=== PATIENT | female | born 1975 | race Caucasian/White ===

== ENCOUNTER 2016-08-04 11:58 | Emergency (ER) | payer OTHER ==
[2016-08-04 12:40] LABS: Hematocrit 41 % (35-47); Hemoglobin 13.8 g/dl (12.0-16.0); Mean Corpuscular HGB Conc 34 g/dl (31-36); Mean Corpuscular Hemoglobin 29 pg (27-31); Mean Corpuscular Volume 85 fL (80-97); Mean Platelet Volume 10 um3 (7.4-10.4); Red Blood Count 4.86 10^6/ul (4.0-5.4); Red Cell Distribution Width 14 % (10.5-15); White Blood Count 8.3 10^3/ul (3.5-10.8)
[2016-08-04 13:03] LABS: ALT 15 U/L (7-52); AST 16 U/L (13-39); Albumin 3.6 g/dL (3.2-5.2); Alkaline Phosphatase 89 U/L (34-104); Anion Gap 5 mmol/L (2-11); BUN/Creatinine Ratio 15.6 (8-20); Blood Urea Nitrogen 14 mg/dL (6-24); CO2 Carbon Dioxide 24 mmol/L (22-32); Chloride 108 mmol/L (101-111); EGFR African American 89.6 (>60); EGFR Non-African American 69.7 (>60); Globulin 2.6 g/dL (2-4); Glucose 110 mg/dL (70-100); Potassium 3.8 mmol/L (3.5-5.0); Sodium 137 mmol/L (133-145); Total Protein 6.2 g/dL (6.4-8.9)
[2016-08-04 13:23] LABS: Acetaminophen < 15 mcg/mL; Alcohol < 10 mg/dL (<10); Salicylate < 2.50 mg/dL (<30)
[2016-08-04] MEDS ORDERED: LORazepam TAB(*) 1 MG ONE (16:16)
[2016-08-04] MEDS ORDERED: QUEtiapine TAB* 25 MG PO SCH (23:00)
[2016-08-05 03:15] VITALS: BP 115/65
--- NOTE | 2016-08-07 09:39 | ED ---
Anay Mesa Matthew, scribed for Terry Galeana MD on 08/04/16 at 1247 . Altered Mental Status - HPI Summary HPI Summary: A 40 y/o female presents to the ED with an altered mental status. The patient states that she is suicidal and wants to "punch" things around her. The mental health unit called police, because they felt the patient was suicidal. She states that she does not have any weapons. She denies homicidal ideation. The patient has had some mild nausea for the past two days. She denies chest pain, vomiting, SOB and weakness. At the [facility], the patient was given an extra 0.5mg of Klonopin for a total of 1mg. - History Of Current Complaint Stated Complaint: 945 Time Seen by Provider: 08/04/16 12:24 Hx Obtained From: Patient Hx Last Menstrual Period: 12/18/13 Onset/Duration: Still Present Timing: Constant Severity Initially: Moderate Severity Currently: Moderate Character: Lethargy Aggravating Factor(s): Nothing Alleviating Factor(s): Nothing Associated Signs And Symptoms: Positive: Nausea - mild for the past two days Has Suicidal: Thoughts - Allergies/Home Medications Allergies/Adverse Reactions: Allergies Allergy/AdvReac Type Severity Reaction Status Date / Time Levofloxacin [From Levaquin] Allergy Intermediate Rash Verified 07/10/16 17:07 Methylphenidate Allergy Intermediate See Comment Verified 07/10/16 17:07 [From Ritalin] Prednisone Allergy Intermediate Anxiety Verified 07/10/16 17:07 PMH/Surg Hx/FS Hx/Imm Hx Endocrine/Hematology History: Denies: Hx Anticoagulant Therapy, Hx Blood Disorders, Hx Blood Transfusions, Hx Bone Marrow Disease, Hx Diabetes, Hx Systemic Lupus Erythematosus, Hx Sickle Cell Disease, Hx Thyroid Disease, Hx Anemia, Hx Unexplained Bleeding, Other Endocrine/Hematological Disorders Cardiovascular History: Reports: Hx Hypercholesterolemia Denies: Hx Hypertension Respiratory History: Reports: Hx Asthma Denies: Hx Chronic Bronchitis, Hx Chronic Obstructive Pulmonary Disease (COPD ), Hx Cystic Fibrosis, Hx Lung Cancer, Hx Pleural Effusion, Hx Pneumonia, Hx Pulmonary Edema, Hx Pulmonary Embolism, Hx Seasonal Allergies, Hx Sleep Apnea, Other Respiratory Problems/Disorders GI History: Reports: Hx Gastroesophageal Reflux Disease, Hx Irritable Bowel Denies: Hx Cirrhosis, Hx Crohn's Disease, Hx Diverticulosis, Hx Gall Bladder Disease, Hx Gastrointestinal Bleed, Hx Hiatal Hernia, Hx Jaundice, Hx Obstructive Bowel, Hx Ileostomy, Hx Pyloric Stenosis, Hx Ulcer, Other GI Disorders Musculoskeletal History: Denies: Hx Arthritis, Hx Back Problems, Hx Bursitis, Hx Congenital Bone Abnormalities, Hx Fibromyalgia, Hx Gout, Hx Orthopedic Injury, Hx Osteoporosis, Hx Scoliosis, Hx Tendonitis, Other Musculoskeletal History Sensory History: Reports: Hx Contacts or Glasses Denies: Hx Cataracts, Hx Eye Injury, Hx Eye Prosthesis, Hx Glaucoma, Hx Legally Blind, Hx Macular Degeneration, Hx Vision Problem, Hx Deafness, Hx Hearing Aid, Hx Hearing Problem, Other Sensory Impairments Opthamlomology History: Reports: Hx Contacts or Glasses Denies: Hx Cataracts, Hx Eye Injury, Hx Eye Prosthesis, Hx Glaucoma, Hx Legally Blind, Hx Macular Degeneration, Hx Vision Problem, Other Sensory Impairments Neurological History: Reports: Hx Migraine, Hx Seizures - Pseudoseizures (per pt ), Other Neuro Impairments/Disorders - seizures versus psychogenic events Denies: Hx Dementia, Hx Developmental Delay, Hx Headaches, Hx Nerve Disease, Hx Spinal Cord Injury, Hx Transient Ischemic Attacks (TIA) Psychiatric History: Reports: Hx Anxiety, Hx Depression, Hx Post Traumatic Stress Disorder, Hx Inpatient Treatment, Hx Community Mental Health Tx, Hx Bipolar Disorder, Hx Suicide Attempt Denies: Hx Attention Deficit Hyperactivity Disorder, Hx Eating Disorder, Hx Panic Disorder, Hx Schizophrenia, Hx of Violent Episodes Against Others, Hx Substance Abuse, Other Psychiatric Issues/Disorders - Immunization History Date of Tetanus Vaccine: UNKNOWN Date of Influenza Vaccine: 2012 Infectious Disease History: No Infectious Disease History: Denies: Hx Clostridium Difficile, Hx Hepatitis, Hx Human Immunodeficiency Virus (HIV), Hx of Known/Suspected MRSA, Hx Shingles, Hx Tuberculosis, Traveled Outside the [place] in Last 30 Days - Family History Known Family History: Positive: Seizure Disorder - Social History Alcohol Use: Occasionally Hx Substance Use: No Substance Use Type: Reports: None Hx Tobacco Use: Yes Smoking Status (MU): Heavy Every Day Tobacco Smoker Type: Cigarettes Amount Used/How Often: 1/2 PPD Length of Time of Smoking/Using Tobacco: 23 Have You Smoked in the Last Year: Yes Review of Systems Constitutional: Negative Positive: Photophobia ENT: Negative Cardiovascular: Negative Negative: Chest Pain Respiratory: Negative Negative: Shortness Of Breath Positive: Nausea. Negative: Vomiting Genitourinary: Negative Musculoskeletal: Negative Skin: Negative Neurological: Negative Negative: Weakness Psychological: Normal All Other Systems Reviewed And Are Negative: Yes Physical Exam - Summary Physical Exam Summary: GENERAL: Awake, alert, oriented, no acute distress HEENT: Head is normocephalic, atraumatic, anicteric sclera, clear conjunctiva, mucous membranes moist, no erythema, no discharge, no lesions, neck is supple, trachea is midline, no JVD CARDIAC: Regular rate and rhythm, S1, S2, no rub, no murmur, no gallop, 2+ radial and pedal pulses bilaterally RESPIRATORY: Clear to auscultation bilaterally with no rales, rhonchi, or wheezes, non-tender ABDOMEN: Bowel sounds positive, no bruit, soft, non-tender, no CVA tenderness EXTREMITIES: No edema, warm, dry, moving all extremities in a grossly normal manner NEUROLOGICAL: Mood is appropriate, moving all extremities in a grossly normal manner psychology: Drossy consistent with extra Klonopin dose Triage Information Reviewed: Yes Vital Signs On Initial Exam: Initial Vitals Temp Pulse Resp BP Pulse Ox 98.9 F 75 14 90/58 92 08/04/16 12:15 08/04/16 12:15 08/04/16 12:15 08/04/16 12:15 08/04/16 12:15 Vital Signs Reviewed: Yes Diagnostics - Vital Signs Vital Signs Temp Pulse Resp BP Pulse Ox 08/04/16 12:15 98.9 F 75 14 90/58 92 - Laboratory Lab Results: Lab Results 08/04/16 08/04/16 Range/Units 12:25 12:25 WBC 8.3 (3.5-10.8) 10^3/ul RBC 4.86 (4.0-5.4) 10^6/ul Hgb 13.8 (12.0-16.0) g/dl Hct 41 (35-47) % MCV 85 (80-97) fL MCH 29 (27-31) pg MCHC 34 (31-36) g/dl RDW 14 (10.5-15) % Plt Count 130 L (150-450) 10^3/ul MPV 10 (7.4-10.4) um3 Neut % (Auto) 68.7 (38-83) % Lymph % (Auto) 21.7 L (25-47) % [place] % (Auto) 6.8 (1-9) % Eos % (Auto) 2.1 (0-6) % Baso % (Auto) 0.7 (0-2) % Absolute Neuts (auto) 5.7 (1.5-7.7) 10^3/ul Absolute Lymphs (auto) 1.8 (1.0-4.8) 10^3/ul Absolute Monos (auto) 0.6 (0-0.8) 10^3/ul Absolute Eos (auto) 0.2 (0-0.6) 10^3/ul Absolute Basos (auto) 0.1 (0-0.2) 10^3/ul Absolute Nucleated RBC 0.01 10^3/ul Nucleated RBC % 0.1 Sodium 137 (133-145) mmol/L Potassium 3.8 (3.5-5.0) mmol/L Chloride 108 (101-111) mmol/L Carbon Dioxide 24 (22-32) mmol/L Anion Gap 5 (2-11) mmol/L BUN 14 (6-24) mg/dL Creatinine 0.90 (0.51-0.95) mg/dL Est GFR ( Amer) 89.6 (>60) Est GFR (Non-Af Amer) 69.7 (>60) BUN/Creatinine Ratio 15.6 (8-20) Glucose 110 H (70-100) mg/dL Calcium 9.0 (8.6-10.3) mg/dL Total Bilirubin 0.30 (0.2-1.0) mg/dL AST 16 (13-39) U/L ALT 15 (7-52) U/L Alkaline Phosphatase 89 (34-104) U/L Total Protein 6.2 L (6.4-8.9) g/dL Albumin 3.6 (3.2-5.2) g/dL Globulin 2.6 (2-4) g/dL Albumin/Globulin Ratio 1.4 (1-3) TSH 0.80 (0.34-5.60) mcIU/mL Beta HCG, Quant < 0.60 mIU/mL Salicylates < 2.50 (<30) mg/dL Acetaminophen < 15 mcg/mL Serum Alcohol < 10 (<10) mg/dL Result Diagrams: 08/04/16 12:25 08/04/16 12:25 Lab Statement: Any lab studies that have been ordered have been reviewed, and results considered in the medical decision making process. Altered Mental Statu Course/Dx - Course Assessment/Plan: The patient is cleared for [facility]HE. - Diagnoses Discharge Diagnoses: mood do nos Discharge - Discharge Plan Condition: Stable Disposition: TRANS HIGHER LVL OF CARE FAC Referrals: Camilo Osman MD [Primary Care Provider] - The documentation as recorded by the Anay baugh Matthew accurately reflects the service I personally performed and the decisions made by Kevrin anaya Steven, MD.
== END 2016-08-05 03:00 | disposition short-term general hospital (02) ==
LOC: ED 11:58
DX: F39 Unspecified mood [affective] disorder (principal); E78.00 Pure hypercholesterolemia, unspecified; J45.909 Unspecified asthma, uncomplicated; K21.9 Gastro-esophageal reflux disease without esophagitis; F17.210 Nicotine dependence, cigarettes, uncomplicated
CPT/HCPCS: 36415; 80053; 80320; 80329; 84443; 84702; 85025; 93005; 99285; A9270-GY; G0480

== ENCOUNTER 2016-09-20 11:38 | Emergency (ER) | payer OTHER ==
[2016-09-20 13:47] LABS: Hematocrit 44 % (35-47); Hemoglobin 14.9 g/dl (12.0-16.0); Mean Corpuscular HGB Conc 34 g/dl (31-36); Mean Corpuscular Hemoglobin 29 pg (27-31); Mean Corpuscular Volume 85 fL (80-97); Mean Platelet Volume 10 um3 (7.4-10.4); Red Blood Count 5.18 10^6/ul (4.0-5.4); Red Cell Distribution Width 14 % (10.5-15); White Blood Count 6.2 10^3/ul (3.5-10.8)
[2016-09-20 14:04] LABS: ALT 9 U/L (7-52); AST 14 U/L (13-39); Alkaline Phosphatase 93 U/L (34-104); Anion Gap 6 mmol/L (2-11); Blood Urea Nitrogen 15 mg/dL (6-24); CO2 Carbon Dioxide 25 mmol/L (22-32); Calcium 9.5 mg/dL (8.6-10.3); Chloride 105 mmol/L (101-111); EGFR African American 84.8 (>60); Globulin 2.9 g/dL (2-4); Glucose 106 mg/dL (70-100); Magnesium 2.1 mg/dL (1.9-2.7); Potassium 4.1 mmol/L (3.5-5.0); Sodium 136 mmol/L (133-145); Total Protein 6.9 g/dL (6.4-8.9)
[2016-09-20 14:15] LABS: Alcohol < 10 mg/dL (<10)
[2016-09-20 15:16] VITALS: BP 95/58
--- NOTE | 2016-10-01 17:41 | ED ---
Anay Mesa Matthew, scribed for Supa Fermin MD on 09/20/16 at 1316 . Neurological HPI - HPI Summary HPI Summary: A 41 y/o female presents to the ED multiple seizures while at the dentist's office at 11:00 today. The patient has intermittent seizures and states that they are triggered by her stress and PTSD. The patient's last seizure was about a month ago. Associated symptoms currently include fatigue. She denies incontinence. The patient did not get a full night rest last night. The patient was ill a few weeks ago. She smokes, but does not use alcohol. - History of Current Complaint Chief Complaint: EDSeizure Stated Complaint: SEIZURE Time Seen by Provider: 09/20/16 12:06 Hx Obtained From: Patient Hx Last Menstrual Period: 12/18/13 Onset/Duration: Sudden Onset, Started hours ago, Resolved Current Severity: None Seizure Severity: Moderate Associated Signs and Symptoms: Positive: Seizure. Negative: Incontinent Bladder /Bowel - Additional Pertinent History Primary Care Physician: [id number] - Allergy/Home Medications Allergies/Adverse Reactions: Allergies Allergy/AdvReac Type Severity Reaction Status Date / Time Levofloxacin [From Levaquin] Allergy Intermediate Rash Verified 07/10/16 17:07 Methylphenidate Allergy Intermediate See Comment Verified 07/10/16 17:07 [From Ritalin] Prednisone Allergy Intermediate Anxiety Verified 07/10/16 17:07 PMH/Surg Hx/FS Hx/Imm Hx Endocrine/Hematology History: Denies: Hx Anticoagulant Therapy, Hx Blood Disorders, Hx Blood Transfusions, Hx Bone Marrow Disease, Hx Diabetes, Hx Systemic Lupus Erythematosus, Hx Sickle Cell Disease, Hx Thyroid Disease, Hx Anemia, Hx Unexplained Bleeding, Other Endocrine/Hematological Disorders Cardiovascular History: Reports: Hx Hypercholesterolemia Denies: Hx Hypertension Respiratory History: Reports: Hx Asthma Denies: Hx Chronic Bronchitis, Hx Chronic Obstructive Pulmonary Disease (COPD ), Hx Cystic Fibrosis, Hx Lung Cancer, Hx Pleural Effusion, Hx Pneumonia, Hx Pulmonary Edema, Hx Pulmonary Embolism, Hx Seasonal Allergies, Hx Sleep Apnea, Other Respiratory Problems/Disorders GI History: Reports: Hx Gastroesophageal Reflux Disease, Hx Irritable Bowel Denies: Hx Cirrhosis, Hx Crohn's Disease, Hx Diverticulosis, Hx Gall Bladder Disease, Hx Gastrointestinal Bleed, Hx Hiatal Hernia, Hx Jaundice, Hx Obstructive Bowel, Hx Ileostomy, Hx Pyloric Stenosis, Hx Ulcer, Other GI Disorders Musculoskeletal History: Denies: Hx Arthritis, Hx Back Problems, Hx Bursitis, Hx Congenital Bone Abnormalities, Hx Fibromyalgia, Hx Gout, Hx Orthopedic Injury, Hx Osteoporosis, Hx Scoliosis, Hx Tendonitis, Other Musculoskeletal History Sensory History: Reports: Hx Contacts or Glasses Denies: Hx Cataracts, Hx Eye Injury, Hx Eye Prosthesis, Hx Glaucoma, Hx Legally Blind, Hx Macular Degeneration, Hx Vision Problem, Hx Deafness, Hx Hearing Aid, Hx Hearing Problem, Other Sensory Impairments Opthamlomology History: Reports: Hx Contacts or Glasses Denies: Hx Cataracts, Hx Eye Injury, Hx Eye Prosthesis, Hx Glaucoma, Hx Legally Blind, Hx Macular Degeneration, Hx Vision Problem, Other Sensory Impairments Neurological History: Reports: Hx Migraine, Hx Seizures - Pseudoseizures (per pt ), Other Neuro Impairments/Disorders - seizures versus psychogenic events Denies: Hx Dementia, Hx Developmental Delay, Hx Headaches, Hx Nerve Disease, Hx Spinal Cord Injury, Hx Transient Ischemic Attacks (TIA) Psychiatric History: Reports: Hx Anxiety, Hx Depression, Hx Post Traumatic Stress Disorder, Hx Inpatient Treatment, Hx Community Mental Health Tx, Hx Bipolar Disorder, Hx Suicide Attempt Denies: Hx Attention Deficit Hyperactivity Disorder, Hx Eating Disorder, Hx Panic Disorder, Hx Schizophrenia, Hx of Violent Episodes Against Others, Hx Substance Abuse, Other Psychiatric Issues/Disorders - Immunization History Date of Tetanus Vaccine: UNKNOWN Date of Influenza Vaccine: 2012 Infectious Disease History: No Infectious Disease History: Denies: Hx Clostridium Difficile, Hx Hepatitis, Hx Human Immunodeficiency Virus (HIV), Hx of Known/Suspected MRSA, Hx Shingles, Hx Tuberculosis, Traveled Outside the [place] in Last 30 Days - Family History Known Family History: Positive: Unknown, Seizure Disorder - Social History Alcohol Use: Occasionally Hx Substance Use: No Substance Use Type: Reports: None Hx Tobacco Use: Yes Smoking Status (MU): Heavy Every Day Tobacco Smoker Type: Cigarettes Amount Used/How Often: 1/2 PPD Length of Time of Smoking/Using Tobacco: 23 Have You Smoked in the Last Year: Yes Review of Systems Positive: Fatigue. Negative: Fever, Chills Eyes: Negative Negative: Erythema ENT: Negative Negative: Sore Throat Cardiovascular: Negative Negative: Chest Pain Respiratory: Negative Negative: Shortness Of Breath Gastrointestinal: Negative Negative: Abdominal Pain, Vomiting, Nausea Genitourinary: Negative Negative: dysuria, hematuria, incontinence Musculoskeletal: Negative Positive: Myalgia. Negative: Edema Skin: Negative Negative: Rash Neurological: Other - seizure Psychological: Normal All Other Systems Reviewed And Are Negative: Yes Physical Exam Triage Information Reviewed: Yes Vital Signs On Initial Exam: Initial Vitals Temp Pulse Resp BP Pulse Ox 98.2 F 75 14 101/64 91 09/20/16 11:40 09/20/16 11:40 09/20/16 11:40 09/20/16 11:40 09/20/16 11:40 Vital Signs Reviewed: Yes Appearance: Positive: Well-Appearing, No Pain Distress, Well-Nourished Skin: Positive: Warm, Dry Head/Face: Positive: Other - Normocephalic; Atraumatic Eyes: Positive: Conjunctiva Clear ENT: Positive: Normal ENT inspection Dental: Positive: Other - top teeth are missing Neck: Positive: Supple, Nontender, No Lymphadenopathy, Other: - Full ROM Respiratory/Lung Sounds: Positive: Breath Sounds Present, Wheezes - Expiratory wheezing. Negative: Rales, Rhonchi, Stridor, Tracheal Deviation Cardiovascular: Positive: RRR, Other - Heart sounds normal; Intact distal pulses ; The pedal pulses are 2+ and symmetric. Radial pulses are 2+ and symmetric. Negative: Murmur Abdomen Description: Positive: Nontender, Soft, Other: - No Rebound. Negative: Distended, Guarding Bowel Sounds: Positive: Present Musculoskeletal: Negative: Edema Left, Edema Right Neurological: Positive: Alert, Oriented to Person Place, Time Psychiatric: Positive: Affect/Mood Appropriate - Mode Coma Scale Coma Scale Total: 15 Diagnostics - Vital Signs Vital Signs Temp Pulse Resp BP Pulse Ox 09/20/16 11:40 98.2 F 75 14 101/64 91 - Laboratory Lab Results: Lab Results 09/20/16 09/20/16 09/20/16 Range/Units 13:35 13:35 13:35 WBC 6.2 (3.5-10.8) 10^3/ul RBC 5.18 (4.0-5.4) 10^6/ul Hgb 14.9 (12.0-16.0) g/dl Hct 44 (35-47) % MCV 85 (80-97) fL MCH 29 (27-31) pg MCHC 34 (31-36) g/dl RDW 14 (10.5-15) % Plt Count 162 (150-450) 10^3/ul MPV 10 (7.4-10.4) um3 Neut % (Auto) 60.7 (38-83) % Lymph % (Auto) 29.9 (25-47) % [place] % (Auto) 6.4 (1-9) % Eos % (Auto) 2.0 (0-6) % Baso % (Auto) 1.0 (0-2) % Absolute Neuts (auto) 3.8 (1.5-7.7) 10^3/ul Absolute Lymphs (auto) 1.9 (1.0-4.8) 10^3/ul Absolute Monos (auto) 0.4 (0-0.8) 10^3/ul Absolute Eos (auto) 0.1 (0-0.6) 10^3/ul Absolute Basos (auto) 0.1 (0-0.2) 10^3/ul Absolute Nucleated RBC 0 10^3/ul Nucleated RBC % 0.1 INR (Anticoag Therapy) 0.92 (0.89-1.11) Sodium 136 (133-145) mmol/L Potassium 4.1 (3.5-5.0) mmol/L Chloride 105 (101-111) mmol/L Carbon Dioxide 25 (22-32) mmol/L Anion Gap 6 (2-11) mmol/L BUN 15 (6-24) mg/dL Creatinine 0.94 (0.51-0.95) mg/dL Est GFR ( Amer) 84.8 (>60) Est GFR (Non-Af Amer) 66.0 (>60) BUN/Creatinine Ratio 16.0 (8-20) Glucose 106 H (70-100) mg/dL Lactic Acid (0.5-2.0) mmol/L Calcium 9.5 (8.6-10.3) mg/dL Magnesium 2.1 (1.9-2.7) mg/dL Total Bilirubin 0.30 (0.2-1.0) mg/dL AST 14 (13-39) U/L ALT 9 (7-52) U/L Alkaline Phosphatase 93 (34-104) U/L Total Protein 6.9 (6.4-8.9) g/dL Albumin 4.0 (3.2-5.2) g/dL Globulin 2.9 (2-4) g/dL Albumin/Globulin Ratio 1.4 (1-3) Serum Alcohol < 10 (<10) mg/dL 09/20/16 Range/Units 13:35 WBC (3.5-10.8) 10^3/ul RBC (4.0-5.4) 10^6/ul Hgb (12.0-16.0) g/dl Hct (35-47) % MCV (80-97) fL MCH (27-31) pg MCHC (31-36) g/dl RDW (10.5-15) % Plt Count (150-450) 10^3/ul MPV (7.4-10.4) um3 Neut % (Auto) (38-83) % Lymph % (Auto) (25-47) % [place] % (Auto) (1-9) % Eos % (Auto) (0-6) % Baso % (Auto) (0-2) % Absolute Neuts (auto) (1.5-7.7) 10^3/ul Absolute Lymphs (auto) (1.0-4.8) 10^3/ul Absolute Monos (auto) (0-0.8) 10^3/ul Absolute Eos (auto) (0-0.6) 10^3/ul Absolute Basos (auto) (0-0.2) 10^3/ul Absolute Nucleated RBC 10^3/ul Nucleated RBC % INR (Anticoag Therapy) (0.89-1.11) Sodium (133-145) mmol/L Potassium (3.5-5.0) mmol/L Chloride (101-111) mmol/L Carbon Dioxide (22-32) mmol/L Anion Gap (2-11) mmol/L BUN (6-24) mg/dL Creatinine (0.51-0.95) mg/dL Est GFR ( Amer) (>60) Est GFR (Non-Af Amer) (>60) BUN/Creatinine Ratio (8-20) Glucose (70-100) mg/dL Lactic Acid 0.5 (0.5-2.0) mmol/L Calcium (8.6-10.3) mg/dL Magnesium (1.9-2.7) mg/dL Total Bilirubin (0.2-1.0) mg/dL AST (13-39) U/L ALT (7-52) U/L Alkaline Phosphatase (34-104) U/L Total Protein (6.4-8.9) g/dL Albumin (3.2-5.2) g/dL Globulin (2-4) g/dL Albumin/Globulin Ratio (1-3) Serum Alcohol (<10) mg/dL Result Diagrams: 09/20/16 13:35 09/20/16 13:35 Lab Statement: Any lab studies that have been ordered have been reviewed, and results considered in the medical decision making process. - EKG 12:35 Cardiac Rate: NL - 65 bpm EKG Interpretation: Sinus arrhythmia; No STEMI Course/Dx - Course Assessment/Plan: A 41 y/o female presents to the ED multiple seizures while at the dentist's office at 11:00 today. The patient has intermittent seizures and states that they are triggered by her stress and PTSD. Labs were reviewed. EKG shows sinus arrhythmia at 65 bpm. The patient will discharged home and follow- up with her PCP in two days. - Diagnoses Provider Diagnoses: PANIC ATTACK Discharge - Discharge Plan Condition: Stable Disposition: HOME Patient Education Materials: Panic Attack (ED) Referrals: Camilo Osman MD [Primary Care Provider] - 2 Days Additional Instructions: Please follow-up with your primary care physician in two days. The documentation as recorded by the Anay baugh Matthew accurately reflects the service I personally performed and the decisions made by , Supa Fermin MD.
== END 2016-09-20 15:16 | disposition home or self-care (01) ==
LOC: ED 11:38
DX: F41.0 Panic disorder [episodic paroxysmal anxiety] (principal); M79.1 Myalgia; R53.83 Other fatigue; R56.9 Unspecified convulsions; F17.210 Nicotine dependence, cigarettes, uncomplicated
CPT/HCPCS: 36415; 80053; 80320; 83605; 83735; 85025; 85610; 93005; 99282; G0480

== ENCOUNTER 2016-11-18 14:27 | Inpatient (IN) | payer OTHER ==
[2016-11-18 15:59] LABS: Hematocrit 43 % (35-47); Hemoglobin 14.4 g/dl (12.0-16.0); Mean Corpuscular HGB Conc 33 g/dl (31-36); Mean Corpuscular Hemoglobin 29 pg (27-31); Mean Corpuscular Volume 86 fL (80-97); Mean Platelet Volume 11 um3 (7.4-10.4); Red Blood Count 5.05 10^6/ul (4.0-5.4); Red Cell Distribution Width 15 % (10.5-15); White Blood Count 8.7 10^3/ul (3.5-10.8)
[2016-11-18 16:09] LABS: ALT 8 U/L (7-52); AST 12 U/L (13-39); Alkaline Phosphatase 101 U/L (34-104); Anion Gap 5 mmol/L (2-11); BUN/Creatinine Ratio 9.9 (8-20); Blood Urea Nitrogen 10 mg/dL (6-24); CO2 Carbon Dioxide 26 mmol/L (22-32); Calcium 9.3 mg/dL (8.6-10.3); Chloride 106 mmol/L (101-111); EGFR African American 78.1 (>60); EGFR Non-African American 60.7 (>60); Globulin 2.8 g/dL (2-4); Glucose 98 mg/dL (70-100); Sodium 137 mmol/L (133-145); Total Protein 6.8 g/dL (6.4-8.9)
[2016-11-18 16:10] LABS: Acetaminophen < 15 mcg/mL; Alcohol < 10 mg/dL (<10); Salicylate < 2.50 mg/dL (<30)
[2016-11-18 16:16] LABS: Urine Bacteria Absent (Absent); Urine Bilirubin Negative (Negative); Urine Glucose Negative (Negative); Urine Nitrite Negative (Negative)
[2016-11-18 16:19] LABS: TSH (Thyroid Stimulating Horm) 0.66 mcIU/mL (0.34-5.60)
[2016-11-18 16:25] LABS: Benzodiazepine Urine Screen None Detected (None Detect)
[2016-11-18] MEDS ORDERED: Nicotine Inhaler* 10 MG AMP INH PRN (19:27)
[2016-11-18] MEDS: Prazosin CAP* 1 MG PO SCH (21:17)
[2016-11-18] MEDS: buPROPion TAB* 75 MG PO SCH (21:17)
[2016-11-18] MEDS: traZODone TAB* 100 MG PO SCH (21:18)
[2016-11-18] MEDS: REXULTI 3 MG PO SCH (21:18)
[2016-11-18] MEDS: Mometasone/Formoter 200/5 MDI INH SCH (21:20)
--- NOTE | 2016-11-18 22:12 | ED ---
Yuan Mesa Aidan, scribed for Sandoval Rinaldi MD on 11/18/16 at 1659 . Psychiatric Complaint - HPI Summary HPI Summary: 41 y/o female presents to the ED via recommendation from her therapist because she claimed that she felt more unsafe than usual. Though she has had prior suicide attempts and claims that she wants to harm herself, she said she has no intention of committing suicide. - History Of Current Complaint Chief Complaint: EDMentalHealth Time Seen by Provider: 11/18/16 14:43 Hx Obtained From: Patient Hx Last Menstrual Period: 12/18/13 ?: No Onset/Duration: Sudden Onset, Lasting Hours, Still Present Timing: Intermittent Episode Lasting - Pt has episodes of suicidal thoughts but states she has no intention of taking her life Severity Initially: Moderate Severity Currently: Moderate Character: Depressed Aggravating Factor(s): Other - unknown Alleviating Factor(s): Other - unknown Associated Signs And Symptoms: Positive: Negative Related History: Positive For: Prior Psychiatric Issues - previous suicide attempt Has Suicidal: Reports: Thoughts, Has Prior Attempt(s). Denies: With A Plan, Demonstrates Gesture Has Homicidal: Denies: Thoughts, With A Plan, Demonstrates Gesture, Has Prior Attempt(s) - Risk Factor(s) Completed Suicide Risk Factors: White [place], Unemployed, Past Suicide Attempt - Allergies/Home Medications Allergies/Adverse Reactions: Allergies Allergy/AdvReac Type Severity Reaction Status Date / Time Levofloxacin [From Levaquin] Allergy Intermediate Rash Verified 11/18/16 19:07 Methylphenidate Allergy Intermediate See Comment Verified 11/18/16 19:07 [From Ritalin] Prednisone Allergy Intermediate Anxiety Verified 11/18/16 19:07 PMH/Surg Hx/FS Hx/Imm Hx Endocrine/Hematology History: Denies: Hx Anticoagulant Therapy, Hx Blood Disorders, Hx Blood Transfusions, Hx Bone Marrow Disease, Hx Diabetes, Hx Systemic Lupus Erythematosus, Hx Sickle Cell Disease, Hx Thyroid Disease, Hx Anemia, Hx Unexplained Bleeding, Other Endocrine/Hematological Disorders Cardiovascular History: Reports: Hx Hypercholesterolemia Denies: Hx Hypertension Respiratory History: Reports: Hx Asthma Denies: Hx Chronic Bronchitis, Hx Chronic Obstructive Pulmonary Disease (COPD ), Hx Cystic Fibrosis, Hx Lung Cancer, Hx Pleural Effusion, Hx Pneumonia, Hx Pulmonary Edema, Hx Pulmonary Embolism, Hx Seasonal Allergies, Hx Sleep Apnea, Other Respiratory Problems/Disorders GI History: Reports: Hx Gastroesophageal Reflux Disease, Hx Irritable Bowel Denies: Hx Cirrhosis, Hx Crohn's Disease, Hx Diverticulosis, Hx Gall Bladder Disease, Hx Gastrointestinal Bleed, Hx Hiatal Hernia, Hx Jaundice, Hx Obstructive Bowel, Hx Ileostomy, Hx Pyloric Stenosis, Hx Ulcer, Other GI Disorders Musculoskeletal History: Denies: Hx Arthritis, Hx Back Problems, Hx Bursitis, Hx Congenital Bone Abnormalities, Hx Fibromyalgia, Hx Gout, Hx Orthopedic Injury, Hx Osteoporosis, Hx Scoliosis, Hx Tendonitis, Other Musculoskeletal History Sensory History: Reports: Hx Contacts or Glasses Denies: Hx Cataracts, Hx Eye Injury, Hx Eye Prosthesis, Hx Glaucoma, Hx Legally Blind, Hx Macular Degeneration, Hx Vision Problem, Hx Deafness, Hx Hearing Aid, Hx Hearing Problem, Other Sensory Impairments Opthamlomology History: Reports: Hx Contacts or Glasses Denies: Hx Cataracts, Hx Eye Injury, Hx Eye Prosthesis, Hx Glaucoma, Hx Legally Blind, Hx Macular Degeneration, Hx Vision Problem, Other Sensory Impairments Neurological History: Reports: Hx Migraine, Hx Seizures - Pseudoseizures (per pt ), Other Neuro Impairments/Disorders - seizures versus psychogenic events Denies: Hx Dementia, Hx Developmental Delay, Hx Headaches, Hx Nerve Disease, Hx Spinal Cord Injury, Hx Transient Ischemic Attacks (TIA) Psychiatric History: Reports: Hx Anxiety, Hx Depression, Hx Post Traumatic Stress Disorder, Hx Inpatient Treatment, Hx Community Mental Health Tx, Hx Bipolar Disorder, Hx Suicide Attempt Denies: Hx Attention Deficit Hyperactivity Disorder, Hx Eating Disorder, Hx Panic Disorder, Hx Schizophrenia, Hx of Violent Episodes Against Others, Hx Substance Abuse, Other Psychiatric Issues/Disorders - Immunization History Date of Tetanus Vaccine: UNKNOWN Date of Influenza Vaccine: 2012 Infectious Disease History: No Infectious Disease History: Denies: Hx Clostridium Difficile, Hx Hepatitis, Hx Human Immunodeficiency Virus (HIV), Hx of Known/Suspected MRSA, Hx Shingles, Hx Tuberculosis, Traveled Outside the [place] in Last 30 Days - Family History Known Family History: Positive: Seizure Disorder - Social History Occupation: Unemployed Lives: With Family Alcohol Use: Occasionally Hx Substance Use: No Substance Use Type: Reports: None Hx Tobacco Use: Yes Smoking Status (MU): Heavy Every Day Tobacco Smoker Type: Cigarettes Amount Used/How Often: 1/2 PPD Length of Time of Smoking/Using Tobacco: 23 Have You Smoked in the Last Year: Yes Review of Systems Constitutional: Negative Eyes: Negative ENT: Negative Cardiovascular: Negative Respiratory: Negative Gastrointestinal: Negative Genitourinary: Negative Musculoskeletal: Negative Skin: Negative Neurological: Negative Psychological: Other - Pt states that she feels unsafe and has suicidal thoughts , despite having no plan/intention of harming herself Positive: Depressed All Other Systems Reviewed And Are Negative: Yes Physical Exam Triage Information Reviewed: Yes Vital Signs On Initial Exam: Initial Vitals Temp Pulse Resp BP Pulse Ox 98.4 F 88 20 118/62 911 11/18/16 14:58 11/18/16 14:58 11/18/16 14:58 11/18/16 14:58 11/18/16 14:58 Vital Signs Reviewed: Yes Appearance: Positive: Well-Appearing, No Pain Distress Skin: Positive: Warm, Skin Color Reflects Adequate Perfusion, Dry Head/Face: Positive: Normal Head/Face Inspection Eyes: Positive: Normal ENT: Positive: Normal ENT inspection Neck: Positive: Supple, Nontender Respiratory/Lung Sounds: Positive: Clear to Auscultation, Breath Sounds Present Cardiovascular: Positive: RRR Abdomen Description: Positive: Nontender, Soft Bowel Sounds: Positive: Present Musculoskeletal: Positive: Normal Neurological: Positive: Normal Psychiatric: Positive: Depressed - [place] Coma Scale Coma Scale Total: 15 Diagnostics - Vital Signs Vital Signs Temp Pulse Resp BP Pulse Ox 11/18/16 15:10 98.9 F 114 20 114/70 91 11/18/16 14:58 98.4 F 88 20 118/62 911 - Laboratory Lab Results: Lab Results 11/18/16 11/18/16 11/18/16 Range/Units 14:25 14:25 14:45 WBC 8.7 (3.5-10.8) 10^3/ul RBC 5.05 (4.0-5.4) 10^6/ul Hgb 14.4 (12.0-16.0) g/dl Hct 43 (35-47) % MCV 86 (80-97) fL MCH 29 (27-31) pg MCHC 33 (31-36) g/dl RDW 15 (10.5-15) % Plt Count 149 L (150-450) 10^3/ul MPV 11 H (7.4-10.4) um3 Neut % (Auto) 69.2 (38-83) % Lymph % (Auto) 22.5 L (25-47) % [place] % (Auto) 6.1 (1-9) % Eos % (Auto) 1.4 (0-6) % Baso % (Auto) 0.8 (0-2) % Absolute Neuts (auto) 6.0 (1.5-7.7) 10^3/ul Absolute Lymphs (auto) 1.9 (1.0-4.8) 10^3/ul Absolute Monos (auto) 0.5 (0-0.8) 10^3/ul Absolute Eos (auto) 0.1 (0-0.6) 10^3/ul Absolute Basos (auto) 0.1 (0-0.2) 10^3/ul Absolute Nucleated RBC 0.01 10^3/ul Nucleated RBC % 0.1 Sodium 137 (133-145) mmol/L Potassium 4.0 (3.5-5.0) mmol/L Chloride 106 (101-111) mmol/L Carbon Dioxide 26 (22-32) mmol/L Anion Gap 5 (2-11) mmol/L BUN 10 (6-24) mg/dL Creatinine 1.01 H (0.51-0.95) mg/dL Est GFR ( Amer) 78.1 (>60) Est GFR (Non-Af Amer) 60.7 (>60) BUN/Creatinine Ratio 9.9 (8-20) Glucose 98 (70-100) mg/dL Calcium 9.3 (8.6-10.3) mg/dL Total Bilirubin 0.30 (0.2-1.0) mg/dL AST 12 L (13-39) U/L ALT 8 (7-52) U/L Alkaline Phosphatase 101 (34-104) U/L Total Protein 6.8 (6.4-8.9) g/dL Albumin 4.0 (3.2-5.2) g/dL Globulin 2.8 (2-4) g/dL Albumin/Globulin Ratio 1.4 (1-3) TSH 0.66 (0.34-5.60) mcIU/mL Beta HCG, Quant < 0.60 mIU/mL Urine Color Yellow Urine Appearance Cloudy Urine pH 5.0 (5-9) Ur Specific [place] 1.014 (1.010-1.030) Urine Protein Negative (Negative) Urine Ketones Negative (Negative) Urine Blood 2+ H (Negative) Urine Nitrate Negative (Negative) Urine Bilirubin Negative (Negative) Urine Urobilinogen Negative (Negative) Ur Leukocyte Esterase 3+ H (Negative) Urine WBC (Auto) 2+(11-20/hpf) H (Absent) Urine RBC (Auto) 1+(3-5/hpf) H (Absent) Ur Squamous Epith Cells Present H (Absent) Urine Bacteria Absent (Absent) Urine Glucose Negative (Negative) Salicylates < 2.50 (<30) mg/dL Urine Opiates Screen (None Detect) Acetaminophen < 15 mcg/mL Ur Barbiturates Screen (None Detect) Ur Phencyclidine Scrn (None Detect) Ur Amphetamines Screen (None Detect) U Benzodiazepines Scrn (None Detect) Urine Cocaine Screen (None Detect) U Cannabinoids Screen (None Detect) Serum Alcohol < 10 (<10) mg/dL 11/18/16 Range/Units 14:45 WBC (3.5-10.8) 10^3/ul RBC (4.0-5.4) 10^6/ul Hgb (12.0-16.0) g/dl Hct (35-47) % MCV (80-97) fL MCH (27-31) pg MCHC (31-36) g/dl RDW (10.5-15) % Plt Count (150-450) 10^3/ul MPV (7.4-10.4) um3 Neut % (Auto) (38-83) % Lymph % (Auto) (25-47) % [place] % (Auto) (1-9) % Eos % (Auto) (0-6) % Baso % (Auto) (0-2) % Absolute Neuts (auto) (1.5-7.7) 10^3/ul Absolute Lymphs (auto) (1.0-4.8) 10^3/ul Absolute Monos (auto) (0-0.8) 10^3/ul Absolute Eos (auto) (0-0.6) 10^3/ul Absolute Basos (auto) (0-0.2) 10^3/ul Absolute Nucleated RBC 10^3/ul Nucleated RBC % Sodium (133-145) mmol/L Potassium (3.5-5.0) mmol/L Chloride (101-111) mmol/L Carbon Dioxide (22-32) mmol/L Anion Gap (2-11) mmol/L BUN (6-24) mg/dL Creatinine (0.51-0.95) mg/dL Est GFR ( Amer) (>60) Est GFR (Non-Af Amer) (>60) BUN/Creatinine Ratio (8-20) Glucose (70-100) mg/dL Calcium (8.6-10.3) mg/dL Total Bilirubin (0.2-1.0) mg/dL AST (13-39) U/L ALT (7-52) U/L Alkaline Phosphatase (34-104) U/L Total Protein (6.4-8.9) g/dL Albumin (3.2-5.2) g/dL Globulin (2-4) g/dL Albumin/Globulin Ratio (1-3) TSH (0.34-5.60) mcIU/mL Beta HCG, Quant mIU/mL Urine Color Urine Appearance Urine pH (5-9) Ur Specific [place] (1.010-1.030) Urine Protein (Negative) Urine Ketones (Negative) Urine Blood (Negative) Urine Nitrate (Negative) Urine Bilirubin (Negative) Urine Urobilinogen (Negative) Ur Leukocyte Esterase (Negative) Urine WBC (Auto) (Absent) Urine RBC (Auto) (Absent) Ur Squamous Epith Cells (Absent) Urine Bacteria (Absent) Urine Glucose (Negative) Salicylates (<30) mg/dL Urine Opiates Screen None detected (None Detect) Acetaminophen mcg/mL Ur Barbiturates Screen None detected (None Detect) Ur Phencyclidine Scrn None detected (None Detect) Ur Amphetamines Screen None detected (None Detect) U Benzodiazepines Scrn None detected (None Detect) Urine Cocaine Screen None detected (None Detect) U Cannabinoids Screen None detected (None Detect) Serum Alcohol (<10) mg/dL Result Diagrams: 11/18/16 14:25 11/18/16 14:25 Lab Statement: Any lab studies that have been ordered have been reviewed, and results considered in the medical decision making process. Course/Dx - Course Course Of Treatment: 41 y/o female presents via recommendation by her therapist for suicidal thoughts. She has previously attempted suicide and currently claims that, though she does not plan on taking her life, she feels unsafe. - Differential Dx/Clinical Impression Provider Diagnosis: Depression Discharge - Discharge Plan Condition: Stable Disposition: ADMITTED TO [facility] documentation as recorded by the Yuan baugh Aidan accurately reflects the service I personally performed and the decisions made by me, Sandoval Rinaldi MD.
[2016-11-19] MEDS: Albuterol HFA INHALER* 8 gm MDI INH PRN (08:01)
[2016-11-19] MEDS: Mometasone/Formoter 200/5 MDI INH SCH ×2 (09:28→21:11)
[2016-11-19] MEDS: Omeprazole CAP* 20 MG PO SCH (09:28)
[2016-11-19] MEDS: clonazePAM TAB(*) 0.5 MG PO PRN ×2 (09:32→19:53)
[2016-11-19] MEDS: Acetaminophen TAB* 325 MG PO PRN (15:01)
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
[2016-11-19] MEDS: buPROPion TAB* 75 MG PO SCH (20:53)
[2016-11-19] MEDS: traZODone TAB* 100 MG PO SCH (20:54)
[2016-11-19] MEDS: Prazosin CAP* 1 MG PO SCH (21:09)
[2016-11-19] MEDS: REXULTI 3 MG PO SCH (21:12)
[2016-11-20] MEDS: Omeprazole CAP* 20 MG PO SCH (08:57)
[2016-11-20] MEDS: Mometasone/Formoter 200/5 MDI INH SCH ×2 (09:47→20:53)
[2016-11-20] MEDS: Albuterol HFA INHALER* 8 gm MDI INH PRN ×2 (09:48→19:19)
[2016-11-20] MEDS: clonazePAM TAB(*) 0.5 MG PO PRN (18:14)
[2016-11-20] MEDS: Acetaminophen TAB* 325 MG PO PRN (20:49)
[2016-11-20] MEDS: Prazosin CAP* 1 MG PO SCH (20:49)
[2016-11-20] MEDS: buPROPion TAB* 75 MG PO SCH (20:49)
[2016-11-20] MEDS: traZODone TAB* 100 MG PO SCH (20:50)
[2016-11-20] MEDS: REXULTI 3 MG PO SCH (20:53)
[2016-11-21] MEDS: Omeprazole CAP* 20 MG PO SCH (07:05)
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
[2016-11-21] MEDS: Acetaminophen TAB* 325 MG PO PRN (09:18)
[2016-11-21] MEDS: Mometasone/Formoter 200/5 MDI INH SCH ×2 (09:18→22:40)
[2016-11-21 11:14] VITALS: BP 108/63
--- NOTE | 2016-11-21 11:39 | PN ---
[facility]: Group Therapy Note - Service Type Service Type: 80171 Group Psychotherapy - Cognitive Behavioral Group Therapy ( CBT):Patient was attentive and participatory in CBT programming this morning, and remained in good behavioral control. Patient expressed positive insights regarding relevant treatment interventions and goals.
[2016-11-21] MEDS: clonazePAM TAB(*) 0.5 MG PO PRN ×2 (13:21→22:26)
[2016-11-21] MEDS: Albuterol HFA INHALER* 8 gm MDI INH PRN (18:39)
[2016-11-21] MEDS: buPROPion TAB* 75 MG PO SCH (22:25)
[2016-11-21] MEDS: Prazosin CAP* 1 MG PO SCH (22:25)
[2016-11-21] MEDS: traZODone TAB* 100 MG PO SCH (22:25)
[2016-11-22] MEDS: REXULTI 3 MG PO SCH (02:44)
[2016-11-22] MEDS: Omeprazole CAP* 20 MG PO SCH (06:59)
[2016-11-22] MEDS: Mometasone/Formoter 200/5 MDI INH SCH ×2 (09:49→21:45)
--- NOTE | 2016-11-22 11:22 | PN ---
MHU: Group Therapy Note - Service Type Service Type: 01096 Group Psychotherapy - Cognitive Behavioral Group Therapy ( CBT):Patient was attentive and participatory in CBT programming this morning, and remained in good behavioral control. Patient expressed positive insights regarding relevant treatment interventions and goals.
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
[2016-11-22] MEDS: clonazePAM TAB(*) 0.5 MG PO PRN (15:37)
[2016-11-22] MEDS ORDERED: BREXPIPRAZOLE 3 MG PO SCH (21:00)
[2016-11-22] MEDS: buPROPion TAB* 75 MG PO SCH (21:44)
[2016-11-22] MEDS: traZODone TAB* 100 MG PO SCH (21:44)
[2016-11-22] MEDS: Prazosin CAP* 1 MG PO SCH (21:44)
[2016-11-23] MEDS: Omeprazole CAP* 20 MG PO SCH (07:42)
[2016-11-23 08:52] LABS: HDL Cholesterol 31.1 mg/dL
[2016-11-23] MEDS: Mometasone/Formoter 200/5 MDI INH SCH (09:03)
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
--- NOTE | 2016-11-23 11:40 | PN ---
MHU: Group Therapy Note - Service Type Service Type: [id number] Group Psychotherapy - Cognitive Behavioral Group Therapy ( CBT):Patient was attentive and participatory in CBT programming this morning, and remained in good behavioral control. Patient expressed positive insights regarding relevant treatment interventions and goals.
== END 2016-11-23 11:30 | disposition home or self-care (01) | DRG 756 ==
LOC: ED 14:27 → BSU 20:33
PROVIDERS: ADMIT Psychiatry & Neurology Psychiatry; ATTEND Psychiatry & Neurology Psychiatry
DX: R45.851 Suicidal ideations (principal); F70 Mild intellectual disabilities; E78.5 Hyperlipidemia, unspecified; F41.8 Other specified anxiety disorders; F43.10 Post-traumatic stress disorder, unspecified; F31.9 Bipolar disorder, unspecified; J45.909 Unspecified asthma, uncomplicated; E66.9 Obesity, unspecified; K58.9 Irritable bowel syndrome, unspecified; F17.210 Nicotine dependence, cigarettes, uncomplicated; Z62.810 Personal history of physical and sexual abuse in childhood; Z68.37 Body mass index [BMI] 37.0-37.9, adult; Z81.8 Family history of other mental and behavioral disorders; Z79.899 Other long term (current) drug therapy; Z81.1 Family history of alcohol abuse and dependence
CPT/HCPCS: 36415; 80053; 80061; 80307; 80320; 80329; 81003; 81015; 84443; 84702; 85025; 87086; 90853; 99222; 99231; 99232; 99238; 99283; A9270-GY; G0480

== ENCOUNTER 2016-12-16 18:14 | Emergency (ER) | payer OTHER ==
[2016-12-16 19:38] LABS: Hematocrit 44 % (35-47); Hemoglobin 14.6 g/dl (12.0-16.0); Mean Corpuscular HGB Conc 34 g/dl (31-36); Mean Corpuscular Hemoglobin 28 pg (27-31); Mean Corpuscular Volume 84 fL (80-97); Mean Platelet Volume 9 um3 (7.4-10.4); Red Blood Count 5.19 10^6/ul (4.0-5.4); Red Cell Distribution Width 14 % (10.5-15); White Blood Count 8.2 10^3/ul (3.5-10.8)
[2016-12-16 19:43] LABS: Urine Bacteria Absent (Absent); Urine Bilirubin Negative (Negative); Urine Glucose Negative (Negative); Urine Nitrite Negative (Negative)
--- NOTE | 2016-12-16 19:50 | RAD ---
INDICATION: Altered mental status COMPARISON: None. TECHNIQUE: Contiguous axial sections of the brain were obtained from the skull base to the vertex without contrast. FINDINGS: The ventricles, cisterns and sulci are within normal limits. The molina-white matter differentiation is adequately maintained and there is no sulcal effacement. No significant focal abnormality or mass effect is present. There is no evidence for intracranial hemorrhage. No significant focal osseous abnormality is present. The visualized portion of the paranasal sinuses and mastoid air cells appear clear. IMPRESSION: Normal CT of the brain.
[2016-12-16 19:54] LABS: ALT 20 U/L (7-52); AST 20 U/L (13-39); Albumin 4.5 g/dL (3.2-5.2); Alkaline Phosphatase 133 U/L (34-104); Anion Gap 6 mmol/L (2-11); BUN/Creatinine Ratio 9.9 (8-20); Blood Urea Nitrogen 10 mg/dL (6-24); CO2 Carbon Dioxide 29 mmol/L (22-32); Calcium 9.9 mg/dL (8.6-10.3); Chloride 101 mmol/L (101-111); EGFR African American 78.1 (>60); EGFR Non-African American 60.7 (>60); Globulin 3.1 g/dL (2-4); Glucose 91 mg/dL (70-100); Magnesium 1.9 mg/dL (1.9-2.7); Potassium 3.8 mmol/L (3.5-5.0); Sodium 136 mmol/L (133-145); Total Protein 7.6 g/dL (6.4-8.9)
[2016-12-16 20:27] LABS: Alcohol < 10 mg/dL (<10)
[2016-12-16] MEDS ORDERED: Sulfamethox/Trimethoprim DS 800/160* TAB PO ONE (20:52)
--- NOTE | 2016-12-16 21:19 | ED ---
Consuelo Mesa SooYoung, scribed for Trev Salinas MD on 12/16/16 at 1923 . Neurological HPI - HPI Summary HPI Summary: A 41 y/o F arrived by car with presents to ED with c/o confusion onset this afternoon. According to , pt contacted him at 1330 and was saying "this is not my home" and didn't know she had kids. When arrived home, pt did not know who he was, or who the President was. Pt is on multiple anti-sz medications. states she's never had this level of confusion before. According to , pt had UTI last week. PMHx: psychogenic sz. - History of Current Complaint Chief Complaint: EDNeurologicalDeficit Stated Complaint: CONFUSION Hx Obtained From: Patient, Family/Hand [employer] - Hx Last Menstrual Period: 12/18/13 Onset/Duration: Started hours ago, Still Present Timing: Constant Onset Severity: Moderate Current Severity: Moderate Number of Seizures: 1 - lasting 20 secs, per nurse's note Pain Intensity: 8 Pain Scale Used: 0-10 Numeric Character: Confusion Associated Signs and Symptoms: Positive: Memory Loss, Confusion, AMS - Additional Pertinent History Primary Care Physician: [id number] - Allergy/Home Medications Allergies/Adverse Reactions: Allergies Allergy/AdvReac Type Severity Reaction Status Date / Time Levofloxacin [From Levaquin] Allergy Intermediate Rash Verified 11/18/16 19:07 Methylphenidate Allergy Intermediate See Comment Verified 11/18/16 19:07 [From Ritalin] Prednisone Allergy Intermediate Anxiety Verified 11/18/16 19:07 PMH/Surg Hx/FS Hx/Imm Hx Previously Healthy: No Endocrine/Hematology History: Denies: Hx Anticoagulant Therapy, Hx Blood Disorders, Hx Blood Transfusions, Hx Bone Marrow Disease, Hx Diabetes, Hx Systemic Lupus Erythematosus, Hx Sickle Cell Disease, Hx Thyroid Disease, Hx Anemia, Hx Unexplained Bleeding, Other Endocrine/Hematological Disorders Cardiovascular History: Reports: Hx Hypercholesterolemia Denies: Hx Hypertension Respiratory History: Reports: Hx Asthma Denies: Hx Chronic Bronchitis, Hx Chronic Obstructive Pulmonary Disease (COPD ), Hx Cystic Fibrosis, Hx Lung Cancer, Hx Pleural Effusion, Hx Pneumonia, Hx Pulmonary Edema, Hx Pulmonary Embolism, Hx Seasonal Allergies, Hx Sleep Apnea, Other Respiratory Problems/Disorders GI History: Reports: Hx Gastroesophageal Reflux Disease, Hx Irritable Bowel Denies: Hx Cirrhosis, Hx Crohn's Disease, Hx Diverticulosis, Hx Gall Bladder Disease, Hx Gastrointestinal Bleed, Hx Hiatal Hernia, Hx Jaundice, Hx Obstructive Bowel, Hx Ileostomy, Hx Pyloric Stenosis, Hx Ulcer, Other GI Disorders Musculoskeletal History: Denies: Hx Arthritis, Hx Back Problems, Hx Bursitis, Hx Congenital Bone Abnormalities, Hx Fibromyalgia, Hx Gout, Hx Orthopedic Injury, Hx Osteoporosis, Hx Scoliosis, Hx Tendonitis, Other Musculoskeletal History Sensory History: Denies: Hx Cataracts, Hx Contacts or Glasses, Hx Eye Injury, Hx Eye Prosthesis, Hx Glaucoma, Hx Legally Blind, Hx Macular Degeneration, Hx Vision Problem, Hx Deafness, Hx Hearing Aid, Hx Hearing Problem, Other Sensory Impairments Opthamlomology History: Denies: Hx Cataracts, Hx Contacts or Glasses, Hx Eye Injury, Hx Eye Prosthesis, Hx Glaucoma, Hx Legally Blind, Hx Macular Degeneration, Hx Vision Problem, Other Sensory Impairments Neurological History: Reports: Hx Migraine, Hx Seizures - Pseudoseizures (per pt ), Other Neuro Impairments/Disorders - seizures versus psychogenic events Denies: Hx Dementia, Hx Developmental Delay, Hx Headaches, Hx Nerve Disease, Hx Spinal Cord Injury, Hx Transient Ischemic Attacks (TIA) Psychiatric History: Reports: Hx Anxiety, Hx Depression, Hx Post Traumatic Stress Disorder, Hx Inpatient Treatment, Hx Community Mental Health Tx, Hx Bipolar Disorder, Hx Suicide Attempt Denies: Hx Attention Deficit Hyperactivity Disorder, Hx Eating Disorder, Hx Panic Disorder, Hx Schizophrenia, Hx of Violent Episodes Against Others, Hx Substance Abuse, Other Psychiatric Issues/Disorders - Immunization History Date of Tetanus Vaccine: UNKNOWN Date of Influenza Vaccine: 2012 Infectious Disease History: No Infectious Disease History: Denies: Hx Clostridium Difficile, Hx Hepatitis, Hx Human Immunodeficiency Virus (HIV), Hx of Known/Suspected MRSA, Hx Shingles, Hx Tuberculosis, Traveled Outside the [place] in Last 30 Days - Family History Known Family History: Positive: Unknown, Seizure Disorder - Social History Occupation: Unemployed Lives: With Family Alcohol Use: Rare Hx Substance Use: No Substance Use Type: Reports: None Hx Tobacco Use: Yes Smoking Status (MU): Heavy Every Day Tobacco Smoker Type: Cigarettes Amount Used/How Often: 1/2 PPD Length of Time of Smoking/Using Tobacco: 23 Have You Smoked in the Last Year: Yes Review of Systems Negative: Fever Neurological: Other - pos: confusion All Other Systems Reviewed And Are Negative: Yes Physical Exam Triage Information Reviewed: Yes Vital Signs On Initial Exam: Initial Vitals Temp Pulse Resp BP Pulse Ox 97.2 F 89 20 138/73 97 12/16/16 18:20 12/16/16 18:20 12/16/16 18:20 12/16/16 18:20 12/16/16 18:20 Vital Signs Reviewed: Yes Appearance: Positive: Well-Appearing, No Pain Distress - slow to answer questions Skin: Positive: Warm Head/Face: Positive: Normal Head/Face Inspection Eyes: Positive: EOMI, ISABEL ENT: Positive: Hearing grossly normal Neck: Positive: Supple, Nontender Respiratory/Lung Sounds: Positive: Breath Sounds Present Cardiovascular: Positive: RRR Abdomen Description: Positive: Nontender, Soft Musculoskeletal: Positive: Strength/ROM Intact Neurological: Positive: Alert, Oriented to Person Place, Time, Normal Gait Psychiatric: Positive: Anxious - Harvard Coma Scale Coma Scale Total: 15 Diagnostics - Vital Signs Vital Signs Temp Pulse Resp BP Pulse Ox 12/16/16 19:00 97.4 F 100 19 116/72 99 12/16/16 18:20 97.2 F 89 20 138/73 97 - Laboratory Lab Results: Lab Results 12/16/16 12/16/16 12/16/16 Range/Units 19:30 19:30 19:30 WBC 8.2 (3.5-10.8) 10^3/ul RBC 5.19 (4.0-5.4) 10^6/ul Hgb 14.6 (12.0-16.0) g/dl Hct 44 (35-47) % MCV 84 (80-97) fL MCH 28 (27-31) pg MCHC 34 (31-36) g/dl RDW 14 (10.5-15) % Plt Count 148 L (150-450) 10^3/ul MPV 9 (7.4-10.4) um3 Neut % (Auto) 69.0 (38-83) % Lymph % (Auto) 21.4 L (25-47) % [place] % (Auto) 6.1 (1-9) % Eos % (Auto) 2.7 (0-6) % Baso % (Auto) 0.8 (0-2) % Absolute Neuts (auto) 5.7 (1.5-7.7) 10^3/ul Absolute Lymphs (auto) 1.8 (1.0-4.8) 10^3/ul Absolute Monos (auto) 0.5 (0-0.8) 10^3/ul Absolute Eos (auto) 0.2 (0-0.6) 10^3/ul Absolute Basos (auto) 0.1 (0-0.2) 10^3/ul Absolute Nucleated RBC 0.01 10^3/ul Nucleated RBC % 0.1 INR (Anticoag Therapy) 0.90 (0.89-1.11) Sodium (133-145) mmol/L Potassium (3.5-5.0) mmol/L Chloride (101-111) mmol/L Carbon Dioxide (22-32) mmol/L Anion Gap (2-11) mmol/L BUN (6-24) mg/dL Creatinine (0.51-0.95) mg/dL Est GFR ( Amer) (>60) Est GFR (Non-Af Amer) (>60) BUN/Creatinine Ratio (8-20) Glucose (70-100) mg/dL Lactic Acid (0.5-2.0) mmol/L Calcium (8.6-10.3) mg/dL Magnesium (1.9-2.7) mg/dL Total Bilirubin (0.2-1.0) mg/dL AST (13-39) U/L ALT (7-52) U/L Alkaline Phosphatase (34-104) U/L Total Protein (6.4-8.9) g/dL Albumin (3.2-5.2) g/dL Globulin (2-4) g/dL Albumin/Globulin Ratio (1-3) Urine Color Yellow Urine Appearance Cloudy Urine pH 5.0 (5-9) Ur Specific Laura 1.010 (1.010-1.030) Urine Protein Negative (Negative) Urine Ketones Trace H (Negative) Urine Blood Negative (Negative) Urine Nitrate Negative (Negative) Urine Bilirubin Negative (Negative) Urine Urobilinogen Negative (Negative) Ur Leukocyte Esterase 3+ H (Negative) Urine WBC (Auto) 3+(>20/hpf) H (Absent) Urine RBC (Auto) 3+(>10/hpf) H (Absent) Ur Squamous Epith Cells Present H (Absent) Urine Bacteria Absent (Absent) Urine Glucose Negative (Negative) Serum Alcohol (<10) mg/dL 12/16/16 12/16/16 Range/Units 19:30 19:30 WBC (3.5-10.8) 10^3/ul RBC (4.0-5.4) 10^6/ul Hgb (12.0-16.0) g/dl Hct (35-47) % MCV (80-97) fL MCH (27-31) pg MCHC (31-36) g/dl RDW (10.5-15) % Plt Count (150-450) 10^3/ul MPV (7.4-10.4) um3 Neut % (Auto) (38-83) % Lymph % (Auto) (25-47) % [place] % (Auto) (1-9) % Eos % (Auto) (0-6) % Baso % (Auto) (0-2) % Absolute Neuts (auto) (1.5-7.7) 10^3/ul Absolute Lymphs (auto) (1.0-4.8) 10^3/ul Absolute Monos (auto) (0-0.8) 10^3/ul Absolute Eos (auto) (0-0.6) 10^3/ul Absolute Basos (auto) (0-0.2) 10^3/ul Absolute Nucleated RBC 10^3/ul Nucleated RBC % INR (Anticoag Therapy) (0.89-1.11) Sodium 136 (133-145) mmol/L Potassium 3.8 (3.5-5.0) mmol/L Chloride 101 (101-111) mmol/L Carbon Dioxide 29 (22-32) mmol/L Anion Gap 6 (2-11) mmol/L BUN 10 (6-24) mg/dL Creatinine 1.01 H (0.51-0.95) mg/dL Est GFR ( Amer) 78.1 (>60) Est GFR (Non-Af Amer) 60.7 (>60) BUN/Creatinine Ratio 9.9 (8-20) Glucose 91 (70-100) mg/dL Lactic Acid 0.8 (0.5-2.0) mmol/L Calcium 9.9 (8.6-10.3) mg/dL Magnesium 1.9 (1.9-2.7) mg/dL Total Bilirubin 0.40 (0.2-1.0) mg/dL AST 20 (13-39) U/L ALT 20 (7-52) U/L Alkaline Phosphatase 133 H (34-104) U/L Total Protein 7.6 (6.4-8.9) g/dL Albumin 4.5 (3.2-5.2) g/dL Globulin 3.1 (2-4) g/dL Albumin/Globulin Ratio 1.5 (1-3) Urine Color Urine Appearance Urine pH (5-9) Ur Specific Laura (1.010-1.030) Urine Protein (Negative) Urine Ketones (Negative) Urine Blood (Negative) Urine Nitrate (Negative) Urine Bilirubin (Negative) Urine Urobilinogen (Negative) Ur Leukocyte Esterase (Negative) Urine WBC (Auto) (Absent) Urine RBC (Auto) (Absent) Ur Squamous Epith Cells (Absent) Urine Bacteria (Absent) Urine Glucose (Negative) Serum Alcohol < 10 (<10) mg/dL Result Diagrams: 12/16/16 19:30 12/16/16 19:30 Lab Statement: Any lab studies that have been ordered have been reviewed, and results considered in the medical decision making process. - CT Brain CT CT Interpretation: No Acute Changes - IMPRESSION: Normal brain CT. CT Interpretation Completed By: Radiologist - EKG 1 EKG Rhythm: Sinus Tachycardia Re-Evaluation - Re-Evaluation First Eval Change: Improved - at baseline Course/Dx - Course Course Of Treatment: Pt is a 41 y/o F with pert PMHx of psychogenic sz presents with confusion onset approx 1330. According to , pt didn't know who he is , who their kids are, or who the President is. Pt is on multiple anti-sx medications. Pt given 1 tab Sulfa/Trimethoprim; and IV Toradol in ED. Brain CT is normal. EKG shows sinus tachy. UA shows trace ketones, 3+ WBC, 3+ RBC, 3+ Leukocytes, with squamous epithelia present. Will D/C home with Bactrim rx. - Diagnoses Provider Diagnoses: UTI (urinary tract infection), Confusion Discharge - Discharge Plan Condition: Stable Disposition: HOME Prescriptions: Sulfamethox/Trimethoprim DS* [Bactrim DS 800/160 TAB*] 1 tab PO BID #14 tab Patient Education Materials: Sulfamethoxazole/Trimethoprim (By mouth), Urinary Tract Infection in Women (ED) Referrals: Astrid Gonzalez MD [Primary Care Provider] - 2 Days Additional Instructions: Please return to ED with new or worsening symptoms. Follow up with your primary care provider in 2 days. The documentation as recorded by the Consuelo baugh SooYoung accurately reflects the service I personally performed and the decisions made by me, Trev Salinas MD.
[2016-12-16 21:42] LABS: Benzodiazepine Urine Screen None Detected (None Detect)
[2016-12-16] MEDS ORDERED: Ketorolac INJ* 30 MG/ML 1 ML VIAL IV PUSH ONE (22:04)
[2016-12-16 23:42] VITALS: BP 91/56
== END 2016-12-16 23:38 | disposition home or self-care (01) ==
LOC: ED 18:14
DX: N39.0 Urinary tract infection, site not specified (principal); R41.0 Disorientation, unspecified; R41.82 Altered mental status, unspecified; F17.210 Nicotine dependence, cigarettes, uncomplicated
CPT/HCPCS: 36415; 70450; 80053; 80307; 80320; 81003; 81015; 83605; 83735; 85025; 85610; 87086; 93005; 96374; 99284; A9270-GY; G0480; J1885

== ENCOUNTER 2017-02-06 10:00 | Emergency (ER) | payer OTHER ==
[2017-02-06 11:22] LABS: Hematocrit 44 % (35-47); Hemoglobin 14.6 g/dl (12.0-16.0); Mean Corpuscular HGB Conc 33 g/dl (31-36); Mean Corpuscular Hemoglobin 29 pg (27-31); Mean Corpuscular Volume 88 fL (80-97); Mean Platelet Volume 10 um3 (7.4-10.4); Red Blood Count 5.01 10^6/ul (4.0-5.4); Red Cell Distribution Width 15 % (10.5-15); White Blood Count 6.9 10^3/ul (3.5-10.8)
[2017-02-06] MEDS ORDERED: clonazePAM TAB(*) 0.5 MG PO ONE (11:26)
[2017-02-06 11:32] LABS: ALT 10 U/L (7-52); AST 11 U/L (13-39); Albumin 4.3 g/dL (3.2-5.2); Alkaline Phosphatase 104 U/L (34-104); Anion Gap 8 mmol/L (2-11); BUN/Creatinine Ratio 8.5 (8-20); Blood Urea Nitrogen 9 mg/dL (6-24); CO2 Carbon Dioxide 25 mmol/L (22-32); Calcium 9.4 mg/dL (8.6-10.3); Chloride 103 mmol/L (101-111); EGFR African American 73.8 (>60); EGFR Non-African American 57.4 (>60); Globulin 2.8 g/dL (2-4); Glucose 116 mg/dL (70-100); Potassium 3.6 mmol/L (3.5-5.0); Sodium 136 mmol/L (133-145); Total Protein 7.1 g/dL (6.4-8.9)
[2017-02-06 11:44] LABS: Urine Bacteria Absent (Absent); Urine Bilirubin Negative (Negative); Urine Glucose Negative (Negative); Urine Nitrite Negative (Negative)
[2017-02-06 12:00] LABS: Acetaminophen < 15 mcg/mL; Alcohol < 10 mg/dL (<10); Salicylate < 2.50 mg/dL (<30)
[2017-02-06 12:05] LABS: Benzodiazepine Urine Screen None Detected (None Detect)
[2017-02-06 12:10] LABS: TSH (Thyroid Stimulating Horm) 1.03 mcIU/mL (0.34-5.60)
[2017-02-06 14:43] VITALS: BP 100/68
--- NOTE | 2017-02-06 19:03 | ED ---
Clarice Mesa Seung-Jae, scribed for Hector Hercules MD on 02/06/17 at 1535 . 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 After finishing an appointment here at [facility] and discharged home, she had another Sz episode in the parking lot. The Sz was unobserved, and therefore the onset and duration of the Sz is unknown. She states that she experiences them when she is stressed, and that she has been worried about her son going to the [employer]. Pt states that she has good appetite. Associated Sx includes trouble sleeping. Pt denies any SI or HI, hearing of voices, paranoia. Pt is a former smoker and has a hx of asthma. - History of Current Complaint Chief Complaint: EDMentalHealth Stated Complaint: SYNCOPE Time Seen by Provider: 02/06/17 10:34 Hx Last Menstrual Period: 12/18/13 Associated Signs and Symptoms: Positive: Anxiety, Emotional Distress - Additional Pertinent History Primary Care Physician: [id number] - Allergy/Home Medications Allergies/Adverse Reactions: Allergies Allergy/AdvReac Type Severity Reaction Status Date / Time Levofloxacin [From Levaquin] Allergy Intermediate Rash Verified 02/06/17 10:54 Methylphenidate Allergy Intermediate See Comment Verified 02/06/17 10:54 [From Ritalin] Prednisone Allergy Intermediate Anxiety Verified 02/06/17 10:54 PMH/Surg Hx/FS Hx/Imm Hx Endocrine/Hematology History: Denies: Hx Anticoagulant Therapy, Hx Blood Disorders, Hx Blood Transfusions, Hx Bone Marrow Disease, Hx Diabetes, Hx Systemic Lupus Erythematosus, Hx Sickle Cell Disease, Hx Thyroid Disease, Hx Anemia, Hx Unexplained Bleeding, Other Endocrine/Hematological Disorders Cardiovascular History: Reports: Hx Hypercholesterolemia Denies: Hx Hypertension Respiratory History: Reports: Hx Asthma Denies: Hx Chronic Bronchitis, Hx Chronic Obstructive Pulmonary Disease (COPD ), Hx Cystic Fibrosis, Hx Lung Cancer, Hx Pleural Effusion, Hx Pneumonia, Hx Pulmonary Edema, Hx Pulmonary Embolism, Hx Seasonal Allergies, Hx Sleep Apnea, Other Respiratory Problems/Disorders GI History: Reports: Hx Gastroesophageal Reflux Disease, Hx Irritable Bowel Denies: Hx Cirrhosis, Hx Crohn's Disease, Hx Diverticulosis, Hx Gall Bladder Disease, Hx Gastrointestinal Bleed, Hx Hiatal Hernia, Hx Jaundice, Hx Obstructive Bowel, Hx Ileostomy, Hx Pyloric Stenosis, Hx Ulcer, Other GI Disorders Musculoskeletal History: Denies: Hx Arthritis, Hx Back Problems, Hx Bursitis, Hx Congenital Bone Abnormalities, Hx Fibromyalgia, Hx Gout, Hx Orthopedic Injury, Hx Osteoporosis, Hx Scoliosis, Hx Tendonitis, Other Musculoskeletal History Sensory History: Denies: Hx Cataracts, Hx Contacts or Glasses, Hx Eye Injury, Hx Eye Prosthesis, Hx Glaucoma, Hx Legally Blind, Hx Macular Degeneration, Hx Vision Problem, Hx Deafness, Hx Hearing Aid, Hx Hearing Problem, Other Sensory Impairments Opthamlomology History: Denies: Hx Cataracts, Hx Contacts or Glasses, Hx Eye Injury, Hx Eye Prosthesis, Hx Glaucoma, Hx Legally Blind, Hx Macular Degeneration, Hx Vision Problem, Other Sensory Impairments Neurological History: Reports: Hx Migraine, Hx Seizures - Pseudoseizures (per pt ), Other Neuro Impairments/Disorders - seizures versus psychogenic events Denies: Hx Dementia, Hx Developmental Delay, Hx Headaches, Hx Nerve Disease, Hx Spinal Cord Injury, Hx Transient Ischemic Attacks (TIA) Psychiatric History: Reports: Hx Anxiety, Hx Depression, Hx Post Traumatic Stress Disorder, Hx Inpatient Treatment, Hx Community Mental Health Tx, Hx Bipolar Disorder, Hx Suicide Attempt Denies: Hx Attention Deficit Hyperactivity Disorder, Hx Eating Disorder, Hx Panic Disorder, Hx Schizophrenia, Hx of Violent Episodes Against Others, Hx Substance Abuse, Other Psychiatric Issues/Disorders - Immunization History Date of Tetanus Vaccine: UNKNOWN Date of Influenza Vaccine: 2012 Infectious Disease History: No Infectious Disease History: Denies: Hx Clostridium Difficile, Hx Hepatitis, Hx Human Immunodeficiency Virus (HIV), Hx of Known/Suspected MRSA, Hx Shingles, Hx Tuberculosis, Traveled Outside the [place] in Last 30 Days - Family History Known Family History: Positive: Seizure Disorder - Social History Alcohol Use: Rare Hx Substance Use: No Substance Use Type: Reports: None Hx Tobacco Use: Yes Smoking Status (MU): Heavy Every Day Tobacco Smoker Type: Cigarettes Amount Used/How Often: 1/2 PPD Length of Time of Smoking/Using Tobacco: 23 Have You Smoked in the Last Year: Yes Review of Systems Neurological: Other - Sz activity Positive: Anxious. Negative: Other - negative hearing of voices and negative paranoia. negative SI and HI. All Other Systems Reviewed And Are Negative: Yes Physical Exam - Summary Physical Exam Summary: The patient is well-nourished in no acute distress and in no acute pain. The skin is warm and dry and skin color reflects adequate perfusion. HEENT: The head is normocephalic and atraumatic. The pupils are equal and reactive. The conjunctivae are clear and without drainage. Nares are patent and without drainage. Mouth reveals moist mucous membranes and the throat is without erythema and exudate. Neck is supple with full range of motion and non-tender. There are no carotid bruits. There is no neck vein distension. Respiratory: Chest is non-tender. Lungs are clear to auscultation and breath sounds are symmetrical and equal. Cardiovascular: Hear is regular rate and rhythm. There is no murmur or rub auscultated. There is no peripheral edema and pulses are symmetrical and equal. Abdomen: The abdomen is soft and non-tender. There are normal bowel sounds heard in all four quadrants and there is no organomegaly palpated. Musculoskeletal: There is no back pain noted. Extremities are non-tender with full range of motion. There is good capillary refill. There is no peripheral edema or calf tenderness elicited. Neurological: Patient is alert and oriented to person, place and time. The patient has symmetrical motor strength in all four extremities. Cranial nerves are grossly intact. Deep tendon reflexes are symmetrical and equal in all four extremities. Psychiatric: Pt is anxious and fearful. Has appropriate affect Triage Information Reviewed: Yes Vital Signs On Initial Exam: Initial Vitals Temp Pulse Resp BP Pulse Ox 97.8 F 107 18 132/81 100 02/06/17 10:03 02/06/17 10:03 02/06/17 10:03 02/06/17 10:03 02/06/17 10:03 Vital Signs Reviewed: Yes - [place] Coma Scale Coma Scale Total: 15 Diagnostics - Vital Signs Vital Signs Temp Pulse Resp BP Pulse Ox 02/06/17 10:03 97.8 F 107 18 132/81 100 - Laboratory Lab Results: Lab Results 02/06/17 Range/Units 10:57 WBC 6.9 (3.5-10.8) 10^3/ul RBC 5.01 (4.0-5.4) 10^6/ul Hgb 14.6 (12.0-16.0) g/dl Hct 44 (35-47) % MCV 88 (80-97) fL MCH 29 (27-31) pg MCHC 33 (31-36) g/dl RDW 15 (10.5-15) % Plt Count 165 (150-450) 10^3/ul MPV 10 (7.4-10.4) um3 Neut % (Auto) 63.7 (38-83) % Lymph % (Auto) 28.1 (25-47) % [place] % (Auto) 6.2 (1-9) % Eos % (Auto) 1.4 (0-6) % Baso % (Auto) 0.6 (0-2) % Absolute Neuts (auto) 4.4 (1.5-7.7) 10^3/ul Absolute Lymphs (auto) 1.9 (1.0-4.8) 10^3/ul Absolute Monos (auto) 0.4 (0-0.8) 10^3/ul Absolute Eos (auto) 0.1 (0-0.6) 10^3/ul Absolute Basos (auto) 0 (0-0.2) 10^3/ul Absolute Nucleated RBC 0.01 10^3/ul Nucleated RBC % 0.1 Result Diagrams: 02/06/17 10:57 02/06/17 10:57 Lab Statement: Any lab studies that have been ordered have been reviewed, and results considered in the medical decision making process. Course/Dx - Differential Dx Differential Diagnoses Neuro: Positive: Anxiety, Other - pseudoseizures, depression - Diagnoses Provider Diagnoses: Anxiety Discharge - Discharge Plan Condition: Stable Disposition: HOME Referrals: Astrid Gonzalez MD [Primary Care Provider] - The documentation as recorded by the Clarice baugh Seung-Jae accurately reflects the service I personally performed and the decisions made by Diomedes anaya Drew, MD.
== END 2017-02-06 16:13 | disposition home or self-care (01) ==
LOC: ED 10:00
DX: F41.9 Anxiety disorder, unspecified (principal); F17.210 Nicotine dependence, cigarettes, uncomplicated; Z87.09 Personal history of other diseases of the respiratory system
CPT/HCPCS: 36415; 80053; 80307; 80320; 80329; 81003; 81015; 84443; 85025; 87086; 99284; A9270-GY; G0480

== ENCOUNTER 2017-04-27 06:12 | Day surgery (SDC) | payer OTHER ==
[~2017-04-27 06:12] MED LIST: Buffered Lidocaine 0.9% SYRIN* 5 ML/SYR SYRINGE INTRADERM ONE; Sodium Citrate/Citric Acid* 15 ML UDC PO ONE
[2017-04-27] MEDS ORDERED: Sodium Citrate/Citric Acid* 15 ML UDC ONE (06:36)
[2017-04-27] MEDS ORDERED: Buffered Lidocaine 0.9% SYRIN* 5 ML/SYR SYRINGE ONE (06:36)
[2017-04-27 07:00] LABS: Hematocrit 43 % (35-47); Hemoglobin 14.4 g/dl (12.0-16.0); Mean Corpuscular HGB Conc 34 g/dl (31-36); Mean Corpuscular Hemoglobin 29 pg (27-31); Mean Corpuscular Volume 87 fL (80-97); Mean Platelet Volume 9 um3 (7.4-10.4); Red Blood Count 4.93 10^6/ul (4.0-5.4); Red Cell Distribution Width 14 % (10.5-15); White Blood Count 8.5 10^3/ul (3.5-10.8)
[2017-04-27] MEDS ORDERED: Silver Nitrate/Potassium Nitr* 1 EA STICK ONE (07:15)
[2017-04-27] MEDS ORDERED: Midazolam* 1 MG/ML 2 ML VIAL (2 MG) ONE (07:40)
[2017-04-27] MEDS ORDERED: fentaNYL* 50 MCG/ML 2 ML VIAL (100 MCG VIAL) ONE ×2 (07:40→08:58)
[2017-04-27] MEDS ORDERED: Lidocaine 2% PF * 5 ML VIAL ONE (07:42)
[2017-04-27] MEDS ORDERED: Propofol* 10 MG/ML 20 ML BTL IV PUSH ONE (07:42)
[2017-04-27] MEDS ORDERED: fentaNYL* 50 MCG/ML 2 ML VIAL (100 MCG VIAL) IV PRN (08:15)
[2017-04-27] MEDS ORDERED: DiMENhydriNATE IV* 50 MG/ML VIAL IV PUSH PRN (08:15)
[2017-04-27] MEDS ORDERED: Ketorolac INJ* 30 MG/ML 1 ML VIAL IV PRN (08:15)
[2017-04-27] MEDS ORDERED: Ketorolac INJ* 30 MG/ML 1 ML VIAL ONE (08:58)
[2017-04-27 09:32] VITALS: BP 109/73
--- NOTE | 2017-04-27 11:30 | OP ---
DATE OF OPERATION: 04/27/2017 [facility] DATE OF : 1975. SURGEON: Dr. Lexy Pineda. ANESTHESIOLOGIST: Dr. Mauro Darby. ANESTHESIA: General endotracheal. PRE-OP DIAGNOSIS: Menorrhagia and dysmenorrhea. POST-OP DIAGNOSIS: Menorrhagia and dysmenorrhea. OPERATIVE PROCEDURE: Hysteroscopy, dilation and curettage, and endometrial ablation using NovaSure. ESTIMATED BLOOD LOSS: Less than 10 cc. URINE OUTPUT: 50 cc. IV FLUIDS: 800 cc lactated Ringer's. MATERIALS TO THE LAB: Endometrial curettings. INDICATIONS: This patient was a 41-year-old, 2, para 2, who presented to the office with a complaint of persistent menorrhagia and dysmenorrhea. The patient was counseled regarding her options and she desired to proceed with an endometrial ablation. Endometrial biopsy in the clinic was performed and returned with benign endometrium. FINDINGS: Normal appearing uterine cavity and tubal ostia. There appeared to be good ablation of the cavity afterwards. COMPLICATIONS: None. DESCRIPTION OF PROCEDURE: The risks, benefits, and alternatives were described to the patient and informed consent was obtained. The patient was taken to the operating room with IV running where general anesthesia was induced and found to be adequate. The patient was prepped and draped in a normal sterile fashion in the high lithotomy position in Gentry stirrups. A time-out was performed. The bladder was emptied. A bivalved speculum was placed in the vagina and a single- tooth tenaculum was placed on the anterior cervix. The cervix was then gently dilated using Hegar and Hanks dilators until a 5 mm hysteroscope could fit through the cervix. At that time, the hysteroscope was advanced through the cervix and into the uterine cavity with saline running. The uterine cavity was carefully assessed and there was no visible evidence of abnormalities. There were no polyps or fibroids visible. The hysteroscopy was discontinued. The cervix was then additionally dilated to about a size 27. At that time, a medium banjo curette was used to curette the uterine cavity and the curettings were collected on Telfa. A NovaSure device was placed through the cervix and into the uterine cavity and opened. The cavity length was measured at about 4 cm and the width was 3.1 cm. Power was calculated at 68. Once there was a negative cavity assessment, the ablation was performed and lasted 105 seconds. NovaSure device was removed. The hysteroscopy was repeated and there was very good ablation of the visible endometrial cavity. The hysteroscope was removed. The tenaculum was removed from the cervix and after applying pressure and some silver nitrate, there was good hemostasis present. The speculum was then removed and the patient was returned to the supine position. The patient tolerated the procedure well. Sponge, lap, and needle counts were correct times two. [id number]/[facility] #: [id number] DONELL
== END 2017-04-27 09:51 | disposition home or self-care (01) ==
LOC: OR 06:12
PROVIDERS: ATTEND Obstetrics & Gynecology
DX: N92.0 Excessive and frequent menstruation with regular cycle (principal); N94.6 Dysmenorrhea, unspecified; N84.0 Polyp of corpus uteri; F17.210 Nicotine dependence, cigarettes, uncomplicated; F31.89 Other bipolar disorder; K21.9 Gastro-esophageal reflux disease without esophagitis; J45.909 Unspecified asthma, uncomplicated; Z68.34 Body mass index [BMI] 34.0-34.9, adult
CPT/HCPCS: 36415; 81025; 85027; 88305; A9270-GY; J1885; J2250; J2704; J3010

== ENCOUNTER 2017-05-06 22:23 | Emergency (ER) | payer OTHER ==
[2017-05-07] MEDS ORDERED: oxyCODONE/Acetamin 5/325 MG* TAB PO ONE (03:37)
[2017-05-07] MEDS ORDERED: DOXYcycline CAP(*) 100 MG PO ONE (04:21)
[2017-05-07] MEDS ORDERED: metroNIDAZOLE TAB* 250 MG PO ONE (04:21)
[2017-05-07 04:41] LABS: Hematocrit 42 % (35-47); Hemoglobin 14.3 g/dl (12.0-16.0); Mean Corpuscular HGB Conc 34 g/dl (31-36); Mean Corpuscular Hemoglobin 29 pg (27-31); Mean Corpuscular Volume 86 fL (80-97); Mean Platelet Volume 9 um3 (7.4-10.4); Red Blood Count 4.87 10^6/ul (4.0-5.4); Red Cell Distribution Width 14 % (10.5-15)
[2017-05-07 04:52] VITALS: BP 109/66
--- NOTE | 2017-05-07 06:27 | ED ---
Renzo Mesa Rebecca, scribed for Pan Case MD on 05/07/17 at 0443 . 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 She denies having fever or chills. Symptoms are aggravated and alleviated by nothing. The patient reports having a uterine ablation [address] Pineda. - History Of Current Complaint Chief Complaint: EDAbdPain Time Seen by Provider: 05/07/17 03:30 Hx Obtained From: Patient Onset/Duration: Sudden Onset - Experienced when visiting the restroom - "It was like my water broke", Other - Prior to Arrival Timing: Constant - Pain is constant Severity Currently: Severe - 8/10 in severity Severity Initially: Severe Location: Pain At: - Lower lumbar, Radiates To: - Lower abdomen and groin. Character: Throbbing - aching Associated Signs And Symptoms: Positive: Abdominal Pain - lower abdomen pain, Back Pain - Lower lumbar pain - Allergies/Home Medications Allergies/Adverse Reactions: Allergies Allergy/AdvReac Type Severity Reaction Status Date / Time Levofloxacin [From Levaquin] Allergy Intermediate Rash Verified 04/27/17 06:42 Methylphenidate Allergy Intermediate See Comment Verified 04/27/17 06:42 [From Ritalin] Prednisone Allergy Intermediate Anxiety Verified 04/27/17 06:42 GRAPEFRUIT Allergy AVOIDS DUE Uncoded 04/27/17 06:42 TO CURRENT MEDICATION SHE IS TAKING PMH/Surg Hx/FS Hx/Imm Hx Endocrine/Hematology History: Denies: Hx Anticoagulant Therapy, Hx Blood Disorders, Hx Blood Transfusions, Hx Bone Marrow Disease, Hx Diabetes, Hx Systemic Lupus Erythematosus, Hx Sickle Cell Disease, Hx Thyroid Disease, Hx Anemia, Hx Unexplained Bleeding, Other Endocrine/Hematological Disorders Cardiovascular History: Reports: Hx Hypercholesterolemia Denies: Hx Hypertension Respiratory History: Reports: Hx Asthma - PRN INHALER- IMPROVED SINCE QUITTING SMOKING Denies: Hx Chronic Bronchitis, Hx Chronic Obstructive Pulmonary Disease (COPD ), Hx Cystic Fibrosis, Hx Lung Cancer, Hx Pleural Effusion, Hx Pneumonia, Hx Pulmonary Edema, Hx Pulmonary Embolism, Hx Seasonal Allergies, Hx Sleep Apnea, Other Respiratory Problems/Disorders GI History: Reports: Hx Gastroesophageal Reflux Disease - ON MEDICATION FOR, Hx Irritable Bowel, Hx Ulcer - STARING OF AN ULCER IN THE PAST Denies: Hx Cirrhosis, Hx Crohn's Disease, Hx Diverticulosis, Hx Gall Bladder Disease, Hx Gastrointestinal Bleed, Hx Hiatal Hernia, Hx Jaundice, Hx Obstructive Bowel, Hx Ileostomy, Hx Pyloric Stenosis, Other GI Disorders History: Denies: Other Problems/Disorders Musculoskeletal History: Denies: Hx Arthritis, Hx Back Problems, Hx Bursitis, Hx Congenital Bone Abnormalities, Hx Fibromyalgia, Hx Gout, Hx Orthopedic Injury, Hx Osteoporosis, Hx Scoliosis, Hx Tendonitis, Other Musculoskeletal History Sensory History: Reports: Hx Contacts or Glasses - GLASSES Denies: Hx Cataracts, Hx Eye Injury, Hx Eye Prosthesis, Hx Glaucoma, Hx Legally Blind, Hx Macular Degeneration, Hx Vision Problem, Hx Deafness, Hx Hearing Aid, Hx Hearing Problem, Other Sensory Impairments Opthamlomology History: Reports: Hx Contacts or Glasses - GLASSES Denies: Hx Cataracts, Hx Eye Injury, Hx Eye Prosthesis, Hx Glaucoma, Hx Legally Blind, Hx Macular Degeneration, Hx Vision Problem, Other Sensory Impairments Neurological History: Reports: Hx Migraine - TREATS WITH REST AND TYLENOL, Hx Seizures - Pseudoseizures (per pt)-LAST 3-4 MONTHS AGO, Other Neuro Impairments/ Disorders - seizures versus psychogenic events Denies: Hx Dementia, Hx Developmental Delay, Hx Headaches, Hx Nerve Disease, Hx Spinal Cord Injury, Hx Transient Ischemic Attacks (TIA) Psychiatric History: Reports: Hx Anxiety - ON MEDICATION FOR, Hx Depression - ON MEDICATION FOR, Hx Post Traumatic Stress Disorder, Hx Inpatient Treatment, Hx Community Mental Health Tx, Hx Bipolar Disorder, Hx Suicide Attempt Denies: Hx Attention Deficit Hyperactivity Disorder, Hx Eating Disorder, Hx Panic Disorder, Hx Schizophrenia, Hx of Violent Episodes Against Others, Hx Substance Abuse, Other Psychiatric Issues/Disorders - Surgical History Surgery Procedure, Year, and Place: [id number] YEARS AGO Hx Anesthesia Reactions: No - Immunization History Date of Tetanus Vaccine: UNKNOWN Date of Influenza Vaccine: 2012 Infectious Disease History: No Infectious Disease History: Denies: Hx Clostridium Difficile, Hx Hepatitis, Hx Human Immunodeficiency Virus (HIV), Hx of Known/Suspected MRSA, Hx Shingles, Hx Tuberculosis, Traveled Outside the [place] in Last 30 Days - Family History Known Family History: Positive: Seizure Disorder - Social History Alcohol Use: Occasionally Hx Substance Use: No Substance Use Type: Reports: None Hx Tobacco Use: Yes Smoking Status (MU): Light Every Day Tobacco Smoker Type: Cigarettes Amount Used/How Often: 1/2 PPD X 20 YEARS- OFF AND ON Length of Time of Smoking/Using Tobacco: 23 Have You Smoked in the Last Year: Yes Review of Systems Negative: Fever, Chills Positive: discharge - White, foul smelling as if "something " Positive: Myalgia - Pain at lower lumbar radiating to lower abdomen and groin All Other Systems Reviewed And Are Negative: Yes Physical Exam - Summary Physical Exam Summary: General: well-appearing, no pain distress Skin: warm, color reflects adequate perfusion, dry Head: normal Eyes: EOMI, ISABEL ENT: normal Neck: supple, nontender Respiratory: CTA, breath sounds present Cardiovascular: RRR Abdomen: soft, nontender Bowel: present Musculoskeletal: normal, strength/ROM intact Neurological: normal, sensory/motor intact, A&O x3 Psychological: affect/mood appropriate Triage Information Reviewed: Yes Vital Signs On Initial Exam: Initial Vitals Temp Pulse Resp BP Pulse Ox 98.2 F 93 18 117/65 100 05/06/17 22:24 05/06/17 22:24 05/06/17 22:24 05/06/17 22:24 05/06/17 22:24 Vital Signs Reviewed: Yes - [place] Coma Scale Coma Scale Total: 15 Diagnostics - Vital Signs Vital Signs Temp Pulse Resp BP Pulse Ox 05/07/17 00:45 98.9 F 78 16 112/60 100 05/06/17 22:58 97.6 F 99 16 112/63 94 05/06/17 22:24 98.2 F 93 18 117/65 100 - Laboratory Lab Results: Lab Results 05/07/17 05/07/17 Range/Units 04:31 04:31 WBC 10.0 (3.5-10.8) 10^3/ul RBC 4.87 (4.0-5.4) 10^6/ul Hgb 14.3 (12.0-16.0) g/dl Hct 42 (35-47) % MCV 86 (80-97) fL MCH 29 (27-31) pg MCHC 34 (31-36) g/dl RDW 14 (10.5-15) % Plt Count 187 (150-450) 10^3/ul MPV 9 (7.4-10.4) um3 Neut % (Auto) 72.0 (38-83) % Lymph % (Auto) 20.3 L (25-47) % [place] % (Auto) 6.2 (1-9) % Eos % (Auto) 0.7 (0-6) % Baso % (Auto) 0.8 (0-2) % Absolute Neuts (auto) 7.2 (1.5-7.7) 10^3/ul Absolute Lymphs (auto) 2.0 (1.0-4.8) 10^3/ul Absolute Monos (auto) 0.6 (0-0.8) 10^3/ul Absolute Eos (auto) 0.1 (0-0.6) 10^3/ul Absolute Basos (auto) 0.1 (0-0.2) 10^3/ul Absolute Nucleated RBC 0 10^3/ul Nucleated RBC % 0 C-Reactive Protein 23.48 H (< 5.00) mg/L Result Diagrams: 05/07/17 04:31 Lab Statement: Any lab studies that have been ordered have been reviewed, and results considered in the medical decision making process. Complex Multi-Symp Course/Dx Course Of Treatment: DISCUSSED WITH DR LORD OBGYN. 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 RETURN TO ED IF WORSE. NO CRITICAL CARE TIME. - Diagnoses Provider Diagnoses: Endometriosis - Physician Notifications Discussed Care Of Patient With: Irene Lord Time Discussed With Above Provider: 04:00 Instructed by Provider To: Other - check CBC and get her started on doxycyclin and flagyl. Discharge - Discharge Plan Condition: Stable Disposition: HOME Prescriptions: DOXYcycline CAP(*) [DOXYcycline 100MG CAP(*)] 100 mg PO BID #19 cap Metronidazole [Flagyl 500 MG TAB] 500 mg PO QID #39 tab Patient Education Materials: Endometritis (ED) Referrals: Astrid Gonzalez MD [Primary Care Provider] - Additional Instructions: FOLLOW UP WITH YOUR CASE SEALER ON 10/16/17. RETURN TO THE EMERGENCY DEPARTMENT FOR ANY WORSENING OF YOUR CONDITION; PAIN, FEVER, YOU FEEL ILL OR QUESTIONS OR CONCERNS. The documentation as recorded by the Renzo baugh Rebecca accurately reflects the service I personally performed and the decisions made by me, Pan Case MD.
== END 2017-05-07 04:51 | disposition home or self-care (01) ==
LOC: ED 22:23
DX: N80.9 Endometriosis, unspecified (principal); R10.31 Right lower quadrant pain; M54.9 Dorsalgia, unspecified; F17.210 Nicotine dependence, cigarettes, uncomplicated
CPT/HCPCS: 36415; 85025; 86140; 99282; A9270-GY

== ENCOUNTER 2017-05-09 13:58 | Emergency (ER) | payer OTHER ==
[2017-05-09 14:02] VITALS: BP 109/77
[2017-05-09] MEDS ORDERED: LORazepam TAB(*) 1 MG PO ONE (14:45)
--- NOTE | 2017-05-09 15:10 | RAD ---
Indication: Seizure. 2 views of the chest including dual energy PA views demonstrate no mediastinal shift. Heart is of normal size and configuration. Samuels demonstrate no pleural fluid, pneumonia or pneumothorax. When compared to previous exam of May 15, 2012 no significant change is noted. IMPRESSION: No active cardiopulmonary disease is noted.
[2017-05-09 15:28] LABS: Hematocrit 41 % (35-47); Hemoglobin 13.8 g/dl (12.0-16.0); Mean Corpuscular HGB Conc 34 g/dl (31-36); Mean Corpuscular Hemoglobin 29 pg (27-31); Mean Corpuscular Volume 86 fL (80-97); Mean Platelet Volume 9 um3 (7.4-10.4); Red Cell Distribution Width 14 % (10.5-15); White Blood Count 9.3 10^3/ul (3.5-10.8)
[2017-05-09] MEDS ORDERED: Ondansetron INJ* 2 MG/ML VIAL IV ONE (15:34)
[2017-05-09 15:43] LABS: Albumin 3.7 g/dL (3.2-5.2); BUN/Creatinine Ratio 9.3 (8-20); EGFR African American 81.8 (>60); EGFR Non-African American 63.6 (>60); Globulin 2.7 g/dL (2-4); Potassium 3.6 mmol/L (3.5-5.0); Total Bilirubin 0.2 mg/dL (0.2-1.0); Total Protein 6.4 g/dL (6.4-8.9)
[2017-05-09] MEDS ORDERED: Ondansetron ODT TAB* 4 MG PO ONE (16:47)
--- NOTE | 2017-05-09 17:35 | RAD ---
Indication: Nausea and vomiting. Flat plate and upright views of the abdomen demonstrates no free air. Bowel gas pattern is unremarkable. Distended urinary bladder is unremarkable. IMPRESSION: No free air or obstruction is noted.
--- NOTE | 2017-05-10 18:59 | ED ---
Yogi Mesa Thomas, scribed for Timothy Jiménez MD on 05/09/17 at 1437 . Complex/Multi-Sys Presentation - HPI Summary HPI Summary: The pt is a 41 y/o F BIBA after she had three pseudoseizures. Two of these pseudoseizures occurred at home and one occurred in the ambulance en route to [facility]. She c/o N/V/D for the last few days and she has been unable to take her seizure medication. Prior to examination by the physician in the ED, the patient removed her IV. Pt denies abd pain. She takes Klonopin. PMHx: pseudoseizures, bipolar disorder, anxiety disorder, ADHD, GERD, migraines. - History Of Current Complaint Chief Complaint: EDSeizure Time Seen by Provider: 05/09/17 14:25 Hx Obtained From: Patient Onset/Duration: Lasting Hours - onset of seizures earlier today, Resolved - no more seizures in ED Severity Currently: None Location: Negative Aggravating Factor(s): None. Alleviating Factor(s): None. Associated Signs And Symptoms: Positive: Nausea, Vomiting, Diarrhea, Other - Pseudoseizures x3 (witnessed by home health aide). Negative: Abdominal Pain Related History: Other - Hx of pseudoseizures - Allergies/Home Medications Allergies/Adverse Reactions: Allergies Allergy/AdvReac Type Severity Reaction Status Date / Time Levofloxacin [From Levaquin] Allergy Intermediate Rash Verified 04/27/17 06:42 Methylphenidate Allergy Intermediate See Comment Verified 04/27/17 06:42 [From Ritalin] Prednisone Allergy Intermediate Anxiety Verified 04/27/17 06:42 GRAPEFRUIT Allergy AVOIDS DUE Uncoded 04/27/17 06:42 TO CURRENT MEDICATION SHE IS TAKING PMH/Surg Hx/FS Hx/Imm Hx Previously Healthy: No Endocrine/Hematology History: Denies: Hx Anticoagulant Therapy, Hx Blood Disorders, Hx Blood Transfusions, Hx Bone Marrow Disease, Hx Diabetes, Hx Systemic Lupus Erythematosus, Hx Sickle Cell Disease, Hx Thyroid Disease, Hx Anemia, Hx Unexplained Bleeding, Other Endocrine/Hematological Disorders Cardiovascular History: Reports: Hx Hypercholesterolemia Denies: Hx Hypertension Respiratory History: Reports: Hx Asthma - PRN INHALER- IMPROVED SINCE QUITTING SMOKING Denies: Hx Chronic Bronchitis, Hx Chronic Obstructive Pulmonary Disease (COPD ), Hx Cystic Fibrosis, Hx Lung Cancer, Hx Pleural Effusion, Hx Pneumonia, Hx Pulmonary Edema, Hx Pulmonary Embolism, Hx Seasonal Allergies, Hx Sleep Apnea, Other Respiratory Problems/Disorders GI History: Reports: Hx Gastroesophageal Reflux Disease - ON MEDICATION FOR, Hx Irritable Bowel, Hx Ulcer - STARING OF AN ULCER IN THE PAST Denies: Hx Cirrhosis, Hx Crohn's Disease, Hx Diverticulosis, Hx Gall Bladder Disease, Hx Gastrointestinal Bleed, Hx Hiatal Hernia, Hx Jaundice, Hx Obstructive Bowel, Hx Ileostomy, Hx Pyloric Stenosis, Other GI Disorders History: Denies: Other Problems/Disorders Musculoskeletal History: Denies: Hx Arthritis, Hx Back Problems, Hx Bursitis, Hx Congenital Bone Abnormalities, Hx Fibromyalgia, Hx Gout, Hx Orthopedic Injury, Hx Osteoporosis, Hx Scoliosis, Hx Tendonitis, Other Musculoskeletal History Sensory History: Reports: Hx Contacts or Glasses - GLASSES Denies: Hx Cataracts, Hx Eye Injury, Hx Eye Prosthesis, Hx Glaucoma, Hx Legally Blind, Hx Macular Degeneration, Hx Vision Problem, Hx Deafness, Hx Hearing Aid, Hx Hearing Problem, Other Sensory Impairments Opthamlomology History: Reports: Hx Contacts or Glasses - GLASSES Denies: Hx Cataracts, Hx Eye Injury, Hx Eye Prosthesis, Hx Glaucoma, Hx Legally Blind, Hx Macular Degeneration, Hx Vision Problem, Other Sensory Impairments Neurological History: Reports: Hx Migraine - TREATS WITH REST AND TYLENOL, Hx Seizures - Pseudoseizures (per pt)-LAST 3-4 MONTHS AGO, Other Neuro Impairments/ Disorders - seizures versus psychogenic events Denies: Hx Dementia, Hx Developmental Delay, Hx Headaches, Hx Nerve Disease, Hx Spinal Cord Injury, Hx Transient Ischemic Attacks (TIA) Psychiatric History: Reports: Hx Anxiety - ON MEDICATION FOR, Hx Depression - ON MEDICATION FOR, Hx Post Traumatic Stress Disorder, Hx Inpatient Treatment, Hx Community Mental Health Tx, Hx Bipolar Disorder, Hx Suicide Attempt Denies: Hx Attention Deficit Hyperactivity Disorder, Hx Eating Disorder, Hx Panic Disorder, Hx Schizophrenia, Hx of Violent Episodes Against Others, Hx Substance Abuse, Other Psychiatric Issues/Disorders - Surgical History Surgery Procedure, Year, and Place: [id number] YEARS AGO Hx Anesthesia Reactions: No - Immunization History Date of Tetanus Vaccine: UNKNOWN Date of Influenza Vaccine: 2012 Infectious Disease History: No Infectious Disease History: Denies: Hx Clostridium Difficile, Hx Hepatitis, Hx Human Immunodeficiency Virus (HIV), Hx of Known/Suspected MRSA, Hx Shingles, Hx Tuberculosis, Traveled Outside the [place] in Last 30 Days - Family History Known Family History: Positive: Seizure Disorder - Social History Lives: With Family Alcohol Use: None Hx Substance Use: No Substance Use Type: Reports: Prescribed Hx Tobacco Use: Yes Smoking Status (MU): Light Every Day Tobacco Smoker Type: Cigarettes Amount Used/How Often: 1/2 PPD X 20 YEARS- OFF AND ON Length of Time of Smoking/Using Tobacco: 23 Have You Smoked in the Last Year: Yes Review of Systems Negative: Fever Positive: Vomiting, Diarrhea, Nausea. Negative: Abdominal Pain Neurological: Other - Pseudoseizures (x3, witnessed by home health aide) All Other Systems Reviewed And Are Negative: Yes Physical Exam - Summary Physical Exam Summary: VITAL SIGNS: Reviewed. GENERAL: Patient is a well-developed and nourished female who is lying comfortable in the stretcher. Patient is not in any acute respiratory distress. HEAD AND FACE: No signs of trauma. No ecchymosis, hematomas or skull depressions. No sinus tenderness. EYES: PERRLA, EOMI x 2, No injected conjunctiva, no nystagmus. No photophobia. EARS: Hearing grossly intact. Ear canals and tympanic membranes are within normal limits. MOUTH: Oropharynx within normal limits. The tongue is not bitten. NECK: Supple, trachea is midline, no adenopathy, no JVD, no carotid bruit, no c- spine tenderness, neck with full ROM. No meningeal signs, no Kernig's or brudzinskis signs. CHEST: Symmetric, no tenderness at palpation LUNGS: Clear to auscultation bilaterally. No wheezing or crackles. CVS: Regular rate and rhythm, S1 and S2 present, no murmurs or gallops appreciated. ABDOMEN: Soft, non-tender. No signs of distention. No rebound no guarding, and no masses palpated. Bowel sounds are normal. EXTREMITIES: FROM in all major joints, no edema, no cyanosis or clubbing. NEURO: Alert and oriented x 3. No acute neurological deficits. Speech is normal and follows commands. SKIN: Dry and warm Triage Information Reviewed: Yes Vital Signs On Initial Exam: Initial Vitals Temp Pulse Resp BP Pulse Ox 98.3 F 78 16 109/77 94 05/09/17 14:00 05/09/17 14:00 05/09/17 14:00 05/09/17 14:00 05/09/17 14:00 Vital Signs Reviewed: Yes - [place] Coma Scale Coma Scale Total: 15 Diagnostics - Vital Signs Vital Signs Temp Pulse Resp BP Pulse Ox 05/09/17 14:03 74 93 05/09/17 14:00 98.3 F 78 16 109/77 94 - Laboratory Result Diagrams: 05/09/17 15:19 05/09/17 15:19 Lab Statement: Any lab studies that have been ordered have been reviewed, and results considered in the medical decision making process. - Radiology CXR Xray Interpretation: No Acute Changes - No active cardiopulmonary disease is noted. ED physician has reviewed this report and agrees. Radiology Interpretation Completed By: Radiologist XR Abdomen Xray Interpretation: No Acute Changes - No free air or obstruction is noted. ED physician has reviewed this report and agrees. Radiology Interpretation Completed By: Radiologist - EKG 15:07 Cardiac Rate: NL - 65 BPM EKG Rhythm: Sinus Rhythm EKG Interpretation: No ST elevations. Complex Multi-Symp Course/Dx Assessment/Plan: The pt is a 41 y/o F BIBA after she had three pseudoseizures. Two of these pseudoseizures occurred at home and one occurred in the ambulance en route to [facility]. She c/o N/V/D for the last few days and she has been unable to take her seizure medication. Prior to examination by the physician in the ED, the patient removed her IV. Pt denies abd pain. She takes Klonopin. PMHx : pseudoseizures, bipolar disorder, anxiety disorder, ADHD, GERD, migraines. Test results are without significant Abnormalities. XR Abdomen shows No free air or obstruction is noted. CXR shows No active cardiopulmonary disease is noted. ED physician has reviewed these reports and agrees. In the ED, the patient was given Zofran for nausea and her symptoms resolved. At this point, the patient is eating and drinking without nausea and vomiting. The patient was instructed to continue taking her medication for pseudoseizures, which is Klonopin. She was observed a couple of hours in the ED and she had no further pseudoseizures. She is discharged with her and she will follow up with primary care. - Diagnoses Provider Diagnoses: Pseudoseizures Discharge - Discharge Plan Condition: Stable Disposition: HOME Prescriptions: Ondansetron ODT TAB* [Zofran 4 MG Odt TAB*] 4 mg PO Q6H PRN #10 tab.odt PRN Reason: Vomiting Patient Education Materials: Recurrent Seizures in Adults (ED) Referrals: Astrid Gonzalez MD [Primary Care Provider] - 3 Days Additional Instructions: Follow up with your primary care provider in 2-3 days. Return to the emergency department for any new or worsening symptoms. The documentation as recorded by the Yogi baugh Thomas accurately reflects the service I personally performed and the decisions made by Tino anaya Walter, MD.
== END 2017-05-09 18:01 | disposition home or self-care (01) ==
LOC: ED 13:58
DX: F44.5 Conversion disorder with seizures or convulsions (principal); R11.2 Nausea with vomiting, unspecified; R19.7 Diarrhea, unspecified
CPT/HCPCS: 36415; 71020; 74020; 80053; 84702; 85025; 93005; 96374; 99284; A9270-GY

== ENCOUNTER 2017-05-20 22:48 | Inpatient (IN) | payer OTHER ==
[2017-05-20 23:46] LABS: Hematocrit 43 % (35-47); Hemoglobin 14.5 g/dl (12.0-16.0); Mean Corpuscular HGB Conc 34 g/dl (31-36); Mean Corpuscular Hemoglobin 29 pg (27-31); Mean Corpuscular Volume 86 fL (80-97); Red Blood Count 4.98 10^6/ul (4.0-5.4); Red Cell Distribution Width 14 % (10.5-15); White Blood Count 8.7 10^3/ul (3.5-10.8)
[2017-05-20 23:47] LABS: Comments Flag Yes
[2017-05-20 23:48] LABS: Add Diff/Slide Review? Slide Review Added
[2017-05-20 23:56] LABS: ALT 19 U/L (7-52); Albumin 4.4 g/dL (3.2-5.2); Alkaline Phosphatase 123 U/L (34-104); BUN/Creatinine Ratio 14.9 (8-20); Blood Urea Nitrogen 21 mg/dL (6-24); CO2 Carbon Dioxide 30 mmol/L (22-32); Calcium 9.7 mg/dL (8.6-10.3); Chloride 99 mmol/L (101-111); EGFR African American 53.1 (>60); EGFR Non-African American 41.3 (>60); Globulin 3.2 g/dL (2-4); Glucose 98 mg/dL (70-100); Sodium 135 mmol/L (133-145); Total Protein 7.6 g/dL (6.4-8.9)
[2017-05-21 00:13] LABS: Acetaminophen < 15 mcg/mL; Alcohol < 10 mg/dL (<10); Salicylate < 2.50 mg/dL (<30)
[2017-05-21 00:28] LABS: TSH (Thyroid Stimulating Horm) 4.59 mcIU/mL (0.34-5.60)
[2017-05-21 00:44] LABS: AST 20 U/L (13-39); Anion Gap 6 mmol/L (2-11); Potassium 4.4 mmol/L (3.5-5.0)
--- NOTE | 2017-05-21 07:04 | ED ---
Rahel Mesa Emily, scribed for MannylindaMichael on 05/20/17 at 2340 . Psychiatric Complaint - HPI Summary HPI Summary: This patient is a 41 year old F presenting to [facility] with a chief complaint of SI with plans which started 7 days ago. Pt reports being manic for the last week. Symptoms aggravated by nothing. Symptoms alleviated by nothing. Patient reports being unable to settle down. - History Of Current Complaint Chief Complaint: EDMentalHealth Time Seen by Provider: 05/20/17 23:12 Hx Obtained From: Patient Hx Last Menstrual Period: 12/18/13 Onset/Duration: Sudden Onset, Lasting Days, Still Present Timing: Days Character: Manic Aggravating Factor(s): Nothing Alleviating Factor(s): Nothing Has Suicidal: Reports: Thoughts, With A Plan - Allergies/Home Medications Allergies/Adverse Reactions: Allergies Allergy/AdvReac Type Severity Reaction Status Date / Time Levofloxacin [From Levaquin] Allergy Intermediate Rash Verified 04/27/17 06:42 Methylphenidate Allergy Intermediate See Comment Verified 04/27/17 06:42 [From Ritalin] Prednisone Allergy Intermediate Anxiety Verified 04/27/17 06:42 GRAPEFRUIT Allergy AVOIDS DUE Uncoded 04/27/17 06:42 TO CURRENT MEDICATION SHE IS TAKING PMH/Surg Hx/FS Hx/Imm Hx Previously Healthy: No Endocrine/Hematology History: Denies: Hx Anticoagulant Therapy, Hx Blood Disorders, Hx Blood Transfusions, Hx Bone Marrow Disease, Hx Diabetes, Hx Systemic Lupus Erythematosus, Hx Sickle Cell Disease, Hx Thyroid Disease, Hx Anemia, Hx Unexplained Bleeding, Other Endocrine/Hematological Disorders Cardiovascular History: Reports: Hx Hypercholesterolemia Denies: Hx Hypertension Respiratory History: Reports: Hx Asthma - PRN INHALER- IMPROVED SINCE QUITTING SMOKING Denies: Hx Chronic Bronchitis, Hx Chronic Obstructive Pulmonary Disease (COPD ), Hx Cystic Fibrosis, Hx Lung Cancer, Hx Pleural Effusion, Hx Pneumonia, Hx Pulmonary Edema, Hx Pulmonary Embolism, Hx Seasonal Allergies, Hx Sleep Apnea, Other Respiratory Problems/Disorders GI History: Reports: Hx Gastroesophageal Reflux Disease - ON MEDICATION FOR, Hx Irritable Bowel, Hx Ulcer - STARING OF AN ULCER IN THE PAST Denies: Hx Cirrhosis, Hx Crohn's Disease, Hx Diverticulosis, Hx Gall Bladder Disease, Hx Gastrointestinal Bleed, Hx Hiatal Hernia, Hx Jaundice, Hx Obstructive Bowel, Hx Ileostomy, Hx Pyloric Stenosis, Other GI Disorders History: Denies: Other Problems/Disorders Musculoskeletal History: Denies: Hx Arthritis, Hx Back Problems, Hx Bursitis, Hx Congenital Bone Abnormalities, Hx Fibromyalgia, Hx Gout, Hx Orthopedic Injury, Hx Osteoporosis, Hx Scoliosis, Hx Tendonitis, Other Musculoskeletal History Sensory History: Reports: Hx Contacts or Glasses - GLASSES Denies: Hx Cataracts, Hx Eye Injury, Hx Eye Prosthesis, Hx Glaucoma, Hx Legally Blind, Hx Macular Degeneration, Hx Vision Problem, Hx Deafness, Hx Hearing Aid, Hx Hearing Problem, Other Sensory Impairments Opthamlomology History: Reports: Hx Contacts or Glasses - GLASSES Denies: Hx Cataracts, Hx Eye Injury, Hx Eye Prosthesis, Hx Glaucoma, Hx Legally Blind, Hx Macular Degeneration, Hx Vision Problem, Other Sensory Impairments Neurological History: Reports: Hx Migraine - TREATS WITH REST AND TYLENOL, Hx Seizures - Pseudoseizures (per pt)-LAST 3-4 MONTHS AGO, Other Neuro Impairments/ Disorders - seizures versus psychogenic events Denies: Hx Dementia, Hx Developmental Delay, Hx Headaches, Hx Nerve Disease, Hx Spinal Cord Injury, Hx Transient Ischemic Attacks (TIA) Psychiatric History: Reports: Hx Anxiety - ON MEDICATION FOR, Hx Depression - ON MEDICATION FOR, Hx Post Traumatic Stress Disorder, Hx Inpatient Treatment, Hx Community Mental Health Tx, Hx Bipolar Disorder, Hx Suicide Attempt Denies: Hx Attention Deficit Hyperactivity Disorder, Hx Eating Disorder, Hx Panic Disorder, Hx Schizophrenia, Hx of Violent Episodes Against Others, Hx Substance Abuse, Other Psychiatric Issues/Disorders - Surgical History Surgery Procedure, Year, and Place: [id number] YEARS AGO Hx Anesthesia Reactions: No - Immunization History Date of Tetanus Vaccine: UNKNOWN Date of Influenza Vaccine: 2012 Infectious Disease History: No Infectious Disease History: Denies: Hx Clostridium Difficile, Hx Hepatitis, Hx Human Immunodeficiency Virus (HIV), Hx of Known/Suspected MRSA, Hx Shingles, Hx Tuberculosis, Traveled Outside the [place] in Last 30 Days - Family History Known Family History: Positive: Unknown, Seizure Disorder - Social History Occupation: Unemployed Lives: With Family Alcohol Use: None Hx Substance Use: No Substance Use Type: Reports: Prescribed Hx Tobacco Use: Yes Smoking Status (MU): Light Every Day Tobacco Smoker Type: Cigarettes Amount Used/How Often: 1/2 PPD X 20 YEARS- OFF AND ON Length of Time of Smoking/Using Tobacco: 23 Have You Smoked in the Last Year: Yes Review of Systems Negative: Fever Positive: Other - Positive SI, manic, and being "unable to settle down" All Other Systems Reviewed And Are Negative: Yes Physical Exam Triage Information Reviewed: Yes Vital Signs On Initial Exam: Initial Vitals Temp Pulse Resp BP Pulse Ox 97.1 F 98 18 116/56 94 05/20/17 22:54 05/20/17 22:54 05/20/17 22:54 05/20/17 22:54 05/20/17 22:54 Vital Signs Reviewed: Yes Appearance: Positive: Well-Appearing, No Pain Distress Skin: Positive: Warm, Skin Color Reflects Adequate Perfusion, Dry Head/Face: Positive: Normal Head/Face Inspection Eyes: Positive: EOMI, ISABEL ENT: Positive: Normal ENT inspection Neck: Positive: Supple, Nontender Respiratory/Lung Sounds: Positive: Clear to Auscultation, Breath Sounds Present Cardiovascular: Positive: RRR, Pulses are Symmetrical in both Upper and Lower Extremities Abdomen Description: Positive: Nontender, Soft Bowel Sounds: Positive: Present Musculoskeletal: Positive: Normal, Strength/ROM Intact Neurological: Positive: Normal, Sensory/Motor Intact, Alert, Oriented to Person Place, Time Psychiatric: Positive: Other - Depressed affect - [place] Coma Scale Coma Scale Total: 15 Diagnostics - Vital Signs Vital Signs Temp Pulse Resp BP Pulse Ox 05/20/17 22:54 97.1 F 98 18 116/56 94 - Laboratory Lab Results: Lab Results 05/20/17 05/20/17 Range/Units 23:27 23:27 WBC 8.7 (3.5-10.8) 10^3/ul RBC 4.98 (4.0-5.4) 10^6/ul Hgb 14.5 (12.0-16.0) g/dl Hct 43 (35-47) % MCV 86 (80-97) fL MCH 29 (27-31) pg MCHC 34 (31-36) g/dl RDW 14 (10.5-15) % Plt Count 90 L D (150-450) 10^3/ul Neut % (Auto) 62.4 (38-83) % Lymph % (Auto) 29.1 (25-47) % [place] % (Auto) 5.3 (1-9) % Eos % (Auto) 1.7 (0-6) % Baso % (Auto) 1.5 (0-2) % Absolute Neuts (auto) 5.4 (1.5-7.7) 10^3/ul Absolute Lymphs (auto) 2.5 (1.0-4.8) 10^3/ul Absolute Monos (auto) 0.5 (0-0.8) 10^3/ul Absolute Eos (auto) 0.2 (0-0.6) 10^3/ul Absolute Basos (auto) 0.1 (0-0.2) 10^3/ul Absolute Nucleated RBC 0.02 10^3/ul Nucleated RBC % 0.3 Hem Pathologist Commnt Pending Sodium 135 (133-145) mmol/L Potassium 4.4 (3.5-5.0) mmol/L Chloride 99 L (101-111) mmol/L Carbon Dioxide 30 (22-32) mmol/L Anion Gap 6 (2-11) mmol/L BUN 21 (6-24) mg/dL Creatinine 1.41 H (0.51-0.95) mg/dL Est GFR ( Amer) 53.1 (>60) Est GFR (Non-Af Amer) 41.3 (>60) BUN/Creatinine Ratio 14.9 (8-20) Glucose 98 (70-100) mg/dL Calcium 9.7 (8.6-10.3) mg/dL Total Bilirubin 0.40 (0.2-1.0) mg/dL AST 20 (13-39) U/L ALT 19 (7-52) U/L Alkaline Phosphatase 123 H (34-104) U/L Total Protein 7.6 (6.4-8.9) g/dL Albumin 4.4 (3.2-5.2) g/dL Globulin 3.2 (2-4) g/dL Albumin/Globulin Ratio 1.4 (1-3) TSH 4.59 (0.34-5.60) mcIU/mL Beta HCG, Quant 1.18 mIU/mL Salicylates < 2.50 (<30) mg/dL Acetaminophen < 15 mcg/mL Serum Alcohol < 10 (<10) mg/dL Result Diagrams: 05/20/17 23:27 05/20/17 23:27 Lab Statement: Any lab studies that have been ordered have been reviewed, and results considered in the medical decision making process. Course/Dx - Course Assessment/Plan: This patient is a 41 year old F presenting to [facility] with a chief complaint of SI with plans which started 7 days ago. Pt reports being manic for the last week. Symptoms aggravated by nothing. Symptoms alleviated by nothing. Patient reports being unable to settle down.. Physical Exam Findings. Depressed affect. Medical Decision Making. Test results with no significant abnormalities. Awaiting mental health evaluation. Sign-off to Dr. Jiménez - Differential Dx/Clinical Impression Provider Diagnosis: Depression Discharge - Discharge Plan Condition: Stable Disposition: OTHER Discharge Disposition Comment: sign out to Dr Jiménez Referrals: Astrid Gonzalez MD [Primary Care Provider] - The documentation as recorded by the Rahel baugh Emily accurately reflects the service I personally performed and the decisions made by me, Michael Shaw.
[2017-05-21] MEDS ORDERED: Al Hydrox/Mg Hydrox/Simet LIQ* 30 ML UDC PO PRN (10:37)
[2017-05-21] MEDS ORDERED: Albuterol HFA INHALER* 8 gm MDI INH PRN (10:39)
[2017-05-21] MEDS: Omeprazole CAP* 20 MG PO SCH ×2 (11:19→21:16)
[2017-05-21] MEDS: clonazePAM TAB(*) 0.5 MG PO PRN ×2 (11:19→22:49)
[2017-05-21] MEDS: Acetaminophen TAB* 325 MG PO PRN ×2 (17:29→22:50)
--- NOTE | 2017-05-21 19:25 | CONSULT ---
Subjective Date of Service: 05/21/17 Interval History: Patient seen and examined at bedside in MHU. Pt states that she has been physically feeling well, but has been depressed and having SI. Pt states that she has been eating and drinking well. SURROGATE DECISION MAKER: Pt's Manohar Hart will be her surrogate decision maker in the event she is unable to make decisions for herself. Family History: Findings - Sister with breast/cervical CA, Maternal Grandmother - CA hx, maternal aunt - breast CA. Denies family history of CAD or DM Social History: Findings - Smoker, 1/2 ppd has a 20 year smoking history. Occational ETOH. Denies rec. drugs Past Medical History: Findings - Bipolar, borderline personality, seizures, GERD. PSH: wisdom tooth extraction and hysterscopy with D+C and endometrial ablation Review of Systems - Measurements Intake and Output: Intake and Output Last 24 Hours 05/19/17 05/20/17 05/21/17 05/22/17 06:59 06:59 06:59 06:59 Weight 199 lb - Review of Systems Constitutional Symptoms: Positive: Other - chills Negative: Weakness, Fatigue, Fever HEENT: Negative: Normal Eyes: Negative: Normal Thyroid: Negative: Normal Pulmonary: Positive: Cough - r/t asthma, Shortness of Breath - r/t asthma at baseline, Asthma Cardiology: Positive: Normal Negative: Chest Pain, Palpitations Gastroenterology: Negative: Abdominal Pain, Nausea, Vomiting, Diarrhea Genital - Urinary: Negative: Dysuria, Hematuria, Polyuria, Nocturia Musculoskeletal: Positive: Other - Denies back pain Negative: Joint Pain Endocrinology: Positive: Normal, Obesity Hematologic/Lymphatic: Negative: Easy Brusing Neurology: Positive: Normal Negative: Headache Psychiatry: Positive: Depression Objective Active Medications: Acetaminophen (Tylenol Tab*) 650 mg PO Q4H PRN Reason: PAIN or TEMP > 101 F Al Hydrox/Mg Hydrox/Simethicone (Maalox Plus*) 30 ml PO Q4H PRN Reason: INDIGESTION Albuterol (Ventolin Hfa Inhaler*) 2 puff INH Q4H PRN Reason: SHORTNESS OF BREATH Brexpiprazole (Rexulti 3 Mg Tab (Nf)) 3 mg PO BEDTIME RINA Bupropion HCl (Wellbutrin Xl *) 150 mg PO BEDTIME RINA Clonazepam (Klonopin Tab(*)) 0.5 mg PO BID PRN Reason: ANXIETY Multivitamins (Theragran Tab*) 1 tab PO DAILY RINA Omeprazole (Prilosec Cap*) 40 mg PO BID RINA Prazosin HCl (Minipress Cap*) 2 mg PO BEDTIME RINA Trazodone HCl (Desyrel Tab*) 200 mg PO BEDTIME RINA Vital Signs 05/21/17 05/21/17 05/21/17 11:19 13:45 15:01 Temperature 97.3 F 98.4 F Pulse Rate 92 100 Respiratory 18 16 16 Rate Blood Pressure 118/72 126/75 (mmHg) O2 Sat by Pulse 94 95 Oximetry Oxygen Devices in Use Now: None Appearance: NAD, laying in bed Respiratory: Symmetrical Chest Expansion and Respiratory Effort, Clear to Auscultation Cardiovascular: NL Sounds; No Murmurs; No JVD, RRR Abdominal: NL Sounds; No Tenderness; No Distention Extremities: No Edema Skin: No Rash or Ulcers Neurological: Alert and Oriented x 3, NL Muscle Strength and Tone Nutrition: Taking PO's Result Diagrams: 05/20/17 23:27 05/20/17 23:27 Additional Lab and Data: Lab Results 05/20/17 05/20/17 Range/Units 23:27 23:27 WBC 8.7 (3.5-10.8) 10^3/ul RBC 4.98 (4.0-5.4) 10^6/ul Hgb 14.5 (12.0-16.0) g/dl Hct 43 (35-47) % MCV 86 (80-97) fL MCH 29 (27-31) pg MCHC 34 (31-36) g/dl RDW 14 (10.5-15) % Plt Count 90 L D (150-450) 10^3/ul Neut % (Auto) 62.4 (38-83) % Lymph % (Auto) 29.1 (25-47) % [place] % (Auto) 5.3 (1-9) % Eos % (Auto) 1.7 (0-6) % Baso % (Auto) 1.5 (0-2) % Absolute Neuts (auto) 5.4 (1.5-7.7) 10^3/ul Absolute Lymphs (auto) 2.5 (1.0-4.8) 10^3/ul Absolute Monos (auto) 0.5 (0-0.8) 10^3/ul Absolute Eos (auto) 0.2 (0-0.6) 10^3/ul Absolute Basos (auto) 0.1 (0-0.2) 10^3/ul Absolute Nucleated RBC 0.02 10^3/ul Nucleated RBC % 0.3 Hem Pathologist Commnt Pending Sodium 135 (133-145) mmol/L Potassium 4.4 (3.5-5.0) mmol/L Chloride 99 L (101-111) mmol/L Carbon Dioxide 30 (22-32) mmol/L Anion Gap 6 (2-11) mmol/L BUN 21 (6-24) mg/dL Creatinine 1.41 H (0.51-0.95) mg/dL Est GFR ( Amer) 53.1 (>60) Est GFR (Non-Af Amer) 41.3 (>60) BUN/Creatinine Ratio 14.9 (8-20) Glucose 98 (70-100) mg/dL Calcium 9.7 (8.6-10.3) mg/dL Total Bilirubin 0.40 (0.2-1.0) mg/dL AST 20 (13-39) U/L ALT 19 (7-52) U/L Alkaline Phosphatase 123 H (34-104) U/L Total Protein 7.6 (6.4-8.9) g/dL Albumin 4.4 (3.2-5.2) g/dL Globulin 3.2 (2-4) g/dL Albumin/Globulin Ratio 1.4 (1-3) TSH 4.59 (0.34-5.60) mcIU/mL Beta HCG, Quant 1.18 mIU/mL Salicylates < 2.50 (<30) mg/dL Acetaminophen < 15 mcg/mL Serum Alcohol < 10 (<10) mg/dL Assessment/Plan - Billing Ms. Hart is a 41 yo female with PMH significant for bipolar disorder, borderline personality, hx seizures and GERD who presented to the ED with complaints of SI and is an inpatient on the Behavioral Health unit. Hospitalists were asked to consult on the patient regarding her acute kidney injury and thrombocytopenia. Plan By Medical Problem: 1. Suicidal Ideation, history of bipolar and borderline personality disorder. Management per psychiatry. 2. Acute kidney injury. There is no clear cause as to why the Pt's creatinine is elevated at this time. Previous creatinine was 1.07 earlier this month. We will check a FeNA and UA on the patient. She reports that she is drinking plenty of fluids. She is not currently on nephrotoxic medications. Avoid nephrotoxic medications. We will recheck a BMP in the AM. If she continues to have an elevated creatinine we will consider getting a renal ultrasound. 3. Thrombocytopenia. Previous platelet count was 190 earlier this month. Pt denies signs of bleeding or alcohol use. We will check an INR and recheck a CBC in the AM. If she continues to have a low platelet count a hematology consult should be considered. 4. Smoking cessation. Pt encouraged to quit smoking. 5. GERD. Continue omeprazole. 6. Seizure. History of psychogenic seizures. VTE PPX: Encourage ambulation Diet: Regular diet Code Status: Full code Admission Status and Rationale: Inpatient. Disposition per Psychiatry. Thank you for this consultation. We will continue to follow the patient. TIME SPENT: A total of 45 minutes was spent on this consult with half of that time spent with the patient discussing her PMH, medications and the events leading up to her arrival at the hospital. The case was reviewed with the attending, Dr. Rodrigues who agrees with the plan of care. Attending: Baljit Rodrigues
[2017-05-21 21:15] LABS: Urine Bacteria Absent (Absent); Urine Bilirubin Negative (Negative); Urine Glucose Negative (Negative); Urine Nitrite Negative (Negative)
[2017-05-21] MEDS: Prazosin CAP* 1 MG PO SCH (21:16)
[2017-05-21] MEDS: BuPROPion XL* 150 MG TAB.XL PO SCH (21:16)
[2017-05-21] MEDS: traZODone TAB* 100 MG PO SCH (21:16)
[2017-05-21] MEDS: PTO:Brexpiprazole (NF) 3 MG TAB PO SCH (22:47)
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
[2017-05-22 08:08] LABS: Hematocrit 40 % (35-47)
[2017-05-22 08:12] LABS: Hemoglobin 13.8 g/dl (12.0-16.0); Mean Corpuscular HGB Conc 34 g/dl (31-36); Mean Corpuscular Hemoglobin 30 pg (27-31); Mean Corpuscular Volume 86 fL (80-97); Mean Platelet Volume 10 um3 (7.4-10.4); Red Blood Count 4.66 10^6/ul (4.0-5.4); Red Cell Distribution Width 14 % (10.5-15)
[2017-05-22 08:24] LABS: BUN/Creatinine Ratio 16.3 (8-20); EGFR African American 86.9 (>60); EGFR Non-African American 67.6 (>60); Potassium 3.9 mmol/L (3.5-5.0)
[2017-05-22] MEDS: Vitamin THERAPEUTIC TAB PO SCH (08:34)
[2017-05-22] MEDS: Omeprazole CAP* 20 MG PO SCH ×2 (08:34→21:09)
--- NOTE | 2017-05-22 11:29 | PN ---
MHU: Group Therapy Note - Service Type Service Type: 36719 Group Psychotherapy - Cognitive Behavioral Group Therapy ( CBT):Patient was attentive and participatory in CBT programming this morning, and remained in good behavioral control. Patient expressed positive insights regarding relevant treatment interventions and goals.
[2017-05-22] MEDS: Acetaminophen TAB* 325 MG PO PRN (12:55)
[2017-05-22] MEDS: clonazePAM TAB(*) 0.5 MG PO PRN (12:56)
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
[2017-05-22] MEDS ORDERED: Nicotine GUM* 2 MG PO PRN (14:41)
[2017-05-22] MEDS ORDERED: Nicotine Inhaler* 10 MG AMP INH PRN (14:41)
[2017-05-22] MEDS: Ibuprofen TAB* 600 MG PO PRN ×2 (15:29→21:14)
--- NOTE | 2017-05-22 16:05 | PN ---
Subjective Date of Service: 05/22/17 Interval History: This is a 41 yo female with a bipolar d/o and psychogenic seizures who the Hospitalist team was asked to consult regarding abnormal lab findings at the time of admission that indicated ADAM and thrombocytopenia. Patient offers no new complaints. Denies CP, SOB, abd pain, n/v. Objective Active Medications: Al Hydrox/Mg Hydrox/Simethicone (Maalox Plus*) 30 ml PO Q4H PRN PRN Reason: INDIGESTION Albuterol (Ventolin Hfa Inhaler*) 2 puff INH Q4H PRN PRN Reason: SHORTNESS OF BREATH Brexpiprazole (Rexulti 3 Mg Tab (Nf)) 3 mg PO BEDTIME RINA Last Admin: 05/21/17 22:47 Dose: 3 mg Bupropion HCl (Wellbutrin Xl *) 150 mg PO BEDTIME RINA Last Admin: 05/21/17 21:16 Dose: 150 mg Clonazepam (Klonopin Tab(*)) 0.5 mg PO TID RINA Ibuprofen (Motrin Tab*) 600 mg PO Q6H PRN PRN Reason: PAIN Last Admin: 05/22/17 15:29 Dose: 600 mg Multivitamins (Theragran Tab*) 1 tab PO DAILY RINA Last Admin: 05/22/17 08:34 Dose: 1 tab Nicotine (Nicotine Inhaler*) 10 mg INH Q2H PRN PRN Reason: CRAVING Nicotine Polacrilex (Nicotine Gum*) 2 mg PO Q2H PRN PRN Reason: CRAVING Omeprazole (Prilosec Cap*) 40 mg PO BID RINA Last Admin: 05/22/17 08:34 Dose: 40 mg Prazosin HCl (Minipress Cap*) 2 mg PO BEDTIME RINA Last Admin: 05/21/17 21:16 Dose: 2 mg Trazodone HCl (Desyrel Tab*) 200 mg PO BEDTIME RINA Last Admin: 05/21/17 21:16 Dose: 200 mg Vital Signs: Temp Pulse Resp BP Pulse Ox 98.1 F 82 16 105/68 94 05/22/17 07:34 05/22/17 07:34 05/22/17 14:56 05/22/17 07:34 05/22/17 07:34 Oxygen Devices in Use Now: None Appearance: Well appearing middle aged female in NAD Respiratory: Symmetrical Chest Expansion and Respiratory Effort, Clear to Auscultation Cardiovascular: NL Sounds; No Murmurs; No JVD, RRR Extremities: No Edema Skin: No Rash or Ulcers Neurological: Alert and Oriented x 3 Result Diagrams: 05/22/17 07:31 05/22/17 07:31 Additional Lab and Data: . Assess/Plan/Problems-Billing Ms. Hart is a 41 yo female with PMH significant for bipolar disorder, borderline personality, hx seizures and GERD who presented to the ED with complaints of SI and is an inpatient on the Behavioral Health unit. Hospitalists were asked to consult on the patient regarding her acute kidney injury and thrombocytopenia. Plan By Medical Problem: 1. Suicidal Ideation, history of bipolar and borderline personality disorder. Management per psychiatry. 2. Abnormal Labs, repeat CBC and BMP showed resolution of elevated Cr and low platelet count. Question whether initial lab findings were a lab error. Patient is otherwise asymptomatic. No further follow-up necessary at this time. VTE PPX: Encourage ambulation Diet: Regular diet Code Status: Full code Admission Status and Rationale: Inpatient. Disposition per Psychiatry. Thank you for this consultation. Hospitalist group will sign off at this time. TIME SPENT: 30 min
[2017-05-22] MEDS: Prazosin CAP* 1 MG PO SCH (21:08)
[2017-05-22] MEDS: BuPROPion XL* 150 MG TAB.XL PO SCH (21:08)
[2017-05-22] MEDS: PTO:Brexpiprazole (NF) 3 MG TAB PO SCH (21:09)
[2017-05-22] MEDS: clonazePAM TAB(*) 0.5 MG PO SCH (21:09)
[2017-05-22] MEDS: traZODone TAB* 100 MG PO SCH (21:09)
[2017-05-23] MEDS: Omeprazole CAP* 20 MG PO SCH ×2 (08:04→21:36)
[2017-05-23 08:34] LABS: HDL Cholesterol 34.2 mg/dL
[2017-05-23] MEDS: Vitamin THERAPEUTIC TAB PO SCH (09:03)
[2017-05-23] MEDS: clonazePAM TAB(*) 0.5 MG PO SCH ×3 (09:03→21:38)
--- NOTE | 2017-05-23 09:05 | ED ---
Bonita, Jaren Enriquez, scribed for Timothy Jiménez MD on 05/21/17 at 0709 . Progress - Progress Note Progress Note: Pt is signed out by Dr. Shaw pending MHE. After evaluation by Dr. Storm, pt voluntarily admits to [facility]. Dx. mood disorder. Course/Dx - Course Course Of Treatment: Pt is hemodynamically stable, A&Ox3. - Diagnoses Provider Diagnoses: Depression, Mood disorder The documentation as recorded by the Zoe baugh Edward accurately reflects the service I personally performed and the decisions made by , Timothy Jiménez MD.
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
[2017-05-23] MEDS: Prazosin CAP* 1 MG PO SCH (21:36)
[2017-05-23] MEDS: BuPROPion XL* 150 MG TAB.XL PO SCH (21:36)
[2017-05-23] MEDS: traZODone TAB* 100 MG PO SCH (21:37)
[2017-05-23] MEDS: Ibuprofen TAB* 600 MG PO PRN (21:38)
[2017-05-23] MEDS: PTO:Brexpiprazole (NF) 3 MG TAB PO SCH (21:52)
[2017-05-24 08:38] VITALS: BP 112/61
[2017-05-24] MEDS: Vitamin THERAPEUTIC TAB PO SCH (08:48)
[2017-05-24] MEDS: clonazePAM TAB(*) 0.5 MG PO SCH ×2 (08:48→13:46)
[2017-05-24] MEDS: Omeprazole CAP* 20 MG PO SCH (08:48)
--- NOTE | 2017-05-24 14:02 | PN ---
MHU: Group Therapy Note - Service Type Service Type: [id number] Group Psychotherapy - Cognitive Behavioral Group Therapy ( CBT):Patient was attentive and participatory in CBT programming this morning, and remained in good behavioral control. Patient expressed positive insights regarding relevant treatment interventions and goals.
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
== END 2017-05-24 15:45 | disposition home or self-care (01) | DRG 753 ==
LOC: ED 22:48 → BSU 05-21 09:57
PROVIDERS: ADMIT Psychiatry & Neurology Psychiatry; ATTEND Psychiatry & Neurology Psychiatry
PROC: GZHZZZZ Group Psychotherapy (ICD-10-PCS; principal; 2017-05-22)
DX: F31.9 Bipolar disorder, unspecified (principal); F79 Unspecified intellectual disabilities; R45.851 Suicidal ideations; G40.89 Other seizures; F43.10 Post-traumatic stress disorder, unspecified; J45.909 Unspecified asthma, uncomplicated; E78.00 Pure hypercholesterolemia, unspecified; E66.9 Obesity, unspecified; Z68.34 Body mass index [BMI] 34.0-34.9, adult; K21.9 Gastro-esophageal reflux disease without esophagitis; K58.9 Irritable bowel syndrome, unspecified; Z88.1 Allergy status to other antibiotic agents; Z88.8 Allergy status to other drugs, medicaments and biological substances; Z91.018 Allergy to other foods; Z62.810 Personal history of physical and sexual abuse in childhood; Z81.8 Family history of other mental and behavioral disorders; Z81.1 Family history of alcohol abuse and dependence; Z81.0 Family history of intellectual disabilities; Z56.0 Unemployment, unspecified; F41.9 Anxiety disorder, unspecified; G43.909 Migraine, unspecified, not intractable, without status migrainosus; Z82.0 Family history of epilepsy and other diseases of the nervous system; F17.210 Nicotine dependence, cigarettes, uncomplicated; R40.2412 Glasgow coma scale score 13-15, at arrival to emergency department; F60.3 Borderline personality disorder; Z80.3 Family history of malignant neoplasm of breast; Z80.49 Family history of malignant neoplasm of other genital organs
CPT/HCPCS: 36415; 80048; 80053; 80061; 80320; 80329; 81003; 81015; 82570; 83036; 84300; 84443; 84702; 85025; 85027; 85060; 85610; 87086; 90853; 99222; 99231; 99238; A9270-GY; G0480

== ENCOUNTER 2017-09-09 16:48 | Inpatient (IN) | payer OTHER ==
[2017-09-09 17:55] LABS: ABS Basophils 0.1 10^3/ul (0-0.2); ABS Eosinophils 0.1 10^3/ul (0-0.6); ABS Lymphocytes 2.1 10^3/ul (1.0-4.8); ABS Monocytes 0.5 10^3/ul (0-0.8); ABS Neutrophils 6.4 10^3/ul (1.5-7.7); ABS Nucleated RBC 0 10^3/ul; Eosinophil % 1.2 % (0-6); Hematocrit 45 % (35-47); Hemoglobin 15.2 g/dl (12.0-16.0); Lymphocyte % 22.6 % (25-47); Mean Corpuscular HGB Conc 34 g/dl (31-36); Mean Corpuscular Hemoglobin 29 pg (27-31); Mean Corpuscular Volume 86 fL (80-97); Mean Platelet Volume 10 um3 (7.4-10.4); Nucleated Red Blood Cells % 0.1; Platelet Count 139 10^3/ul (150-450); Red Blood Count 5.27 10^6/ul (4.0-5.4); Red Cell Distribution Width 14 % (10.5-15); White Blood Count 9.2 10^3/ul (3.5-10.8)
[2017-09-09 18:06] LABS: Urine Appearance Cloudy; Urine Blood Negative (Negative); Urine Color Yellow; Urine Ketones Negative (Negative); Urine Protein Negative (Negative); Urine Specific Gravity 1.008 (1.010-1.030); Urine Urobilinogen Negative (Negative)
[2017-09-09 18:11] LABS: EGFR Non-African American 61.1 (>60)
[2017-09-09] MEDS ORDERED: Nicotine Inhaler* 10 MG AMP INH PRN (19:04)
[2017-09-09] MEDS: clonazePAM TAB(*) 0.5 MG PO SCH (22:18)
[2017-09-09] MEDS: traZODone TAB* 100 MG PO SCH (22:18)
[2017-09-09] MEDS: Prazosin CAP* 1 MG PO SCH (22:19)
[2017-09-09] MEDS: Naproxen TAB* 375 MG PO SCH (22:20)
[2017-09-10] MEDS: Naproxen TAB* 375 MG PO SCH ×2 (08:23→20:30)
[2017-09-10] MEDS: clonazePAM TAB(*) 0.5 MG PO SCH ×3 (08:24→20:30)
[2017-09-10] MEDS ORDERED: BREXPIPRAZOLE 3 MG PO SCH (09:00)
[2017-09-10] MEDS ORDERED: buPROPion TAB* 100 MG PO SCH (09:00)
[2017-09-10] MEDS ORDERED: BuPROPion XL* 150 MG TAB.XL PO ONE (13:04)
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
[2017-09-10] MEDS: BREXPIPRAZOLE 3 MG PO SCH (20:30)
[2017-09-10] MEDS: Prazosin CAP* 1 MG PO SCH (20:31)
[2017-09-10] MEDS: traZODone TAB* 100 MG PO SCH (20:31)
--- NOTE | 2017-09-10 22:43 | ED ---
Jose Mesa Stephanie, scribed for Supa Fermin MD on 09/09/17 at 1736 . Psychiatric Complaint - HPI Summary HPI Summary: The pt is a 42 y/o F presenting to the ED with c/o SI that began 3 days ago. The pt states she would overdose on medications. She mentioned that she grabbed a handful of medication today but put them back and did not take the medications. She states she is under a lot of stress and has a lot of anxiety. Symptoms include excess sleep. 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 She denies drug/ETOH use. - History Of Current Complaint Chief Complaint: [facility]entalHealth Time Seen by Provider: 09/09/17 17:21 Hx Obtained From: Patient Hx Last Menstrual Period: 12/18/13 Onset/Duration: Gradual Onset, Lasting Days - 3, Still Present Timing: Constant Aggravating Factor(s): Recent Stress Alleviating Factor(s): Nothing Associated Signs And Symptoms: Positive: Negative Has Suicidal: Reports: With A Plan - Allergies/Home Medications Allergies/Adverse Reactions: Allergies Allergy/AdvReac Type Severity Reaction Status Date / Time MS Levofloxacin Allergy Intermediate Rash Verified 09/10/17 08:44 [From Levaquin] MS Methylphenidate Allergy Intermediate See Comment Verified 09/10/17 08:44 [From Ritalin] MS Prednisone [Prednisone] Allergy Intermediate Anxiety Verified 09/10/17 08:44 GRAPEFRUIT Allergy AVOIDS DUE Uncoded 09/10/17 08:44 TO CURRENT MEDICATION SHE IS TAKING Home Medications: Home Medications Wellbutrin XL * 150 mg PO DAILY 09/10/17 [History Confirmed 09/10/17] PMH/Surg Hx/FS Hx/Imm Hx Endocrine/Hematology History: Denies: Hx Anticoagulant Therapy, Hx Blood Disorders, Hx Blood Transfusions, Hx Bone Marrow Disease, Hx Diabetes, Hx Systemic Lupus Erythematosus, Hx Sickle Cell Disease, Hx Thyroid Disease, Hx Anemia, Hx Unexplained Bleeding, Other Endocrine/Hematological Disorders Cardiovascular History: Reports: Hx Hypercholesterolemia Denies: Hx Hypertension Respiratory History: Reports: Hx Asthma - PRN INHALER- IMPROVED SINCE QUITTING SMOKING Denies: Hx Chronic Bronchitis, Hx Chronic Obstructive Pulmonary Disease (COPD ), Hx Cystic Fibrosis, Hx Lung Cancer, Hx Pleural Effusion, Hx Pneumonia, Hx Pulmonary Edema, Hx Pulmonary Embolism, Hx Seasonal Allergies, Hx Sleep Apnea, Other Respiratory Problems/Disorders GI History: Reports: Hx Gastroesophageal Reflux Disease - ON MEDICATION FOR, Hx Irritable Bowel, Hx Ulcer - STARTING OF AN ULCER IN THE PAST Denies: Hx Cirrhosis, Hx Crohn's Disease, Hx Diverticulosis, Hx Gall Bladder Disease, Hx Gastrointestinal Bleed, Hx Hiatal Hernia, Hx Jaundice, Hx Obstructive Bowel, Hx Ileostomy, Hx Pyloric Stenosis, Other GI Disorders History: Denies: Other Problems/Disorders Musculoskeletal History: Denies: Hx Arthritis, Hx Back Problems, Hx Bursitis, Hx Congenital Bone Abnormalities, Hx Fibromyalgia, Hx Gout, Hx Orthopedic Injury, Hx Osteoporosis, Hx Scoliosis, Hx Tendonitis, Other Musculoskeletal History Sensory History: Denies: Hx Cataracts, Hx Contacts or Glasses, Hx Eye Injury, Hx Eye Prosthesis, Hx Glaucoma, Hx Legally Blind, Hx Macular Degeneration, Hx Vision Problem, Hx Deafness, Hx Hearing Aid, Hx Hearing Problem, Other Sensory Impairments Opthamlomology History: Denies: Hx Cataracts, Hx Contacts or Glasses, Hx Eye Injury, Hx Eye Prosthesis, Hx Glaucoma, Hx Legally Blind, Hx Macular Degeneration, Hx Vision Problem, Other Sensory Impairments Neurological History: Reports: Hx Migraine - TREATS WITH REST AND TYLENOL, Hx Seizures - Pseudoseizures (per pt)-LAST 3-4 MONTHS AGO, Other Neuro Impairments/ Disorders - seizures versus psychogenic events Denies: Hx Dementia, Hx Developmental Delay, Hx Headaches, Hx Nerve Disease, Hx Spinal Cord Injury, Hx Transient Ischemic Attacks (TIA) Psychiatric History: Reports: Hx Anxiety, Hx Depression, Hx Post Traumatic Stress Disorder, Hx Inpatient Treatment, Hx Community Mental Health Tx, Hx Bipolar Disorder, Hx Suicide Attempt, Other Psychiatric Issues/Disorders Denies: Hx Attention Deficit Hyperactivity Disorder, Hx Eating Disorder, Hx Panic Disorder, Hx Schizophrenia, Hx of Violent Episodes Against Others, Hx Substance Abuse - Surgical History Surgery Procedure, Year, and Place: [id number] YEARS AGO Hx Anesthesia Reactions: No - Immunization History Date of Tetanus Vaccine: UNKNOWN Date of Influenza Vaccine: 2012 Infectious Disease History: No Infectious Disease History: Denies: Hx Clostridium Difficile, Hx Hepatitis, Hx Human Immunodeficiency Virus (HIV), Hx of Known/Suspected MRSA, Hx Shingles, Hx Tuberculosis, Traveled Outside the [place] in Last 30 Days - Family History Known Family History: Positive: Seizure Disorder - pseudo-seizures - Social History Occupation: Unemployed Lives: With Family Alcohol Use: None Hx Substance Use: No Substance Use Type: Reports: None Hx Tobacco Use: Yes Smoking Status (MU): Current Some Day Smoker Type: Cigarettes Amount Used/How Often: 1/2 PPD X 20 YEARS- OFF AND ON Length of Time of Smoking/Using Tobacco: 23 Have You Smoked in the Last Year: Yes - smokes 1/2 pack/day. No other form tobacco or nicotine in last year Review of Systems Negative: Fever, Chills Negative: Erythema Negative: Sore Throat Negative: Chest Pain Negative: Shortness Of Breath, Cough Negative: Abdominal Pain, Vomiting, Nausea Negative: dysuria, hematuria Negative: Myalgia, Edema Negative: Rash Neurological: Other - Negative: dizziness Positive: Anxious All Other Systems Reviewed And Are Negative: Yes Physical Exam - Summary Physical Exam Summary: Constitutional: Well-developed, Well-nourished, Alert. (-) Distressed Skin: Warm, Dry HENT: Normocephalic; Atraumatic Eyes: Conjunctiva normal Neck: Musculoskeletal ROM normal neck. (-) JVD, (-) Stridor, (-) Tracheal deviation Cardio: Rhythm regular, rate normal, Heart sounds normal; Intact distal pulses; The pedal pulses are 2+ and symmetric. Radial pulses are 2+ and symmetric. (-) Murmur Pulmonary/Chest wall: Effort normal. (-) Respiratory distress, (-) Wheezes, (-) Rales Abd: Soft, (-) Tenderness, (-) Distension, (-) Guarding, (-) Rebound Musculoskeletal: (-) Edema Lymph: (-) Cervical adenopathy Neuro: Alert, Oriented x3 Psych: flat affect Triage Information Reviewed: Yes Vital Signs On Initial Exam: Initial Vitals Temp Pulse Resp BP Pulse Ox 97.5 F 83 18 113/68 94 09/09/17 16:56 09/09/17 16:56 09/09/17 16:56 09/09/17 16:56 09/09/17 16:56 Vital Signs Reviewed: Yes Diagnostics - Vital Signs Vital Signs Temp Pulse Resp BP Pulse Ox 09/09/17 16:56 97.5 F 83 18 113/68 94 - Laboratory Lab Results: Lab Results 09/09/17 09/09/17 09/09/17 Range/Units 17:13 17:13 17:43 WBC (3.5-10.8) 10^3/ul RBC (4.0-5.4) 10^6/ul Hgb (12.0-16.0) g/dl Hct (35-47) % MCV (80-97) fL MCH (27-31) pg MCHC (31-36) g/dl RDW (10.5-15) % Plt Count (150-450) 10^3/ul MPV (7.4-10.4) um3 Neut % (Auto) (38-83) % Lymph % (Auto) (25-47) % [place] % (Auto) (1-9) % Eos % (Auto) (0-6) % Baso % (Auto) (0-2) % Absolute Neuts (auto) (1.5-7.7) 10^3/ul Absolute Lymphs (auto) (1.0-4.8) 10^3/ul Absolute Monos (auto) (0-0.8) 10^3/ul Absolute Eos (auto) (0-0.6) 10^3/ul Absolute Basos (auto) (0-0.2) 10^3/ul Absolute Nucleated RBC 10^3/ul Nucleated RBC % Sodium 136 (133-145) mmol/L Potassium 3.8 (3.5-5.0) mmol/L Chloride 104 (101-111) mmol/L Carbon Dioxide 26 (22-32) mmol/L Anion Gap 6 (2-11) mmol/L BUN 12 (6-24) mg/dL Creatinine 1.00 H (0.51-0.95) mg/dL Est GFR ( Amer) 78.6 (>60) Est GFR (Non-Af Amer) 61.1 (>60) BUN/Creatinine Ratio 12.0 (8-20) Glucose 99 (70-100) mg/dL Calcium 9.3 (8.6-10.3) mg/dL Total Bilirubin 0.40 (0.2-1.0) mg/dL AST 12 L (13-39) U/L ALT 11 (7-52) U/L Alkaline Phosphatase 89 (34-104) U/L Total Protein 6.7 (6.4-8.9) g/dL Albumin 4.1 (3.2-5.2) g/dL Globulin 2.6 (2-4) g/dL Albumin/Globulin Ratio 1.6 (1-3) TSH 1.53 (0.34-5.60) mcIU/mL Urine Color Yellow Urine Appearance Cloudy Urine pH 6.0 (5-9) Ur Specific [place] 1.008 L (1.010-1.030) Urine Protein Negative (Negative) Urine Ketones Negative (Negative) Urine Blood Negative (Negative) Urine Nitrate Negative (Negative) Urine Bilirubin Negative (Negative) Urine Urobilinogen Negative (Negative) Ur Leukocyte Esterase 2+ H (Negative) Urine WBC (Auto) Trace(0-5/hpf) (Absent) Urine RBC (Auto) Absent (Absent) Ur Squamous Epith Cells Present H (Absent) Urine Bacteria 1+ H (Absent) Urine Glucose Negative (Negative) Salicylates < 2.50 (<30) mg/dL Urine Opiates Screen None detected (None Detect) Acetaminophen < 15 mcg/mL Ur Barbiturates Screen None detected (None Detect) Ur Phencyclidine Scrn None detected (None Detect) Ur Amphetamines Screen None detected (None Detect) U Benzodiazepines Scrn None detected (None Detect) Urine Cocaine Screen None detected (None Detect) U Cannabinoids Screen None detected (None Detect) Serum Alcohol < 10 (<10) mg/dL 09/09/17 Range/Units 17:43 WBC 9.2 (3.5-10.8) 10^3/ul RBC 5.27 (4.0-5.4) 10^6/ul Hgb 15.2 (12.0-16.0) g/dl Hct 45 (35-47) % MCV 86 (80-97) fL MCH 29 (27-31) pg MCHC 34 (31-36) g/dl RDW 14 (10.5-15) % Plt Count 139 L (150-450) 10^3/ul MPV 10 (7.4-10.4) um3 Neut % (Auto) 69.8 (38-83) % Lymph % (Auto) 22.6 L (25-47) % [place] % (Auto) 5.5 (1-9) % Eos % (Auto) 1.2 (0-6) % Baso % (Auto) 0.9 (0-2) % Absolute Neuts (auto) 6.4 (1.5-7.7) 10^3/ul Absolute Lymphs (auto) 2.1 (1.0-4.8) 10^3/ul Absolute Monos (auto) 0.5 (0-0.8) 10^3/ul Absolute Eos (auto) 0.1 (0-0.6) 10^3/ul Absolute Basos (auto) 0.1 (0-0.2) 10^3/ul Absolute Nucleated RBC 0 10^3/ul Nucleated RBC % 0.1 Sodium (133-145) mmol/L Potassium (3.5-5.0) mmol/L Chloride (101-111) mmol/L Carbon Dioxide (22-32) mmol/L Anion Gap (2-11) mmol/L BUN (6-24) mg/dL Creatinine (0.51-0.95) mg/dL Est GFR ( Amer) (>60) Est GFR (Non-Af Amer) (>60) BUN/Creatinine Ratio (8-20) Glucose (70-100) mg/dL Calcium (8.6-10.3) mg/dL Total Bilirubin (0.2-1.0) mg/dL AST (13-39) U/L ALT (7-52) U/L Alkaline Phosphatase (34-104) U/L Total Protein (6.4-8.9) g/dL Albumin (3.2-5.2) g/dL Globulin (2-4) g/dL Albumin/Globulin Ratio (1-3) TSH (0.34-5.60) mcIU/mL Urine Color Urine Appearance Urine pH (5-9) Ur Specific [place] (1.010-1.030) Urine Protein (Negative) Urine Ketones (Negative) Urine Blood (Negative) Urine Nitrate (Negative) Urine Bilirubin (Negative) Urine Urobilinogen (Negative) Ur Leukocyte Esterase (Negative) Urine WBC (Auto) (Absent) Urine RBC (Auto) (Absent) Ur Squamous Epith Cells (Absent) Urine Bacteria (Absent) Urine Glucose (Negative) Salicylates (<30) mg/dL Urine Opiates Screen (None Detect) Acetaminophen mcg/mL Ur Barbiturates Screen (None Detect) Ur Phencyclidine Scrn (None Detect) Ur Amphetamines Screen (None Detect) U Benzodiazepines Scrn (None Detect) Urine Cocaine Screen (None Detect) U Cannabinoids Screen (None Detect) Serum Alcohol (<10) mg/dL Result Diagrams: 09/09/17 17:43 09/09/17 17:43 Lab Statement: Any lab studies that have been ordered have been reviewed, and results considered in the medical decision making process. Course/Dx - Course Course Of Treatment: The pt is medically cleared and is awaiting [facility]HE. - Differential Dx/Clinical Impression Provider Diagnosis: Suicidal ideation Discharge - Discharge Plan Condition: Good [place] [place] The documentation as recorded by the Jose baugh Stephanie accurately reflects the service I personally performed and the decisions made by , Supa Fermin MD.
[2017-09-11] MEDS: clonazePAM TAB(*) 0.5 MG PO SCH ×3 (08:40→21:55)
[2017-09-11] MEDS: BuPROPion XL* 150 MG TAB.XL PO SCH (08:41)
[2017-09-11] MEDS: Naproxen TAB* 375 MG PO SCH ×2 (08:41→21:55)
--- NOTE | 2017-09-11 11:37 | PN ---
[facility]: Group Therapy Note - Service Type Service Type: [id number] Group Psychotherapy - Cognitive Behavioral Group Therapy ( CBT):Patient was attentive and participatory in CBT programming this morning, and remained in good behavioral control. Patient expressed positive insights regarding relevant treatment interventions and goals.
[2017-09-11] MEDS ORDERED: Mouth Piece, Nicotine* 1 EACH CARTRIDGE ONE (13:11)
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
[2017-09-11] MEDS: Topiramate TAB(*) 25 MG PO SCH (13:52)
[2017-09-11] MEDS ORDERED: Al Hydrox/Mg Hydrox/Simet LIQ* 30 ML UDC PO PRN (19:05)
[2017-09-11] MEDS ORDERED: Al Hydrox/Mg Hydrox/Simet LIQ* 30 ML UDC ONE (20:06)
[2017-09-11] MEDS: Prazosin CAP* 1 MG PO SCH ×2 (21:41→22:03)
[2017-09-11] MEDS: BREXPIPRAZOLE 3 MG PO SCH (21:55)
[2017-09-11] MEDS: traZODone TAB* 100 MG PO SCH (21:55)
--- NOTE | 2017-09-11 22:18 | PN ---
Progress Note - Progress Note Date of Service: 09/11/17 Note: Pt seen for CAT call. Reportedly the patient was sitting in the milieu and then other patient's heard a thud and the patient was found on the floor shaking. She reportedly shook for ~1min. When I saw the patient she was alert but whimpering. She then had another episode of shaking of the upper extremities and torso. She again came to without any post ictal state. She was able to tell me she has a h/o "pseudoseizures." She has now had several episodes of shaking without any tongue biting, incontinence of post ictal state. 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 Will not transfer from the MHU. She will receive her klonopin now which she states she takes at home when she has bouts of non- epileptic seizures. BP currently soft, hold prazosin. Will follow up with MHU nursing overnight.
[2017-09-12 08:49] VITALS: BP 107/63
[2017-09-12] MEDS: BuPROPion XL* 150 MG TAB.XL PO SCH (09:05)
[2017-09-12] MEDS: Topiramate TAB(*) 25 MG PO SCH (09:05)
[2017-09-12] MEDS: clonazePAM TAB(*) 0.5 MG PO SCH ×2 (09:06→14:18)
[2017-09-12] MEDS: Naproxen TAB* 375 MG PO SCH (09:07)
--- NOTE | 2017-09-12 11:14 | PN ---
[facility]: Group Therapy Note - Service Type Service Type: [id number] Group Psychotherapy - Cognitive Behavioral Group Therapy ( CBT):Patient was attentive and participatory in CBT programming this morning, and remained in good behavioral control. Patient expressed positive insights regarding relevant treatment interventions and goals.
[2017-09-12] MEDS ORDERED: Omeprazole CAP* 20 MG ONE (14:18)
[2017-09-12] MEDS ORDERED: Omeprazole CAP* 20 MG PO ONE (14:54)
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
== END 2017-09-12 17:10 | disposition home or self-care (01) | DRG 753 ==
LOC: ED 16:48 → BSU 21:17
PROVIDERS: ADMIT Psychiatry & Neurology Psychiatry; ATTEND Psychiatry & Neurology Psychiatry
PROC: GZHZZZZ Group Psychotherapy (ICD-10-PCS; principal; 2017-09-11)
DX: F31.9 Bipolar disorder, unspecified (principal); R56.9 Unspecified convulsions; R45.851 Suicidal ideations; E78.00 Pure hypercholesterolemia, unspecified; J45.909 Unspecified asthma, uncomplicated; K21.9 Gastro-esophageal reflux disease without esophagitis; K58.9 Irritable bowel syndrome, unspecified; G43.909 Migraine, unspecified, not intractable, without status migrainosus; F41.9 Anxiety disorder, unspecified; F43.10 Post-traumatic stress disorder, unspecified; N18.9 Chronic kidney disease, unspecified; F81.9 Developmental disorder of scholastic skills, unspecified; F17.210 Nicotine dependence, cigarettes, uncomplicated; F60.3 Borderline personality disorder; F90.9 Attention-deficit hyperactivity disorder, unspecified type; E66.9 Obesity, unspecified; Z68.34 Body mass index [BMI] 34.0-34.9, adult; Z81.8 Family history of other mental and behavioral disorders; Z88.1 Allergy status to other antibiotic agents; Z88.8 Allergy status to other drugs, medicaments and biological substances; Z91.018 Allergy to other foods; Z91.5 Personal history of self-harm; Z56.0 Unemployment, unspecified; Z81.1 Family history of alcohol abuse and dependence; Z91.410 Personal history of adult physical and sexual abuse
CPT/HCPCS: 36415; 80053; 80061; 80307; 80320; 80329; 81003; 81015; 83036; 84443; 85025; 87086; 90853; 99222; 99231; 99238; 99283; A9270-GY; G0480

== ENCOUNTER 2017-10-31 18:17 | Emergency (ER) | payer OTHER ==
[2017-10-31] MEDS ORDERED: methylPREDNISolone 125 MG* 2 ML VIAL IV ONE (19:29)
[2017-10-31] MEDS ORDERED: Albuterol 2.5 MG/3 ML NEB.SOL* (0.083%) INH ONE (19:29)
[2017-10-31] MEDS ORDERED: Albuterol/Ipratropium NEB.SOL* Albuterol 2.5 MG/Ipratropium 0.5 MG 3 ML INH ONE (19:29)
[2017-10-31] MEDS ORDERED: LORazepam INJ* 2 MG/ML 1 ML VIAL IV PUSH ONE (20:29)
[2017-10-31 21:46] VITALS: BP 102/50
--- NOTE | 2017-10-31 21:53 | ED ---
Bebeto Mesa Abhishek, scribed for Joe Miner MD on 10/31/17 at 1930 . Neurological HPI - HPI Summary HPI Summary: This patient is a 42 year old F presenting to [facility] with a chief complaint of seizure since today 17:45. Pt states she is able to speak. Pt is also able to follow commands as per triage. The patient rates the pain 0/10 in severity. Symptoms aggravated by nothing. Symptoms alleviated by nothing. Medications reviewed and reported. Patient reports shaking, coughing and SOB. 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 Pt does not use oxygen at home. PMHX of asthma, and seizures. - History of Current Complaint Chief Complaint: EDGeneral Stated Complaint: SEIZURE Time Seen by Provider: 10/31/17 19:08 Hx Obtained From: Patient Onset/Duration: Started hours ago - 1744 today, Still Present Current Severity: None Pain Intensity: 0 Pain Scale Used: 0-10 Numeric Character: Other: - Pt able to speak and follow commands. Pt reports SOB, "shaking" and coughing. - Additional Pertinent History Primary Care Physician: [id number] - Allergy/Home Medications Allergies/Adverse Reactions: Allergies Allergy/AdvReac Type Severity Reaction Status Date / Time levofloxacin [From Levaquin] Allergy Unknown Verified 10/31/17 19:57 Reaction Details methylphenidate Allergy See Comment Verified 09/11/17 13:19 prednisone Allergy Anxiety Verified 09/11/17 13:20 GRAPEFRUIT Allergy AVOIDS DUE Uncoded 09/10/17 08:44 TO CURRENT MEDICATION SHE IS TAKING Home Medications: Home Medications Albuterol HFA INHALER* [Ventolin HFA Inhaler*] 2 puff PO Q4H PRN 10/31/17 [ History Confirmed 10/31/17] Brexpiprazole (NF) [Rexulti 3 mg tab (NF)] 3 mg PO QPM 10/31/17 [History Confirmed 10/31/17] Naproxen TAB* [Naprosyn 375 mg TAB*] 375 mg PO BID 10/31/17 [History Confirmed 10/31/17] Omeprazole CAP* [Prilosec CAP* 20 MG] 20 mg PO BID 10/31/17 [History Confirmed 10/31/17] Prazosin CAP* [Minipress CAP*] 2 mg PO BEDTIME 10/31/17 [History Confirmed 10/31] clonazePAM TAB(*) [KlonoPIN TAB(*)] 0.5 mg PO TID PRN 10/31/17 [History Confirmed 10/31/17] traZODone TAB* [Desyrel TAB*] 200 mg PO BEDTIME 10/31/17 [History Confirmed 05/10] PMH/Surg Hx/FS Hx/Imm Hx Endocrine/Hematology History: Denies: Hx Anticoagulant Therapy, Hx Blood Disorders, Hx Blood Transfusions, Hx Bone Marrow Disease, Hx Diabetes, Hx Systemic Lupus Erythematosus, Hx Sickle Cell Disease, Hx Thyroid Disease, Hx Anemia, Hx Unexplained Bleeding, Other Endocrine/Hematological Disorders Cardiovascular History: Reports: Hx Hypercholesterolemia Denies: Hx Hypertension Respiratory History: Reports: Hx Asthma - PRN INHALER- IMPROVED SINCE QUITTING SMOKING Denies: Hx Chronic Bronchitis, Hx Chronic Obstructive Pulmonary Disease (COPD ), Hx Cystic Fibrosis, Hx Lung Cancer, Hx Pleural Effusion, Hx Pneumonia, Hx Pulmonary Edema, Hx Pulmonary Embolism, Hx Seasonal Allergies, Hx Sleep Apnea, Other Respiratory Problems/Disorders GI History: Reports: Hx Gastroesophageal Reflux Disease - ON MEDICATION FOR, Hx Irritable Bowel, Hx Ulcer - STARTING OF AN ULCER IN THE PAST Denies: Hx Cirrhosis, Hx Crohn's Disease, Hx Diverticulosis, Hx Gall Bladder Disease, Hx Gastrointestinal Bleed, Hx Hiatal Hernia, Hx Jaundice, Hx Obstructive Bowel, Hx Ileostomy, Hx Pyloric Stenosis, Other GI Disorders History: Denies: Other Problems/Disorders Musculoskeletal History: Denies: Hx Arthritis, Hx Back Problems, Hx Bursitis, Hx Congenital Bone Abnormalities, Hx Fibromyalgia, Hx Gout, Hx Orthopedic Injury, Hx Osteoporosis, Hx Scoliosis, Hx Tendonitis, Other Musculoskeletal History Sensory History: Denies: Hx Cataracts, Hx Contacts or Glasses, Hx Eye Injury, Hx Eye Prosthesis, Hx Glaucoma, Hx Legally Blind, Hx Macular Degeneration, Hx Vision Problem, Hx Deafness, Hx Hearing Aid, Hx Hearing Problem, Other Sensory Impairments Opthamlomology History: Denies: Hx Cataracts, Hx Contacts or Glasses, Hx Eye Injury, Hx Eye Prosthesis, Hx Glaucoma, Hx Legally Blind, Hx Macular Degeneration, Hx Vision Problem, Other Sensory Impairments Neurological History: Reports: Hx Migraine - TREATS WITH REST AND TYLENOL, Hx Seizures - Pseudoseizures (per pt)-LAST 3-4 MONTHS AGO, Other Neuro Impairments/ Disorders - seizures versus psychogenic events Denies: Hx Dementia, Hx Developmental Delay, Hx Headaches, Hx Nerve Disease, Hx Spinal Cord Injury, Hx Transient Ischemic Attacks (TIA) Psychiatric History: Reports: Hx Anxiety, Hx Depression, Hx Post Traumatic Stress Disorder, Hx Inpatient Treatment, Hx Community Mental Health Tx, Hx Bipolar Disorder, Hx Suicide Attempt, Other Psychiatric Issues/Disorders Denies: Hx Attention Deficit Hyperactivity Disorder, Hx Eating Disorder, Hx Panic Disorder, Hx Schizophrenia, Hx of Violent Episodes Against Others, Hx Substance Abuse - Surgical History Surgery Procedure, Year, and Place: [id number] YEARS AGO Hx Anesthesia Reactions: No - Immunization History Date of Tetanus Vaccine: UNKNOWN Date of Influenza Vaccine: 2012 Infectious Disease History: No Infectious Disease History: Denies: Hx Clostridium Difficile, Hx Hepatitis, Hx Human Immunodeficiency Virus (HIV), Hx of Known/Suspected MRSA, Hx Shingles, Hx Tuberculosis, Traveled Outside the [place] in Last 30 Days - Family History Known Family History: Positive: Seizure Disorder - pseudo-seizures Family History: Other FHx reviewed and noncontributory - Social History Alcohol Use: None Hx Substance Use: No Substance Use Type: Reports: None Hx Tobacco Use: Yes Smoking Status (MU): Current Some Day Smoker Type: Cigarettes Amount Used/How Often: 1/2 PPD X 20 YEARS- OFF AND ON Length of Time of Smoking/Using Tobacco: 23 Have You Smoked in the Last Year: Yes - smokes 1/2 pack/day. No other form tobacco or nicotine in last year Review of Systems Constitutional: Negative Eyes: Negative ENT: Negative Cardiovascular: Negative Positive: Shortness Of Breath, Cough Gastrointestinal: Negative Genitourinary: Negative Musculoskeletal: Negative Skin: Negative Neurological: Other - "shaking", Able to speak and follow commands. Psychological: Normal All Other Systems Reviewed And Are Negative: Yes Physical Exam - Summary Physical Exam Summary: VITAL SIGNS: Reviewed. GENERAL: ~Patient is a well-developed and nourished (FEMALE) who is lying comfortable in the stretcher. Patient is not in any acute respiratory distress. HEAD AND FACE: No signs of trauma. No ecchymosis, hematomas or skull depressions. No sinus tenderness. EYES: PERRLA, EOMI x 2, No injected conjunctiva, no nystagmus. EARS: Hearing grossly intact. Ear canals and tympanic membranes are within normal limits. MOUTH: Oropharynx within normal limits. NECK: Supple, trachea is midline, no adenopathy, no JVD, no carotid bruit, no c- spine tenderness, neck with full ROM. CHEST: Symmetric, no tenderness at palpation LUNGS: Decreased Breath Sounds Bilaterally CVS: Regular rate and rhythm, S1 and S2 present, no murmurs or gallops appreciated. ABDOMEN: Soft, non-tender. No signs of distention. No rebound no guarding, and no masses palpated. Bowel sounds are normal. EXTREMITIES: FROM in all major joints, no edema, no cyanosis or clubbing. NEURO: Alert and oriented x 3. No acute neurological deficits. Speech is normal and follows commands. SKIN: Dry and warm Triage Information Reviewed: Yes Vital Signs On Initial Exam: Initial Vitals Temp Pulse Resp BP Pulse Ox 98.2 F 88 16 107/69 96 10/31/17 18:20 10/31/17 18:20 10/31/17 18:20 10/31/17 18:20 10/31/17 18:20 Vital Signs Reviewed: Yes Diagnostics - Vital Signs Vital Signs Temp Pulse Resp BP Pulse Ox 10/31/17 18:20 98.2 F 88 16 107/69 96 - Laboratory Lab Statement: Any lab studies that have been ordered have been reviewed, and results considered in the medical decision making process. Course/Dx - Course Course Of Treatment: The pt is a 42 y/o female presenting to the [facility] with a chief complaint of seizure. The pt states she has "pseudoseizures." The pt will be discharged home with a dx of anxiety and asthma. Patient reports shaking, coughing and SOB. PMHX of asthma, and seizures. We discussed discharge plans with pt and pt agrees. - Diagnoses Provider Diagnoses: Anxiety, Asthma Discharge - Sign-Out/Discharge Documenting (check all that apply): Discharge - Home - Discharge Plan Condition: Stable Disposition: HOME Patient Education Materials: Asthma (ED), Anxiety (ED) Referrals: Astrid Gonzalez MD [Primary Care Provider] - (Please follow up with primary care physician within 1 to 2 days.) Additional Instructions: RETURN TO EMERGENCY DEPARTMENT FOR ANY NEW OR WORSENING SYMPTOMS The documentation as recorded by the Bebeto baugh Abhishek accurately reflects the service I personally performed and the decisions made by , Joe Miner MD.
== END 2017-10-31 21:46 | disposition home or self-care (01) ==
LOC: ED 18:17
DX: F41.9 Anxiety disorder, unspecified (principal); J45.909 Unspecified asthma, uncomplicated; R06.02 Shortness of breath; R05 Cough; Z72.0 Tobacco use
CPT/HCPCS: 94640; 96374; 96375; 99283; A9270-GY; J2060; J2930

== ENCOUNTER 2017-11-17 15:19 | Emergency (ER) | payer OTHER ==
[2017-11-17 16:41] LABS: ABS Basophils 0 10^3/ul (0-0.2); ABS Eosinophils 0.1 10^3/ul (0-0.6); ABS Lymphocytes 1.9 10^3/ul (1.0-4.8); ABS Monocytes 0.4 10^3/ul (0-0.8); ABS Neutrophils 4.9 10^3/ul (1.5-7.7); ABS Nucleated RBC 0 10^3/ul; Eosinophil % 1.5 % (0-6); Hematocrit 43 % (35-47); Hemoglobin 14.6 g/dl (12.0-16.0); Lymphocyte % 25.8 % (25-47); Mean Corpuscular HGB Conc 34 g/dl (31-36); Mean Corpuscular Hemoglobin 29 pg (27-31); Mean Corpuscular Volume 87 fL (80-97); Mean Platelet Volume 10.6 um3 (7.4-10.4); Nucleated Red Blood Cells % 0.2; Platelet Count 153 10^3/ul (150-450); Red Blood Count 5.01 10^6/ul (4.0-5.4); Red Cell Distribution Width 14 % (10.5-15); White Blood Count 7.4 10^3/ul (3.5-10.8)
[2017-11-17 16:52] LABS: EGFR Non-African American 60.4 (>60)
[2017-11-17 17:12] LABS: Urine Appearance Clear; Urine Blood Negative (Negative); Urine Color Yellow; Urine Ketones Negative (Negative); Urine Protein Negative (Negative); Urine Specific Gravity 1.008 (1.010-1.030); Urine Urobilinogen Negative (Negative)
[2017-11-17 19:07] VITALS: BP 121/63
--- NOTE | 2017-11-18 07:25 | ED ---
Gerardo Mesa Julia, scribed for Esther Martinez MD on 11/17/17 at 1557 . Psychiatric Complaint - HPI Summary HPI Summary: This patient is a 42 year old F BIBA to [facility] due to 7 "pseudoseizures" [employer]. Pt additionally reports dina for the past week. She states she saw her therapist on 11/15/17 and 11/16/17 and that the therapist is aware of her dina. Patient denies CP, abdominal pain, and SOB. Pt denies SI, HI, visual or auditory hallucinations, and racing thoughts. PMHx includes bipolar disorder, anxiety, and seizures. She states the stress from recent dina aggravates her seizures. - History Of Current Complaint Chief Complaint: EDSeizure Time Seen by Provider: 11/17/17 15:26 Hx Obtained From: Patient Hx Last Menstrual Period: 12/18/13 Onset/Duration: Lasting Weeks Timing: Constant Character: Manic Associated Signs And Symptoms: Negative: Hallucinating Related History: Positive For: Prior Psychiatric Issues Has Suicidal: Denies: Thoughts Has Homicidal: Denies: Thoughts - Allergies/Home Medications Allergies/Adverse Reactions: Allergies Allergy/AdvReac Type Severity Reaction Status Date / Time levofloxacin [From Levaquin] Allergy Unknown Verified 10/31/17 19:57 Reaction Details methylphenidate Allergy See Comment Verified 09/11/17 13:19 prednisone Allergy Anxiety Verified 09/11/17 13:20 GRAPEFRUIT Allergy AVOIDS DUE Uncoded 09/10/17 08:44 TO CURRENT MEDICATION SHE IS TAKING Home Medications: Home Medications Fluticas/Salmet 115/21 HFA(NF) [Advair HFA 115/21 (NF)] 2 puff INH BID 11/17/17 [History Confirmed 11/17/17] PMH/Surg Hx/FS Hx/Imm Hx Endocrine/Hematology History: Denies: Hx Anticoagulant Therapy, Hx Blood Disorders, Hx Blood Transfusions, Hx Bone Marrow Disease, Hx Diabetes, Hx Systemic Lupus Erythematosus, Hx Sickle Cell Disease, Hx Thyroid Disease, Hx Anemia, Hx Unexplained Bleeding, Other Endocrine/Hematological Disorders Cardiovascular History: Reports: Hx Hypercholesterolemia Denies: Hx Hypertension Respiratory History: Reports: Hx Asthma - PRN INHALER- IMPROVED SINCE QUITTING SMOKING Denies: Hx Chronic Bronchitis, Hx Chronic Obstructive Pulmonary Disease (COPD ), Hx Cystic Fibrosis, Hx Lung Cancer, Hx Pleural Effusion, Hx Pneumonia, Hx Pulmonary Edema, Hx Pulmonary Embolism, Hx Seasonal Allergies, Hx Sleep Apnea, Other Respiratory Problems/Disorders GI History: Reports: Hx Gastroesophageal Reflux Disease - ON MEDICATION FOR, Hx Irritable Bowel, Hx Ulcer - STARTING OF AN ULCER IN THE PAST Denies: Hx Cirrhosis, Hx Crohn's Disease, Hx Diverticulosis, Hx Gall Bladder Disease, Hx Gastrointestinal Bleed, Hx Hiatal Hernia, Hx Jaundice, Hx Obstructive Bowel, Hx Ileostomy, Hx Pyloric Stenosis, Other GI Disorders History: Denies: Other Problems/Disorders Musculoskeletal History: Denies: Hx Arthritis, Hx Back Problems, Hx Bursitis, Hx Congenital Bone Abnormalities, Hx Fibromyalgia, Hx Gout, Hx Orthopedic Injury, Hx Osteoporosis, Hx Scoliosis, Hx Tendonitis, Other Musculoskeletal History Sensory History: Denies: Hx Cataracts, Hx Contacts or Glasses, Hx Eye Injury, Hx Eye Prosthesis, Hx Glaucoma, Hx Legally Blind, Hx Macular Degeneration, Hx Vision Problem, Hx Deafness, Hx Hearing Aid, Hx Hearing Problem, Other Sensory Impairments Opthamlomology History: Denies: Hx Cataracts, Hx Contacts or Glasses, Hx Eye Injury, Hx Eye Prosthesis, Hx Glaucoma, Hx Legally Blind, Hx Macular Degeneration, Hx Vision Problem, Other Sensory Impairments Neurological History: Reports: Hx Migraine - TREATS WITH REST AND TYLENOL, Hx Seizures - Pseudoseizures (per pt)-LAST 3-4 MONTHS AGO, Other Neuro Impairments/ Disorders - seizures versus psychogenic events Denies: Hx Dementia, Hx Developmental Delay, Hx Headaches, Hx Nerve Disease, Hx Spinal Cord Injury, Hx Transient Ischemic Attacks (TIA) Psychiatric History: Reports: Hx Anxiety, Hx Depression, Hx Post Traumatic Stress Disorder, Hx Inpatient Treatment, Hx Community Mental Health Tx, Hx Bipolar Disorder, Hx Suicide Attempt, Other Psychiatric Issues/Disorders Denies: Hx Attention Deficit Hyperactivity Disorder, Hx Eating Disorder, Hx Panic Disorder, Hx Schizophrenia, Hx of Violent Episodes Against Others, Hx Substance Abuse - Surgical History Surgery Procedure, Year, and Place: [id number] YEARS AGO Hx Anesthesia Reactions: No - Immunization History Date of Tetanus Vaccine: UNKNOWN Date of Influenza Vaccine: 2012 Infectious Disease History: Unable to Obtain/Confirm Infectious Disease History: Denies: Hx Clostridium Difficile, Hx Hepatitis, Hx Human Immunodeficiency Virus (HIV), Hx of Known/Suspected MRSA, Hx Shingles, Hx Tuberculosis, Traveled Outside the [place] in Last 30 Days - Family History Known Family History: Positive: Seizure Disorder - pseudo-seizures - Social History Lives: With Family Alcohol Use: None Hx Substance Use: No Substance Use Type: Reports: None Hx Tobacco Use: Yes Smoking Status (MU): Current Some Day Smoker Type: Cigarettes Amount Used/How Often: 1/2 PPD X 20 YEARS- OFF AND ON Length of Time of Smoking/Using Tobacco: 23 Have You Smoked in the Last Year: Yes - smokes 1/2 pack/day. No other form tobacco or nicotine in last year Review of Systems Negative: Chest Pain Negative: Shortness Of Breath Negative: Abdominal Pain Neurological: Other - seizures Positive: Other - manic All Other Systems Reviewed And Are Negative: Yes Physical Exam - Summary Physical Exam Summary: GENERAL: Patient is a well developed and nourished F who is lying comfortable in the stretcher. Patient is not in any acute respiratory distress. HEAD AND FACE: Normocephalic EYES: PERRLA, EOMI x 2. EARS: Hearing grossly intact. MOUTH: Oropharynx within normal limits. NECK: Supple, trachea is midline, no adenopathy, no JVD, no carotid bruit. CHEST: Symmetric, no tenderness at palpation LUNGS: Clear to auscultation bilaterally. No wheezing or crackles. CVS: Regular rate and rhythm, S1 and S2 present, no murmurs or gallops appreciated. ABDOMEN: Soft, non-tender. Bowel sounds are normal. No abdominal abnormal pulsations. EXTREMITIES: Full ROM in all major joints, no edema, no cyanosis or clubbing. NEURO: Alert and oriented x 3. No acute neurological deficits. Speech is normal and follows commands. SKIN: Dry and warm Pysch: normal affect, no SI no HI linear thought process, no auditory or visual hallucinations Triage Information Reviewed: Yes Vital Signs On Initial Exam: Initial Vitals Temp Pulse Resp BP Pulse Ox 98.0 F 67 16 107/71 96 11/17/17 15:29 11/17/17 15:29 11/17/17 15:29 11/17/17 15:29 11/17/17 15:29 Vital Signs Reviewed: Yes Diagnostics - Vital Signs Vital Signs Temp Pulse Resp BP Pulse Ox 11/17/17 15:29 98.0 F 67 16 107/71 96 - Laboratory Lab Results: Lab Results 04/27/18 04/27/18 04/27/18 Range/Units 16:05 16:05 16:50 WBC 7.4 (3.5-10.8) 10^3/ul RBC 5.01 (4.0-5.4) 10^6/ul Hgb 14.6 (12.0-16.0) g/dl Hct 43 (35-47) % MCV 87 (80-97) fL MCH 29 (27-31) pg MCHC 34 (31-36) g/dl RDW 14 (10.5-15) % Plt Count 153 (150-450) 10^3/ul MPV 10.6 H (7.4-10.4) um3 Neut % (Auto) 66.5 (38-83) % Lymph % (Auto) 25.8 (25-47) % [place] % (Auto) 5.7 (0-7) % Eos % (Auto) 1.5 (0-6) % Baso % (Auto) 0.5 (0-2) % Absolute Neuts (auto) 4.9 (1.5-7.7) 10^3/ul Absolute Lymphs (auto) 1.9 (1.0-4.8) 10^3/ul Absolute Monos (auto) 0.4 (0-0.8) 10^3/ul Absolute Eos (auto) 0.1 (0-0.6) 10^3/ul Absolute Basos (auto) 0 (0-0.2) 10^3/ul Absolute Nucleated RBC 0 10^3/ul Nucleated RBC % 0.2 Sodium 139 (139-145) mmol/L Potassium 4.0 (3.5-5.0) mmol/L Chloride 105 (101-111) mmol/L Carbon Dioxide 29 (22-32) mmol/L Anion Gap 5 (2-11) mmol/L BUN 11 (6-24) mg/dL Creatinine 1.01 H (0.51-0.95) mg/dL Est GFR ( Amer) 77.7 (>60) Est GFR (Non-Af Amer) 60.4 (>60) BUN/Creatinine Ratio 10.9 (8-20) Glucose 88 (70-100) mg/dL Calcium 9.2 (8.6-10.3) mg/dL Total Bilirubin 0.30 (0.2-1.0) mg/dL AST 13 (13-39) U/L ALT 10 (7-52) U/L Alkaline Phosphatase 88 (34-104) U/L Total Protein 6.5 (6.4-8.9) g/dL Albumin 3.9 (3.2-5.2) g/dL Globulin 2.6 (2-4) g/dL Albumin/Globulin Ratio 1.5 (1-3) TSH 1.21 (0.34-5.60) mcIU/mL Urine Color Yellow Urine Appearance Clear Urine pH 7.0 (5-9) Ur Specific [place] 1.008 L (1.010-1.030) Urine Protein Negative (Negative) Urine Ketones Negative (Negative) Urine Blood Negative (Negative) Urine Nitrate Negative (Negative) Urine Bilirubin Negative (Negative) Urine Urobilinogen Negative (Negative) Ur Leukocyte Esterase 1+ A (Negative) Urine WBC (Auto) Trace(0-5/hpf) (Absent) Urine RBC (Auto) Trace(0-2/hpf) (Absent) Ur Squamous Epith Cells Present A (Absent) Urine Bacteria 1+ A (Absent) Urine Glucose Negative (Negative) Salicylates < 2.50 (<30) mg/dL Urine Opiates Screen (None Detect) Acetaminophen < 15 mcg/mL Ur Barbiturates Screen (None Detect) Ur Phencyclidine Scrn (None Detect) Ur Amphetamines Screen (None Detect) U Benzodiazepines Scrn (None Detect) Urine Cocaine Screen (None Detect) U Cannabinoids Screen (None Detect) Serum Alcohol < 10 (<10) mg/dL 11/17/17 Range/Units 16:50 WBC (3.5-10.8) 10^3/ul RBC (4.0-5.4) 10^6/ul Hgb (12.0-16.0) g/dl Hct (35-47) % MCV (80-97) fL MCH (27-31) pg MCHC (31-36) g/dl RDW (10.5-15) % Plt Count (150-450) 10^3/ul MPV (7.4-10.4) um3 Neut % (Auto) (38-83) % Lymph % (Auto) (25-47) % [place] % (Auto) (0-7) % Eos % (Auto) (0-6) % Baso % (Auto) (0-2) % Absolute Neuts (auto) (1.5-7.7) 10^3/ul Absolute Lymphs (auto) (1.0-4.8) 10^3/ul Absolute Monos (auto) (0-0.8) 10^3/ul Absolute Eos (auto) (0-0.6) 10^3/ul Absolute Basos (auto) (0-0.2) 10^3/ul Absolute Nucleated RBC 10^3/ul Nucleated RBC % Sodium (139-145) mmol/L Potassium (3.5-5.0) mmol/L Chloride (101-111) mmol/L Carbon Dioxide (22-32) mmol/L Anion Gap (2-11) mmol/L BUN (6-24) mg/dL Creatinine (0.51-0.95) mg/dL Est GFR ( Amer) (>60) Est GFR (Non-Af Amer) (>60) BUN/Creatinine Ratio (8-20) Glucose (70-100) mg/dL Calcium (8.6-10.3) mg/dL Total Bilirubin (0.2-1.0) mg/dL AST (13-39) U/L ALT (7-52) U/L Alkaline Phosphatase (34-104) U/L Total Protein (6.4-8.9) g/dL Albumin (3.2-5.2) g/dL Globulin (2-4) g/dL Albumin/Globulin Ratio (1-3) TSH (0.34-5.60) mcIU/mL Urine Color Urine Appearance Urine pH (5-9) Ur Specific [place] (1.010-1.030) Urine Protein (Negative) Urine Ketones (Negative) Urine Blood (Negative) Urine Nitrate (Negative) Urine Bilirubin (Negative) Urine Urobilinogen (Negative) Ur Leukocyte Esterase (Negative) Urine WBC (Auto) (Absent) Urine RBC (Auto) (Absent) Ur Squamous Epith Cells (Absent) Urine Bacteria (Absent) Urine Glucose (Negative) Salicylates (<30) mg/dL Urine Opiates Screen None detected (None Detect) Acetaminophen mcg/mL Ur Barbiturates Screen None detected (None Detect) Ur Phencyclidine Scrn None detected (None Detect) Ur Amphetamines Screen None detected (None Detect) U Benzodiazepines Scrn None detected (None Detect) Urine Cocaine Screen None detected (None Detect) U Cannabinoids Screen None detected (None Detect) Serum Alcohol (<10) mg/dL Result Diagrams: 11/17/17 16:05 11/17/17 16:05 Lab Statement: Any lab studies that have been ordered have been reviewed, and results considered in the medical decision making process. Course/Dx - Course Course Of Treatment: 42 y/o F presents to ED due to "pseudoseizures". Pt reports increased dina for the past week. Lab work is obtained and pt is cleared for mental health evaluation at 17:48. Pt denies SI, HI, and hallucinations. Mental health skip tender states pt has a hx of self harm but denies self harm in the past few years and is generally stable. He states he consulted Dr. Salazar who thinks the patient can be discharged home. Mental health skip tender notifies of discharge of pt with unspecified mood disorder. - Differential Dx/Clinical Impression Provider Diagnosis: Unspecified mood [affective] disorder, Seizure-like activity Discharge - Sign-Out/Discharge Documenting (check all that apply): Discharge/Admit/Transfer - Discharge Plan Condition: Stable Disposition: [facility] Patient Education Materials: Mood Disorders (ED), Recurrent Seizures in Adults (ED) Referrals: Astrid Gonzalez MD [Primary Care Provider] - If Needed (Follow up with you primary doctor if needed. ) Additional Instructions: Per completion of a mental health evaluation, you are cleared for release and do not require inpatient psychiatric hospitalization at this time. Please go to nearest emergency room or call 911 if safety concerns arise or condition worsens. Important Phone Numbers: [facility]~~ ph:[phone] Suicide Prevention and Crisis Services~~~~~~~~~~~~~~~~~~~~~~~ ph:[phone] National Suicide Prevention Lifeline~~~~~~~~~~~~~~~~~~~~~~~ ~~ ph:[phone]- TALK (1606) [facility]~~~~~~~~~~~~~~~~~~ ~~ ph:[phone] Alcoholics Anonymous~~~~~~~~~~~~~~~~~~~~~~~~~~~~~~~~~~~~~~~~~~~~~~~~~ ph: [facility]~~~~~~ ~~ ph:[phone] [facility] Police ph:[phone] Recommendations: Follow up with [facility] as scheduled (including weekly DBT therapy sessions) Take medications as prescribed Return home with and Family - Billing Disposition and Condition Condition: STABLE Disposition: [facility] The documentation as recorded by the Gerardo baugh Julia accurately reflects the service I personally performed and the decisions made by me, Esther Martinez MD.
== END 2017-11-17 19:06 ==
LOC: ED 15:19
DX: F39 Unspecified mood [affective] disorder (principal); R56.9 Unspecified convulsions
CPT/HCPCS: 36415; 80053; 80307; 80320; 80329; 81003; 81015; 84443; 85025; 87086; 96372; 99282; G0480

== ENCOUNTER 2018-03-06 13:15 | Inpatient (IN) | payer OTHER ==
[2018-03-06 14:11] LABS: ABS Basophils 0.1 10^3/ul (0-0.2); ABS Eosinophils 0.1 10^3/ul (0-0.6); ABS Lymphocytes 1.8 10^3/ul (1.0-4.8); ABS Monocytes 0.5 10^3/ul (0-0.8); ABS Neutrophils 5.2 10^3/ul (1.5-7.7); ABS Nucleated RBC 0 10^3/ul; Eosinophil % 1.5 % (0-6); Hematocrit 44 % (35-47); Lymphocyte % 23.1 % (25-47); Mean Corpuscular HGB Conc 35 g/dl (31-36); Mean Corpuscular Hemoglobin 29 pg (27-31); Mean Corpuscular Volume 85 fL (80-97); Mean Platelet Volume 9.7 um3 (7.4-10.4); Nucleated Red Blood Cells % 0; Platelet Count 174 10^3/ul (150-450); Red Blood Count 5.15 10^6/ul (4.00-5.40); Red Cell Distribution Width 14 % (10.5-15); White Blood Count 7.7 10^3/ul (3.5-10.8)
[2018-03-06 14:54] LABS: EGFR Non-African American 59.7 (>60)
[2018-03-06 15:01] LABS: Urine Appearance Cloudy; Urine Blood Negative (Negative); Urine Color Yellow; Urine Ketones Negative (Negative); Urine Protein Negative (Negative); Urine Red Blood Cell Trace(0-2/hpf) (Absent); Urine Specific Gravity 1.013 (1.010-1.030); Urine Urobilinogen Negative (Negative); Urine White Blood Cell Trace(0-5/hpf) (Absent)
--- NOTE | 2018-03-06 15:12 | ED ---
Psychiatric Complaint - HPI Summary HPI Summary: This is scribe Damion Keenan documenting for Sandoval Rinaldi M.D. Patient is a 42 y/o F w/ c/o SI. On triage, it is noted that patient was going through her pills when found her today a few hours ago. convinced her to go to ED. Patient notes SI and reports that she has been admitted to [facility] previously for SI. On triage, HI denied, Hx of cutting noted, pain is denied and nothing is noted to aggravate/alleviate Sx. Home medications and allergies are reviewed. She states she takes klonopin, trazodone, and prazosin for BP as well as omeprazole for stomach issues. I, Dr. Rinaldi, personally performed the services described in this documentation as scribed in my presence and it is both accurate and complete. - History Of Current Complaint Chief Complaint: EDMentalHealth Time Seen by Provider: 03/06/18 13:25 Hx Obtained From: Patient Hx Last Menstrual Period: 12/18/13 Onset/Duration: Lasting Hours - patient found by a couple of hours ago Timing: Constant Severity Currently: None - on triage, pain is denied Aggravating Factor(s): Nothing Alleviating Factor(s): Nothing Has Suicidal: Reports: Thoughts, With A Plan, Demonstrates Gesture - patient found going through her pills by Has Homicidal: Denies: Thoughts - Allergies/Home Medications Allergies/Adverse Reactions: Allergies Allergy/AdvReac Type Severity Reaction Status Date / Time levofloxacin [From Levaquin] Allergy Unknown Verified 03/06/18 13:22 Reaction Details methylphenidate Allergy See Comment Verified 03/06/18 13:22 prednisone Allergy Anxiety Verified 03/06/18 13:22 GRAPEFRUIT Allergy AVOIDS DUE Uncoded 09/10/17 08:44 TO CURRENT MEDICATION SHE IS TAKING Home Medications: Home Medications Amoxicillin PO (*) [Amoxicillin 500 MG CAP*] 500 mg PO TID 03/06/18 [History Confirmed 03/06/18] clonazePAM TAB(*) [KlonoPIN TAB(*)] 1.5 mg PO DAILY PRN 03/06/18 [History Confirmed 03/06/18] PMH/Surg Hx/FS Hx/Imm Hx Endocrine/Hematology History: Denies: Hx Anticoagulant Therapy, Hx Blood Disorders, Hx Blood Transfusions, Hx Bone Marrow Disease, Hx Diabetes, Hx Systemic Lupus Erythematosus, Hx Sickle Cell Disease, Hx Thyroid Disease, Hx Anemia, Hx Unexplained Bleeding, Other Endocrine/Hematological Disorders Cardiovascular History: Reports: Hx Hypercholesterolemia Denies: Hx Hypertension Respiratory History: Reports: Hx Asthma - PRN INHALER- IMPROVED SINCE QUITTING SMOKING Denies: Hx Chronic Bronchitis, Hx Chronic Obstructive Pulmonary Disease (COPD ), Hx Cystic Fibrosis, Hx Lung Cancer, Hx Pleural Effusion, Hx Pneumonia, Hx Pulmonary Edema, Hx Pulmonary Embolism, Hx Seasonal Allergies, Hx Sleep Apnea, Other Respiratory Problems/Disorders GI History: Reports: Hx Gastroesophageal Reflux Disease - ON MEDICATION FOR, Hx Irritable Bowel, Hx Ulcer - STARTING OF AN ULCER IN THE PAST Denies: Hx Cirrhosis, Hx Crohn's Disease, Hx Diverticulosis, Hx Gall Bladder Disease, Hx Gastrointestinal Bleed, Hx Hiatal Hernia, Hx Jaundice, Hx Obstructive Bowel, Hx Ileostomy, Hx Pyloric Stenosis, Other GI Disorders History: Denies: Other Problems/Disorders Musculoskeletal History: Denies: Hx Arthritis, Hx Back Problems, Hx Bursitis, Hx Congenital Bone Abnormalities, Hx Fibromyalgia, Hx Gout, Hx Orthopedic Injury, Hx Osteoporosis, Hx Scoliosis, Hx Tendonitis, Other Musculoskeletal History Sensory History: Denies: Hx Cataracts, Hx Contacts or Glasses, Hx Eye Injury, Hx Eye Prosthesis, Hx Glaucoma, Hx Legally Blind, Hx Macular Degeneration, Hx Vision Problem, Hx Deafness, Hx Hearing Aid, Hx Hearing Problem, Other Sensory Impairments Opthamlomology History: Denies: Hx Cataracts, Hx Contacts or Glasses, Hx Eye Injury, Hx Eye Prosthesis, Hx Glaucoma, Hx Legally Blind, Hx Macular Degeneration, Hx Vision Problem, Other Sensory Impairments Neurological History: Reports: Hx Migraine - TREATS WITH REST AND TYLENOL, Hx Seizures - Pseudoseizures (per pt)-LAST 3-4 MONTHS AGO, Other Neuro Impairments/ Disorders - seizures versus psychogenic events Denies: Hx Dementia, Hx Developmental Delay, Hx Headaches, Hx Nerve Disease, Hx Spinal Cord Injury, Hx Transient Ischemic Attacks (TIA) Psychiatric History: Reports: Hx Anxiety, Hx Depression, Hx Post Traumatic Stress Disorder, Hx Inpatient Treatment, Hx Community Mental Health Tx, Hx Bipolar Disorder, Hx Suicide Attempt, Other Psychiatric Issues/Disorders Denies: Hx Attention Deficit Hyperactivity Disorder, Hx Eating Disorder, Hx Panic Disorder, Hx Schizophrenia, Hx of Violent Episodes Against Others, Hx Substance Abuse - Surgical History Surgery Procedure, Year, and Place: [id number] YEARS AGO Hx Anesthesia Reactions: No - Immunization History Date of Tetanus Vaccine: UNKNOWN Date of Influenza Vaccine: 2013 Infectious Disease History: No Infectious Disease History: Denies: Hx Clostridium Difficile, Hx Hepatitis, Hx Human Immunodeficiency Virus (HIV), Hx of Known/Suspected MRSA, Hx Shingles, Hx Tuberculosis, Traveled Outside the [place] in Last 30 Days - Family History Known Family History: Positive: Seizure Disorder - pseudo-seizures Family History: Other FHx reviewed and noncontributory - Social History Alcohol Use: None Hx Substance Use: No Substance Use Type: Reports: None Hx Tobacco Use: Yes Smoking Status (MU): Current Some Day Smoker Type: Cigarettes Amount Used/How Often: 1/2 PPD X 20 YEARS- OFF AND ON Length of Time of Smoking/Using Tobacco: 23 Have You Smoked in the Last Year: Yes - smokes 1/2 pack/day. No other form tobacco or nicotine in last year Review of Systems Negative: Fever - on vitals, temp is 98.3 F Positive: Other - SI; patient found going through her pills by All Other Systems Reviewed And Are Negative: Yes Physical Exam - Summary Physical Exam Summary: Appearance: The patient is well-nourished in no acute distress and in no acute pain. Skin: The skin is warm and dry and skin color reflects adequate perfusion. HEENT: The head is normocephalic and atraumatic. The pupils are equal and reactive. The conjunctivae are clear and without drainage. Nares are patent and without drainage. Mouth reveals moist mucous membranes and the throat is without erythema and exudate. The external ears are intact. The ear canals are patent and without drainage. The tympanic membranes are intact. Neck: The neck is supple with full range of motion and non-tender. There are no carotid bruits. There is no neck vein distension. Respiratory: Chest is non-tender. Lungs are clear to auscultation and breath sounds are symmetrical and equal. Cardiovascular: Heart is regular rate and rhythm. There is no murmur or rub auscultated. There is no peripheral edema and pulses are symmetrical and equal. Abdomen: The abdomen is soft and non-tender. There are normal bowel sounds heard in all four quadrants and there is no organomegaly palpated. Musculoskeletal: There is no back tenderness noted. Extremities are non-tender with full range of motion. There is good capillary refill. There is no peripheral edema or calf tenderness elicited. Neurological: Patient is alert and oriented to person, place and time. The patient has symmetrical motor strength in all four extremities. Cranial nerves are grossly intact. Deep tendon reflexes are symmetrical and equal in all four extremities. Psychiatric: The patient has an appropriate affect and does not exhibit any anxiety or depression. Triage Information Reviewed: Yes Vital Signs On Initial Exam: Initial Vitals Temp Pulse Resp BP Pulse Ox 98.3 F 114 16 128/82 92 03/06/18 13:18 03/06/18 13:18 03/06/18 13:18 03/06/18 13:18 03/06/18 13:18 Vital Signs Reviewed: Yes Diagnostics - Vital Signs Vital Signs Temp Pulse Resp BP Pulse Ox 03/06/18 13:18 98.3 F 114 16 128/82 92 - Laboratory Lab Results: Lab Results 03/06/18 03/06/18 03/06/18 Range/Units 13:53 13:53 14:49 WBC 7.7 (3.5-10.8) 10^3/ul RBC 5.15 (4.00-5.40) 10^6/ul Hgb 15.0 (12.0-16.0) g/dl Hct 44 (35-47) % MCV 85 (80-97) fL MCH 29 (27-31) pg MCHC 35 (31-36) g/dl RDW 14 (10.5-15) % Plt Count 174 (150-450) 10^3/ul MPV 9.7 (7.4-10.4) um3 Neut % (Auto) 67.9 (38-83) % Lymph % (Auto) 23.1 L (25-47) % Motley % (Auto) 6.5 (0-7) % Eos % (Auto) 1.5 (0-6) % Baso % (Auto) 1.0 (0-2) % Absolute Neuts (auto) 5.2 (1.5-7.7) 10^3/ul Absolute Lymphs (auto) 1.8 (1.0-4.8) 10^3/ul Absolute Monos (auto) 0.5 (0-0.8) 10^3/ul Absolute Eos (auto) 0.1 (0-0.6) 10^3/ul Absolute Basos (auto) 0.1 (0-0.2) 10^3/ul Absolute Nucleated RBC 0 10^3/ul Nucleated RBC % 0 Sodium 140 (135-145) mmol/L Potassium 4.1 (3.5-5.0) mmol/L Chloride 107 (101-111) mmol/L Carbon Dioxide 26 (22-32) mmol/L Anion Gap 7 (2-11) mmol/L BUN 9 (6-24) mg/dL Creatinine 1.02 H (0.51-0.95) mg/dL Est GFR ( Amer) 72.3 (>60) Est GFR (Non-Af Amer) 59.7 (>60) BUN/Creatinine Ratio 8.8 (8-20) Glucose 94 (70-100) mg/dL Calcium 9.5 (8.6-10.3) mg/dL Total Bilirubin 0.40 (0.2-1.0) mg/dL AST 16 (13-39) U/L ALT 17 (7-52) U/L Alkaline Phosphatase 124 H (34-104) U/L Total Protein 7.1 (6.4-8.9) g/dL Albumin 4.3 (3.2-5.2) g/dL Globulin 2.8 (2-4) g/dL Albumin/Globulin Ratio 1.5 (1-3) TSH Pending Beta HCG, Quant < 0.60 mIU/mL Urine Color Yellow Urine Appearance Cloudy Urine pH 7.0 (5-9) Ur Specific [place] 1.013 (1.010-1.030) Urine Protein Negative (Negative) Urine Ketones Negative (Negative) Urine Blood Negative (Negative) Urine Nitrate Negative (Negative) Urine Bilirubin Negative (Negative) Urine Urobilinogen Negative (Negative) Ur Leukocyte Esterase 1+ A (Negative) Urine WBC (Auto) Trace(0-5/hpf) (Absent) Urine RBC (Auto) Trace(0-2/hpf) (Absent) Ur Squamous Epith Cells Present A (Absent) Urine Bacteria Absent (Absent) Urine Glucose Negative (Negative) Salicylates Pending Acetaminophen Pending Serum Alcohol Pending Result Diagrams: 03/06/18 13:53 03/06/18 13:53 Lab Statement: Any lab studies that have been ordered have been reviewed, and results considered in the medical decision making process. Course/Dx - Course Course Of Treatment: Ms. Hart was brought in on 941 feeling depressed and suicidal. She was medically cleared at this point is in the flex unit awaiting a mental health eval. - Differential Dx/Clinical Impression Provider Diagnosis: Depression Discharge - Sign-Out/Discharge Documenting (check all that apply): Sign-Out Patient Signing out patient TO: Joe Miner - Discharge Plan Condition: Stable Referrals: Astrid Gonzalez MD [Primary Care Provider] - - Billing Disposition and Condition Condition: STABLE
--- NOTE | 2018-03-06 21:57 | ED ---
Progress - Progress Note Progress Note: 230: Per JOANA Wray, pt admitted by Dr. Wong to [facility] with dx borderline personality disorder on voluntary status. - Consult/PCP Time Called: 14:47 Course/Dx - Course Course Of Treatment: Ms. Hart was brought in on 941 feeling depressed and suicidal. She was medically cleared at this point is in the flex unit awaiting a mental health eval. - Diagnoses Provider Diagnoses: Borderline personality disorder, Suicidal ideation, Depression - Provider Notifications Discussed Care Of Patient With: Leonor Wong Time Discussed With Above Provider: 23:00 Instructed by Provider To: Other - per JOANA Wray, pt admitted to [facility] with dx borderline personality disorder on voluntary status. Discharge - Sign-Out/Discharge Documenting (check all that apply): Patient Departure - admit - Discharge Plan Condition: Stable Disposition: [facility]CHIATRIC FAC[place] Referrals: Astrid Gonzalez MD [Primary Care Provider] - - Billing Disposition and Condition Condition: STABLE Disposition: Psychiatric Facility [facility] Attestation Statement User Type: Provider - I, Dr. Miner personally performed the services described in this documentation as scribed in my presence and it is both accurate and complete.
[2018-03-07] MEDS ORDERED: Prazosin CAP* 1 MG ONE (00:53)
[2018-03-07] MEDS ORDERED: traZODone TAB* 100 MG ONE (00:53)
[2018-03-07] MEDS ORDERED: Naproxen TAB* 250 MG ONE (00:53)
[2018-03-07] MEDS ORDERED: Omeprazole CAP* 20 MG ONE (00:54)
[2018-03-07] MEDS: Omeprazole CAP* 20 MG PO SCH ×3 (01:15→16:52)
[2018-03-07] MEDS: Naproxen TAB* 375 MG PO PRN ×2 (01:15→21:15)
[2018-03-07] MEDS: Prazosin CAP* 1 MG PO SCH ×2 (01:15→21:12)
[2018-03-07] MEDS: traZODone TAB* 100 MG PO SCH ×2 (01:15→21:13)
[2018-03-07] MEDS ORDERED: Mouth Piece, Nicotine* 1 EACH CARTRIDGE INH SCH (01:29)
[2018-03-07] MEDS ORDERED: Nicotine Inhaler* 10 MG AMP INH PRN (01:29)
[2018-03-07] MEDS ORDERED: Al Hydrox/Mg Hydrox/Simet LIQ* 30 ML UDC PO PRN (01:29)
[2018-03-07] MEDS ORDERED: Acetaminophen TAB* 325 MG PO PRN (01:29)
[2018-03-07] MEDS ORDERED: Nicotine GUM* 2 MG PO PRN (01:29)
[2018-03-07] MEDS: BREXPIPRAZOLE 3 MG PO SCH ×2 (01:30→18:53)
[2018-03-07] MEDS: Amoxicillin PO (*) 500 MG CAP PO SCH ×4 (01:30→21:12)
[2018-03-07] MEDS ORDERED: Albuterol HFA INHALER* 8 gm MDI INH PRN (01:32)
[2018-03-07] MEDS: Vitamin THERAPEUTIC TAB PO SCH (09:14)
[2018-03-07] MEDS: Mometasone/Formoter 200/5 MDI INH SCH ×2 (09:14→22:42)
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
[2018-03-07] MEDS: clonazePAM TAB(*) 0.5 MG PO PRN (18:53)
[2018-03-08] MEDS: Omeprazole CAP* 20 MG PO SCH ×2 (07:35→17:33)
[2018-03-08] MEDS: BuPROPion XL* 150 MG TAB.XL PO SCH (08:40)
[2018-03-08] MEDS: Amoxicillin PO (*) 500 MG CAP PO SCH ×3 (08:40→20:31)
[2018-03-08] MEDS: Vitamin THERAPEUTIC TAB PO SCH (08:40)
[2018-03-08] MEDS: Mometasone/Formoter 200/5 MDI INH SCH ×2 (08:41→20:30)
[2018-03-08] MEDS: clonazePAM TAB(*) 0.5 MG PO PRN ×2 (10:00→20:34)
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
--- NOTE | 2018-03-08 16:12 | PN ---
MHU: Group Therapy Note - Service Type Service Type: [id number] Group Psychotherapy - Medication Education Group: Patient was attentive and participatory in group, and remained in good behavioral control. Patient expressed positive insights regarding relevant treatment interventions. Patient stated understanding of material discussed and had appropriate questions.
[2018-03-08] MEDS: BREXPIPRAZOLE 3 MG PO SCH (18:50)
[2018-03-08] MEDS: Prazosin CAP* 1 MG PO SCH (20:31)
[2018-03-08] MEDS: traZODone TAB* 100 MG PO SCH (20:31)
[2018-03-08] MEDS: Naproxen TAB* 375 MG PO PRN (20:42)
[2018-03-09] MEDS: Omeprazole CAP* 20 MG PO SCH (07:25)
[2018-03-09 07:40] VITALS: BP 98/58
[2018-03-09] MEDS: Vitamin THERAPEUTIC TAB PO SCH (09:02)
[2018-03-09] MEDS: Mometasone/Formoter 200/5 MDI INH SCH (09:02)
[2018-03-09] MEDS: BuPROPion XL* 150 MG TAB.XL PO SCH (09:02)
[2018-03-09] MEDS: Amoxicillin PO (*) 500 MG CAP PO SCH ×2 (09:02→13:10)
[2018-03-09] MEDS: clonazePAM TAB(*) 0.5 MG PO PRN ×2 (09:03→13:10)
--- NOTE | 2018-03-09 11:39 | PN ---
MHU: Group Therapy Note - Service Type Service Type: [id number] Group Psychotherapy - Cognitive Behavioral Group Therapy ( CBT):Patient was attentive and participatory in CBT programming this morning, and remained in good behavioral control. Patient expressed positive insights regarding relevant treatment interventions and goals.
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
== END 2018-03-09 13:33 | disposition home or self-care (01) | DRG 753 ==
LOC: ED 13:15 → BSU 03-07 01:20
PROVIDERS: ADMIT Psychiatry & Neurology Psychiatry; ATTEND Psychiatry & Neurology Psychiatry
PROC: GZHZZZZ Group Psychotherapy (ICD-10-PCS; principal; 2018-03-07)
DX: F31.9 Bipolar disorder, unspecified (principal); R45.851 Suicidal ideations; F43.10 Post-traumatic stress disorder, unspecified; F60.3 Borderline personality disorder; R41.83 Borderline intellectual functioning; Z62.810 Personal history of physical and sexual abuse in childhood; F41.9 Anxiety disorder, unspecified; F17.210 Nicotine dependence, cigarettes, uncomplicated; F90.9 Attention-deficit hyperactivity disorder, unspecified type; J45.909 Unspecified asthma, uncomplicated; E78.00 Pure hypercholesterolemia, unspecified; G43.909 Migraine, unspecified, not intractable, without status migrainosus; E66.9 Obesity, unspecified; K21.9 Gastro-esophageal reflux disease without esophagitis; K58.9 Irritable bowel syndrome, unspecified; N18.9 Chronic kidney disease, unspecified; Z88.1 Allergy status to other antibiotic agents; Z88.8 Allergy status to other drugs, medicaments and biological substances; Z91.018 Allergy to other foods; Z81.8 Family history of other mental and behavioral disorders; Z81.1 Family history of alcohol abuse and dependence; Z82.0 Family history of epilepsy and other diseases of the nervous system; Z68.34 Body mass index [BMI] 34.0-34.9, adult
CPT/HCPCS: 36415; 80053; 80061; 80307; 80320; 80329; 81003; 81015; 83036; 84443; 84702; 85025; 87086; 90853; 99222; 99231; 99238; 99284; A9270-GY; G0480

== ENCOUNTER 2018-04-16 12:25 | Emergency (ER) | payer OTHER ==
[2018-04-16] MEDS ORDERED: clonazePAM TAB(*) 1 MG PO ONE (12:57)
[2018-04-16 14:46] VITALS: BP 94/60
--- NOTE | 2018-04-16 15:05 | ED ---
Complex/Multi-Sys Presentation - HPI Summary HPI Summary: Patient is a 42 y/o F w/ c/o pseudo-seizures onsetting today. 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 She states that she did not take her klonopin this morning as she had a dentist's appointment. While at dentist's office, she reports having seizures. She notes recent financial stress and difficulty finding a job. Patient sees a neurologist, seizures are not epileptic. Patient has mental healthcare provider. SI is denied. Home medications and allergies are reviewed. On triage, pain is denied, nothing is noted to aggravate/alleviate Sx. - History Of Current Complaint Chief Complaint: EDSeizure Time Seen by Provider: 04/16/18 12:27 Hx Obtained From: Patient Onset/Duration: Lasting Hours - onset this morning at dentist's office Severity Currently: None - pain denied Aggravating Factor(s): stress Alleviating Factor(s): nothing Associated Signs And Symptoms: Positive: Other - pseudoseizures - Allergies/Home Medications Allergies/Adverse Reactions: Allergies Allergy/AdvReac Type Severity Reaction Status Date / Time levofloxacin [From Levaquin] Allergy Unknown Verified 04/16/18 12:35 Reaction Details methylphenidate Allergy See Comment Verified 04/16/18 12:35 prednisone Allergy Anxiety Verified 04/16/18 12:35 GRAPEFRUIT Allergy AVOIDS DUE Uncoded 04/16/18 12:35 TO CURRENT MEDICATION SHE IS TAKING PMH/Surg Hx/FS Hx/Imm Hx Endocrine/Hematology History: Denies: Hx Anticoagulant Therapy, Hx Blood Disorders, Hx Blood Transfusions, Hx Bone Marrow Disease, Hx Diabetes, Hx Systemic Lupus Erythematosus, Hx Sickle Cell Disease, Hx Thyroid Disease, Hx Anemia, Hx Unexplained Bleeding, Other Endocrine/Hematological Disorders Cardiovascular History: Reports: Hx Hypercholesterolemia Denies: Hx Hypertension Respiratory History: Reports: Hx Asthma - PRN INHALER- IMPROVED SINCE QUITTING SMOKING Denies: Hx Chronic Bronchitis, Hx Chronic Obstructive Pulmonary Disease (COPD ), Hx Cystic Fibrosis, Hx Lung Cancer, Hx Pleural Effusion, Hx Pneumonia, Hx Pulmonary Edema, Hx Pulmonary Embolism, Hx Seasonal Allergies, Hx Sleep Apnea, Other Respiratory Problems/Disorders GI History: Reports: Hx Gastroesophageal Reflux Disease - ON MEDICATION FOR, Hx Irritable Bowel, Hx Ulcer - STARTING OF AN ULCER IN THE PAST Denies: Hx Cirrhosis, Hx Crohn's Disease, Hx Diverticulosis, Hx Gall Bladder Disease, Hx Gastrointestinal Bleed, Hx Hiatal Hernia, Hx Jaundice, Hx Obstructive Bowel, Hx Ileostomy, Hx Pyloric Stenosis, Other GI Disorders History: Denies: Other Problems/Disorders Musculoskeletal History: Denies: Hx Arthritis, Hx Back Problems, Hx Bursitis, Hx Congenital Bone Abnormalities, Hx Fibromyalgia, Hx Gout, Hx Orthopedic Injury, Hx Osteoporosis, Hx Scoliosis, Hx Tendonitis, Other Musculoskeletal History Sensory History: Denies: Hx Cataracts, Hx Contacts or Glasses, Hx Eye Injury, Hx Eye Prosthesis, Hx Glaucoma, Hx Legally Blind, Hx Macular Degeneration, Hx Vision Problem, Hx Deafness, Hx Hearing Aid, Hx Hearing Problem, Other Sensory Impairments Opthamlomology History: Denies: Hx Cataracts, Hx Contacts or Glasses, Hx Eye Injury, Hx Eye Prosthesis, Hx Glaucoma, Hx Legally Blind, Hx Macular Degeneration, Hx Vision Problem, Other Sensory Impairments Neurological History: Reports: Hx Migraine - TREATS WITH REST AND TYLENOL, Hx Seizures - Pseudoseizures (per pt)-LAST 3-4 MONTHS AGO, Other Neuro Impairments/ Disorders - seizures versus psychogenic events Denies: Hx Dementia, Hx Developmental Delay, Hx Headaches, Hx Nerve Disease, Hx Spinal Cord Injury, Hx Transient Ischemic Attacks (TIA) Psychiatric History: Reports: Hx Anxiety, Hx Depression, Hx Post Traumatic Stress Disorder, Hx Inpatient Treatment, Hx Community Mental Health Tx, Hx Bipolar Disorder, Hx Suicide Attempt, Other Psychiatric Issues/Disorders Denies: Hx Attention Deficit Hyperactivity Disorder, Hx Eating Disorder, Hx Panic Disorder, Hx Schizophrenia, Hx of Violent Episodes Against Others, Hx Substance Abuse - Surgical History Surgery Procedure, Year, and Place: [id number] YEARS AGO Hx Anesthesia Reactions: No - Immunization History Date of Tetanus Vaccine: UNKNOWN Date of Influenza Vaccine: 2012 Infectious Disease History: No Infectious Disease History: Denies: Hx Clostridium Difficile, Hx Hepatitis, Hx Human Immunodeficiency Virus (HIV), Hx of Known/Suspected MRSA, Hx Shingles, Hx Tuberculosis, Traveled Outside the [place] in Last 30 Days - Family History Known Family History: Positive: Seizure Disorder - pseudo-seizures Family History: Other FHx reviewed and noncontributory - Social History Alcohol Use: Weekly Hx Substance Use: No Substance Use Type: Reports: None Hx Tobacco Use: Yes Smoking Status (MU): Current Every Day Smoker Type: Cigarettes Amount Used/How Often: 1/2 PPD X 20 YEARS- OFF AND ON Length of Time of Smoking/Using Tobacco: 23 Have You Smoked in the Last Year: Yes - smokes 1/2 pack/day. No other form tobacco or nicotine in last year Review of Systems Negative: Fever - on vitals, temp is 98.1 F Neurological: Other - pseudoseizures Positive: Other - NEGATIVE: SI All Other Systems Reviewed And Are Negative: Yes Physical Exam - Summary Physical Exam Summary: Appearance: Well appearing, no pain distress Skin: warm, dry, reflects adequate perfusion Head/face: normal Eyes: EOMI, ISABEL ENT: mucous membranes moist Neck: supple, non-tender Respiratory: CTA, breath sounds present Cardiovascular: RRR, pulses symmetrical Abdomen: non-tender, soft Bowel Sounds: present Musculoskeletal: normal, strength/ROM intact Neuro: normal, sensory motor intact, A&Ox3; had voluntary whole body twitching, was awake and talkative throughout that time. Patient stopped twitching on request. No tongue injury. Psych: flat affect, anxious appearing, no SI, no HI Triage Information Reviewed: Yes Vital Signs On Initial Exam: Initial Vitals Temp Pulse Resp BP Pulse Ox 98.1 F 94 16 117/70 96 04/16/18 12:32 04/16/18 12:32 04/16/18 12:32 04/16/18 12:32 04/16/18 12:32 Vital Signs Reviewed: Yes Diagnostics - Vital Signs Vital Signs Temp Pulse Resp BP Pulse Ox 04/16/18 14:45 97.8 F 81 14 94/60 93 04/16/18 13:06 84 14 105/76 89 04/16/18 13:00 88 21 94 04/16/18 12:38 93 12 110/82 93 04/16/18 12:32 98.1 F 92 13 117/70 96 - Laboratory Lab Statement: Any lab studies that have been ordered have been reviewed, and results considered in the medical decision making process. Re-Evaluation - Re-Evaluation First Eval Re-Evaluation Time: 15:00 Comment: Patient will be discharged to home and follow up with PCP. She understands and is agreeable with this plan. Complex Multi-Symp Course/Dx Course Of Treatment: Patient with a history of pseudoseizures and anxiety disorder presents with similar. Here, she has minor tremor episodes which she is able to be talked out of. There is no loss of consciousness. She has not taken her Klonopin today. She is anxious over financial issues and is currently seeking a second job. She stabilized and calmed here over the course of an hour or so and was able to discharge in good condition. Denies SI, HI. - Diagnoses Differential Diagnoses/HQI/PQRI: Other - Mental health disorder, metabolic abnormality, urtication noncompliance Provider Diagnoses: Anxiety, Pseudoseizure Discharge - Sign-Out/Discharge Documenting (check all that apply): Patient Departure - discharge - Discharge Plan Condition: Improved Disposition: HOME Patient Education Materials: Anxiety (ED) Referrals: Astrid Gonzalez MD [Primary Care Provider] - Additional Instructions: Call your doctor first thing in the morning to schedule follow-up. Take your prescribed medications. Return if worse, new symptoms or other concerns. - Billing Disposition and Condition Condition: IMPROVED Disposition: Home - Attestation Statements Document Initiated by Scribe: Yes Documenting Scribe: Damion Keenan Provider For Whom Rubio is Documenting (Include Credential): Puma Arizmendi MD Scribe Attestation: Damion Mesa, scribed for Puma Arizmendi MD on 04/16/18 at 1559. Scribe Documentation Reviewed: Yes Provider Attestation: The documentation as recorded by the Damion baugh accurately reflects the service I personally performed and the decisions made by me, Puma Arizmendi MD
== END 2018-04-16 14:45 | disposition home or self-care (01) ==
LOC: ED 12:25
DX: F44.5 Conversion disorder with seizures or convulsions (principal); F41.9 Anxiety disorder, unspecified; F17.210 Nicotine dependence, cigarettes, uncomplicated
CPT/HCPCS: 99282; A9270-GY

== ENCOUNTER 2018-05-02 13:06 | Emergency (ER) | payer OTHER ==
--- OUTSIDE RECORDS SUMMARY | 2018-05-02 13:51 | XMS REPORT ---
:1975 External Reference #:[id number] Author Organization [facility] Address [address] [place] [address] [place] [address] Phone [phone] Care Team Providers Name Role Phone Astrid Gonzalez MD Primary Care Physician Unavailable Payers Type Date Identification Numbers Payment Provider Subscriber Commercial Policy Number: [id number] Ari Myers Group Number: [id number] [address] PayID: [id number] [place] [address] Advance Directives Type Date Description Status Comment Other Directive 03/13/2017 Health Care Proxy Current and Verified Problems Date Description Provider Status Onset: 02/04/2016 Tinea pedis Camilo Osman M.D. Active Onset: 02/04/2016 Gastroesophageal reflux disease Camilo Osman M.D. 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 a day Recreational Drug Use Denies Drug Use Allergies, Adverse Reactions, Alerts Date Description Reaction Status Severity Comments 02/04/2016 Ritalin active Severe profuse sweating and poundign chest 02/22/2016 Prednisone exacerbates mental active illness 02/22/2016 Levaquin active 06/20/2016 Grapefruit active Medications Medication Date Status Form Strength Qnty SIG Indications Ordering Provider Prednisone 05/01 Hx Tablets 20mg QS 2 tab by J45.41 mouth every Gonzalez, - day x4 days M.D. 05/11 then 1 tab daily for 4days, then 1/2 tab daily for 3 days Claritin 04/23 Active Tablets 10mg 10tab once a day J06.9 s Fatuma Gonzalez Nebulizer 11/03 Active Misc 1unit nebulizer s supplies, Lisa, tubing etc M.D. Advair HFA 09/11 Active Aerosol 115-21mcg 36uni Inhale 2 /Act ts Puffs By Lisa, Mouth Every M.D. 12 Hours Naproxen 06/05 Active Tablets 375mg 30tab Take 1 M54.5 Octavio s Tablet By Maureen Sawant, Mouth Twice M.D.,FACP Daily With Food Albuterol 01/18 Active Nebulizer 0.63mg/3M 90uni Inhale The J01.90 Astrid L ts Contents Of Lisa, 1 Vial Via M.D. Nebulizer Every 4 To 6 Hours as Needed Ventolin HFA 05/19 Active Aerosol 108(90Bas 18uni Inhale 2 e) ts Puffs By Lisa, mcg/Act Mouth 4 M.D. Times Daily as Needed Rexulti 00 Active Tablets 3mg 1 po qd Unknown / Trazodone HCL Active Tablets 100mg 2 by mouth Unknown /0000 every night at bedtime Clonazepam Active Tablets 0.5mg 1 daily prn Unknown Prazosin HCL Active Capsules 2mg once daily Unknown / Nicotrol 00 Active Inhaler 10mg once a day Unknown / Josseline Ibuprofen Active Capsules 200mg as needed Unknown / Omeprazole Active Capsules 40mg 60cap Take 1 Timothy Caro 0000 s Capsule By Ebony, Mouth 2 M.D. Times A Day For 30 Days, Then Decrease To 1 Capsule Once A Day Prednisone 04/23 Hx Tablets 20mg QS 2 tab by J44.1 Astrid mouth every Gonzalez, - day x4 days M.D. 05/01 then 1 tab daily for 3 days, then 1/2 tab daily for 3 days Nitrofurantoin 01/18 Hx Capsules 100mg 20cap 1 by mouth Alissa Monohyd Macro s twice a day Varn, N.P. - for 10 days 01/28 Sulfamethoxazol 01/16 Hx Tablets 800-160mg 14tab one by mouth N39.0 Alissa e/Trimethoprim s twice a day Varn, N.P. DS - for 7 days 01/18 Doxycycline 11/01 Hx Tablets 100mg 20tab 1 tab by Lissy Hyclate s mouth twice Cotton, - a day for 10 M.D. Amoxicillin/Cla 08/18 Hx Tablets 875-125mg 20tab 1 tablet Lissy vulanate s twice daily Cotton, Potassium - for 10 days M.D. 10/30 Nicotine 02/15 Hx Kit 21-14-7mg 112un no lonher Timothy Caro /2016 /24HR its doing this Ebony - M.D. 03/29 Advair HFA 01/18 Hx Aerosol 115-21mcg 36gm 2 puff every J01.90 Astrid /2017 /Act 12 hours Lisa - M.D. 03/13 Eq Nicotine 01/18 Hx Patches 14mg/24HR 28uni as needed F17.210 Astrid /2017 24HR ts daily Lisa - M.D. 03/12 Nitrofurantoin 12/12 Hx Capsules 100mg 14cap 1 by mouth N30.01 Astrid Macrocrystal s twice a day Lisa - M.D. 12/26 Amoxicillin 07/05 Hx Capsules 500mg 30cap 1 three J06.9 Timothy E. s times a day Ebony, - for 10 days M.D. 10/18 Metronidazole 06/21 Hx Gel 0.75% 1unit apply Astrid s intravaginal Lisa - ly once a M.D. 06/29 day x 7 days /2015 Fluconazole 06/20 Hx Tablets 150mg 2tabs 1 by mouth B37.9 Astrid /2015 every day Lisa, - M.D. 06/23 Advair Diskus 05/18 Hx Aerosol 500-50mcg 60uni inhale 1 Wilbert /2015 /Dose ts dose by Terrance [employer] - mouth twice 06/02 a day /2015 Tizanidine HCL 05/02 Hx Capsules 4mg 30cap one by mouth M54.5 s every 4 Varn, N.P. - hours as 05/16 needed for muscle spasms Ibuprofen 05/02 Hx Tablets 800mg 60tab by mouth M54.5 s three times Varn, N.P. - a day as 12/12 needed Medrol 05/02 Hx TBPK 4mg 21uni 6 by mouth J45.901 ts day 1 5 by Varn, N.P. - mouth day 2 05/08 4 by mouth /2015 day 3 3 by mouth day 4 2 by mouth day 5 1 by mouth day 6 Sulfamethoxazol 03/22 Hx Tablets 800-160mg 14tab one by mouth N39.0 / s twice a day Varn, N.P. DS - for 7 days 03/29 Clotrimazole 02/03 Hx Cream 1% 45gm apply twice B35.3 daily both [place], - feet after M.D. 05/02 shower. Prazosin HCL Hx Capsules 2mg 1 capsule at Unknown /0000 night - 03/07 Hydroxyzine HCL Hx Tablets 50mg 1 tab q6h Unknown /0000 prn - 03/12 Denta 5000 Plus 00 Hx Cream 1.1% use for Unknown /0000 brushing - teeth bid 03/12 Tylenol Extra 00 Hx Tablets 500mg 2 by mouth Unknown Strength /0000 as needed - 06/19 Bupropion HCL 00 Hx Tablets ER 150mg 1 po qd Unknown ER (XL) /0000 24HR - 03/07 Wellbutrin XL 00 Hx Tablets ER 150mg 1 by mouth Unknown /0000 24HR every day - 10/30 Immunizations CPT Code Status Date Vaccine Lot # [id number] Given 03/29/2017 Tdap - Tetanus/Diptheria/Acellular Pertussis [id number] Given 03/29/2017 Influenza Virus Vaccine, Quadrivalent, Split, [id number] Preservative Free [id number] Refused 06/20/2016 Influenza Virus Vaccine, Quadrivalent, Split, Preservative Free Vital Signs Date Vital Result Comment 05/01/2018 Height 64.5 inches 5'4.50" Weight 207.00 lb Heart Rate 107 /min BP Systolic Sitting 112 mmHg BP Diastolic Sitting 68 mmHg O2 % BldC Oximetry 93 % BMI (Body Mass Index) 35.0 kg/m2 04/23/2018 Height 64.5 inches 5'4.50" Weight 208.00 lb Heart Rate 97 /min BP Systolic Sitting 100 mmHg BP Diastolic Sitting 62 mmHg Body Temperature 97.3 F O2 % BldC Oximetry 94 % BMI (Body Mass Index) 35.1 kg/m2 01/16/2018 Height 64.5 inches 5'4.50" Weight 203.00 lb Heart Rate 94 /min Body Temperature 97.1 F O2 % BldC Oximetry 91 % BMI (Body Mass Index) 34.3 kg/m2 11/28/2017 Weight 201.00 lb Heart Rate 97 /min BP Systolic Sitting 92 mmHg BP Diastolic Sitting 68 mmHg O2 % BldC Oximetry 96 % 10/31/2017 Weight 196.00 lb Heart Rate 60 /min BP Systolic Sitting 118 mmHg BP Diastolic Sitting 74 mmHg Body Temperature 98.3 F O2 % BldC Oximetry 97 % 2017 Weight 201.00 lb Heart Rate 101 /min BP Systolic Sitting 100 mmHg BP Diastolic Sitting 60 mmHg Body Temperature 97.1 F O2 % BldC Oximetry 92 % 06/19/2017 Weight 203.00 lb Heart Rate 92 /min BP Systolic Sitting 110 mmHg BP Diastolic Sitting 70 mmHg Body Temperature 97.1 F O2 % BldC Oximetry 93 % 06/05/2017 Weight 200.00 lb Heart Rate 85 /min BP Systolic Sitting 100 mmHg BP Diastolic Sitting 68 mmHg Body Temperature 97.0 F Pain Level 8 lower back O2 % BldC Oximetry 92 % 03/29/2017 Height 64.1 inches 5'4.10" Weight 203.00 lb Heart Rate 81 /min BP Systolic Sitting 102 mmHg BP Diastolic Sitting 78 mmHg Body Temperature 97.1 F O2 % BldC Oximetry 95 % BMI (Body Mass Index) 34.7 kg/m2 03/13/2017 Weight 199.00 lb Heart Rate 90 /min BP Systolic Sitting 102 mmHg BP Diastolic Sitting 64 mmHg Body Temperature 97.4 F O2 % BldC Oximetry 94 % 01/18/2017 Weight 202.38 lb Heart Rate 89 /min BP Systolic 110 mmHg BP Diastolic 70 mmHg Body Temperature 97.5 F O2 % BldC Oximetry 92 % 12/12/2016 Weight 205.00 lb Heart Rate 76 /min BP Systolic Sitting 124 mmHg BP Diastolic Sitting 82 mmHg Respiratory Rate 15 /min Body Temperature 97.3 F O2 % BldC Oximetry 98 % 10/18/2016 Weight 204.00 lb Heart Rate 88 /min BP Systolic Sitting 108 mmHg BP Diastolic Sitting 75 mmHg Respiratory Rate 16 /min Body Temperature 98.5 F O2 % BldC Oximetry 98 % 07/05/2016 Weight 203.25 lb Heart Rate 89 /min BP Systolic 110 mmHg BP Diastolic 70 mmHg Body Temperature 98.1 F O2 % BldC Oximetry 98 % 06/20/2016 Weight 206.00 lb Heart Rate 94 /min BP Systolic Sitting 98 mmHg BP Diastolic Sitting 66 mmHg Body Temperature 98.1 F O2 % BldC Oximetry 96 % 05/18/2016 Weight 206.00 lb Heart Rate 90 /min BP Systolic Sitting 122 mmHg BP Diastolic Sitting 80 mmHg Respiratory Rate 15 /min Body Temperature 97.7 F O2 % BldC Oximetry 98 % 05/02/2016 Weight 208.00 lb Heart Rate 84 /min BP Systolic Sitting 116 mmHg BP Diastolic Sitting 76 mmHg Respiratory Rate 15 /min Body Temperature 97.8 F O2 % BldC Oximetry 97 % 03/22/2016 Weight 210.00 lb Heart Rate 90 /min BP Systolic Sitting 114 mmHg BP Diastolic Sitting 66 mmHg Respiratory Rate 15 /min Body Temperature 97.6 F O2 % BldC Oximetry 98 % 02/22/2016 Height 64.5 inches 5'4.50" Weight 200.00 lb Heart Rate 80 /min BP Systolic Sitting 110 mmHg BP Diastolic Sitting 70 mmHg Respiratory Rate 17 /min BMI (Body Mass Index) 33.8 kg/m2 02/04/2016 Height 64.5 inches 5'4.50" Weight 207.31 lb Heart Rate 104 /min BP Systolic Sitting 116 mmHg BP Diastolic Sitting 72 mmHg Body Temperature 97.6 F O2 % BldC Oximetry 97 % BMI (Body Mass Index) 35.0 kg/m2 Results Test Date Test Result H/L Range Note CBC Auto Diff 03/06/2018 White Blood Count 7.7 10^3/uL 3.5-10.8 Red Blood Count 5.15 10^6/uL 4.00-5.40 Hemoglobin 15.0 g/dL 12.0-16.0 Hematocrit 44 % 35-47 Mean Corpuscular Volume 85 fL 80-97 Mean Corpuscular Hemoglobin 29 pg 27-31 Mean Corpuscular HGB Conc 35 g/dL 31-36 Red Cell Distribution Width 14 % 10.5-15 Platelet Count 174 10^3/uL 150-450 Mean Platelet Volume 9.7 um3 7.4-10.4 Abs Neutrophils 5.2 10^3/uL 1.5-7.7 Abs Lymphocytes 1.8 10^3/uL 1.0-4.8 Abs Monocytes 0.5 10^3/uL 0-0.8 Abs Eosinophils 0.1 10^3/uL 0-0.6 Abs Basophils 0.1 10^3/uL 0-0.2 Abs Nucleated RBC 0 10^3/uL Granulocyte % 67.9 % 38-83 Lymphocyte % 23.1 % Low 25-47 Monocyte % 6.5 % 0-7 Eosinophil % 1.5 % 0-6 Basophil % 1.0 % 0-2 Nucleated Red Blood Cells % 0 Urinalysis Profile 03/06/2018 Urine Color Yellow Urine Appearance Cloudy Urine Specific [place] 1.013 1.010-1.030 Urine pH 7.0 5-9 Urine Urobilinogen Negative Negative Urine Ketones Negative Negative Urine Protein Negative Negative Urine Leukocytes 1+ Negative Urine Blood Negative Negative Urine Nitrite Negative Negative Urine Bilirubin Negative Negative Urine Glucose Negative Negative Urine White Blood Cell Trace(0-5/hpf) Absent Urine Red Blood Cell Trace(0-2/hpf) Absent Urine Bacteria Absent Absent Urine Squamous Epithelial Cell Present Absent Laboratory test finding 03/06/2018 HCG < 0.60 mIU/mL 1 Comp Metabolic Panel 03/06/2018 Sodium 140 mmol/L 135-145 Potassium 4.1 mmol/L 3.5-5.0 Chloride 107 mmol/L 101-111 Co2 Carbon Dioxide 26 mmol/L 22-32 Anion Gap 7 mmol/L 2-11 Glucose 94 mg/dL 70-100 Blood Urea Nitrogen 9 mg/dL 6-24 Creatinine 1.02 mg/dL High 0.51-0.95 BUN/Creatinine Ratio 8.8 8-20 Calcium 9.5 mg/dL 8.6-10.3 Total Protein 7.1 g/dL 6.4-8.9 Albumin 4.3 g/dL 3.2-5.2 Globulin 2.8 g/dL 2-4 Albumin/Globulin Ratio 1.5 1-3 Total Bilirubin 0.40 mg/dL 0.2-1.0 Alkaline Phosphatase 124 U/L High 34-104 Alt 17 U/L 7-52 Ast 16 U/L 13-39 Egfr Non- 59.7 >60 Egfr 72.3 >60 2 Laboratory test finding 03/06/2018 Acetaminophen < 15 g/mL 3 Alcohol < 10 mg/dL <10 Salicylate < 2.50 mg/dL <30 TSH (Thyroid Stim Horm) 1.92 mcIU/mL 0.34-5.60 Urine Drug SCR ED & 03/06/2018 Amphetamine Ur Screen None Detected None Detect Pain Clinic Barbiturates Urine Screen None Detected None Detect Benzodiazepine Urine Screen None Detected None Detect Urine Cannabinoids Screen None Detected None Detect Urine Cocaine Screen None Detected None Detect Urine Opiates Screen None Detected None Detect Urine Phencyclidine Screen None Detected None Detect 4 Urine Culture And 03/06/2018 Urine Culture SEE RESULT BELOW 5 Sensitivities Ua Routine 01/16/2018 Ua Specific [place] 1.025 Ua PH 5 Ua Color dark yellow Ua Appera cloudy Ua WBC trace Ua Protein trace Ua Glucose neg Ua Ketones neg Ua Bilirubin neg Ua Urobilinogen neg Ua Nitrite neg Ua Occult Blood 50 Urine Culture And 01/16/2018 Urine Culture SEE RESULT BELOW 6 Sensitivities Laboratory test finding 11/28/2017 Test Urine neg Laboratory test finding 11/17/2017 Acetaminophen < 15 g/mL 7 Alcohol < 10 mg/dL <10 Salicylate < 2.50 mg/dL <30 TSH (Thyroid Stim Horm) 1.21 mcIU/mL 0.34-5.60 Comp Metabolic Panel 11/17/2017 Sodium 139 mmol/L 139-145 Potassium 4.0 mmol/L 3.5-5.0 Chloride 105 mmol/L 101-111 Co2 Carbon Dioxide 29 mmol/L 22-32 Anion Gap 5 mmol/L 2-11 Glucose 88 mg/dL 70-100 Blood Urea Nitrogen 11 mg/dL 6-24 Creatinine 1.01 mg/dL High 0.51-0.95 BUN/Creatinine Ratio 10.9 8-20 Calcium 9.2 mg/dL 8.6-10.3 Total Protein 6.5 g/dL 6.4-8.9 Albumin 3.9 g/dL 3.2-5.2 Globulin 2.6 g/dL 2-4 Albumin/Globulin Ratio 1.5 1-3 Total Bilirubin 0.30 mg/dL 0.2-1.0 Alkaline Phosphatase 88 U/L 34-104 Alt 10 U/L 7-52 Ast 13 U/L 13-39 Egfr Non- 60.4 >60 Egfr 77.7 >60 8 CBC Auto Diff 11/17/2017 White Blood Count 7.4 10^3/uL 3.5-10.8 Red Blood Count 5.01 10^6/uL 4.0-5.4 Hemoglobin 14.6 g/dL 12.0-16.0 Hematocrit 43 % 35-47 Mean Corpuscular Volume 87 fL 80-97 Mean Corpuscular Hemoglobin 29 pg 27-31 Mean Corpuscular HGB Conc 34 g/dL 31-36 Red Cell Distribution Width 14 % 10.5-15 Platelet Count 153 10^3/uL 150-450 Mean Platelet Volume 10.6 um3 High 7.4-10.4 Abs Neutrophils 4.9 10^3/uL 1.5-7.7 Abs Lymphocytes 1.9 10^3/uL 1.0-4.8 Abs Monocytes 0.4 10^3/uL 0-0.8 Abs Eosinophils 0.1 10^3/uL 0-0.6 Abs Basophils 0 10^3/uL 0-0.2 Abs Nucleated RBC 0 10^3/uL Granulocyte % 66.5 % 38-83 Lymphocyte % 25.8 % 25-47 Monocyte % 5.7 % 0-7 Eosinophil % 1.5 % 0-6 Basophil % 0.5 % 0-2 Nucleated Red Blood Cells % 0.2 Urine Culture And 11/17/2017 Urine Culture SEE RESULT BELOW 9 Sensitivities Urine Drug SCR ED & 11/17/2017 Amphetamine Ur None Detected None Detect Pain Clinic Screen Barbiturates Urine Screen None Detected None Detect Benzodiazepine Urine Screen None Detected None Detect Urine Cannabinoids Screen None Detected None Detect Urine Cocaine Screen None Detected None Detect Urine Opiates Screen None Detected None Detect Urine Phencyclidine Screen None Detected None Detect 10 Urinalysis Profile 11/17/2017 Urine Color Yellow Urine Appearance Clear Urine Specific [place] 1.008 Low 1.010-1.030 Urine pH 7.0 5-9 Urine Urobilinogen Negative Negative Urine Ketones Negative Negative Urine Protein Negative Negative Urine Leukocytes 1+ Negative Urine Blood Negative Negative Urine Nitrite Negative Negative Urine Bilirubin Negative Negative Urine Glucose Negative Negative Urine White Blood Cell Trace(0-5/hpf) Absent Urine Red Blood Cell Trace(0-2/hpf) Absent Urine Bacteria 1+ Absent Urine Squamous Epithelial Cell Present Absent CBC Auto Diff 09/09/2017 White Blood Count 9.2 10^3/uL 3.5-10.8 Red Blood Count 5.27 10^6/uL 4.0-5.4 Hemoglobin 15.2 g/dL 12.0-16.0 Hematocrit 45 % 35-47 Mean Corpuscular Volume 86 fL 80-97 Mean Corpuscular Hemoglobin 29 pg 27-31 Mean Corpuscular HGB Conc 34 g/dL 31-36 Red Cell Distribution Width 14 % 10.5-15 Platelet Count 139 10^3/uL Low 150-450 Mean Platelet Volume 10 um3 7.4-10.4 Abs Neutrophils 6.4 10^3/uL 1.5-7.7 Abs Lymphocytes 2.1 10^3/uL 1.0-4.8 Abs Monocytes 0.5 10^3/uL 0-0.8 Abs Eosinophils 0.1 10^3/uL 0-0.6 Abs Basophils 0.1 10^3/uL 0-0.2 Abs Nucleated RBC 0 10^3/uL Granulocyte % 69.8 % 38-83 Lymphocyte % 22.6 % Low 25-47 Monocyte % 5.5 % 1-9 Eosinophil % 1.2 % 0-6 Basophil % 0.9 % 0-2 Nucleated Red Blood Cells % 0.1 Comp Metabolic Panel 09/09/2017 Sodium 136 mmol/L 133-145 Potassium 3.8 mmol/L 3.5-5.0 Chloride 104 mmol/L 101-111 Co2 Carbon Dioxide 26 mmol/L 22-32 Anion Gap 6 mmol/L 2-11 Glucose 99 mg/dL 70-100 Blood Urea Nitrogen 12 mg/dL 6-24 Creatinine 1.00 mg/dL High 0.51-0.95 BUN/Creatinine Ratio 12.0 8-20 Calcium 9.3 mg/dL 8.6-10.3 Total Protein 6.7 g/dL 6.4-8.9 Albumin 4.1 g/dL 3.2-5.2 Globulin 2.6 g/dL 2-4 Albumin/Globulin Ratio 1.6 1-3 Total Bilirubin 0.40 mg/dL 0.2-1.0 Alkaline Phosphatase 89 U/L 34-104 Alt 11 U/L 7-52 Ast 12 U/L Low 13-39 Egfr Non- 61.1 >60 Egfr 78.6 >60 11 Laboratory test finding 09/09/2017 Acetaminophen < 15 g/mL 12 Alcohol < 10 mg/dL <10 Salicylate < 2.50 mg/dL <30 TSH (Thyroid Stim Horm) 1.53 mcIU/mL 0.34-5.60 Urinalysis Profile 09/09/2017 Urine Color Yellow Urine Appearance Cloudy Urine Specific [place] 1.008 Low 1.010-1.030 Urine pH 6.0 5-9 Urine Urobilinogen Negative Negative Urine Ketones Negative Negative Urine Protein Negative Negative Urine Leukocytes 2+ Negative Urine Blood Negative Negative Urine Nitrite Negative Negative Urine Bilirubin Negative Negative Urine Glucose Negative Negative Urine White Blood Cell Trace(0-5/hpf) Absent Urine Red Blood Cell Absent Absent Urine Bacteria 1+ Absent Urine Squamous Epithelial Cell Present Absent Urine Drug SCR ED & 09/09/2017 Amphetamine Ur Screen None Detected None Detect Pain Clinic Barbiturates Urine Screen None Detected None Detect Benzodiazepine Urine Screen None Detected None Detect Urine Cannabinoids Screen None Detected None Detect Urine Cocaine Screen None Detected None Detect Urine Opiates Screen None Detected None Detect Urine Phencyclidine Screen None Detected None Detect 13 Urine Culture And 09/09/2017 Urine Culture SEE RESULT BELOW 14 Sensitivities Laboratory test finding 05/20/2017 Pathologist Review (SEE NOTE) 15 Inr/Protime 05/20/2017 Inr 0.96 0.89-1.11 Laboratory test finding 05/20/2017 HCG 1.18 mIU/mL 16 Acetaminophen < 15 g/mL 17 Alcohol < 10 mg/dL <10 Salicylate < 2.50 mg/dL <30 TSH (Thyroid Stim Horm) 4.59 mcIU/mL 0.34-5.60 Comp Metabolic Panel 05/20/2017 Sodium 135 mmol/L 133-145 Chloride 99 mmol/L Low 101-111 Co2 Carbon Dioxide 30 mmol/L 22-32 Glucose 98 mg/dL 70-100 Blood Urea Nitrogen 21 mg/dL 6-24 Creatinine 1.41 mg/dL High 0.51-0.95 BUN/Creatinine Ratio 14.9 8-20 Calcium 9.7 mg/dL 8.6-10.3 Total Protein 7.6 g/dL 6.4-8.9 Albumin 4.4 g/dL 3.2-5.2 Globulin 3.2 g/dL 2-4 Albumin/Globulin Ratio 1.4 1-3 Total Bilirubin 0.40 mg/dL 0.2-1.0 Alkaline Phosphatase 123 U/L High 34-104 Alt 19 U/L 7-52 Egfr Non- 41.3 >60 Egfr 53.1 >60 18 Potassium 4.4 mmol/L 3.5-5.0 Anion Gap 6 mmol/L 2-11 Ast 20 U/L 13-39 CBC Auto Diff 05/20/2017 White Blood Count 8.7 10^3/uL 3.5-10.8 Red Blood Count 4.98 10^6/uL 4.0-5.4 Hemoglobin 14.5 g/dL 12.0-16.0 Hematocrit 43 % 35-47 Mean Corpuscular Volume 86 fL 80-97 Mean Corpuscular Hemoglobin 29 pg 27-31 Mean Corpuscular HGB Conc 34 g/dL 31-36 Red Cell Distribution Width 14 % 10.5-15 Abs Neutrophils 5.4 10^3/uL 1.5-7.7 Abs Lymphocytes 2.5 10^3/uL 1.0-4.8 Abs Monocytes 0.5 10^3/uL 0-0.8 Abs Eosinophils 0.2 10^3/uL 0-0.6 Abs Basophils 0.1 10^3/uL 0-0.2 Abs Nucleated RBC 0.02 10^3/uL Granulocyte % 62.4 % 38-83 Lymphocyte % 29.1 % 25-47 Monocyte % 5.3 % 1-9 Eosinophil % 1.7 % 0-6 Basophil % 1.5 % 0-2 Nucleated Red Blood Cells % 0.3 Platelet Count 90 10^3/uL Low 150-450 19 CBC Auto Diff 05/09/2017 White Blood Count 9.3 10^3/uL 3.5-10.8 Red Blood Count 4.80 10^6/uL 4.0-5.4 Hemoglobin 13.8 g/dL 12.0-16.0 Hematocrit 41 % 35-47 Mean Corpuscular Volume 86 fL 80-97 Mean Corpuscular Hemoglobin 29 pg 27-31 Mean Corpuscular HGB Conc 34 g/dL 31-36 Red Cell Distribution Width 14 % 10.5-15 Platelet Count 190 10^3/uL 150-450 Mean Platelet Volume 9 um3 7.4-10.4 Abs Neutrophils 6.6 10^3/uL 1.5-7.7 Abs Lymphocytes 1.9 10^3/uL 1.0-4.8 Abs Monocytes 0.6 10^3/uL 0-0.8 Abs Eosinophils 0.1 10^3/uL 0-0.6 Abs Basophils 0.1 10^3/uL 0-0.2 Abs Nucleated RBC 0 10^3/uL Granulocyte % 71.5 % 38-83 Lymphocyte % 20.5 % Low 25-47 Monocyte % 5.9 % 1-9 Eosinophil % 1.2 % 0-6 Basophil % 0.9 % 0-2 Nucleated Red Blood Cells % 0 Comp Metabolic Panel 05/09/2017 Sodium 138 mmol/L 133-145 Potassium 3.6 mmol/L 3.5-5.0 Chloride 106 mmol/L 101-111 Co2 Carbon Dioxide 29 mmol/L 22-32 Anion Gap 3 mmol/L 2-11 Glucose 98 mg/dL 70-100 Blood Urea Nitrogen 9 mg/dL 6-24 Creatinine 0.97 mg/dL High 0.51-0.95 BUN/Creatinine Ratio 9.3 8-20 Calcium 9.0 mg/dL 8.6-10.3 Total Protein 6.4 g/dL 6.4-8.9 Albumin 3.7 g/dL 3.2-5.2 Globulin 2.7 g/dL 2-4 Albumin/Globulin Ratio 1.4 1-3 Total Bilirubin 0.20 mg/dL 0.2-1.0 Alkaline Phosphatase 98 U/L 34-104 Alt 11 U/L 7-52 Ast 12 U/L Low 13-39 Egfr Non- 63.6 >60 Egfr 81.8 >60 20 Laboratory test finding 05/09/2017 HCG 0.74 mIU/mL 21 Laboratory test finding 05/07/2017 C Reactive Protein 23.48 mg/L High < 5.00 22 CBC Auto Diff 05/07/2017 White Blood Count 10.0 10^3/uL 3.5-10.8 Red Blood Count 4.87 10^6/uL 4.0-5.4 Hemoglobin 14.3 g/dL 12.0-16.0 Hematocrit 42 % 35-47 Mean Corpuscular Volume 86 fL 80-97 Mean Corpuscular Hemoglobin 29 pg 27-31 Mean Corpuscular HGB Conc 34 g/dL 31-36 Red Cell Distribution Width 14 % 10.5-15 Platelet Count 187 10^3/uL 150-450 Mean Platelet Volume 9 um3 7.4-10.4 Abs Neutrophils 7.2 10^3/uL 1.5-7.7 Abs Lymphocytes 2.0 10^3/uL 1.0-4.8 Abs Monocytes 0.6 10^3/uL 0-0.8 Abs Eosinophils 0.1 10^3/uL 0-0.6 Abs Basophils 0.1 10^3/uL 0-0.2 Abs Nucleated RBC 0 10^3/uL Granulocyte % 72.0 % 38-83 Lymphocyte % 20.3 % Low 25-47 Monocyte % 6.2 % 1-9 Eosinophil % 0.7 % 0-6 Basophil % 0.8 % 0-2 Nucleated Red Blood Cells % 0 CBC No Diff 04/27/2017 White Blood Count 8.5 10^3/uL 3.5-10.8 Red Blood Count 4.93 10^6/uL 4.0-5.4 Hemoglobin 14.4 g/dL 12.0-16.0 Hematocrit 43 % 35-47 Mean Corpuscular Volume 87 fL 80-97 Mean Corpuscular Hemoglobin 29 pg 27-31 Mean Corpuscular HGB Conc 34 g/dL 31-36 Red Cell Distribution Width 14 % 10.5-15 Platelet Count 150 10^3/uL 150-450 Mean Platelet Volume 9 um3 7.4-10.4 Urine Culture And Sensitivities 02/06/2017 Urine Culture SEE RESULT BELOW 23 Laboratory test finding 02/06/2017 Acetaminophen < 15 g/mL 24 Alcohol < 10 mg/dL <10 Salicylate < 2.50 mg/dL <30 TSH (Thyroid Stim Horm) 1.03 mcIU/mL 0.34-5.60 Comp Metabolic Panel 02/06/2017 Sodium 136 mmol/L 133-145 Potassium 3.6 mmol/L 3.5-5.0 Chloride 103 mmol/L 101-111 Co2 Carbon Dioxide 25 mmol/L 22-32 Anion Gap 8 mmol/L 2-11 Glucose 116 mg/dL High 70-100 Blood Urea Nitrogen 9 mg/dL 6-24 Creatinine 1.06 mg/dL High 0.51-0.95 BUN/Creatinine Ratio 8.5 8-20 Calcium 9.4 mg/dL 8.6-10.3 Total Protein 7.1 g/dL 6.4-8.9 Albumin 4.3 g/dL 3.2-5.2 Globulin 2.8 g/dL 2-4 Albumin/Globulin Ratio 1.5 1-3 Total Bilirubin 0.30 mg/dL 0.2-1.0 Alkaline Phosphatase 104 U/L 34-104 Alt 10 U/L 7-52 Ast 11 U/L Low 13-39 Egfr Non- 57.4 >60 Egfr 73.8 >60 25 Urine Drug SCR ED & 02/06/2017 Amphetamine Ur Screen None Detected None Detect Pain Clinic Barbiturates Urine Screen None Detected None Detect Benzodiazepine Urine Screen None Detected None Detect Urine Cannabinoids Screen None Detected None Detect Urine Cocaine Screen None Detected None Detect Urine Opiates Screen None Detected None Detect Urine Phencyclidine Screen None Detected None Detect 26 CBC Auto Diff 02/06/2017 White Blood Count 6.9 10^3/uL 3.5-10.8 Red Blood Count 5.01 10^6/uL 4.0-5.4 Hemoglobin 14.6 g/dL 12.0-16.0 Hematocrit 44 % 35-47 Mean Corpuscular Volume 88 fL 80-97 Mean Corpuscular Hemoglobin 29 pg 27-31 Mean Corpuscular HGB Conc 33 g/dL 31-36 Red Cell Distribution Width 15 % 10.5-15 Platelet Count 165 10^3/uL 150-450 Mean Platelet Volume 10 um3 7.4-10.4 Abs Neutrophils 4.4 10^3/uL 1.5-7.7 Abs Lymphocytes 1.9 10^3/uL 1.0-4.8 Abs Monocytes 0.4 10^3/uL 0-0.8 Abs Eosinophils 0.1 10^3/uL 0-0.6 Abs Basophils 0 10^3/uL 0-0.2 Abs Nucleated RBC 0.01 10^3/uL Granulocyte % 63.7 % 38-83 Lymphocyte % 28.1 % 25-47 Monocyte % 6.2 % 1-9 Eosinophil % 1.4 % 0-6 Basophil % 0.6 % 0-2 Nucleated Red Blood Cells % 0.1 Urinalysis Profile 02/06/2017 Urine Color Yellow Urine Appearance Cloudy Urine Specific [place] 1.005 Low 1.010-1.030 Urine pH 6.0 5-9 Urine Urobilinogen Negative Negative Urine Ketones Negative Negative Urine Protein Negative Negative Urine Leukocytes 2+ Negative Urine Blood Negative Negative Urine Nitrite Negative Negative Urine Bilirubin Negative Negative Urine Glucose Negative Negative Urine White Blood Cell Trace(0-5/hpf) Absent Urine Red Blood Cell 1+(3-5/hpf) Absent Urine Bacteria Absent Absent Urine Squamous Epithelial Cell Present Absent Urine Culture And 12/16/2016 Urine Culture SEE RESULT BELOW 27 Sensitivities Comp Metabolic Panel 12/16/2016 Sodium 136 mmol/L 133-145 Potassium 3.8 mmol/L 3.5-5.0 Chloride 101 mmol/L 101-111 Co2 Carbon Dioxide 29 mmol/L 22-32 Anion Gap 6 mmol/L 2-11 Glucose 91 mg/dL 70-100 Blood Urea Nitrogen 10 mg/dL 6-24 Creatinine 1.01 mg/dL High 0.51-0.95 BUN/Creatinine Ratio 9.9 8-20 Calcium 9.9 mg/dL 8.6-10.3 Total Protein 7.6 g/dL 6.4-8.9 Albumin 4.5 g/dL 3.2-5.2 Globulin 3.1 g/dL 2-4 Albumin/Globulin Ratio 1.5 1-3 Total Bilirubin 0.40 mg/dL 0.2-1.0 Alkaline Phosphatase 133 U/L High 34-104 Alt 20 U/L 7-52 Ast 20 U/L 13-39 Egfr Non- 60.7 >60 Egfr 78.1 >60 28 Inr/Protime 12/16/2016 Inr 0.90 0.89-1.11 Laboratory test finding 12/16/2016 Lactic Acid 0.8 mmol/L 0.5-2.0 29 CBC Auto Diff 12/16/2016 White Blood Count 8.2 10^3/uL 3.5-10.8 Red Blood Count 5.19 10^6/uL 4.0-5.4 Hemoglobin 14.6 g/dL 12.0-16.0 Hematocrit 44 % 35-47 Mean Corpuscular Volume 84 fL 80-97 Mean Corpuscular Hemoglobin 28 pg 27-31 Mean Corpuscular HGB Conc 34 g/dL 31-36 Red Cell Distribution Width 14 % 10.5-15 Platelet Count 148 10^3/uL Low 150-450 Mean Platelet Volume 9 um3 7.4-10.4 Abs Neutrophils 5.7 10^3/uL 1.5-7.7 Abs Lymphocytes 1.8 10^3/uL 1.0-4.8 Abs Monocytes 0.5 10^3/uL 0-0.8 Abs Eosinophils 0.2 10^3/uL 0-0.6 Abs Basophils 0.1 10^3/uL 0-0.2 Abs Nucleated RBC 0.01 10^3/uL Granulocyte % 69.0 % 38-83 Lymphocyte % 21.4 % Low 25-47 Monocyte % 6.1 % 1-9 Eosinophil % 2.7 % 0-6 Basophil % 0.8 % 0-2 Nucleated Red Blood Cells % 0.1 Urinalysis Profile 12/16/2016 Urine Color Yellow Urine Appearance Cloudy Urine Specific [place] 1.010 1.010-1.030 Urine pH 5.0 5-9 Urine Urobilinogen Negative Negative Urine Ketones Trace Negative Urine Protein Negative Negative Urine Leukocytes 3+ Negative Urine Blood Negative Negative Urine Nitrite Negative Negative Urine Bilirubin Negative Negative Urine Glucose Negative Negative Urine White Blood Cell 3+(>20/hpf) Absent Urine Red Blood Cell 3+(>10/hpf) Absent Urine Bacteria Absent Absent Urine Squamous Epithelial Cell Present Absent Urine Drug SCR ED & 12/16/2016 Amphetamine Ur Screen None Detected None Detect Pain Clinic Barbiturates Urine Screen None Detected None Detect Benzodiazepine Urine Screen None Detected None Detect Urine Cannabinoids Screen None Detected None Detect Urine Cocaine Screen None Detected None Detect Urine Opiates Screen None Detected None Detect Urine Phencyclidine Screen None Detected None Detect 30 Laboratory test finding 12/16/2016 Magnesium 1.9 mg/dL 1.9-2.7 Alcohol < 10 mg/dL <10 Ua Routine 12/12/2016 Ua Specific [place] 1.005 Ua PH 8 Ua Color yellow Ua Appera cloudy Ua WBC ++ Ua Protein 30+ Ua Glucose neg Ua Ketones neg Ua Bilirubin neg Ua Urobilinogen normal Ua Nitrite neg Ua Occult Blood xlarge Urine Culture And Sensitivities 12/12/2016 Urine Culture SEE RESULT BELOW 31 Laboratory test finding 11/18/2016 Acetaminophen < 15 g/mL 32 Alcohol < 10 mg/dL <10 Salicylate < 2.50 mg/dL <30 TSH (Thyroid Stim Horm) 0.66 mcIU/mL 0.34-5.60 Urine Drug SCR ED & 11/18/2016 Amphetamine Ur Screen None Detected None Detect Pain Clinic Barbiturates Urine Screen None Detected None Detect Benzodiazepine Urine Screen None Detected None Detect Urine Cannabinoids Screen None Detected None Detect Urine Cocaine Screen None Detected None Detect Urine Opiates Screen None Detected None Detect Urine Phencyclidine Screen None Detected None Detect 33 Laboratory test finding 11/18/2016 HCG < 0.60 mIU/mL 34 Urine Culture And 11/18/2016 Urine Culture SEE RESULT BELOW 35 Sensitivities Comp Metabolic Panel 11/18/2016 Sodium 137 mmol/L 133-145 Potassium 4.0 mmol/L 3.5-5.0 Chloride 106 mmol/L 101-111 Co2 Carbon Dioxide 26 mmol/L 22-32 Anion Gap 5 mmol/L 2-11 Glucose 98 mg/dL 70-100 Blood Urea Nitrogen 10 mg/dL 6-24 Creatinine 1.01 mg/dL High 0.51-0.95 BUN/Creatinine Ratio 9.9 8-20 Calcium 9.3 mg/dL 8.6-10.3 Total Protein 6.8 g/dL 6.4-8.9 Albumin 4.0 g/dL 3.2-5.2 Globulin 2.8 g/dL 2-4 Albumin/Globulin Ratio 1.4 1-3 Total Bilirubin 0.30 mg/dL 0.2-1.0 Alkaline Phosphatase 101 U/L 34-104 Alt 8 U/L 7-52 Ast 12 U/L Low 13-39 Egfr Non- 60.7 >60 Egfr 78.1 >60 36 CBC Auto Diff 11/18/2016 White Blood Count 8.7 10^3/uL 3.5-10.8 Red Blood Count 5.05 10^6/uL 4.0-5.4 Hemoglobin 14.4 g/dL 12.0-16.0 Hematocrit 43 % 35-47 Mean Corpuscular Volume 86 fL 80-97 Mean Corpuscular Hemoglobin 29 pg 27-31 Mean Corpuscular HGB Conc 33 g/dL 31-36 Red Cell Distribution Width 15 % 10.5-15 Platelet Count 149 10^3/uL Low 150-450 Mean Platelet Volume 11 um3 High 7.4-10.4 Abs Neutrophils 6.0 10^3/uL 1.5-7.7 Abs Lymphocytes 1.9 10^3/uL 1.0-4.8 Abs Monocytes 0.5 10^3/uL 0-0.8 Abs Eosinophils 0.1 10^3/uL 0-0.6 Abs Basophils 0.1 10^3/uL 0-0.2 Abs Nucleated RBC 0.01 10^3/uL Granulocyte % 69.2 % 38-83 Lymphocyte % 22.5 % Low 25-47 Monocyte % 6.1 % 1-9 Eosinophil % 1.4 % 0-6 Basophil % 0.8 % 0-2 Nucleated Red Blood Cells % 0.1 Urinalysis Profile 11/18/2016 Urine Color Yellow Urine Appearance Cloudy Urine Specific [place] 1.014 1.010-1.030 Urine pH 5.0 5-9 Urine Urobilinogen Negative Negative Urine Ketones Negative Negative Urine Protein Negative Negative Urine Leukocytes 3+ Negative Urine Blood 2+ Negative Urine Nitrite Negative Negative Urine Bilirubin Negative Negative Urine Glucose Negative Negative Urine White Blood Cell 2+(11-20/hpf) Absent Urine Red Blood Cell 1+(3-5/hpf) Absent Urine Bacteria Absent Absent Urine Squamous Epithelial Cell Present Absent Laboratory test finding 10/18/2016 HCG 0.75 mIU/mL 37 TSH (Thyroid Stim Horm) 1.05 mcIU/mL 0.34-5.60 Comp Metabolic Panel 10/18/2016 Sodium 138 mmol/L 133-145 Potassium 4.1 mmol/L 3.5-5.0 Chloride 103 mmol/L 101-111 Co2 Carbon Dioxide 28 mmol/L 22-32 Anion Gap 7 mmol/L 2-11 Glucose 86 mg/dL 70-100 Blood Urea Nitrogen 9 mg/dL 6-24 Creatinine 0.98 mg/dL High 0.51-0.95 BUN/Creatinine Ratio 9.2 8-20 Calcium 9.4 mg/dL 8.6-10.3 Total Protein 6.8 g/dL 6.4-8.9 Albumin 4.3 g/dL 3.2-5.2 Globulin 2.5 g/dL 2-4 Albumin/Globulin Ratio 1.7 1-3 Total Bilirubin 0.30 mg/dL 0.2-1.0 Alkaline Phosphatase 109 U/L High 34-104 Alt 9 U/L 7-52 Ast 11 U/L Low 13-39 Egfr Non- 62.9 >60 Egfr 80.8 >60 38 FSH And LH 10/18/2016 FSH (Follicle Stim Hormone) 7.6 mIU/mL 39 LH (Lutenizing Hormone) 7.8 mcIU/mL 40 Laboratory test finding 10/18/2016 Test Urine negative Laboratory test finding 09/20/2016 Magnesium 2.1 mg/dL 1.9-2.7 Alcohol < 10 mg/dL <10 Comp Metabolic Panel 09/20/2016 Sodium 136 mmol/L 133-145 Potassium 4.1 mmol/L 3.5-5.0 Chloride 105 mmol/L 101-111 Co2 Carbon Dioxide 25 mmol/L 22-32 Anion Gap 6 mmol/L 2-11 Glucose 106 mg/dL High 70-100 Blood Urea Nitrogen 15 mg/dL 6-24 Creatinine 0.94 mg/dL 0.51-0.95 BUN/Creatinine Ratio 16.0 8-20 Calcium 9.5 mg/dL 8.6-10.3 Total Protein 6.9 g/dL 6.4-8.9 Albumin 4.0 g/dL 3.2-5.2 Globulin 2.9 g/dL 2-4 Albumin/Globulin Ratio 1.4 1-3 Total Bilirubin 0.30 mg/dL 0.2-1.0 Alkaline Phosphatase 93 U/L 34-104 Alt 9 U/L 7-52 Ast 14 U/L 13-39 Egfr Non- 66.0 >60 Egfr 84.8 >60 41 Inr/Protime 09/20/2016 Inr 0.92 0.89-1.11 CBC Auto Diff 09/20/2016 White Blood Count 6.2 10^3/uL 3.5-10.8 Red Blood Count 5.18 10^6/uL 4.0-5.4 Hemoglobin 14.9 g/dL 12.0-16.0 Hematocrit 44 % 35-47 Mean Corpuscular Volume 85 fL 80-97 Mean Corpuscular Hemoglobin 29 pg 27-31 Mean Corpuscular HGB Conc 34 g/dL 31-36 Red Cell Distribution Width 14 % 10.5-15 Platelet Count 162 10^3/uL 150-450 Mean Platelet Volume 10 um3 7.4-10.4 Abs Neutrophils 3.8 10^3/uL 1.5-7.7 Abs Lymphocytes 1.9 10^3/uL 1.0-4.8 Abs Monocytes 0.4 10^3/uL 0-0.8 Abs Eosinophils 0.1 10^3/uL 0-0.6 Abs Basophils 0.1 10^3/uL 0-0.2 Abs Nucleated RBC 0 10^3/uL Granulocyte % 60.7 % 38-83 Lymphocyte % 29.9 % 25-47 Monocyte % 6.4 % 1-9 Eosinophil % 2.0 % 0-6 Basophil % 1.0 % 0-2 Nucleated Red Blood Cells % 0.1 Laboratory test finding 09/20/2016 Lactic Acid 0.5 mmol/L 0.5-2.0 42 Comp Metabolic Panel 08/04/2016 Sodium 137 mmol/L 133-145 Potassium 3.8 mmol/L 3.5-5.0 Chloride 108 mmol/L 101-111 Co2 Carbon Dioxide 24 mmol/L 22-32 Anion Gap 5 mmol/L 2-11 Glucose 110 mg/dL High 70-100 Blood Urea Nitrogen 14 mg/dL 6-24 Creatinine 0.90 mg/dL 0.51-0.95 BUN/Creatinine Ratio 15.6 8-20 Calcium 9.0 mg/dL 8.6-10.3 Total Protein 6.2 g/dL Low 6.4-8.9 Albumin 3.6 g/dL 3.2-5.2 Globulin 2.6 g/dL 2-4 Albumin/Globulin Ratio 1.4 1-3 Total Bilirubin 0.30 mg/dL 0.2-1.0 Alkaline Phosphatase 89 U/L 34-104 Alt 15 U/L 7-52 Ast 16 U/L 13-39 Egfr Non- 69.7 >60 Egfr 89.6 >60 43 Laboratory test finding 08/04/2016 HCG < 0.60 mIU/mL 44 Acetaminophen < 15 g/mL 45 Alcohol < 10 mg/dL <10 Salicylate < 2.50 mg/dL <30 TSH (Thyroid Stim Horm) 0.80 mcIU/mL 0.34-5.60 CBC Auto Diff 08/04/2016 White Blood Count 8.3 10^3/uL 3.5-10.8 Red Blood Count 4.86 10^6/uL 4.0-5.4 Hemoglobin 13.8 g/dL 12.0-16.0 Hematocrit 41 % 35-47 Mean Corpuscular Volume 85 fL 80-97 Mean Corpuscular Hemoglobin 29 pg 27-31 Mean Corpuscular HGB Conc 34 g/dL 31-36 Red Cell Distribution Width 14 % 10.5-15 Platelet Count 130 10^3/uL Low 150-450 Mean Platelet Volume 10 um3 7.4-10.4 Abs Neutrophils 5.7 10^3/uL 1.5-7.7 Abs Lymphocytes 1.8 10^3/uL 1.0-4.8 Abs Monocytes 0.6 10^3/uL 0-0.8 Abs Eosinophils 0.2 10^3/uL 0-0.6 Abs Basophils 0.1 10^3/uL 0-0.2 Abs Nucleated RBC 0.01 10^3/uL Granulocyte % 68.7 % 38-83 Lymphocyte % 21.7 % Low 25-47 Monocyte % 6.8 % 1-9 Eosinophil % 2.1 % 0-6 Basophil % 0.7 % 0-2 Nucleated Red Blood Cells % 0.1 Ua Routine 06/20/2016 Ua Specific [place] 1.015 Ua PH 6 Ua Color yellow Ua Appera cloudy Ua WBC + Ua Protein neg Ua Glucose neg Ua Ketones neg Ua Bilirubin neg Ua Urobilinogen normal Ua Nitrite neg Ua Occult Blood neg Laboratory test finding 06/20/2016 Gardnerella/Yeast: Vaginal SEE RESULT BELOW 46 Dna Urine Culture And 03/22/2016 Urine Culture SEE RESULT BELOW 47 Sensitivities Ua Routine 03/22/2016 Ua Specific [place] 1.020 Ua PH 5 Ua Color yellow Ua Appera clear Ua WBC ++ Ua Protein neg Ua Glucose neg Ua Ketones neg Ua Bilirubin neg Ua Urobilinogen neg Ua Nitrite neg Ua Occult Blood neg 1 <5.0 Negative 5.0 - 25.0 Indeterminate (Repeat testing recommended after 72 hours) >25.0 Positive Perimenopausal women can display HCG levels of up to 20 mIU/mL 2 Because ethnic data is not always readily available, this report includes an eGFR for both -Americans and non- Americans. The National Kidney Disease Education Program (NKDEP) does not endorse the use of the MDRD equation for patients that are not between the ages of 18 and 70, are , have extremes of body size, muscle mass, or nutritional status, or are non- or non-. According to the National Kidney Foundation, irrespective of diagnosis, the stage of the disease is based on the level of kidney function: Stage Description GFR(mL/min/1.73 m(2)) 1 Kidney damage with normal or decreased GFR 90 2 Kidney damage with mild decrease in GFR 60-89 3 Moderate decrease in GFR 30-59 4 Severe decrease in GFR 15-29 5 Kidney failure <15 (or dialysis) 3 Therapeutic concentration: <50 ug/mL Toxic concentration: >120 ug/mL 4 The urine specimen was tested at the listed cutoffs: Drug class test level (ng/mL) Amphetamines 500 Barbiturates 200 Benzodiazepine metabolites 200 Cocaine metabolites 150 Cannabinoids 50 Opiates 300 Pcp 25 Specimen was received without chain of custody. Results should be used for medical purposes only. 5 SEE RESULT BELOW Name: ALPA MYERS : [address]: Leonor Wong MD Acct: [id number] Unit: [id number] AGE: 42 Location: [address] Re03/07/18 SEX: F Status: ADM IN SPEC: [id number] YUMIKO: 03/06/18-[address] [facility] [address]: Sandoval Rinaldi MD REQ: [id number] RECD: 03/06/181678 STATUS: COMP [facility] DR: Astrid Gonzalez MD _ SOURCE: URINE SPDESC: ORDERED: Urine Culture Procedure Result Reported Site Urine Culture Final 03/07/18- 1356 ML No growth of clinically significant organisms * ML - Main Lab . END OF REPORT DEPARTMENT OF PATHOLOGY, [address] [place] [address] Yvan Obrien M.D. Director [facility] # [id number] 6 SEE RESULT BELOW Name: ALPA MYERS : [address]: Alissa Bob NP Acct: [id number] Unit: [id number] AGE: 42 Location: [facility] Re01/16/18 SEX: F Status: REG REF SPEC: [id number] YUMIKO: 01/16/18-[address] [facility] [address]: Alissa Bob NP REQ: [id number] RECD: 01/16/18 STATUS: COMP _ SOURCE: URINE SPDESC: ORDERED: Urine Culture COMMENTS: [id number] Procedure Result Reported Site Urine Culture Final 01/18/18- 0810 ML Organism 1 ESCHERICHIA COLI [place] Count >100,000 (Many) CFU/ML 1. ESCHERICHIA COLI M.I.C. RX --------- ------ Ampicillin >=32 R Cefazolin <=4 S Cefepime <=1 S Ceftriaxone <=1 S Ciprofloxacin 0.5 S Gentamicin >=16 R Levofloxacin 1 S Meropenem <=0.25 S Nitrofurantoin <=16 S Tetracycline >=16 R Pipercillin/Tazobactam <=4 S Trimethoprim/Sulfamethoxazole >=320 R Amoxicillin/Clavulanic Acid 16 I Aztreonam <=1 S Contact the Microbiology Department for any additional antibiotic reporting. * ML - Main Lab . END OF REPORT DEPARTMENT OF PATHOLOGY, [address] [place] [address] Yvan Obrien M.D. Director [facility] # [id number] 7 Therapeutic concentration: <50 ug/mL Toxic concentration: >120 ug/mL 8 Because ethnic data is not always readily available, this report includes an eGFR for both -Americans and non- Americans. The National Kidney Disease Education Program (NKDEP) does not endorse the use of the MDRD equation for patients that are not between the ages of 18 and 70, are , have extremes of body size, muscle mass, or nutritional status, or are non- or non-. According to the National Kidney Foundation, irrespective of diagnosis, the stage of the disease is based on the level of kidney function: Stage Description GFR(mL/min/1.73 m(2)) 1 Kidney damage with normal or decreased GFR 90 2 Kidney damage with mild decrease in GFR 60-89 3 Moderate decrease in GFR 30-59 4 Severe decrease in GFR 15-29 5 Kidney failure <15 (or dialysis) 9 SEE RESULT BELOW Name: ALPA MYERS : [address]: Jelly Martinez MD Acct: [id number] Unit: [id number] AGE: 42 Location: ED Re11/17/17 SEX: F Status: DEP ER SPEC: [id number] YUMIKO: 11/17/[address]: Esther Martinez MD REQ: [id number] RECD: 11/17/17 STATUS: COMP OTHR DR: Astrid Gonzalez MD _ SOURCE: URINE SPDESC: ORDERED: Urine Culture Procedure Result Reported Site Urine Culture Final 11/18/17- 1648 ML No growth of clinically significant organisms * ML - Main Lab . END OF REPORT DEPARTMENT OF PATHOLOGY, [address] [place] [address] Yvan Obrien M.D. Director [facility] # [id number] 10 The urine specimen was tested at the listed cutoffs: Drug class test level (ng/mL) Amphetamines 500 Barbiturates 200 Benzodiazepine metabolites 200 Cocaine metabolites 150 Cannabinoids 50 Opiates 300 Pcp 25 Specimen was received without chain of custody. Results should be used for medical purposes only. 11 Because ethnic data is not always readily available, this report includes an eGFR for both -Americans and non- Americans. The National Kidney Disease Education Program (NKDEP) does not endorse the use of the MDRD equation for patients that are not between the ages of 18 and 70, are , have extremes of body size, muscle mass, or nutritional status, or are non- or non-. According to the National Kidney Foundation, irrespective of diagnosis, the stage of the disease is based on the level of kidney function: Stage Description GFR(mL/min/1.73 m(2)) 1 Kidney damage with normal or decreased GFR 90 2 Kidney damage with mild decrease in GFR 60-89 3 Moderate decrease in GFR 30-59 4 Severe decrease in GFR 15-29 5 Kidney failure <15 (or dialysis) 12 Therapeutic concentration: <50 ug/mL Toxic concentration: >120 ug/mL 13 The urine specimen was tested at the listed cutoffs: Drug class test level (ng/mL) Amphetamines 500 Barbiturates 200 Benzodiazepine metabolites 200 Cocaine metabolites 150 Cannabinoids 50 Opiates 300 Pcp 25 Specimen was received without chain of custody. Results should be used for medical purposes only. 14 SEE RESULT BELOW Name: ALPA MYERS : [address]: Messi Henson MD Acct: [id number] Unit: [id number] AGE: 42 Location: [facility] Re09/09/17 SEX: F Status: ADM IN SPEC: [id number] YUMIKO: 09/09/17-[address] [facility] [address]: Supa Fermin MD REQ: [id number] RECD: 09/09/17-1751 STATUS: COMP OTHR DR: Astrid Gonzalez MD _ SOURCE: URINE SPDESC: ORDERED: Urine Culture Procedure Result Reported Site Urine Culture Final 09/11/17- 1012 ML No growth of clinically significant organisms * ML - MAIN LAB ([facility]) . END OF REPORT * ML=Testing performed at Main Lab DEPARTMENT OF PATHOLOGY, [address] [place] [address] Yvan Obrien M.D. Director [facility] # [id number] 15 Thrombocytopenia noted on CBC though scattered platelet clumps are noted. This may alter platelet counts. No schistocytes or blasts are seen. Recommend repeat CBC as clinically warranted. Reviewed by Dr. Obrien 16 <5.0 Negative 5.0 - 25.0 Indeterminate (Repeat testing recommended after 72 hours) >25.0 Positive Perimenopausal women can display HCG levels of up to 20 mIU/mL 17 Therapeutic concentration: <50 ug/mL Toxic concentration: >120 ug/mL 18 Because ethnic data is not always readily available, this report includes an eGFR for both -Americans and non- Americans. The National Kidney Disease Education Program (NKDEP) does not endorse the use of the MDRD equation for patients that are not between the ages of 18 and 70, are , have extremes of body size, muscle mass, or nutritional status, or are non- or non-. According to the National Kidney Foundation, irrespective of diagnosis, the stage of the disease is based on the level of kidney function: Stage Description GFR(mL/min/1.73 m(2)) 1 Kidney damage with normal or decreased GFR 90 2 Kidney damage with mild decrease in GFR 60-89 3 Moderate decrease in GFR 30-59 4 Severe decrease in GFR 15-29 5 Kidney failure <15 (or dialysis) 19 Platelet count confirmed by smear estimate. 20 Because ethnic data is not always readily available, this report includes an eGFR for both -Americans and non- Americans. The National Kidney Disease Education Program (NKDEP) does not endorse the use of the MDRD equation for patients that are not between the ages of 18 and 70, are , have extremes of body size, muscle mass, or nutritional status, or are non- or non-. According to the National Kidney Foundation, irrespective of diagnosis, the stage of the disease is based on the level of kidney function: Stage Description GFR(mL/min/1.73 m(2)) 1 Kidney damage with normal or decreased GFR 90 2 Kidney damage with mild decrease in GFR 60-89 3 Moderate decrease in GFR 30-59 4 Severe decrease in GFR 15-29 5 Kidney failure <15 (or dialysis) 21 <5.0 Negative 5.0 - 25.0 Indeterminate (Repeat testing recommended after 72 hours) >25.0 Positive Perimenopausal women can display HCG levels of up to 20 mIU/mL 22 Acute inflammation: >10.00 23 SEE RESULT BELOW Name: ALPA MYERS : [address]: Hector Hercules DO Acct: [id number] Unit: [id number] AGE: 41 Location: ED Re02/06/17 SEX: F Status: DEP ER SPEC: [id number] YUMIKO: 02/06/[address]: Hector Hercules DO REQ: [id number] RECD: 02/06/17 STATUS: ANNIE FRY DR: Astrid Gonzalez MD _ SOURCE: URINE SPDESC: ORDERED: Urine Culture Procedure Result Reported Site Urine Culture Final 02/07/17- 1300 ML No growth of clinically significant organisms * ML - MAIN LAB ([facility]) . END OF REPORT * ML=Testing performed at Main Lab DEPARTMENT OF PATHOLOGY, [address] [place] [address] Yvan Obiren M.D. Director [facility] # [id number] 24 Therapeutic concentration: <50 ug/mL Toxic concentration: >120 ug/mL 25 Because ethnic data is not always readily available, this report includes an eGFR for both -Americans and non- Americans. The National Kidney Disease Education Program (NKDEP) does not endorse the use of the MDRD equation for patients that are not between the ages of 18 and 70, are , have extremes of body size, muscle mass, or nutritional status, or are non- or non-. According to the National Kidney Foundation, irrespective of diagnosis, the stage of the disease is based on the level of kidney function: Stage Description GFR(mL/min/1.73 m(2)) 1 Kidney damage with normal or decreased GFR 90 2 Kidney damage with mild decrease in GFR 60-89 3 Moderate decrease in GFR 30-59 4 Severe decrease in GFR 15-29 5 Kidney failure <15 (or dialysis) 26 The urine specimen was tested at the listed cutoffs: Drug class test level (ng/mL) Amphetamines 500 Barbiturates 200 Benzodiazepine metabolites 200 Cocaine metabolites 150 Cannabinoids 50 Opiates 300 Pcp 25 Specimen was received without chain of custody. Results should be used for medical purposes only. 27 SEE RESULT BELOW Name: ALPA MYERS : [address]: Trev Salinas MD Acct: [id number] Unit: [id number] AGE: 41 Location: ED Re12/16/16 SEX: F Status: DEP ER SPEC: [id number] YUMIKO: 12/16/[address] [facility] [address]: Supa Fermin MD REQ: [id number] RECD: 12/16/16 STATUS: ANNIE FRY DR: Astrid Gonzalez MD _ SOURCE: URINE SPDESC: ORDERED: Urine Culture Procedure Result Reported Site Urine Culture Final 12/17/16- 1609 ML No Growth (<1,000 CFU/mL) * ML - MAIN LAB ([facility]) . END OF REPORT * ML=Testing performed at Main Lab DEPARTMENT OF PATHOLOGY, [address] [place] [address] Yvan Obrien M.D. Director [facility] # [id number] 28 Because ethnic data is not always readily available, this report includes an eGFR for both -Americans and non- Americans. The National Kidney Disease Education Program (NKDEP) does not endorse the use of the MDRD equation for patients that are not between the ages of 18 and 70, are , have extremes of body size, muscle mass, or nutritional status, or are non- or non-. According to the National Kidney Foundation, irrespective of diagnosis, the stage of the disease is based on the level of kidney function: Stage Description GFR(mL/min/1.73 m(2)) 1 Kidney damage with normal or decreased GFR 90 2 Kidney damage with mild decrease in GFR 60-89 3 Moderate decrease in GFR 30-59 4 Severe decrease in GFR 15-29 5 Kidney failure <15 (or dialysis) 29 [facility] Severe Sepsis and Septic Shock Management Bundle Measure requires all lactic acids initially measuring >2.0 mmol/L be repeated. 30 The urine specimen was tested at the listed cutoffs: Drug class test level (ng/mL) Amphetamines 500 Barbiturates 200 Benzodiazepine metabolites 200 Cocaine metabolites 150 Cannabinoids 50 Opiates 300 Pcp 25 Specimen was received without chain of custody. Results should be used for medical purposes only. 31 SEE RESULT BELOW Name: ALPA MYERS : [address]: Astrid Gonzalez MD Acct: [id number] Unit: [id number] AGE: 41 Location: [facility] Re12/12/16 SEX: F Status: REG REF SPEC: [id number] YUMIKO: 12/12/16-[address] [facility] [address]: Astrid Gonzalez MD REQ: [id number] RECD: 12/12/16 STATUS: COMP _ SOURCE: URINE SPDESC: ORDERED: Urine Culture COMMENTS: [id number] Urine Source: Random Procedure Result Reported Site Urine Culture Final 12/14/16- 1234 ML No growth of clinically significant organisms * ML - MAIN LAB ([facility]) . END OF REPORT * ML=Testing performed at Main Lab DEPARTMENT OF PATHOLOGY, [address] [place] [address] Yvan Obrien M.D. Director [facility] # [id number] 32 Therapeutic concentration: <50 ug/mL Toxic concentration: >120 ug/mL 33 The urine specimen was tested at the listed cutoffs: Drug class test level (ng/mL) Amphetamines 500 Barbiturates 200 Benzodiazepine metabolites 200 Cocaine metabolites 150 Cannabinoids 50 Opiates 300 Pcp 25 Specimen was received without chain of custody. Results should be used for medical purposes only. 34 <5.0 Negative 5.0 - 25.0 Indeterminate (Repeat testing recommended after 72 hours) >25.0 Positive Perimenopausal women can display HCG levels of up to 20 mIU/mL 35 SEE RESULT BELOW Name: ALPA MYERS : [address]: Juan Nava MD Acct: [id number] Unit: [id number] AGE: 41 Location: [facility] Re11/18/16 SEX: F Status: ADM IN SPEC: [id number] YUMIKO: 11/18/16-[address] [facility] [address]: Sandoval Rinaldi MD REQ: [id number] RECD: 11/18/16 STATUS: ANNIE FRY DR: Camilo Osman MD _ SOURCE: URINE SPDESC: ORDERED: Urine Culture Procedure Result Reported Site Urine Culture Final 11/20/16- 0909 ML No growth of clinically significant organisms * ML - MAIN LAB ([facility]) . END OF REPORT * ML=Testing performed at Main Lab DEPARTMENT OF PATHOLOGY, [address] [place] [address] Yvan Obrien M.D. Director [facility] # [id number] 36 Because ethnic data is not always readily available, this report includes an eGFR for both -Americans and non- Americans. The National Kidney Disease Education Program (NKDEP) does not endorse the use of the MDRD equation for patients that are not between the ages of 18 and 70, are , have extremes of body size, muscle mass, or nutritional status, or are non- or non-. According to the National Kidney Foundation, irrespective of diagnosis, the stage of the disease is based on the level of kidney function: Stage Description GFR(mL/min/1.73 m(2)) 1 Kidney damage with normal or decreased GFR 90 2 Kidney damage with mild decrease in GFR 60-89 3 Moderate decrease in GFR 30-59 4 Severe decrease in GFR 15-29 5 Kidney failure <15 (or dialysis) 37 <5.0 Negative 5.0 - 25.0 Indeterminate (Repeat testing recommended after 72 hours) >25.0 Positive Perimenopausal women can display HCG levels of up to 20 mIU/mL 38 Because ethnic data is not always readily available, this report includes an eGFR for both -Americans and non- Americans. The National Kidney Disease Education Program (NKDEP) does not endorse the use of the MDRD equation for patients that are not between the ages of 18 and 70, are , have extremes of body size, muscle mass, or nutritional status, or are non- or non-. According to the National Kidney Foundation, irrespective of diagnosis, the stage of the disease is based on the level of kidney function: Stage Description GFR(mL/min/1.73 m(2)) 1 Kidney damage with normal or decreased GFR 90 2 Kidney damage with mild decrease in GFR 60-89 3 Moderate decrease in GFR 30-59 4 Severe decrease in GFR 15-29 5 Kidney failure <15 (or dialysis) 39 Normally menstruating females - Follicular phase 3 - 9 - Mid-cycle peak 4 - 23 - Luteal phase 1 - 6 Postmenopausal females 16 - 114 40 Normally menstruating females - Follicular Phase 1 - 18 - Mid-Cycle Peak 24 - 105 - Luteal Phase 0.6 - 20 Postmenopausal females 15 - 62 41 Because ethnic data is not always readily available, this report includes an eGFR for both -Americans and non- Americans. The National Kidney Disease Education Program (NKDEP) does not endorse the use of the MDRD equation for patients that are not between the ages of 18 and 70, are , have extremes of body size, muscle mass, or nutritional status, or are non- or non-. According to the National Kidney Foundation, irrespective of diagnosis, the stage of the disease is based on the level of kidney function: Stage Description GFR(mL/min/1.73 m(2)) 1 Kidney damage with normal or decreased GFR 90 2 Kidney damage with mild decrease in GFR 60-89 3 Moderate decrease in GFR 30-59 4 Severe decrease in GFR 15-29 5 Kidney failure <15 (or dialysis) 42 [facility] Severe Sepsis and Septic Shock Management Bundle Measure requires all lactic acids initially measuring >2.0 mmol/L be repeated. 43 Because ethnic data is not always readily available, this report includes an eGFR for both -Americans and non- Americans. The National Kidney Disease Education Program (NKDEP) does not endorse the use of the MDRD equation for patients that are not between the ages of 18 and 70, are , have extremes of body size, muscle mass, or nutritional status, or are non- or non-. According to the National Kidney Foundation, irrespective of diagnosis, the stage of the disease is based on the level of kidney function: Stage Description GFR(mL/min/1.73 m(2)) 1 Kidney damage with normal or decreased GFR 90 2 Kidney damage with mild decrease in GFR 60-89 3 Moderate decrease in GFR 30-59 4 Severe decrease in GFR 15-29 5 Kidney failure <15 (or dialysis) 44 <5.0 Negative 5.0 - 25.0 Indeterminate (Repeat testing recommended after 72 hours) >25.0 Positive Perimenopausal women can display HCG levels of up to 20 mIU/mL 45 Therapeutic concentration: <50 ug/mL Toxic concentration: >120 ug/mL 46 SEE RESULT BELOW Name: ALPA MYERS : [address]: Astrid Gonzalez MD Acct: [id number] Unit: [id number] AGE: 40 Location: [facility] Re06/20/16 SEX: F Status: REG REF SPEC: [id number] YUMIKO: 06/20/[address] [facility] [address]: Astrid oGnzalez MD REQ: [id number] RECD: 06/20/16 STATUS: COMP _ SOURCE: VAGINAL SPDESC: ORDERED: Denise,Yeast DNA, Trich DNA COMMENTS: [id number] Procedure Result Reported Site Gardnerella/Yeast: Vaginal DNA Final 06/21/16- 1240 ML Organism 1 POSITIVE SAIGE Organism 2 POSITIVE GARDNERELLA The presence of G. vaginalis, although suggestive, is not diagnostic for bacterial vaginosis. Results should be interpreted in conjuction with other clinical and laboratory data available. Women with vaginal discharge should be evaluated for risk factors of cervicitis and pelvic inflammatory disease, toxic shock syndrome (S.aureus), and if present, evaluated for organisms not included in this assay such as N. gonorrhoeae, C. trachomatis, Mobiluncus, Mycoplasma and/or Prevotella. Mixed infections may occur. The performance of this test on patient specimens collected during or immediately after antimicrobial therapy is unknown. The presence or absence of Saige species, or G. vaginalis cannot be used as a test for therapeutic success or failure. Trichomonas: Vaginal DNA Probe Final 06/21/16- 1240 ML Organism 1 Negative Trichomonas CONTINUED ON NEXT PAGE * ML=Testing performed at Main Lab DEPARTMENT OF PATHOLOGY, [address] [place] [address] Yvan Obrien M.D. Director [facility] # [id number] Patient: ALPA MYERS [id number] (Continued) Specimen: [id number] Collected: 06/20/16 Received: 06/20/16 (Continued) Procedure Result Reported Site Trichomonas: Vaginal DNA Probe Final (continued) 06/21/161240 The presence or absence of T. vaginalis cannot be used as a test for therapeutic success or failure. * ML - MAIN LAB ([facility]) . END OF REPORT * ML=Testing performed at Main Lab DEPARTMENT OF PATHOLOGY, [address] [place] [address] Yvan Obrien M.D. Director [facility] # [id number] 47 SEE RESULT BELOW Name: ALPA MYERS : [address]: Alissa Bob NP Acct: [id number] Unit: [id number] AGE: 40 Location: [facility] Re03/22/16 SEX: F Status: REG REF SPEC: [id number] YUMIKO: 03/22/16-[address]: Alissa Bob NP REQ: [id number] RECD: 03/23/16 STATUS: COMP _ SOURCE: URINE SPDESC: ORDERED: Urine Culture COMMENTS: [id number] Procedure Result Reported Site Urine Culture Final 03/24/16- 1301 ML No Growth (<1,000 CFU/mL) * ML - MAIN LAB ([facility]) . END OF REPORT * ML=Testing performed at Main Lab DEPARTMENT OF PATHOLOGY, [address] [place] [address] Yvan Obrien M.D. Director [facility] # [id number] Procedures Date CPT Code Description Status 03/31/2017 Mammogram Completed 02/06/2017 52928 Diffusing Capacity Completed 02/06/2017 60457 Plethysmography Determination Lung Volumes & Per Airway Completed Resist 02/06/2017 50465 Pulmonary Function><Bronchodil Completed 04/08/2016 08031 EEG Monitoring & Video Recording Completed 01/28/2016 49134 EEG Recording Awake & Drowsy Completed Encounters Type Date Location Provider CPT E/M Dx Office Visit 04/23/2018 9:10a [facility] Internal Medicine Astrid Gonzalez M.D. 93636 J44.1 - Dom F17.210 J06.9 Office Visit 01/16/2018 3:40p [facility] Internal Medicine Alissa Bob, N.PSaw 44260 N39.0 - Rodrigo Office Visit 11/28/2017 10:50a [facility] Internal Medicine Astrid Gonzalez M.D. 00535 F44.5 - Dom N91.1 F17.210 Office Visit 10/31/2017 4:20p [facility] Internal Medicine Lissy Suarez M.D. 65199 R05 - Rodrigo J45.41 G40.89 Office Visit 2017 10:30a [facility] Internal Medicine Astrid Gonzalez 05370 J01.90 - Dom Burris F44.5 J44.1 Office Visit 06/19/2017 10:30a [facility] Internal Medicine Astrid Gonzalez M.D. 21655 M54.5 - [place] G47.00 Office Visit 06/05/2017 3:00p [facility] Internal Medicine Camilo Osman 58162 M54.5 - Eros Garnica M.D. Office Visit 05/22/2017 7:07a [facility] Crispin 05369 N17.9 [facility]oc[facility] Hospitalists JAVIER Camacho D69.6 R45.851 F32.9 Office Visit 05/21/2017 7:03a [facility] Sana Nicole, 18910 N17.9 Assoc,pc [facility] [employer] Hospitalists D69.6 R45.851 F32.9 Office Visit 04/07/2017 11:10a [facility] [place] [address] D22.62 D22.5 B36.0 Office Visit 03/29/2017 11:10a [facility] Internal Medicine Astrid Gonzalez, 46069 Z00.00 - Dom Burris Z12.83 F51.04 K21.9 Z13.1 Z12.31 Z23 Z13.220 F17.210 Office Visit 03/13/2017 11:50a [facility] Internal Medicine Astrid Gonzalez 97825 F17.210 - Dom Burris J40 F43.22 Office Visit 01/18/2017 2:40p [facility] Internal Medicine - Astrid Gonzalez M.D. 12206 J40 Dom F17.210 K21.9 Office Visit 12/12/2016 11:50a [facility] Internal Medicine Astrid Gonzalez M.D. 76133 R30.0 - Dom N30.01 Office Visit 10/18/2016 1:40p [facility] Internal Medicine Astrid Gonzalez M.D. 47163 N91.1 - Dom R11.2 Office Visit 07/05/2016 2:40p [facility] Internal Medicine Timothy Beck, 89889 J06.9 - Dom Burris Office Visit 06/20/2016 1:00p [facility] Internal Medicine Astrid Gonzalez M.D. 32887 B37.3 - Dom N89.8 R35.1 Office Visit 05/18/2016 4:20p [facility] [place] [address] J06.9 - Rodrigo Office Visit 05/02/2016 11:20a [facility] Internal Medicine Alissa Bob, N.P. 86101 M54.5 - Rodrigo F17.210 J45.901 M46.1 Office Visit 04/09/2016 2:39p [facility] [place] [address] F44.5 Office Visit 04/08/2016 2:38p [facility] [address] F44.5 Office Visit 03/22/2016 3:00p [facility] Internal Medicine - Alissa Wrightcamacho, 41273 N39.0 [place] N.P. Office Visit 02/22/2016 1:00p [facility] [address] R56.9 [facility] Office Visit 02/04/2016 1:20p [facility] Internal Medicine - Camilo Osman, [address] Fatuma F17.210 K21.9 Office Visit 09/15/2015 3:14p [facility] Aric Mancia , 89641 R10.84 Assoc, Hospitalists Fatuma Office Visit [facility]/14[facility]2015 [facility] 53305 R10.84 [facility] N.P. E78.5 F41.9 F32.9 Plan of Care 05/01/2018 - Astrid Gonzalez M.D.J45.41 Moderate persistent asthma with (acute) exacerbationNew Medication:Prednisone 20 mg
--- OUTSIDE RECORDS SUMMARY | 2018-05-02 13:52 | XMS REPORT ---
:1975 External Reference #:[id number] Author Organization [facility] Address [address] [place] [address] [place] [address] Phone [phone] Care Team Providers Name Role Phone Astrid Gonzalez MD Primary Care Physician Unavailable Payers Type Date Identification Numbers Payment Provider Subscriber Commercial Policy Number: [id number] Ari Myers Group Number: [id number] [address] PayID: [id number] [place] [address] Advance Directives Type Date Description Status Comment [...] Strength Qnty SIG Indications Ordering Provider Prednisone 04/23 Hx Tablets 20mg QS 2 tab by J44.1 mouth every Gonzalez, - day x4 days M.D. 05/03 then 1 tab daily for 3 days, [...] HCL Active Capsules 2mg once daily Unknown Nicotrol Active Inhaler 10mg once a day Unknown Josseline Ibuprofen Active Capsules 200mg as needed Unknown Omeprazole Active Capsules 40mg 60cap Take 1 Timothy Caro 0000 s Capsule By Ebony, Mouth 2 M.D. Times A Day For 30 Days, Then Decrease To 1 Capsule Once A Day Nitrofurantoin 01/18 Hx Capsules 100mg 20cap 1 [...] Timothy Caro /2016 /24HR its doing this Flex Beck M.D. 03/29 Advair HFA 01/18 Hx Aerosol 115-21mcg 36gm 2 puff every J01.90 Astrid /2016 /Act 12 hours Lisa - M.DSaw 03/13 Eq Nicotine 01/18 Hx Patches 14mg/24HR 28uni as needed F17.210 Astrid 24HR ts daily Lisa - M.D. 03/12 Nitrofurantoin 12/12 Hx Capsules 100mg 14cap 1 by mouth N30.01 Astrid Macrocrystal s twice a day Lisa - M.D. 12/26 Amoxicillin 07/05 Hx Capsules 500mg 30cap 1 three J06.9 Timothy E. s times a day Ebony - for 10 days M.D. 10/18 Metronidazole 06/21 Hx Gel 0.75% 1unit apply Astrid s intravaginal Flex Gonzalez ly once a M.D. 06/29 day x 7 Fluconazole 06/20 Hx Tablets 150mg 2tabs 1 by mouth B37.9 Astrid /2015 every day Lisa - M.D. 06/23 Advair Diskus 05/18 Hx Aerosol 500-50mcg 60uni inhale 1 Wilbert /2016 /Dose ts dose by Terrance NURSE MIDWIFE/CLINICAL INSTRUCTOR - mouth twice 06/02 a day /2015 Tizanidine HCL 05/02 Hx Capsules 4mg 30cap one by mouth M54.5 s every 4 Varn, N.P. - hours as 05/16 needed for muscle spasms Ibuprofen 10 Hx Tablets 800mg 60tab by mouth M54.5 s three times Varn, N.P. - a day as 12/12 needed Medrol 10 Hx TBPK 4mg 21uni 6 by mouth J45.901 ts day 1 5 by Varn, N.P. - mouth day 2 05/08 4 by mouth /2015 day 3 3 by mouth day 4 2 by mouth day 5 1 by mouth day 6 Sulfamethoxazol 03/22 Hx Tablets 800-160mg 14tab one by mouth N39.0 Trimethoprim s twice a day Varn, N.P. DS - for 7 days 03/29 Clotrimazole 02/03 Hx Cream 1% 45gm apply twice B35.3 2016 daily both Pachikara, - feet after M.D. 05/02 shower. Prazosin HCL 00 Hx Capsules 2mg 1 capsule at Unknown /0000 night - 03/07 Hydroxyzine HCL 00 Hx Tablets 50mg 1 tab q6h Unknown /0000 prn - 03/12 Denta 5000 Plus 00 Hx Cream 1.1% use for Unknown /0000 brushing - teeth bid 03/12 Tylenol Extra 00/00 Hx Tablets 500mg 2 by mouth Unknown Strength /0000 as needed - 06/19 Bupropion HCL 00/00 Hx Tablets ER 150mg 1 po qd Unknown ER (XL) /0000 24HR - 03/07 Wellbutrin XL 00/00 Hx Tablets ER 150mg 1 by mouth Unknown /0000 24HR every day - 10/30 Immunizations CPT Code Status Date Vaccine Lot # [id number] Given 03/29/2017 Tdap - Tetanus/Diptheria/Acellular Pertussis [id number] Given 03/29/2017 Influenza Virus Vaccine, Quadrivalent, Split, [id number] Preservative Free [id number] Refused 06/20/2016 Influenza Virus Vaccine, Quadrivalent, Split, Preservative Free Vital Signs Date Vital Result Comment 04/23/2018 Height 64.5 inches 5'4.50" Weight 208.00 [...] Color Yellow Urine Appearance Cloudy Urine Specific Zwingle 1.013 1.010-1.030 Urine pH 7.0 5-9 Urine [...] 5 Sensitivities Ua Routine 01/16/2018 Ua Specific [place]wingle 1.025 Ua PH 5 Ua Color dark [...] Color Yellow Urine Appearance Clear Urine Specific [place]le 1.008 Low 1.010-1.030 Urine pH 7.0 5-9 [...] Color Yellow Urine Appearance Cloudy Urine Specific Zwingle 1.008 Low 1.010-1.030 Urine pH 6.0 5-9 [...] Color Yellow Urine Appearance Cloudy Urine Specific Zwingle 1.005 Low 1.010-1.030 Urine pH 6.0 5-9 [...] Color Yellow Urine Appearance Cloudy Urine Specific Zwingle 1.010 1.010-1.030 Urine pH 5.0 5-9 Urine [...] mg/dL <10 Ua Routine 12/12/2016 Ua Specific Zwingle 1.005 Ua PH 8 Ua Color yellow [...] Color Yellow Urine Appearance Cloudy Urine Specific Zwingle 1.014 1.010-1.030 Urine pH 5.0 5-9 Urine [...] % 0.1 Ua Routine 06/20/2016 Ua Specific Zwingle 1.015 Ua PH 6 Ua Color yellow Ua Appera cloudy Ua WBC + Ua Protein neg Ua Glucose neg Ua Ketones neg Ua Bilirubin neg Ua Urobilinogen normal Ua Nitrite neg Ua Occult Blood neg Laboratory test finding 06/20/2016 Gardnerella/Yeast: Vaginal SEE RESULT BELOW 46 Dna Urine Culture And 03/22/2016 Urine Culture SEE RESULT BELOW 47 Sensitivities Ua Routine 03/22/2016 Ua Specific Zwingle 1.020 Ua PH 5 Ua Color yellow [...] [address]: Leonor Wong MD Acct: [id number] Unit: [id number] AGE: 42 Location: [address] Re03/07/18 SEX: F Status: ADM IN SPEC: [id number] YUMIKO: 03/06/18-[address] [facility] [address]: Sandoval Rinaldi MD REQ: [id number] RECD: 03/06/186942 STATUS: ANNIE FRY DR: Astrid Gonzalez MD _ SOURCE: URINE SPDESC: ORDERED: Urine Culture Procedure Result Reported Site Urine Culture Final 03/07/18- 1356 ML No growth of clinically significant organisms * ML - Main Lab . END OF REPORT DEPARTMENT OF PATHOLOGY, [address] [place] [address] Yvan Obrien M.D. Director [facility] # [id number] 6 SEE RESULT BELOW Name: ALPA MYERS : [address]: Alissa Bob NP Acct: [id number] Unit: [id number] AGE: 42 Location: [facility] [facility] Re01/16/18 SEX: F Status: REG REF SPEC: [id number] YUMIKO: 01/16/18-[address] [facility] [address]: Alissa Bob NP REQ: [id number] RECD: 01/16/18 STATUS: COMP _ SOURCE: URINE SPDESC: ORDERED: Urine Culture COMMENTS: [id number] Procedure Result Reported Site Urine Culture Final 01/18/18- 0810 ML Organism 1 ESCHERICHIA COLI [place] Count >100,000 (Many) CFU/ML 1. ESCHERICHIA COLI [...] . END OF REPORT DEPARTMENT OF PATHOLOGY, [address] [place] [address] Yvan Obrien M.D. Director [facility] # [id number] 7 Therapeutic concentration: <50 ug/mL Toxic concentration: [...] [address]: Jelly Martinez MD Acct: [id number] Unit: [id number] AGE: 42 Location: ED Re11/17/17 SEX: F Status: DEP ER SPEC: [id number] YUMIKO: 11/17/[address] [facility] [address]: Esther Martinez MD REQ: [id number] RECD: 11/17/17 STATUS: COMP GISELLA DR: Astrid Gonzalez MD _ [facility]: Urine Culture Procedure Result Reported Site Urine Culture Final 11/18/17- 1648 ML No growth of clinically significant organisms * ML - Main Lab . END OF REPORT DEPARTMENT OF PATHOLOGY, [address] [place] [address] Yvan Obrien M.D. Director [facility] # [id number] 10 The urine specimen was tested at [...] [address]: Messi Henson MD Acct: [id number] Unit: [id number] AGE: 42 Location: [place] [address] Re09/09/17 SEX: F Status: ADM IN SPEC: [id number] YUMIKO: 09/09/17-[address] [facility] [address]: Supa Fermin MD REQ: [id number] RECD: 09/09/17 STATUS: ANNIE FRY DR: Astrid Gonzalez MD _ SOURCE: URINE SPDESC: ORDERED: Urine Culture Procedure Result Reported Site Urine Culture Final 09/11/17- 1012 ML No growth of clinically significant organisms * ML - MAIN LAB ([facility]) . END OF REPORT * ML=Testing performed at Main Lab DEPARTMENT OF PATHOLOGY, [address] [place] [address] Yvan Obrien M.D. Director [facility] # [id number] 15 Thrombocytopenia noted on CBC though scattered [...] [address]: Hector Hercules DO Acct: [id number] Unit: [id number] AGE: 41 Location: ED Re02/06/17 SEX: F Status: DEP ER SPEC: [id number] YUMIKO: 02/06/[address]: Hector Hercules DO REQ: [id number] RECD: 02/06/17 STATUS: ANNIE FRY DR: Astrid Gonzalez MD _ SOURCE: URINE SPDESC: ORDERED: Urine Culture Procedure Result Reported Site Urine Culture Final 02/07/17- 1300 ML No growth of clinically significant organisms * ML - MAIN LAB ([facility]) . END OF REPORT * ML=Testing performed at Main Lab DEPARTMENT OF PATHOLOGY, [address] [place] [address] Yvan Obrien M.D. Director [facility] # [id number] 24 Therapeutic concentration: <50 ug/mL Toxic concentration: [...] [address]: Trev Salinas MD Acct: [id number] Unit: [id number] AGE: 41 Location: ED Re12/16/16 SEX: F Status: DEP ER SPEC: [id number] YUMIKO: 12/16/[address]: Supa Fermin MD REQ: [id number] RECD: 12/16/16 STATUS: ANNIE FRY DR: Astrid Gonzalez MD _ SOURCE: URINE SPDESC: ORDERED: Urine Culture Procedure Result Reported Site Urine Culture Final 12/17/16- 1609 ML No Growth (<1,000 CFU/mL) * ML - MAIN LAB ([facility]) . END OF REPORT * ML=Testing performed at Main Lab DEPARTMENT OF PATHOLOGY, [address] [place] [address] Yvan Obrien M.D. Director [facility] # [id number] 28 Because ethnic data is not always [...] 5 Kidney failure <15 (or dialysis) 29 [facility] Severe Sepsis and Septic Shock Management Bundle [...] [address]: Astrid Gonzalez MD Acct: [id number] Unit: [id number] AGE: 41 Location: [facility] Re12/12/16 SEX: F Status: REG REF SPEC: [id number] YUMIKO: 12/12/16-[address] [facility] [address]: Astrid Gonzalez MD REQ: [id number] RECD: 12/12/16 STATUS: COMP _ SOURCE: URINE SPDESC: ORDERED: Urine Culture COMMENTS: [id number] Urine Source: Random Procedure Result Reported Site Urine Culture Final 12/14/16- 1234 ML No growth of clinically significant organisms * ML - MAIN LAB ([facility]) . END OF REPORT * ML=Testing performed at Main Lab DEPARTMENT OF PATHOLOGY, [address] [place] [address] Yvan Obrien M.D. Director [facility] # [id number] 32 Therapeutic concentration: <50 ug/mL Toxic concentration: [...] [address]: Juan Nava MD Acct: [id number] Unit: [id number] AGE: 41 Location: [address] Re11/18/16 SEX: F Status: ADM IN SPEC: [id number] YUMIKO: 11/18/16-[address] [facility] [address]: Sandoval Rinaldi MD REQ: [id number] RECD: 11/18/16 STATUS: ANNIE FRY DR: Camilo Osman MD _ SOURCE: URINE SPDESC: ORDERED: Urine Culture Procedure Result Reported Site Urine Culture Final 11/20/16- 908 ML No growth of clinically significant organisms * ML - MAIN LAB ([facility]) . END OF REPORT * ML=Testing performed at Main Lab DEPARTMENT OF PATHOLOGY, [address] [place] [address] Yvan Obrien M.D. Director [facility] # [id number] 36 Because ethnic data is not always [...] 5 Kidney failure <15 (or dialysis) 42 [facility] Severe Sepsis and Septic Shock Management Bundle [...] [address]: Astrid Gonzalez MD Acct: [id number] Unit: [id number] AGE: 40 Location: [facility] Re06/20/16 SEX: F Status: REG REF SPEC: [id number] YUMIKO: 06/20/16-[address] [facility] [address]: Astrid Gonzalez MD REQ: [id number] RECD: 06/20/16 STATUS: COMP _ SOURCE: VAGINAL SPDESC: ORDERED: Denise,Yeast DNA, Trich DNA COMMENTS: [id number] Procedure Result Reported Site Gardnerella/Yeast: Vaginal DNA Final 06/21/16- 1241 ML Organism 1 POSITIVE SAIGE Organism 2 [...] failure. Trichomonas: Vaginal DNA Probe Final 06/21/16- 1241 ML Organism 1 Negative Trichomonas CONTINUED ON NEXT PAGE * ML=Testing performed at [facility] DEPARTMENT OF PATHOLOGY, [address] [place] [address] Yvan Obrien M.D. Director [facility] # [id number] Patient: ALPA MYERS [id number] (Continued) Specimen: [id number] Collected: 06/20/16 Received: 06/20/16 (Continued) Procedure Result Reported Site Trichomonas: Vaginal DNA Probe Final (continued) 06/21/16- 1241 The presence or absence of T. vaginalis cannot be used as a test for therapeutic success or failure. * ML - MAIN LAB ([facility]) . END OF REPORT * ML=Testing performed at Main Lab DEPARTMENT OF PATHOLOGY, [address] [place] [address] Yvan Obrien M.D. Director [place] # [id number] 47 SEE RESULT BELOW Name: ALPA MYERS : [address]: Alissa Bob NP Acct: [id number] Unit: [id number] AGE: 40 Location: [facility] Re03/22/16 SEX: F Status: REG REF SPEC: [id number] YUMIKO: 03/22/16-[address] [facility] [address]: Alissa Bob NP REQ: [id number] RECD: 03/23/16103 STATUS: COMP _ SOURCE: URINE SPDESC: ORDERED: Urine Culture COMMENTS: [id number] Procedure Result Reported Site Urine Culture Final 03/24/16- 1301 ML No Growth (<1,000 CFU/mL) * ML - MAIN LAB ([facility]) . END OF REPORT * ML=Testing performed at Main Lab DEPARTMENT OF PATHOLOGY, [address] [place] [address] Yvan Obrien M.D. Director [facility] # [id number] Procedures Date CPT Code Description Status 03/31/2017 Mammogram Completed 02/06/2017 78967 Diffusing Capacity Completed 02/06/2017 25818 Plethysmography Determination Lung Volumes & Per Airway Completed Resist 02/06/2017 10647 Pulmonary Function><Bronchodil Completed 04/08/2016 17421 EEG Monitoring & Video Recording Completed 01/28/2016 12508 EEG Recording Awake & Drowsy Completed Encounters Type Date Location Provider CPT E/M Dx Office Visit 01/16/2018 3:40p [facility] Alissa Bob, N.PSaw 87842 N39.0 - [place] Office Visit 11/28/2017 10:50a [facility] Astrid Gonzalez M.D. 63781 F44.5 - Dom N91.1 F17.210 Office Visit 10/31/2017 4:20p [facility] Lissy Suarez M.D. 65471 R05 - Rodrigo J45.41 G40.89 Office Visit 2017 10:30a [facility] Astrid Gonzalez, 63443 J01.90 - Dom Burris F44.5 J44.1 Office Visit 06/19/2017 10:30a [facility] Astrid Gonzalez M.D. 95252 M54.5 - Dom G47.00 Office Visit 06/05/2017 3:00p [facility] Camilo Osman, 22609 M54.5 - Eros Garnica M.D. Office Visit 05/22/2017 7:07a [facility] Crispin 12090 N17.9 [facility] JAVIER Camacho D69.6 R45.851 F32.9 Office Visit 05/21/2017 7:03a [facility] Sana Nicole, 96252 N17.9 [facility]oc[facility] NURSE MIDWIFE/CLINICAL INSTRUCTOR Hospitalists D69.6 R45.851 F32.9 Office Visit 04/07/2017 11:10a [facility] [place] [address] D22.62 D22.5 B36.0 Office Visit 03/29/2017 11:10a [facility] Astrid Gonzalez, 53441 Z00.00 - Dom Burris Z12.83 F51.04 K21.9 Z13.1 Z12.31 Z23 Z13.220 F17.210 Office Visit 03/13/2017 11:50a [facility] Astrid Gonzalez, 24399 F17.210 - Dom Burris J40 F43.22 Office Visit 01/18/2017 2:40p [facility] - Astrid Gonzalez M.D. 86857 J40 Dom F17.210 K21.9 Office Visit 12/12/2016 11:50a [facility] Astrid Gonzalez M.D. 61296 R30.0 - Dom N30.01 Office Visit 10/18/2016 1:40p [facility] Astrid Gonzalez M.D. 71057 N91.1 - Dom R11.2 Office Visit 07/05/2016 2:40p [facility] Timothy Beck, 76620 J06.9 - Dom Burris Office Visit 06/20/2016 1:00p [facility] Astrid Gonzalez M.D. 34115 B37.3 - [place] N89.8 R35.1 Office Visit 05/18/2016 4:20p [facility] [place] [address] J06.9 - [place] Office Visit 05/02/2016 11:20a [facility] Alissa Bob, N.P. 82502 M54.5 - [place] F17.210 J45.901 M46.1 Office Visit 04/09/2016 2:39p [facility] [place] [address] F44.5 Office Visit 04/08/2016 2:38p [facility] [place] [address] F44.5 Office Visit 03/22/2016 3:00p [facility] - Alissa Bob 20422 N39.0 [place] N.P. Office Visit 02/22/2016 1:00p [facility] [place] [address] R56.9 [facility] Office Visit 02/04/2016 1:20p [facility] - Camilo Osman, 51902 B35.3 Eros Garnica M.D. F17.210 K21.9 Office Visit 09/15/2015 3:14p [facility] Aric Mancia , 15619 R10.84 [facility] Fatuma Office Visit 09/14/2015 3:13p [facility] Demian [place], [address]13 R10.84 [facility] N.P. E78.5 F41.9 F32.9 Plan of Care Future Appointment(s):04/30/2018 9:00 am - Nurse Visit C at [facility] - Wwwxpipnt27/01/2018 - Astrid Gonzalez M.D.J44.1 Chronic obstructive pulmonary disease w (acute) exacerbationNew Medication:Prednisone 20 mgF17.210 Nicotine dependence, cigarettes, ppgipuvdjfmbxU22.9 Acute upper respiratory infection, unspecifiedNew Medication:Claritin 10 mg
[2018-05-02] MEDS ORDERED: guaiFENesin/CODIEN 100MG-10MG* 5 ML UDC PO ONE (13:59)
--- NOTE | 2018-05-02 13:59 | ED ---
Asthma - HPI Summary HPI Summary: The pt is a 42 y/o female with a Mhx of asthma BIBA to [facility] c/o difficulty breathing since 1.5 weeks ago after she started a second round of Prednisone. She notes cough, SOB, dyspnea, dina and anxiety but denies fever, and SI/HI. She report a PMhx of anxiety, PTSD, seizures, bipolar and dina for which she has been previously hospitalized. EMS administered DuoNeb treatment once en route to mild relief. - History of Current Complaint Chief Complaint: EDShortnessOfBreath Stated Complaint: DIFFICULTY BREATHING Time Seen by Provider: 05/02/18 13:27 Hx Obtained From: Patient, Family/Electric Deicer Inspector, EMS Hx Last Menstrual Period: 12/18/13 Onset/Duration: Lasting Weeks - 1.5 weeks, Still Present Timing: Constant Current Severity: None Pain Intensity: 0 Pain Scale Used: 0-10 Numeric Location/Character: Cough (Productive) Alleviating Symptoms: Inhalers/Nebulizers Associated Signs and Symptoms: Positive: Shortness of Breath - Allergy/Home Medications Allergies/Adverse Reactions: Allergies Allergy/AdvReac Type Severity Reaction Status Date / Time levofloxacin [From Levaquin] Allergy Unknown Verified 04/16/18 12:35 Reaction Details methylphenidate Allergy See Comment Verified 04/16/18 12:35 prednisone Allergy Anxiety Verified 04/16/18 12:35 GRAPEFRUIT Allergy AVOIDS DUE Uncoded 04/16/18 12:35 TO CURRENT MEDICATION SHE IS TAKING Home Medications: Home Medications Nicotine Lozenge* 1 mg MT Q2H PRN 05/02/18 [History Confirmed 05/02/18] predniSONE TAB* [Deltasone 20 MG TAB*] 20 mg PO SEE INSTRUCTIONS 05/02/18 [ History Confirmed 05/02/18] PMH/Surg Hx/FS Hx/Imm Hx Previously Healthy: No Endocrine/Hematology History: Denies: Hx Anticoagulant Therapy, Hx Blood Disorders, Hx Blood Transfusions, Hx Bone Marrow Disease, Hx Diabetes, Hx Systemic Lupus Erythematosus, Hx Sickle Cell Disease, Hx Thyroid Disease, Hx Anemia, Hx Unexplained Bleeding, Other Endocrine/Hematological Disorders Cardiovascular History: Reports: Hx Hypercholesterolemia Denies: Hx Hypertension Respiratory History: Reports: Hx Asthma - PRN INHALER- IMPROVED SINCE QUITTING SMOKING Denies: Hx Chronic Bronchitis, Hx Chronic Obstructive Pulmonary Disease (COPD ), Hx Cystic Fibrosis, Hx Lung Cancer, Hx Pleural Effusion, Hx Pneumonia, Hx Pulmonary Edema, Hx Pulmonary Embolism, Hx Seasonal Allergies, Hx Sleep Apnea, Other Respiratory Problems/Disorders GI History: Reports: Hx Gastroesophageal Reflux Disease - ON MEDICATION FOR, Hx Irritable Bowel, Hx Ulcer - STARTING OF AN ULCER IN THE PAST Denies: Hx Cirrhosis, Hx Crohn's Disease, Hx Diverticulosis, Hx Gall Bladder Disease, Hx Gastrointestinal Bleed, Hx Hiatal Hernia, Hx Jaundice, Hx Obstructive Bowel, Hx Ileostomy, Hx Pyloric Stenosis, Other GI Disorders History: Denies: Other Problems/Disorders Musculoskeletal History: Denies: Hx Arthritis, Hx Back Problems, Hx Bursitis, Hx Congenital Bone Abnormalities, Hx Fibromyalgia, Hx Gout, Hx Orthopedic Injury, Hx Osteoporosis, Hx Scoliosis, Hx Tendonitis, Other Musculoskeletal History Sensory History: Denies: Hx Cataracts, Hx Contacts or Glasses, Hx Eye Injury, Hx Eye Prosthesis, Hx Glaucoma, Hx Legally Blind, Hx Macular Degeneration, Hx Vision Problem, Hx Deafness, Hx Hearing Aid, Hx Hearing Problem, Other Sensory Impairments Opthamlomology History: Denies: Hx Cataracts, Hx Contacts or Glasses, Hx Eye Injury, Hx Eye Prosthesis, Hx Glaucoma, Hx Legally Blind, Hx Macular Degeneration, Hx Vision Problem, Other Sensory Impairments Neurological History: Reports: Hx Migraine - TREATS WITH REST AND TYLENOL, Hx Seizures - Pseudoseizures (per pt)-LAST 3-4 MONTHS AGO, Other Neuro Impairments/ Disorders - seizures versus psychogenic events Denies: Hx Dementia, Hx Developmental Delay, Hx Headaches, Hx Nerve Disease, Hx Spinal Cord Injury, Hx Transient Ischemic Attacks (TIA) Psychiatric History: Reports: Hx Anxiety, Hx Depression, Hx Post Traumatic Stress Disorder, Hx Inpatient Treatment, Hx Community Mental Health Tx, Hx Bipolar Disorder, Hx Suicide Attempt, Other Psychiatric Issues/Disorders Denies: Hx Attention Deficit Hyperactivity Disorder, Hx Eating Disorder, Hx Panic Disorder, Hx Schizophrenia, Hx of Violent Episodes Against Others, Hx Substance Abuse - Cancer History Cancer Type, Location and Year: None reported - Surgical History Surgery Procedure, Year, and Place: [id number] YEARS AGO Hx Anesthesia Reactions: No - Immunization History Date of Tetanus Vaccine: UNKNOWN Date of Influenza Vaccine: 2012 Infectious Disease History: No Infectious Disease History: Denies: Hx Clostridium Difficile, Hx Hepatitis, Hx Human Immunodeficiency Virus (HIV), Hx of Known/Suspected MRSA, Hx Shingles, Hx Tuberculosis, Traveled Outside the [place] in Last 30 Days - Family History Known Family History: Positive: Seizure Disorder - pseudo-seizures Family History: Other FHx reviewed and noncontributory - Social History Occupation: Unemployed Lives: With Family Alcohol Use: None Hx Substance Use: No Substance Use Type: Reports: None Hx Tobacco Use: Yes Smoking Status (MU): Light Every Day Tobacco Smoker Type: Cigarettes Amount Used/How Often: 1/2 PPD X 20 YEARS- OFF AND ON Length of Time of Smoking/Using Tobacco: 23 Have You Smoked in the Last Year: Yes - smokes 1/2 pack/day. No other form tobacco or nicotine in last year Review of Systems Respiratory: Other - Positive: Dyspnea Positive: Shortness Of Breath, Cough Positive: Anxious, Other - Negative: SI/HI; Positive: Dina All Other Systems Reviewed And Are Negative: Yes Physical Exam - Summary Physical Exam Summary: Constitutional: Well-developed, Well-nourished, Alert. , Hyperventilation Skin: Warm, Dry HENT: Normocephalic; Atraumatic Eyes: Conjunctiva normal Neck: Musculoskeletal ROM normal neck. (-) JVD, (-) Stridor, (-) Tracheal deviation Cardio: Rhythm regular, rate normal, Heart sounds normal; Intact distal pulses; The pedal pulses are 2+ and symmetric. Radial pulses are 2+ and symmetric. (-) Murmur Pulmonary/Chest wall: Effort normal. (-) Respiratory distress, (-) Wheezes, (-) Rales, Lungs are clear to auscultation Abd: Soft, (-) epigastric tenderness, (-) Distension, (-) Guarding, (-) Rebound Musculoskeletal: (-) Edema Lymph: (-) Cervical adenopathy Neuro: Alert, Oriented x3 Psych: Mood and affect Normal Triage Information Reviewed: Yes Vital Signs On Initial Exam: Initial Vitals Temp Pulse Resp BP Pulse Ox 97.4 F 115 22 134/86 95 05/02/18 13:21 05/02/18 13:21 05/02/18 13:21 05/02/18 13:21 05/02/18 13:21 Vital Signs Reviewed: Yes Diagnostics - Vital Signs Vital Signs Temp Pulse Resp BP Pulse Ox 05/02/18 13:21 97.4 F 115 22 134/86 95 - Laboratory Result Diagrams: 05/02/18 14:13 05/02/18 14:13 Lab Statement: Any lab studies that have been ordered have been reviewed, and results considered in the medical decision making process. - Radiology CXR Radiology Interpretation Completed By: Radiologist - IMPRESSION: #. Stigmata of probable chronic obstructive pulmonary disease. #. No acute cardiopulmonary process evident. The ED physician reviewed this radiology report. - EKG 12:23 Cardiac Rate: NL - 76 bpm EKG Rhythm: Sinus Rhythm ST Segment: Normal Ectopy: None EKG Comparison: No Significant Change Re-Evaluation - Re-Evaluation First Eval Re-Evaluation Time: 19:23 - Attempted Re-eval Comment: I attempted a re-evaluation of the pt but she ws already discharged. However, nurses report that the pt was stable and not in any distress. Asthma Course/Dx - Course Course Of Treatment: A 42 year-old F with a MHx of asthma presents to the ED with a CC of difficulty breathing since 1.5 weeks ago after she started a second round of Prednisone. She notes cough, SOB, dyspnea, and anxiety but denies fever, and SI/HI. She report a PMhx of anxiety, PTSD, seizures, bipolar and dina for which she has been previously hospitalized. EMS administered DuoNeb treatment once en route to mild relief. A physical exam revealed hyperventilation, and clear lungs to auscultation. The sx are distractible. The currently prescribed steroids likely contribute to the dina sx. A CXR reveals stigmata of probable COPD. An EKG is unremarkable. In the ED course, pt was given Guaifenesin 5ml PO which improved the symptoms. Patient will be discharged with a final Dx of acute bronchitis and anxiety with instructions to continue and finish taking her steroids prescription The pt voices no intentiosn of self-harm. Pt is agreeable with this plan. Allergies noted - Diagnoses Provider Diagnoses: Anxiety, Bronchitis Discharge - Sign-Out/Discharge Documenting (check all that apply): Patient Departure - DC - Discharge Plan Condition: Stable Disposition: HOME Prescriptions: guaiFENesin/CODIEN 100MG-10MG* [Robitussin AC 100Mg-10Mg*] 10 ml PO Q4H PRN # 100 ml MDD 60 PRN Reason: Cough hydrOXYzine HCL TAB* [Atarax 25 MG TAB*] 25 mg PO TID PRN #15 tab PRN Reason: Anxiety Patient Education Materials: Acute Bronchitis (ED), Anxiety (ED) Referrals: Astrid Gonzalez MD [Primary Care Provider] - 2 Days Additional Instructions: RETURN TO THE EMERGENCY DEPARTMENT FOR CHANGING OR WORSENING SYMPTOMS Continue to take your steroids until you finish them. - Attestation Statements Document Initiated by Scribe: Yes Documenting Scribe: Xiomara Flores Provider For Whom Scribe is Documenting (Include Credential): Dr. Supa Fermin MD Scribe Attestation: IXiomara, scribed for Dr. Supa Fermin MD on 05/02/18 at 1923.
[2018-05-02 14:28] LABS: Hematocrit 44 % (35-47); Mean Corpuscular HGB Conc 34 g/dl (31-36); Mean Corpuscular Hemoglobin 29 pg (27-31); Mean Corpuscular Volume 86 fL (80-97); Mean Platelet Volume 9.6 um3 (7.4-10.4); Platelet Count 164 10^3/ul (150-450); Red Blood Count 5.14 10^6/ul (4.00-5.40); Red Cell Distribution Width 15 % (10.5-15); White Blood Count 10.7 10^3/ul (3.5-10.8)
[2018-05-02 14:47] LABS: EGFR Non-African American 47.7 (>60)
--- NOTE | 2018-05-02 16:29 | RAD ---
INDICATION: Shortness of breath, cough, anxiety. Improvement since quitting smoking. COMPARISON: August 16, 2017 TECHNIQUE: Dual energy PA and routine lateral views of the chest were obtained. REPORT: Elevated lung volumes. RIGHT nipple shadow noted. Mild prominence of the interstitial markings without change. No focal pulmonary lesion, compelling alveolar consolidation, pleural effusion, pneumothorax. The heart, pulmonary vasculature, and mediastinal contours are unremarkable. IMPRESSION: #. Stigmata of probable chronic obstructive pulmonary disease. #. No acute cardiopulmonary process evident.
[2018-05-02 19:39] VITALS: BP 115/79
== END 2018-05-02 19:39 | disposition home or self-care (01) ==
LOC: ED 13:06
DX: F41.9 Anxiety disorder, unspecified (principal); J45.909 Unspecified asthma, uncomplicated; F43.10 Post-traumatic stress disorder, unspecified; R56.9 Unspecified convulsions; F31.9 Bipolar disorder, unspecified; K21.9 Gastro-esophageal reflux disease without esophagitis; F17.210 Nicotine dependence, cigarettes, uncomplicated; Z88.3 Allergy status to other anti-infective agents; Z88.8 Allergy status to other drugs, medicaments and biological substances
CPT/HCPCS: 36415; 71046; 80053; 84484; 85027; 85379; 93005; 99282; A9270-GY

== ENCOUNTER 2018-05-03 18:55 | Emergency (ER) | payer OTHER ==
[2018-05-03] MEDS ORDERED: clonazePAM TAB(*) 1 MG PO ONE (19:59)
[2018-05-03] MEDS ORDERED: Albuterol/Ipratropium NEB.SOL* Albuterol 2.5 MG/Ipratropium 0.5 MG 3 ML INH ONE (19:59)
[2018-05-03] MEDS ORDERED: methylPREDNISolone 125 MG* 2 ML VIAL IV ONE (20:00)
[2018-05-03] MEDS ORDERED: Magnesium Sulfate 2 GM IV* 2 GM/50 ML BAG IVPB ONE (20:00)
--- NOTE | 2018-05-03 21:02 | ED ---
Respiratory - HPI Summary HPI Summary: 42 year old Female presents with worsening shortness of breath over the past couple days. She states that she is been on 2 courses of prednisone for shortness breath for the past week. States she's been having a cough. She was seen here yesterday and was started on Robitussin. She states the cough has continued. Cough is occasional productive. She denies any fevers. She denies any bowel pain. She has coughs when she has vomited. She denies any sore throat. She denies any sinus congestion. - History of Current Complaint Chief Complaint: EDShortnessOfBreath Stated Complaint: DIFF BREATHING Time Seen by Provider: 05/03/18 19:50 Pain Intensity: 0 Sputum Amount: None - Allergy/Home Medications Allergies/Adverse Reactions: Allergies Allergy/AdvReac Type Severity Reaction Status Date / Time levofloxacin [From Levaquin] Allergy Unknown Verified 04/16/18 12:35 Reaction Details methylphenidate Allergy See Comment Verified 04/16/18 12:35 prednisone Allergy Anxiety Verified 04/16/18 12:35 GRAPEFRUIT Allergy AVOIDS DUE Uncoded 04/16/18 12:35 TO CURRENT MEDICATION SHE IS TAKING PMH/Surg Hx/FS Hx/Imm Hx Endocrine/Hematology History: Denies: Hx Anticoagulant Therapy, Hx Blood Disorders, Hx Blood Transfusions, Hx Bone Marrow Disease, Hx Diabetes, Hx Systemic Lupus Erythematosus, Hx Sickle Cell Disease, Hx Thyroid Disease, Hx Anemia, Hx Unexplained Bleeding, Other Endocrine/Hematological Disorders Cardiovascular History: Reports: Hx Hypercholesterolemia Denies: Hx Hypertension Respiratory History: Reports: Hx Asthma - PRN INHALER- IMPROVED SINCE QUITTING SMOKING Denies: Hx Chronic Bronchitis, Hx Chronic Obstructive Pulmonary Disease (COPD ), Hx Cystic Fibrosis, Hx Lung Cancer, Hx Pleural Effusion, Hx Pneumonia, Hx Pulmonary Edema, Hx Pulmonary Embolism, Hx Seasonal Allergies, Hx Sleep Apnea, Other Respiratory Problems/Disorders GI History: Reports: Hx Gastroesophageal Reflux Disease - ON MEDICATION FOR, Hx Irritable Bowel, Hx Ulcer - STARTING OF AN ULCER IN THE PAST Denies: Hx Cirrhosis, Hx Crohn's Disease, Hx Diverticulosis, Hx Gall Bladder Disease, Hx Gastrointestinal Bleed, Hx Hiatal Hernia, Hx Jaundice, Hx Obstructive Bowel, Hx Ileostomy, Hx Pyloric Stenosis, Other GI Disorders History: Denies: Other Problems/Disorders Musculoskeletal History: Denies: Hx Arthritis, Hx Back Problems, Hx Bursitis, Hx Congenital Bone Abnormalities, Hx Fibromyalgia, Hx Gout, Hx Orthopedic Injury, Hx Osteoporosis, Hx Scoliosis, Hx Tendonitis, Other Musculoskeletal History Sensory History: Denies: Hx Cataracts, Hx Contacts or Glasses, Hx Eye Injury, Hx Eye Prosthesis, Hx Glaucoma, Hx Legally Blind, Hx Macular Degeneration, Hx Vision Problem, Hx Deafness, Hx Hearing Aid, Hx Hearing Problem, Other Sensory Impairments Opthamlomology History: Denies: Hx Cataracts, Hx Contacts or Glasses, Hx Eye Injury, Hx Eye Prosthesis, Hx Glaucoma, Hx Legally Blind, Hx Macular Degeneration, Hx Vision Problem, Other Sensory Impairments Neurological History: Reports: Hx Migraine - TREATS WITH REST AND TYLENOL, Hx Seizures - Pseudoseizures (per pt)-LAST 3-4 MONTHS AGO, Other Neuro Impairments/ Disorders - seizures versus psychogenic events Denies: Hx Dementia, Hx Developmental Delay, Hx Headaches, Hx Nerve Disease, Hx Spinal Cord Injury, Hx Transient Ischemic Attacks (TIA) Psychiatric History: Reports: Hx Anxiety, Hx Depression, Hx Post Traumatic Stress Disorder, Hx Inpatient Treatment, Hx Community Mental Health Tx, Hx Bipolar Disorder, Hx Suicide Attempt, Other Psychiatric Issues/Disorders Denies: Hx Attention Deficit Hyperactivity Disorder, Hx Eating Disorder, Hx Panic Disorder, Hx Schizophrenia, Hx of Violent Episodes Against Others, Hx Substance Abuse - Cancer History Cancer Type, Location and Year: None reported - Surgical History Surgery Procedure, Year, and Place: [id number] YEARS AGO Hx Anesthesia Reactions: No - Immunization History Date of Tetanus Vaccine: UNKNOWN Date of Influenza Vaccine: 2012 Immunizations Up to Date: Yes Infectious Disease History: No Infectious Disease History: Denies: Hx Clostridium Difficile, Hx Hepatitis, Hx Human Immunodeficiency Virus (HIV), Hx of Known/Suspected MRSA, Hx Shingles, Hx Tuberculosis, Traveled Outside the [place] in Last 30 Days - Family History Known Family History: Positive: Unknown, Seizure Disorder - pseudo-seizures Family History: Other FHx reviewed and noncontributory - Social History Alcohol Use: None Hx Substance Use: No Substance Use Type: Reports: None Hx Tobacco Use: Yes Smoking Status (MU): Light Every Day Tobacco Smoker Type: Cigarettes Amount Used/How Often: 1/2 PPD X 20 YEARS- OFF AND ON Length of Time of Smoking/Using Tobacco: 23 Have You Smoked in the Last Year: Yes - smokes 1/2 pack/day. No other form tobacco or nicotine in last year Review of Systems Negative: Fever Negative: Chest Pain Positive: Shortness Of Breath, Cough Negative: Abdominal Pain All Other Systems Reviewed And Are Negative: Yes Physical Exam Triage Information Reviewed: Yes Vital Signs On Initial Exam: Initial Vitals Temp Pulse Resp BP Pulse Ox 97.5 F 58 16 114/61 97 05/03/18 18:56 05/03/18 18:56 05/03/18 18:56 05/03/18 18:56 05/03/18 18:56 Vital Signs Reviewed: Yes Appearance: Positive: Well-Appearing Skin: Positive: Warm, Dry Head/Face: Positive: Normal Head/Face Inspection Eyes: Positive: Normal, EOMI, ISABEL, Conjunctiva Clear ENT: Positive: Normal ENT inspection, Pharynx normal, TMs normal Neck: Positive: Supple, Nontender, No Lymphadenopathy Respiratory/Lung Sounds: Positive: Decreased Breath Sounds, Wheezes Cardiovascular: Positive: Normal, RRR Abdomen Description: Positive: Nontender, Soft Bowel Sounds: Positive: Present Musculoskeletal: Positive: Normal Neurological: Positive: Normal Psychiatric: Positive: Normal Diagnostics - Vital Signs Vital Signs Temp Pulse Resp BP Pulse Ox 05/03/18 20:10 58 99 05/03/18 19:45 84 20 80/60 97 05/03/18 18:56 97.5 F 58 16 114/61 97 - Laboratory Result Diagrams: 05/03/18 21:07 05/03/18 21:07 Lab Statement: Any lab studies that have been ordered have been reviewed, and results considered in the medical decision making process. Re-Evaluation - Re-Evaluation First Eval Re-Evaluation Time: 21:02 Change: Improved Comment: patient had pseudoseizure, lungs Second Eval Re-Evaluation Time: 22:37 Change: Improved Comment: lungs CTA. patient would like to go home Disposition - Course Course Of Treatment: 42 year old Female presents with worsening shortness of breath over the past couple days. She states that she is been on 2 courses of prednisone for shortness breath for the past week. States she's been having a cough. She was seen here yesterday and was started on Robitussin. She states the cough has continued. Cough is occasional productive. She denies any fevers. She denies any bowel pain. She has coughs when she has vomited. She denies any sore throat. She denies any sinus congestion. had chest xray yesterday. On exam some wheezing and decreased breath sounds present. Gave nebulizer and magnesium and lungs to clear to auscultation. patient had a couple psuedoseziures here. discussed with patient and she would like to be discharge. she does not want any new medications. patient understand and agrees with plan. - Differential Dx - Cardiopulmonary Differential Diagnoses - Cardiopulmonary: Asthma, Bronchitis, Lower Resp Infection - Diagnoses Provider Diagnoses: Bronchitis Discharge - Sign-Out/Discharge Documenting (check all that apply): Patient Departure - Discharge Plan Condition: Good Disposition: HOME Patient Education Materials: Acute Bronchitis (ED) Referrals: Astrid Gonzalez MD [Primary Care Provider] - Additional Instructions: continue medications as previously prescribed Follow up with primary within 3 days Return to ED if develop any new or worsening symptoms - Billing Disposition and Condition Condition: GOOD Disposition: Home
[2018-05-03 21:11] LABS: ABS Basophils 0.1 10^3/ul (0-0.2); ABS Eosinophils 0 10^3/ul (0-0.6); ABS Lymphocytes 3.6 10^3/ul (1.0-4.8); ABS Monocytes 0.6 10^3/ul (0-0.8); ABS Neutrophils 8.6 10^3/ul (1.5-7.7); ABS Nucleated RBC 0 10^3/ul; Eosinophil % 0.2 % (0-6); Hematocrit 43 % (35-47); Hemoglobin 14.4 g/dl (12.0-16.0); Lymphocyte % 27.7 % (25-47); Mean Corpuscular HGB Conc 33 g/dl (31-36); Mean Corpuscular Hemoglobin 29 pg (27-31); Mean Corpuscular Volume 86 fL (80-97); Mean Platelet Volume 9.2 um3 (7.4-10.4); Nucleated Red Blood Cells % 0.1; Platelet Count 160 10^3/ul (150-450); Red Blood Count 5.03 10^6/ul (4.00-5.40); Red Cell Distribution Width 15 % (10.5-15); White Blood Count 12.9 10^3/ul (3.5-10.8)
[2018-05-03 21:27] LABS: EGFR Non-African American 54.7 (>60)
[2018-05-03 22:35] VITALS: BP 94/65
== END 2018-05-03 22:45 | disposition home or self-care (01) ==
LOC: ED 18:55
DX: J45.909 Unspecified asthma, uncomplicated (principal); F44.5 Conversion disorder with seizures or convulsions; K21.9 Gastro-esophageal reflux disease without esophagitis; Z88.1 Allergy status to other antibiotic agents; Z88.8 Allergy status to other drugs, medicaments and biological substances; Z91.018 Allergy to other foods; F17.210 Nicotine dependence, cigarettes, uncomplicated
CPT/HCPCS: 36415; 80053; 85025; 86140; 96365; 96375; 99283; A9270-GY; J2930; J3475

== ENCOUNTER 2018-06-08 14:22 | Emergency (ER) | payer OTHER ==
--- OUTSIDE RECORDS SUMMARY | 2018-06-08 14:48 | XMS REPORT ---
:1975 External Reference #:[id number] Author Organization [facility] Address [address] [place] [address] [place] [address] Phone [phone] Care Team Providers Name Role Phone Astrid Gonzalez MD Primary Care Physician Unavailable Payers Type Date Identification Numbers Payment Provider Subscriber Commercial Policy Number: [id number] Ari Myers Group Number: [id number] [address] PayID: [id number] [place] [address] Advance Directives Type Date Description Status Comment [...] Strength Qnty SIG Indications Ordering Provider Prednisone 06/05 Hx Tablets 10mg QS take 4 tab daily x 3 Gonzalez, - days then 3 M.D. 06/17 tab daily 3 days and then 2 tab daily x 3 days then 1 tab daily X 3 days Albuterol 06/05 Active Nebulizer (2.5mg/3M 1125m four times a J01.90 Astrid L) 0.083% l day as Gonzalez, needed M.D. Azithromycin 06/05 Active Tablets 250mg 6tabs take 2 tab J40 on day 1 Gonzalez, then 1 tab M.D. daily x 4 days Nebulizer 11/03 Active Misc 1unit nebulizer s supplies, Gonzalez, tubing etc M.D. Advair HFA 09/11 Active Aerosol 115-21mcg 36uni Inhale 2 Astrid /2018 /Act ts Puffs By Lisa, Mouth Every M.D. 12 Hours Naproxen 06/05 Active Tablets 375mg 30tab Take 1 M54.5 Octavio s Tablet By Maureen Sawant Mouth Twice M.D.,FACP Daily With Food Ventolin HFA 05/19 Active Aerosol 108(90Bas 18uni Inhale 2 e) ts Puffs By Lisa, mcg/Act Mouth 4 M.D. Times Daily as Needed Rexulti 00 Active Tablets 3mg 1 po qd Unknown Trazodone HCL Active Tablets 100mg 2 by mouth every night at bedtime Clonazepam Active Tablets 0.5mg pt states now 1 mg----1 daily prn Prazosin HCL Active Capsules 2mg once daily Unknown Nicotrol Active Inhaler 10mg once a day Josseline Ibuprofen Active Capsules 200mg as needed Omeprazole Active Capsules 40mg 60cap Take 1 Timothy E. /0000 s Capsule By Ebony, Mouth 2 M.D. Times A Day For 30 Days, Then Decrease To 1 Capsule Once A Day Prednisone 05/01 Hx Tablets 20mg QS 2 tab by J45.41 Astrid /2018 mouth every Gonzalez, - day x4 days M.D. 05/11 then 1 tab daily for 4days, then 1/2 tab daily for 3 days Prednisone 04/23 Hx Tablets 20mg QS 2 tab by J44.1 Astrid /2018 mouth every Gonzalez, - day x4 days M.D. 05/01 then 1 tab daily for 3 days, then 1/2 tab daily for 3 days Claritin 04/23 Hx Tablets 10mg 10tab once a day J06.9 Astrid /2018 s Flex Gonzalez M.D. 06/05 Nitrofurantoin 01/18 Hx Capsules 100mg 20cap 1 [...] Nicotine 02/15 Hx Kit 21-14-7mg 112un no melody Caro /2016 /24HR its doing this Flex Beck M.D. 03/29 Advair HFA 01/18 Hx Aerosol 115-21mcg 36gm 2 puff every J01.90 Astrid /2016 /Act 12 hours Flex Gonzalez M.D. 03/13 Eq Nicotine 01/18 Hx Patches 14mg/24HR 28uni as needed F17.210 24HR ts daily Flex Gonzalez M.D. 03/12 Albuterol 01/18 Hx Nebulizer 0.63mg/3M 90uni inhale the J01.90 Astrid Sulfate /2016 L ts contents of Gonzalez, - 1 vial via M.D. 06/05 nebulizer every 4 to 6 hours as needed Nitrofurantoin 12/12 Hx Capsules 100mg 14cap 1 by mouth N30.01 Astrid Macrocrystal /2016 s twice a day Lisa - M.D. 12/26 Amoxicillin 07/05 Hx Capsules 500mg 30cap 1 three J06.9 Timothy E. s times a day Ebony, - for 10 days M.D. 10/18 Metronidazole 06/21 Hx Gel 0.75% 1unit apply s intravaginal Lisa - ly once a M.D. 06/29 day x 7 Fluconazole 06/20 Hx Tablets 150mg 2tabs 1 by mouth B37.9 Astrid every day Lisa - M.D. 06/23 Advair Diskus 05/18 Hx Aerosol 500-50mcg 60uni inhale 1 Wilbert /2015 /Dose ts dose by BETSY Carlos - mouth twice 06/02 a day /2015 [...] Hx Cream 1% 45gm apply twice B35.3 Camilo daily both Dawson, - feet after M.D. 05/02 shower. Prazosin HCL 00/00 Hx Capsules 2mg 1 capsule at Unknown /0000 night - 03/07 Hydroxyzine HCL 00/00 Hx Tablets 50mg 1 tab q6h Unknown /0000 prn - 03/12 Denta 5000 Plus 00/00 Hx Cream 1.1% use for Unknown /0000 [...] CPT Code Status Date Vaccine Lot # [id number] Given 03/29/2017 Tdap - Tetanus/Diptheria/Acellular Pertussis [id number] Given 03/29/2017 Influenza Virus Vaccine, Quadrivalent, Split, [id number] Preservative Free [id number] Refused 06/20/2016 Influenza Virus Vaccine, Quadrivalent, Split, Preservative Free Vital Signs Date Vital Result Comment 06/05/2018 Height 64.5 inches 5'4.50" Weight 209.00 lb Heart Rate 104 /min BP Systolic Sitting 110 mmHg BP Diastolic Sitting 68 mmHg Body Temperature 97.9 F O2 % BldC Oximetry 95 % BMI (Body Mass Index) 35.3 kg/m2 05/01/2018 Height 64.5 inches 5'4.50" Weight 207.00 [...] Test Date Test Result H/L Range Note Laboratory test finding 05/03/2018 C Reactive Protein 2.00 mg/L <8.01 CBC Auto Diff 05/03/2018 White Blood Count 12.9 10^3/uL High 3.5-10.8 Red Blood Count 5.03 10^6/uL 4.00-5.40 Hemoglobin 14.4 g/dL 12.0-16.0 Hematocrit 43 % 35-47 Mean Corpuscular Volume 86 fL 80-97 Mean Corpuscular Hemoglobin 29 pg 27-31 Mean Corpuscular HGB Conc 33 g/dL 31-36 Red Cell Distribution Width 15 % 10.5-15 Platelet Count 160 10^3/uL 150-450 Mean Platelet Volume 9.2 um3 7.4-10.4 Abs Neutrophils 8.6 10^3/uL High 1.5-7.7 Abs Lymphocytes 3.6 10^3/uL 1.0-4.8 Abs Monocytes 0.6 10^3/uL 0-0.8 Abs Eosinophils 0 10^3/uL 0-0.6 Abs Basophils 0.1 10^3/uL 0-0.2 Abs Nucleated RBC 0 10^3/uL Granulocyte % 66.7 % 38-83 Lymphocyte % 27.7 % 25-47 Monocyte % 4.9 % 0-7 Eosinophil % 0.2 % 0-6 Basophil % 0.5 % 0-2 Nucleated Red Blood Cells % 0.1 Comp Metabolic Panel 05/03/2018 Sodium 138 mmol/L 135-145 Potassium 3.7 mmol/L 3.5-5.0 Chloride 105 mmol/L 101-111 Co2 Carbon Dioxide 23 mmol/L 22-32 Anion Gap 10 mmol/L 2-11 Glucose 97 mg/dL 70-100 Blood Urea Nitrogen 17 mg/dL 6-24 Creatinine 1.10 mg/dL High 0.51-0.95 BUN/Creatinine Ratio 15.5 8-20 Calcium 9.3 mg/dL 8.6-10.3 Total Protein 6.5 g/dL 6.4-8.9 Albumin 4.2 g/dL 3.2-5.2 Globulin 2.3 g/dL 2-4 Albumin/Globulin Ratio 1.8 1-3 Total Bilirubin 0.40 mg/dL 0.2-1.0 Alkaline Phosphatase 89 U/L 34-104 Alt 16 U/L 7-52 Ast 15 U/L 13-39 Egfr Non- 54.7 >60 Egfr 66.2 >60 1 Laboratory test finding 05/02/2018 Troponin-I (TnI) 0.00 ng/mL <0.04 CBC No Diff 05/02/2018 White Blood Count 10.7 10^3/uL 3.5-10.8 Red Blood Count 5.14 10^6/uL 4.00-5.40 Hemoglobin 15.0 g/dL 12.0-16.0 Hematocrit 44 % 35-47 Mean Corpuscular Volume 86 fL 80-97 Mean Corpuscular Hemoglobin 29 pg 27-31 Mean Corpuscular HGB Conc 34 g/dL 31-36 Red Cell Distribution Width 15 % 10.5-15 Platelet Count 164 10^3/uL 150-450 Mean Platelet Volume 9.6 um3 7.4-10.4 Comp Metabolic Panel 05/02/2018 Sodium 139 mmol/L 135-145 Potassium 4.2 mmol/L 3.5-5.0 Chloride 106 mmol/L 101-111 Co2 Carbon Dioxide 26 mmol/L 22-32 Anion Gap 7 mmol/L 2-11 Glucose 146 mg/dL High 70-100 Blood Urea Nitrogen 17 mg/dL 6-24 Creatinine 1.24 mg/dL High 0.51-0.95 BUN/Creatinine Ratio 13.7 8-20 Calcium 9.5 mg/dL 8.6-10.3 Total Protein 6.7 g/dL 6.4-8.9 Albumin 4.3 g/dL 3.2-5.2 Globulin 2.4 g/dL 2-4 Albumin/Globulin Ratio 1.8 1-3 Total Bilirubin 0.30 mg/dL 0.2-1.0 Alkaline Phosphatase 104 U/L 34-104 Alt 18 U/L 7-52 Ast 15 U/L 13-39 Egfr Non- 47.7 >60 Egfr 57.7 >60 2 Laboratory test 05/02/2018 D Dimer Quantitative < 200 ng/mL Less Than 230 3 finding Urine Culture And 03/06/2018 Urine Culture SEE RESULT BELOW 4 Sensitivities Urine Drug SCR ED & 03/06/2018 Amphetamine Ur None Detected None Detect Pain Clinic Screen Barbiturates Urine Screen None Detected None Detect Benzodiazepine Urine Screen None Detected None Detect Urine Cannabinoids Screen None Detected None Detect Urine Cocaine Screen None Detected None Detect Urine Opiates Screen None Detected None Detect Urine Phencyclidine Screen None Detected None Detect 5 Laboratory test finding 03/06/2018 Acetaminophen < 15 g/mL 6 Alcohol < 10 mg/dL <10 Salicylate < 2.50 mg/dL <30 TSH (Thyroid Stim Horm) 1.92 mcIU/mL 0.34-5.60 CBC Auto Diff 03/06/2018 White Blood Count [...] Color Yellow Urine Appearance Cloudy Urine Specific [place] 1.013 1.010-1.030 Urine pH 7.0 5-9 Urine Urobilinogen Negative Negative Urine Ketones Negative Negative Urine Protein Negative Negative Urine Leukocytes 1+ Negative Urine Blood Negative Negative Urine Nitrite Negative Negative Urine Bilirubin Negative Negative Urine Glucose Negative Negative Urine White Blood Cell Trace(0-5/hpf) Absent Urine Red Blood Cell Trace(0-2/hpf) Absent Urine Bacteria Absent Absent Urine Squamous Epithelial Cell Present Absent Comp Metabolic Panel 03/06/2018 Sodium 140 mmol/L [...] Egfr Non- 59.7 >60 Egfr 72.3 >60 7 Laboratory test finding 03/06/2018 HCG < 0.60 mIU/mL 8 Ua Routine 01/16/2018 Ua Specific [place] 1.025 Ua PH 5 Ua Color dark yellow Ua Appera cloudy Ua WBC trace Ua Protein trace Ua Glucose neg Ua Ketones neg Ua Bilirubin neg Ua Urobilinogen neg Ua Nitrite neg Ua Occult Blood 50 Urine Culture And 01/16/2018 Urine Culture SEE RESULT BELOW 9 Sensitivities Laboratory test finding 11/28/2017 Test Urine neg Laboratory test finding 11/17/2017 Acetaminophen < 15 g/mL 10 Alcohol < 10 mg/dL <10 Salicylate < [...] Egfr Non- 60.4 >60 Egfr 77.7 >60 11 Urine Culture And Sensitivities 11/17/2017 Urine Culture SEE RESULT BELOW 12 Urinalysis Profile 11/17/2017 Urine Color Yellow Urine Appearance Clear Urine Specific [place] 1.008 Low 1.010-1.030 Urine pH 7.0 5-9 [...] Present Absent Urine Drug SCR ED & 11/17/2017 Amphetamine Ur Screen None Detected None Detect Pain Clinic Barbiturates Urine Screen None Detected None Detect Benzodiazepine Urine Screen None Detected None Detect Urine Cannabinoids Screen None Detected None Detect Urine Cocaine Screen None Detected None Detect Urine Opiates Screen None Detected None Detect Urine Phencyclidine Screen None Detected None Detect 13 CBC Auto Diff 11/17/2017 White Blood Count [...] 0-2 Nucleated Red Blood Cells % 0.2 Comp Metabolic Panel 09/09/2017 Sodium 136 mmol/L [...] Egfr Non- 61.1 >60 Egfr 78.6 >60 14 Laboratory test finding 09/09/2017 Acetaminophen < 15 g/mL 15 Alcohol < 10 mg/dL <10 Salicylate < 2.50 mg/dL <30 TSH (Thyroid Stim Horm) 1.53 mcIU/mL 0.34-5.60 CBC Auto Diff 09/09/2017 White Blood Count [...] Red Blood Cells % 0.1 Urinalysis Profile 09/09/2017 Urine Color Yellow Urine Appearance Cloudy Urine Specific [place] 1.008 Low 1.010-1.030 Urine pH 6.0 5-9 [...] Urine Phencyclidine Screen None Detected None Detect 16 Urine Culture And Sensitivities 09/09/2017 Urine Culture SEE RESULT BELOW 17 Laboratory test finding 05/20/2017 HCG 1.18 mIU/mL 18 Acetaminophen < 15 g/mL 19 Alcohol < 10 mg/dL <10 Salicylate < 2.50 mg/dL <30 TSH (Thyroid Stim Horm) 4.59 mcIU/mL 0.34-5.60 CBC Auto Diff 05/20/2017 White Blood Count [...] 0.3 Platelet Count 90 10^3/uL Low 150-450 20 Comp Metabolic Panel 05/20/2017 Sodium 135 mmol/L [...] Egfr Non- 41.3 >60 Egfr 53.1 >60 21 Potassium 4.4 mmol/L 3.5-5.0 Anion Gap 6 mmol/L 2-11 Ast 20 U/L 13-39 Inr/Protime 05/20/2017 Inr 0.96 0.89-1.11 Laboratory test finding 05/20/2017 Pathologist Review (SEE NOTE) 22 Comp Metabolic Panel 05/09/2017 Sodium 138 mmol/L [...] Egfr Non- 63.6 >60 Egfr 81.8 >60 23 Laboratory test finding 05/09/2017 HCG 0.74 mIU/mL 24 CBC Auto Diff 05/09/2017 White Blood Count [...] 0-2 Nucleated Red Blood Cells % 0 Laboratory test finding 05/07/2017 C Reactive Protein 23.48 mg/L High < 5.00 25 CBC Auto Diff 05/07/2017 White Blood Count [...] 150-450 Mean Platelet Volume 9 um3 7.4-10.4 Urinalysis Profile 02/06/2017 Urine Color Yellow Urine Appearance Cloudy Urine Specific [place] 1.005 Low 1.010-1.030 Urine pH 6.0 5-9 [...] Epithelial Cell Present Absent CBC Auto Diff 02/06/2017 White Blood Count [...] 0-2 Nucleated Red Blood Cells % 0.1 Urine Drug SCR ED & 02/06/2017 Amphetamine Ur Screen None Detected None Detect Pain Clinic Barbiturates Urine Screen None Detected None Detect Benzodiazepine Urine Screen None Detected None Detect Urine Cannabinoids Screen None Detected None Detect Urine Cocaine Screen None Detected None Detect Urine Opiates Screen None Detected None Detect Urine Phencyclidine Screen None Detected None Detect 26 Comp Metabolic Panel 02/06/2017 Sodium 136 mmol/L [...] Egfr Non- 57.4 >60 Egfr 73.8 >60 27 Laboratory test finding 02/06/2017 Acetaminophen < 15 g/mL 28 Alcohol < 10 mg/dL <10 Salicylate < 2.50 mg/dL <30 TSH (Thyroid Stim Horm) 1.03 mcIU/mL 0.34-5.60 Urine Culture And 02/06/2017 Urine Culture SEE RESULT BELOW 29 Sensitivities Comp Metabolic Panel 12/16/2016 Sodium 136 [...] Egfr Non- 60.7 >60 Egfr 78.1 >60 30 Laboratory test finding 12/16/2016 Magnesium 1.9 mg/dL 1.9-2.7 Alcohol < 10 mg/dL <10 Urine Culture And 12/16/2016 Urine Culture SEE RESULT BELOW 31 Sensitivities Urine Drug SCR ED & 12/16/2016 Amphetamine Ur None Detected None Detect Pain Clinic Screen Barbiturates Urine Screen None Detected None Detect Benzodiazepine Urine Screen None Detected None Detect Urine Cannabinoids Screen None Detected None Detect Urine Cocaine Screen None Detected None Detect Urine Opiates Screen None Detected None Detect Urine Phencyclidine Screen None Detected None Detect 32 Urinalysis Profile 12/16/2016 Urine Color Yellow Urine Appearance Cloudy Urine Specific [place] 1.010 1.010-1.030 Urine pH 5.0 5-9 Urine Urobilinogen Negative Negative Urine Ketones Trace Negative Urine Protein Negative Negative Urine Leukocytes 3+ Negative Urine Blood Negative Negative Urine Nitrite Negative Negative Urine Bilirubin Negative Negative Urine Glucose Negative Negative Urine White Blood Cell 3+(>20/hpf) Absent Urine Red Blood Cell 3+(>10/hpf) Absent Urine Bacteria Absent Absent Urine Squamous Epithelial Cell Present Absent CBC Auto Diff 12/16/2016 White Blood Count [...] Blood Cells % 0.1 Laboratory test finding 12/16/2016 Lactic Acid 0.8 mmol/L 0.5-2.0 33 Inr/Protime 12/16/2016 Inr 0.90 0.89-1.11 Urine Culture And 12/12/2016 Urine Culture SEE RESULT BELOW 34 Sensitivities Ua Routine 12/12/2016 Ua Specific [place] 1.005 Ua PH 8 Ua Color yellow Ua Appera cloudy Ua WBC ++ Ua Protein 30+ Ua Glucose neg Ua Ketones neg Ua Bilirubin neg Ua Urobilinogen normal Ua Nitrite neg Ua Occult Blood xlarge Urinalysis Profile 11/18/2016 Urine Color Yellow Urine Appearance Cloudy Urine Specific [place] 1.014 1.010-1.030 Urine pH 5.0 5-9 Urine Urobilinogen Negative Negative Urine Ketones Negative Negative Urine Protein Negative Negative Urine Leukocytes 3+ Negative Urine Blood 2+ Negative Urine Nitrite Negative Negative Urine Bilirubin Negative Negative Urine Glucose Negative Negative Urine White Blood Cell 2+(11-20/hpf) Absent Urine Red Blood Cell 1+(3-5/hpf) Absent Urine Bacteria Absent Absent Urine Squamous Epithelial Cell Present Absent CBC Auto Diff 11/18/2016 White Blood Count [...] Blood Cells % 0.1 Comp Metabolic Panel 11/18/2016 Sodium 137 mmol/L [...] Egfr Non- 60.7 >60 Egfr 78.1 >60 35 Laboratory test finding 11/18/2016 Acetaminophen < 15 g/mL 36 Alcohol < 10 mg/dL <10 Salicylate < [...] Urine Phencyclidine Screen None Detected None Detect 37 Laboratory test finding 11/18/2016 HCG < 0.60 mIU/mL 38 Urine Culture And Sensitivities 11/18/2016 Urine Culture SEE RESULT BELOW 39 Laboratory test finding 10/18/2016 HCG 0.75 mIU/mL 40 TSH (Thyroid Stim Horm) 1.05 mcIU/mL 0.34-5.60 [...] Egfr Non- 62.9 >60 Egfr 80.8 >60 41 FSH And LH 10/18/2016 FSH (Follicle Stim Hormone) 7.6 mIU/mL 42 LH (Lutenizing Hormone) 7.8 mcIU/mL 43 Laboratory test finding 10/18/2016 Test Urine negative Laboratory test finding 09/20/2016 Lactic Acid 0.5 mmol/L 0.5-2.0 44 CBC Auto Diff 09/20/2016 White Blood Count [...] 0-2 Nucleated Red Blood Cells % 0.1 Inr/Protime 09/20/2016 Inr 0.92 0.89-1.11 Comp Metabolic Panel 09/20/2016 Sodium 136 mmol/L [...] Egfr Non- 66.0 >60 Egfr 84.8 >60 45 Laboratory test finding 09/20/2016 Magnesium 2.1 mg/dL 1.9-2.7 Alcohol < 10 mg/dL <10 CBC Auto Diff 08/04/2016 White Blood Count [...] Blood Cells % 0.1 Comp Metabolic Panel 08/04/2016 Sodium 137 mmol/L [...] Egfr Non- 69.7 >60 Egfr 89.6 >60 46 Laboratory test finding 08/04/2016 HCG < 0.60 mIU/mL 47 Acetaminophen < 15 g/mL 48 Alcohol < 10 mg/dL <10 Salicylate < 2.50 mg/dL <30 TSH (Thyroid Stim Horm) 0.80 mcIU/mL 0.34-5.60 Ua Routine 06/20/2016 Ua Specific [place] 1.015 Ua PH 6 Ua Color yellow Ua Appera cloudy Ua WBC + Ua Protein neg Ua Glucose neg Ua Ketones neg Ua Bilirubin neg Ua Urobilinogen normal Ua Nitrite neg Ua Occult Blood neg Laboratory test finding 06/20/2016 Gardnerella/Yeast: Vaginal SEE RESULT BELOW 49 Dna Urine Culture And 03/22/2016 Urine Culture SEE RESULT BELOW 50 Sensitivities Ua Routine 03/22/2016 Ua Specific [place] 1.020 Ua PH 5 Ua Color yellow Ua Appera clear Ua WBC ++ Ua Protein neg Ua Glucose neg Ua Ketones neg Ua Bilirubin neg Ua Urobilinogen neg Ua Nitrite neg Ua Occult Blood neg 1 Because ethnic data is not always readily [...] 15-29 5 Kidney failure <15 (or dialysis) 2 Because ethnic data is not always [...] 5 Kidney failure <15 (or dialysis) 3 Please note: The following may produce a false positive D Dimer test: - Rheumatoid factor greater than 60 IU/ml - Plasma hemoglobin greater than 0.05 gm/dl - Bilirubin greater than 50 mg/dl - Lipids greater than 1000 mg/dl - FDP greater than 20 ug/ml 4 SEE RESULT BELOW Name: ALPA MYERS : [address]: Leonor Wong MD Acct: [id number] Unit: [id number] AGE: 42 Location: [facility] Re03/07/18 SEX: F Status: ADM IN SPEC: [id number] YUMIKO: 03/06/18-[address] [facility] [address]: Sandoval Rinaldi MD REQ: [id number] RECD: 03/06/18 STATUS: COMP LISANDRA DR: Astrid Gonzalez MD _ SOURCE: URINE SPDESC: ORDERED: Urine Culture Procedure Result Reported Site Urine Culture Final 03/07/18- 1356 ML No growth of clinically significant organisms * ML - Main Lab . END OF REPORT DEPARTMENT OF PATHOLOGY, [address] [place] [address] Yvan Obrien M.D. Director [facility] # [id number] 5 The urine specimen was tested at the listed cutoffs: Drug class test level (ng/mL) Amphetamines 500 Barbiturates 200 Benzodiazepine metabolites 200 Cocaine metabolites 150 Cannabinoids 50 Opiates 300 Pcp 25 Specimen was received without chain of custody. Results should be used for medical purposes only. 6 Therapeutic concentration: <50 ug/mL Toxic concentration: >120 ug/mL 7 Because ethnic data is not always readily [...] 15-29 5 Kidney failure <15 (or dialysis) 8 <5.0 Negative 5.0 - 25.0 Indeterminate (Repeat testing recommended after 72 hours) >25.0 Positive Perimenopausal women can display HCG levels of up to 20 mIU/mL 9 SEE RESULT BELOW Name: ALPA MYERS : [address]: Alissa Bob NP Acct: [id number] Unit: [id number] AGE: 42 Location: [facility] Re01/16/18 SEX: F Status: REG REF SPEC: [id number] YUMIKO: 01/16/18-[address] [facility] [address]: Alissa Bob NP REQ: [id number] RECD: 01/16/18 STATUS: COMP _ SOURCE: URINE SPDESC: ORDERED: Urine Culture COMMENTS: [id number] Procedure Result Reported Site Urine Culture Final 01/18/18- 0810 ML Organism 1 ESCHERICHIA COLI [place] Count >100,000 (Many) CFU/ML 1. ESCHERICHIA COLI [...] . END OF REPORT DEPARTMENT OF PATHOLOGY, [address] [place] [address] Yvan Obrien M.D. Director [facility] # [id number] 10 Therapeutic concentration: <50 ug/mL Toxic concentration: >120 ug/mL 11 Because ethnic data is not always [...] 5 Kidney failure <15 (or dialysis) 12 SEE RESULT BELOW Name: ALPA MYERS : [address]: Jelly Martinez MD Acct: [id number] Unit: [id number] AGE: 42 Location: ED Re11/17/17 SEX: F Status: DEP ER SPEC: [id number] YUMIKO: 11/17/[address]: Esther Martinez MD REQ: [id number] RECD: 11/17/17 STATUS: ANNIE FRY DR: Astrid Gonzalez MD _ SOURCE: URINE SPDESC: ORDERED: Urine Culture Procedure Result Reported Site Urine Culture Final 11/18/17- 1648 ML No growth of clinically significant organisms * ML - Main Lab . END OF REPORT DEPARTMENT OF PATHOLOGY, [address] [place] [address] Yvan Obrien M.D. Director [facility] # [id number] 13 The urine specimen was tested at the listed cutoffs: Drug class test level (ng/mL) Amphetamines 500 Barbiturates 200 Benzodiazepine metabolites 200 Cocaine metabolites 150 Cannabinoids 50 Opiates 300 Pcp 25 Specimen was received without chain of custody. Results should be used for medical purposes only. 14 Because ethnic data is not always readily [...] 15-29 5 Kidney failure <15 (or dialysis) 15 Therapeutic concentration: <50 ug/mL Toxic concentration: >120 ug/mL 16 The urine specimen was tested at the listed cutoffs: Drug class test level (ng/mL) Amphetamines 500 Barbiturates 200 Benzodiazepine metabolites 200 Cocaine metabolites 150 Cannabinoids 50 Opiates 300 Pcp 25 Specimen was received without chain of custody. Results should be used for medical purposes only. 17 SEE RESULT BELOW Name: ALPA MYERS : [address]: Messi Henson MD Acct: [id number] Unit: [id number] AGE: 42 Location: [facility] Re09/09/17 SEX: F Status: ADM IN SPEC: [id number] YUMIKO: 09/09/17-[address] [facility] [address]: Supa Fermin MD REQ: [id number] RECD: 09/09/17 STATUS: ANNIE FRY DR: Astrid Gonzalez MD _ SOURCE: URINE SPDESC: ORDERED: Urine Culture Procedure Result Reported Site Urine Culture Final 09/11/17- 1012 ML No growth of clinically significant organisms * ML - MAIN LAB ([facility]) . END OF REPORT * ML=Testing performed at Main Lab DEPARTMENT OF PATHOLOGY, [address] [place] [address] Yvan Obrien M.D. Director [facility] # [id number] 18 <5.0 Negative 5.0 - 25.0 Indeterminate (Repeat testing recommended after 72 hours) >25.0 Positive Perimenopausal women can display HCG levels of up to 20 mIU/mL 19 Therapeutic concentration: <50 ug/mL Toxic concentration: >120 ug/mL 20 Platelet count confirmed by smear estimate. 21 Because ethnic data is not always readily [...] 15-29 5 Kidney failure <15 (or dialysis) 22 Thrombocytopenia noted on CBC though scattered platelet clumps are noted. This may alter platelet counts. No schistocytes or blasts are seen. Recommend repeat CBC as clinically warranted. Reviewed by Dr. Obrien 23 Because ethnic data is not always readily [...] 15-29 5 Kidney failure <15 (or dialysis) 24 <5.0 Negative 5.0 - 25.0 Indeterminate (Repeat testing recommended after 72 hours) >25.0 Positive Perimenopausal women can display HCG levels of up to 20 mIU/mL 25 Acute inflammation: >10.00 26 The urine specimen was tested at the listed cutoffs: Drug class test level (ng/mL) Amphetamines 500 Barbiturates 200 Benzodiazepine metabolites 200 Cocaine metabolites 150 Cannabinoids 50 Opiates 300 Pcp 25 Specimen was received without chain of custody. Results should be used for medical purposes only. 27 Because ethnic data is not always readily [...] 15-29 5 Kidney failure <15 (or dialysis) 28 Therapeutic concentration: <50 ug/mL Toxic concentration: >120 ug/mL 29 SEE RESULT BELOW Name: ALPA MYERS : [address]: Hector Hercules DO Acct: [id number] Unit: [id number] AGE: 41 Location: ED Re02/06/17 SEX: F Status: DEP ER SPEC: [id number] YUMIKO: 02/06/[address]: Hector Hercules DO REQ: [id number] RECD: 02/06/17 STATUS: ANNIE FRY DR: Astrid Gonzalez MD _ SOURCE: URINE [facility]: ORDERED: Urine Culture Procedure Result Reported Site Urine Culture Final 02/07/17- 1300 ML No growth of clinically significant organisms * ML - [facility] ([facility]) . END OF REPORT * ML=Testing performed at Main Lab DEPARTMENT OF PATHOLOGY, [address] [place] [address] Yvan Obrien M.D. Director [facility] # [id number] 30 Because ethnic data is not always readily [...] 15-29 5 Kidney failure <15 (or dialysis) 31 SEE RESULT BELOW Name: LOUISUZIELE : [address]: Trev Salinas MD Acct: [id number] Unit: [id number] AGE: 41 Location: ED Re12/16/16 SEX: F Status: DEP ER SPEC: [id number] YUMIKO: 12/16/[address]: Supa Fermin MD REQ: [id number] RECD: 12/16/16 STATUS: ANNIE FRY DR: Astrid Gonzalez MD _ [facility] ORDERED: Urine Culture Procedure Result Reported Site Urine Culture Final 12/17/16- 1609 ML No Growth (<1,000 CFU/mL) * ML - MAIN LAB ([facility]) . END OF REPORT * ML=Testing performed at Main Lab DEPARTMENT OF PATHOLOGY, [address] [place] [address] Yvan Obrien M.D. Director [facility] # [id number] 32 The urine specimen was tested at the listed cutoffs: Drug class test level (ng/mL) Amphetamines 500 Barbiturates 200 Benzodiazepine metabolites 200 Cocaine metabolites 150 Cannabinoids 50 Opiates 300 Pcp 25 Specimen was received without chain of custody. Results should be used for medical purposes only. 33 [facility] Severe Sepsis and Septic Shock Management Bundle Measure requires all lactic acids initially measuring >2.0 mmol/L be repeated. 34 SEE RESULT BELOW Name: ALPA MYERS : [address]: Astrid Gonzalez MD Acct: [id number] Unit: [id number] AGE: 41 Location: [facility] Re12/12/16 SEX: F Status: REG REF SPEC: [id number] YUMIKO: 12/12/16-[address]: Astrid Gonzalez MD REQ: [id number] RECD: 12/12/16 STATUS: COMP _ SOURCE: URINE SPDESC: ORDERED: Urine Culture COMMENTS: [id number] Urine Source: Random Procedure Result Reported Site Urine Culture Final 12/14/16- 1234 ML No growth of clinically significant organisms * ML - MAIN LAB ([facility]) . END OF REPORT * ML=Testing performed at Main Lab DEPARTMENT OF PATHOLOGY, [address] [place] [address] Yvan Obrien M.D. Director [facility] # [id number] 35 Because ethnic data is not always readily [...] 15-29 5 Kidney failure <15 (or dialysis) 36 Therapeutic concentration: <50 ug/mL Toxic concentration: >120 ug/mL 37 The urine specimen was tested at the listed cutoffs: Drug class test level (ng/mL) Amphetamines 500 Barbiturates 200 Benzodiazepine metabolites 200 Cocaine metabolites 150 Cannabinoids 50 Opiates 300 Pcp 25 Specimen was received without chain of custody. Results should be used for medical purposes only. 38 <5.0 Negative 5.0 - 25.0 Indeterminate (Repeat testing recommended after 72 hours) >25.0 Positive Perimenopausal women can display HCG levels of up to 20 mIU/mL 39 SEE RESULT BELOW Name: ALPA MYERS : [address]: Juan Nava MD Acct: [id number] Unit: [id number] AGE: 41 Location: [address] Re11/18/16 SEX: F Status: ADM IN SPEC: [id number] YUMIKO: 11/18/16-[address] [facility] [address]: Sandoval Rinaldi MD REQ: [id number] RECD: 11/18/169957 STATUS: ANNIE FRY DR: Camilo Osman MD _ SOURCE: URINE SPDESC: ORDERED: Urine Culture Procedure Result Reported Site Urine Culture Final 11/20/16- 908 ML No growth of clinically significant organisms * ML - MAIN LAB ([facility]) . END OF REPORT * ML=Testing performed at Main Lab DEPARTMENT OF PATHOLOGY, [address] [place] [address] Yvan Obrien M.D. Director [facility] # [id number] 40 <5.0 Negative 5.0 - 25.0 Indeterminate (Repeat testing recommended after 72 hours) >25.0 Positive Perimenopausal women can display HCG levels of up to 20 mIU/mL 41 Because ethnic data is not always [...] 5 Kidney failure <15 (or dialysis) 42 Normally menstruating females - Follicular phase 3 - 9 - Mid-cycle peak 4 - 23 - Luteal phase 1 - 6 Postmenopausal females 16 - 114 43 Normally menstruating females - Follicular Phase 1 - 18 - Mid-Cycle Peak 24 - 105 - Luteal Phase 0.6 - 20 Postmenopausal females 15 - 62 44 [facility] Severe Sepsis and Septic Shock Management Bundle Measure requires all lactic acids initially measuring >2.0 mmol/L be repeated. 45 Because ethnic data is not always readily [...] 15-29 5 Kidney failure <15 (or dialysis) 46 Because ethnic data is not always readily [...] 15-29 5 Kidney failure <15 (or dialysis) 47 <5.0 Negative 5.0 - 25.0 Indeterminate (Repeat testing recommended after 72 hours) >25.0 Positive Perimenopausal women can display HCG levels of up to 20 mIU/mL 48 Therapeutic concentration: <50 ug/mL Toxic concentration: >120 ug/mL 49 SEE RESULT BELOW Name: ALPA MYERS : [address]: Astrid Gonzalez MD Acct: [id number] Unit: [id number] AGE: 40 Location: [facility] Re06/20/16 SEX: F Status: REG REF SPEC: [id number] YUMIKO: 06/20/16-[address] [facility] [address]: Astrid Gonzalez MD REQ: [id number] RECD: 06/20/16 STATUS: COMP _ SOURCE: VAGINAL SPDESC: ORDERED: Denise,Yeast DNA, Trich DNA COMMENTS: [id number] Procedure Result Reported Site Gardnerella/Yeast: Vaginal DNA Final 06/21/161240 ML Organism 1 POSITIVE SAIGE Organism 2 [...] or failure. Trichomonas: Vaginal DNA Probe Final 06/21/161240 ML Organism 1 Negative Trichomonas CONTINUED ON NEXT PAGE * ML=Testing performed at Main Lab DEPARTMENT OF PATHOLOGY, [address] [place] [address] Yvan Obrien M.D. Director [facility] # [id number] Patient: ALPA MYERS [id number] (Continued) Specimen: [id number] Collected: 06/20/16 Received: 06/20/16 (Continued) Procedure Result Reported Site Trichomonas: Vaginal DNA Probe Final (continued) 06/21/16 1241 The presence or absence of T. vaginalis cannot be used as a test for therapeutic success or failure. * ML - MAIN LAB ([facility]) . END OF REPORT * ML=Testing performed at Main Lab DEPARTMENT OF PATHOLOGY, [address] [place] [address] Yvan Obrien M.D. Director [facility] # [id number] 50 SEE RESULT BELOW Name: ALPA MYERS : [address]: Alissa Bob NP Acct: [id number] Unit: [id number] AGE: 40 Location: [facility] Re03/22/16 SEX: F Status: REG REF SPEC: [id number] YUMIKO: 03/22/16-[address]: Alissa Bob NP REQ: [id number] RECD: 03/23/16-1035 STATUS: COMP _ SOURCE: URINE SPDESC: ORDERED: Urine Culture COMMENTS: [id number] Procedure Result Reported Site Urine Culture Final 03/24/16- 1301 ML No Growth (<1,000 CFU/mL) * ML - MAIN LAB ([facility]) . END OF REPORT * ML=Testing performed at Main Lab DEPARTMENT OF PATHOLOGY, [address] [place] [address] Yvan Obrien M.D. Director [facility] # [id number] Procedures Date CPT Code Description Status 03/31/2017 Mammogram Completed 02/06/2017 79722 Diffusing Capacity Completed 02/06/2017 68143 Plethysmography Determination Lung Volumes & Per Airway Completed Resist 02/06/2017 93884 Pulmonary Function><Bronchodil Completed 04/08/2016 64753 EEG Monitoring & Video Recording Completed 01/28/2016 80175 EEG Recording Awake & Drowsy Completed Encounters Type Date Location Provider CPT E/M Dx Office Visit 05/01/2018 [facility] Astrid Gonzalez M.D. 36191 J45.41 8:50a - Dom Office Visit 04/23/2018 [facility] Astrid Gonzalez M.D. 16093 J44.1 9:10a - Dom F17.210 J06.9 Office Visit 01/16/2018 3:40p [facility] Alissa Bob, N.PSaw 11289 N39.0 - [place] Office Visit 11/28/2017 10:50a [facility] Astrid Gonzalez M.D. 80374 F44.5 - Dom N91.1 F17.210 Office Visit 10/31/2017 4:20p [facility] Lissy Suarez M.D. 89650 R05 - Rodrigo J45.41 G40.89 Office Visit 2017 10:30a [facility] Astrid Gonzalez, 09307 J01.90 - Dom Burris F44.5 J44.1 Office Visit 06/19/2017 10:30a [facility] Astrid Gonzalez M.D. 52512 M54.5 - Dom G47.00 Office Visit 06/05/2017 3:00p [facility] Camilo Osman, 00154 M54.5 - Eros Garncia M.D. Office Visit 05/22/2017 7:07a [facility] 32261 N17.9 [facility] JAVIER Camacho D69.6 R45.851 F32.9 Office Visit 05/21/2017 7:03a [facility] Sana Betzy 06870 N17.9 [facility] BETSY Angulo D69.6 R45.851 F32.9 Office Visit 04/07/2017 11:10a [facility] [place] [address] D22.62 D22.5 B36.0 Office Visit 03/29/2017 11:10a [facility] Astrid Gonzalez, 72500 Z00.00 - Dom Burris Z12.83 F51.04 K21.9 Z13.1 Z12.31 Z23 Z13.220 F17.210 Office Visit 03/13/2017 11:50a [facility] Astrid Gonzalez, 17639 F17.210 - Dom Burris J40 F43.22 Office Visit 01/18/2017 2:40p [facility] - Astrid Gonzalez M.D. 21070 J40 Dom F17.210 K21.9 Office Visit 12/12/2016 11:50a [facility] Astrid Gonzalez M.D. 14653 R30.0 - Dom N30.01 Office Visit 10/18/2016 1:40p [facility] Astrid Gonzalez M.D. 54180 N91.1 - Dom R11.2 Office Visit 07/05/2016 2:40p [facility] Timothy Beck, 11490 J06.9 - Dom Burris Office Visit 06/20/2016 1:00p [facility] Astrid Gonzalez M.D. 80134 B37.3 - [place] N89.8 R35.1 Office Visit 05/18/2016 4:20p [facility] [place] [address] J06.9 - [place] Office Visit 05/02/2016 11:20a [facility] Alissa Bob, N.P. 72980 M54.5 - [place] F17.210 J45.901 M46.1 Office Visit 04/09/2016 2:39p [facility] [place] [address] F44.5 Office Visit 04/08/2016 2:38p [facility] [place] [address] F44.5 Office Visit 03/22/2016 3:00p [facility] - Alissa Bob, 06030 N39.0 [place] N.P. Office Visit 02/22/2016 1:00p [facility] [place] [address] R56.9 Services Of [facility] Office Visit 02/04/2016 1:20p [facility] - Camilo Osman, 80177 B35.3 [place] Nahun Burris F17.210 K21.9 Office Visit 09/15/2015 3:14p [facility], 58216 R10.84 Assoc, Hospitalists Fatuma Office Visit 09/14/2015 3:13p [facility], 97289 R10.84 Assoc, Hospitalists N.P. E78.5 F41.9 F32.9 Plan of Care 06/05/2018 - Astrid Gonzalez M.D.J45.41 Moderate persistent asthma with (acute) exacerbationNew Orders:Nebulizer RmiapcfghB63 Bronchitis, not specified as acute or chronicNew Medication:Azithromycin 250 mgF17.210 Nicotine dependence, cigarettes, uncomplicatedComments:we discussed continued smoking will not help your lungs and the cough will continue so please stop smoking !
[2018-06-08] MEDS ORDERED: LORazepam INJ* 2 MG/ML 1 ML VIAL IM ONE (15:11)
--- NOTE | 2018-06-08 15:17 | ED ---
Psychiatric Complaint - HPI Summary HPI Summary: Pt is a 42 y/o female brought in by EMS who presents to the ED c/o dina. Pt was diagnosed with bronchitis and was put on Prednisone 2 days ago. She has bipolar disorder, and states that lately shes been manic. The Prednisone is making her feel more manic and agitated. She is pacing, rocking, and rubbing her hands on her legs. She has been having SI for the past 2 days, without a plan. Pt asked the police office to shoot her. Pt took a dose this morning. She did not want to come to the hospital, and instead has been doing other treatments. Pt smokes ppd, and states that is helps calm down her dina. Pt also notes cough and sleep disturbance. She denies any current SOB. - History Of Current Complaint Chief Complaint: EDMentalHealth Time Seen by Provider: 06/08/18 14:58 Hx Obtained From: Patient Hx Last Menstrual Period: 12/18/13 Onset/Duration: Gradual Onset Character: Manic Aggravating Factor(s): Other - Prednisone Alleviating Factor(s): Other - Smoking Associated Signs And Symptoms: Positive: Sleep Disturbance Related History: Positive For: Prior Psychiatric Issues Has Suicidal: Reports: Thoughts. Denies: With A Plan - Allergies/Home Medications Allergies/Adverse Reactions: Allergies Allergy/AdvReac Type Severity Reaction Status Date / Time levofloxacin [From Levaquin] Allergy Unknown Verified 06/08/18 15:46 Reaction Details methylphenidate Allergy See Comment Verified 06/08/18 15:46 prednisone Allergy Anxiety Verified 06/08/18 15:46 GRAPEFRUIT Allergy AVOIDS DUE Uncoded 04/16/18 12:35 TO CURRENT MEDICATION SHE IS TAKING PMH/Surg Hx/FS Hx/Imm Hx Endocrine/Hematology History: Denies: Hx Anticoagulant Therapy, Hx Blood Disorders, Hx Blood Transfusions, Hx Bone Marrow Disease, Hx Diabetes, Hx Systemic Lupus Erythematosus, Hx Sickle Cell Disease, Hx Thyroid Disease, Hx Anemia, Hx Unexplained Bleeding, Other Endocrine/Hematological Disorders Cardiovascular History: Reports: Hx Hypercholesterolemia Denies: Hx Hypertension Respiratory History: Reports: Hx Asthma - PRN INHALER- IMPROVED SINCE QUITTING SMOKING Denies: Hx Chronic Bronchitis, Hx Chronic Obstructive Pulmonary Disease (COPD ), Hx Cystic Fibrosis, Hx Lung Cancer, Hx Pleural Effusion, Hx Pneumonia, Hx Pulmonary Edema, Hx Pulmonary Embolism, Hx Seasonal Allergies, Hx Sleep Apnea, Other Respiratory Problems/Disorders GI History: Reports: Hx Gastroesophageal Reflux Disease - ON MEDICATION FOR, Hx Irritable Bowel, Hx Ulcer - STARTING OF AN ULCER IN THE PAST Denies: Hx Cirrhosis, Hx Crohn's Disease, Hx Diverticulosis, Hx Gall Bladder Disease, Hx Gastrointestinal Bleed, Hx Hiatal Hernia, Hx Jaundice, Hx Obstructive Bowel, Hx Ileostomy, Hx Pyloric Stenosis, Other GI Disorders History: Denies: Other Problems/Disorders Musculoskeletal History: Denies: Hx Arthritis, Hx Back Problems, Hx Bursitis, Hx Congenital Bone Abnormalities, Hx Fibromyalgia, Hx Gout, Hx Orthopedic Injury, Hx Osteoporosis, Hx Scoliosis, Hx Tendonitis, Other Musculoskeletal History Sensory History: Denies: Hx Cataracts, Hx Contacts or Glasses, Hx Eye Injury, Hx Eye Prosthesis, Hx Glaucoma, Hx Legally Blind, Hx Macular Degeneration, Hx Vision Problem, Hx Deafness, Hx Hearing Aid, Hx Hearing Problem, Other Sensory Impairments Opthamlomology History: Denies: Hx Cataracts, Hx Contacts or Glasses, Hx Eye Injury, Hx Eye Prosthesis, Hx Glaucoma, Hx Legally Blind, Hx Macular Degeneration, Hx Vision Problem, Other Sensory Impairments Neurological History: Reports: Hx Migraine - TREATS WITH REST AND TYLENOL, Hx Seizures - Pseudoseizures (per pt)-LAST 3-4 MONTHS AGO, Other Neuro Impairments/ Disorders - seizures versus psychogenic events Denies: Hx Dementia, Hx Developmental Delay, Hx Headaches, Hx Nerve Disease, Hx Spinal Cord Injury, Hx Transient Ischemic Attacks (TIA) Psychiatric History: Reports: Hx Anxiety, Hx Depression, Hx Post Traumatic Stress Disorder, Hx Inpatient Treatment, Hx Community Mental Health Tx, Hx Bipolar Disorder, Hx Suicide Attempt Denies: Hx Attention Deficit Hyperactivity Disorder, Hx Eating Disorder, Hx Panic Disorder, Hx Schizophrenia, Hx of Violent Episodes Against Others, Hx Substance Abuse - Cancer History Cancer Type, Location and Year: None reported - Surgical History Surgery Procedure, Year, and Place: [id number] YEARS AGO Hx Anesthesia Reactions: No - Immunization History Date of Tetanus Vaccine: UNKNOWN Date of Influenza Vaccine: 2012 Infectious Disease History: No Infectious Disease History: Denies: Hx Clostridium Difficile, Hx Hepatitis, Hx Human Immunodeficiency Virus (HIV), Hx of Known/Suspected MRSA, Hx Shingles, Hx Tuberculosis, Traveled Outside the [place] in Last 30 Days - Family History Known Family History: Positive: Seizure Disorder - pseudo-seizures - Social History Alcohol Use: None Hx Substance Use: No Substance Use Type: Reports: None Hx Tobacco Use: Yes Smoking Status (MU): Light Every Day Tobacco Smoker Type: Cigarettes Amount Used/How Often: 1/2 PPD X 20 YEARS- OFF AND ON Length of Time of Smoking/Using Tobacco: 23 Have You Smoked in the Last Year: Yes - smokes 1/2 pack/day. No other form tobacco or nicotine in last year Review of Systems Positive: Cough. Negative: Shortness Of Breath Positive: Other - manic, SI, sleep disturbance All Other Systems Reviewed And Are Negative: Yes Physical Exam - Summary Physical Exam Summary: Appearance: Well appearing, no pain distress Skin: warm, dry, reflects adequate perfusion Head/face: normal Eyes: EOMI, ISABEL ENT: mucous membranes moist Neck: supple, non-tender Respiratory: diffuse wheezes, breath sounds present Cardiovascular: RRR, pulses symmetrical Abdomen: non-tender, soft Bowel Sounds: present Musculoskeletal: normal, strength/ROM intact Neuro: normal, sensory motor intact, A&Ox3 Psych: rocking, slightly manic, expresses SI Triage Information Reviewed: Yes Vital Signs On Initial Exam: Initial Vitals Temp Pulse Resp BP Pulse Ox 98.1 F 107 18 118/63 99 06/08/18 14:59 06/08/18 14:59 06/08/18 14:59 06/08/18 14:59 06/08/18 14:59 Vital Signs Reviewed: Yes Diagnostics - Vital Signs Vital Signs Temp Pulse Resp BP Pulse Ox 06/08/18 14:59 98.1 F 107 18 118/63 99 - Laboratory Lab Statement: Any lab studies that have been ordered have been reviewed, and results considered in the medical decision making process. Course/Dx - Differential Dx/Clinical Impression Provider Diagnosis: Bipolar disorder, Acute bronchitis Discharge - Sign-Out/Discharge Documenting (check all that apply): Sign-Out Patient Signing out patient TO: Supa Fermin - Discharge Plan Referrals: Astrid Gonzalez MD [Primary Care Provider] - - Attestation Statements Document Initiated by Scribe: Yes Documenting Scribe: Caitlyn Grey Provider For Whom Scribe is Documenting (Include Credential): Puma Arizmendi MD Scribe Attestation: Caitlyn Mesa, scribed for Puma Arizmendi MD on 06/08/18 at 1826.
[2018-06-08] MEDS ORDERED: Nicotine Inhaler* 10 MG AMP INH PRN (15:19)
[2018-06-08] MEDS ORDERED: Albuterol HFA INHALER* 8 gm MDI INH ONE (16:59)
[2018-06-08] MEDS ORDERED: buPROPion TAB* 100 MG PO ONE (17:03)
[2018-06-08] MEDS: Omeprazole CAP* 20 MG PO SCH (20:01)
[2018-06-08] MEDS: Prazosin CAP* 1 MG PO SCH (20:22)
[2018-06-08] MEDS ORDERED: traZODone TAB* 100 MG PO SCH (21:00)
[2018-06-08] MEDS ORDERED: PTO: Brexpiprazole (NF) 3 MG TAB PO SCH (21:00)
--- NOTE | 2018-06-08 22:38 | ED ---
Progress - Progress Note Progress Note: Patient was received as a sign out from Dr. Arizmendi at 1900 06/08/18 pending disposition of patient. There have been no updates in patient's status, patient signed out to Dr. Yeager at 2200 06/08/18. Dx of depression. - Consult/PCP Time Called: 16:00 Course/Dx - Course Course Of Treatment: Patient was received as a sign out from Dr. Arizmendi at 1900 06/08/18 pending disposition of patient. There have been no updates in patient's status, patient signed out to Dr. Yeager at 2200 06/08/18. Dx of depression. - Diagnoses Provider Diagnoses: Depression Discharge - Sign-Out/Discharge Documenting (check all that apply): Sign-Out Patient - sign out to dr. yeager , Receiving Sign-Out - received from dr. arizmendi Signing out patient TO: Sandoval Yeager Receiving patient FROM: Supa Fermin - Discharge Plan Referrals: Astrid Gonzalez MD [Primary Care Provider] - - Attestation Statements Document Initiated by Scribe: Yes Documenting Scribe: ITZEL UMAÑA Provider For Whom Scribe is Documenting (Include Credential): SUPA FERMIN MD Scribe Attestation: IITZEL , scribed for SUPA FERMIN MD on 06/08/18 at 3735.
--- NOTE | 2018-06-09 05:37 | ED ---
Progress - Progress Note Progress Note: Patient was received as a sign out from Dr. Fermin at 2200 06/08/18 pending disposition of patient. There have been no updates in patient's status, patient signed out to Dr. Rogers at 0700 06/09/18. Dx of depression. - Consult/PCP Time Called: 16:00 Course/Dx - Course Course Of Treatment: Patient was received as a sign out from Dr. Fermin at 2200 06/08/18 pending disposition of patient. There have been no updates in patient' s status, patient signed out to Dr. Rogers at 0700 06/09/18. Dx of depression. - Diagnoses Provider Diagnoses: Bipolar disorder, Acute bronchitis, Depression Discharge - Sign-Out/Discharge Documenting (check all that apply): Sign-Out Patient Signing out patient TO: Carley Rogers - Discharge Plan Referrals: Astrid Gonzalez MD [Primary Care Provider] - - Attestation Statements Document Initiated by Scribe: Yes Documenting Scribe: Sylvester Mckeon Provider For Whom Scribe is Documenting (Include Credential): Sandoval Castro MD Scribe Attestation: Sylvester Mesa, scribed for Sandoval Castro MD on 06/09/18 at 0633.
[2018-06-09] MEDS ORDERED: clonazePAM TAB(*) 1 MG PO SCH (07:00)
--- NOTE | 2018-06-09 07:06 | ED ---
Progress - Progress Note Progress Note: Patient was received as a sign out from Dr. Castro at 0700 06/09/18 pending disposition of patient. Pt states that she feels better than yesterday and is no longer suicidal. Pt believes her episode was due to prednisone medication side effects. Her breathing has improved from earlier as well. Vital signs while in room: HR 105 bpm, O2 sat 97%. Pt received an albuterol neb this am. Appearance: Well-appearing, no pain distress, well-nourished Skin: Warm, color reflects adequate perfusion, dry Head: Normal Head/Face inspection, atraumatic Eyes: Conjunctiva clear ENT: Normal inspection Neck: Supple, no nodes, no JVD Respiratory: no respiratory distress, faint expiratory wheezes bilateral bases, O2 sat 97% Cardio: RRR, No murmur, pulses normal, brisk capillary refill Abdomen: Soft, nontender Bowel sounds: Present Musculoskeletal: Strength Intact/ROM intact, no calf tenderness, no edema. Psychological: Normal Neuro: Alert, muscle tone normal, no focal deficit Course/Dx - Course Course Of Treatment: Patient was received as a sign out from Dr. Castro at 0700 06/09/18 pending disposition of patient. Pt states that she feels better than yesterday and is no longer suicidal. Pt believes her episode was due to prednisone medication side effects. Her breathing has improved from earlier as well. Physical exam revealed faint expiratory wheezes bilateral bases. Vital signs while in room: HR 105 bpm, O2 sat 97%. Pt discharged home per Dr. Henson, per Manohar RN, with diagnoses of acute bronchitis, depression, and bipolar disorder. Pt informed to continue using her inhaler as needed and is agreeable with this plan. - Diagnoses Provider Diagnoses: Bipolar disorder, Acute bronchitis, Depression Discharge - Sign-Out/Discharge Documenting (check all that apply): Patient Departure - Discharge, Receiving Sign-Out Receiving patient FROM: Sandoval Castro - Discharge Plan Condition: Stable Disposition: HOME Patient Education Materials: Acute Bronchitis (ED) Forms: *Work Release Referrals: Astrid Gonzalez MD [Primary Care Provider] - Additional Instructions: Continue to use your inhaler as needed for your bronchitis. Return to the ER for any new or worsening symptoms. - Billing Disposition and Condition Condition: STABLE Disposition: Home - Attestation Statements Document Initiated by Scribe: Yes Documenting Scribe: Arsen Jacobsen Provider For Whom Scribe is Documenting (Include Credential): Dr. Carley Rogers MD Scribe Attestation: I, Arsen Jacobsen, scribed for Dr. Carley Rogers MD on 06/10/18 at 0117. Scribe Documentation Reviewed: Yes Provider Attestation: The documentation as recorded by the scribe, Arsen Jacobsen accurately reflects the service I personally performed and the decisions made by me, Dr. Carley Rogers MD
[2018-06-09] MEDS ORDERED: Albuterol/Ipratropium NEB.SOL* Albuterol 2.5 MG/Ipratropium 0.5 MG 3 ML INH ONE (08:23)
[2018-06-09] MEDS ORDERED: Benzonatate CAP* 100 MG PO ONE (08:24)
--- NOTE | 2018-06-09 08:26 | PN ---
ED Flex Patient Progress Note Date of Service: 06/09/18 Subjective: This is a 42 year-old F who is pending observed secondary to bipolar. Pt offers no complaints at this time. She has been having issues with her asthma as she has bronchitis Objective: Vitals: Most recent vital signs documented below. General NAD, Alert and oriented x3. Heart: rrr at 80 bpm Lungs: some wheezing present Laboratory: Current laboratory results documented below. Assessment: bipolar asthma bronchitis Plan: will give pippaonejuan and xenaon Pending psychiatric to observe will follow up daily until dispo made condition: stable Vital Signs Temp Pulse Resp BP Pulse Ox 97.8 F 85 16 115/74 91 06/09/18 07:26 06/09/18 07:26 06/09/18 07:26 06/09/18 07:26 06/09/18 07:26
[2018-06-09] MEDS: Prazosin CAP* 1 MG PO SCH (09:12)
[2018-06-09] MEDS: Omeprazole CAP* 20 MG PO SCH (09:30)
[2018-06-09 10:17] VITALS: BP 124/67
== END 2018-06-09 10:32 | disposition home or self-care (01) ==
LOC: ED 14:22
DX: F31.9 Bipolar disorder, unspecified (principal); J45.909 Unspecified asthma, uncomplicated; K21.9 Gastro-esophageal reflux disease without esophagitis; Z88.1 Allergy status to other antibiotic agents; Z88.8 Allergy status to other drugs, medicaments and biological substances; Z91.018 Allergy to other foods; F17.210 Nicotine dependence, cigarettes, uncomplicated
CPT/HCPCS: 96372; 99284; A9270-GY; J2060

== ENCOUNTER 2018-10-01 14:47 | Emergency (ER) | payer OTHER ==
[2018-10-01] MEDS ORDERED: Nicotine Inhaler* 10 MG AMP INH PRN (15:25)
[2018-10-01 15:56] LABS: ABS Basophils 0 10^3/ul (0-0.2); ABS Eosinophils 0.1 10^3/ul (0-0.6); ABS Lymphocytes 1.9 10^3/ul (1.0-4.8); ABS Monocytes 0.6 10^3/ul (0-0.8); ABS Neutrophils 5.6 10^3/ul (1.5-7.7); ABS Nucleated RBC 0 10^3/ul; Eosinophil % 1.7 %; Hematocrit 43 % (35-47); Hemoglobin 14.3 g/dl (12.0-16.0); Lymphocyte % 23.1 %; Mean Corpuscular HGB Conc 33 g/dl (31-36); Mean Corpuscular Hemoglobin 29 pg (27-31); Mean Corpuscular Volume 87 fL (80-97); Mean Platelet Volume 9.9 fL (7.4-10.4); Nucleated Red Blood Cells % 0; Platelet Count 129 10^3/ul (150-450); Red Blood Count 4.94 10^6/ul (4.00-5.40); Red Cell Distribution Width 15 % (10.5-15); White Blood Count 8.3 10^3/ul (3.5-10.8)
[2018-10-01 16:10] LABS: Urine Appearance Cloudy; Urine Bacteria Absent (Absent); Urine Bilirubin Negative (Negative); Urine Blood Negative (Negative); Urine Color Yellow; Urine Glucose Negative (Negative); Urine Ketones Negative (Negative); Urine Nitrite Negative (Negative); Urine Protein Negative (Negative); Urine Red Blood Cell Absent (Absent); Urine Specific Gravity 1.009 (1.010-1.030); Urine Squamous Epithelial Cell Present (Absent); Urine Urobilinogen Negative (Negative); Urine White Blood Cell 2+(11-20/hpf) (Absent)
[2018-10-01 16:25] LABS: HCG Pregnancy 0.72 mIU/mL
--- NOTE | 2018-10-01 16:28 | ED ---
Psychiatric Complaint - HPI Summary HPI Summary: A 43 y/o female brought in by [place] [facility] presents to [facility] with a chief complaint of a suicide attempt by slitting her wrists today. She reports that her wrists did not slit well. At triage she rated her pain as a 0/10 in severity. She denies any hallucinations or HI. She said that she called the ambulance on herself. She is holding a stuffed animal bear, claiming that she was given it by her mother when she was as something to cry on. 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 She reports regularly seeing her therapist. She claims that she has been admitted before and is on psych medication. - History Of Current Complaint Chief Complaint: EDMentalHealth Time Seen by Provider: 10/01/18 15:22 Hx Obtained From: Patient, EMS Hx Last Menstrual Period: 12/18/13 Onset/Duration: Sudden Onset, Lasting Hours Timing: Hours Severity Initially: Mild Severity Currently: Mild Character: Depressed Aggravating Factor(s): Nothing Alleviating Factor(s): Nothing Associated Signs And Symptoms: Negative: Hallucinating Has Suicidal: Reports: Thoughts, With A Plan, Demonstrates Gesture, Has Prior Attempt(s) Has Homicidal: Denies: Thoughts - Allergies/Home Medications Allergies/Adverse Reactions: Allergies Allergy/AdvReac Type Severity Reaction Status Date / Time levofloxacin [From Levaquin] Allergy Unknown Verified 06/08/18 15:46 Reaction Details methylphenidate Allergy See Comment Verified 06/08/18 15:46 prednisone Allergy Anxiety Verified 06/08/18 15:46 GRAPEFRUIT Allergy AVOIDS DUE Uncoded 04/16/18 12:35 TO CURRENT MEDICATION SHE IS TAKING Home Medications: Home Medications Albuterol 2.5MG/3ML (0.083%)* [Ventolin 2.5 MG/3 ML NEB.TRICIA*] 2.5 mg INH Q6H PRN 10/01/18 [History Confirmed 10/01/18] Brexpiprazole [Rexulti] 2 mg PO DAILY 10/01/18 [History Confirmed 10/01/18] Omeprazole (Nf) [Prilosec (NF)] 40 mg PO DAILY 10/01/18 [History Confirmed 10/01] Prazosin CAP* [Minipress CAP*] 1 mg PO BEDTIME 10/01/18 [History Confirmed 10/01] clonazePAM TAB(*) [KlonoPIN TAB(*)] 1 mg PO TID PRN 10/01/18 [History Confirmed 10/01/18] hydrOXYzine HCL TAB* [Atarax 25 MG TAB*] 25 mg PO BID PRN 10/01/18 [History Confirmed 10/01/18] hydrOXYzine HCL TAB* [Atarax 25 MG TAB*] 50 mg PO BEDTIME PRN 10/01/18 [History Confirmed 10/01/18] PMH/Surg Hx/FS Hx/Imm Hx Endocrine/Hematology History: Denies: Hx Anticoagulant Therapy, Hx Blood Disorders, Hx Blood Transfusions, Hx Bone Marrow Disease, Hx Diabetes, Hx Systemic Lupus Erythematosus, Hx Sickle Cell Disease, Hx Thyroid Disease, Hx Anemia, Hx Unexplained Bleeding, Other Endocrine/Hematological Disorders Cardiovascular History: Reports: Hx Hypercholesterolemia Denies: Hx Hypertension Respiratory History: Reports: Hx Asthma - PRN INHALER- IMPROVED SINCE QUITTING SMOKING Denies: Hx Chronic Bronchitis, Hx Chronic Obstructive Pulmonary Disease (COPD ), Hx Cystic Fibrosis, Hx Lung Cancer, Hx Pleural Effusion, Hx Pneumonia, Hx Pulmonary Edema, Hx Pulmonary Embolism, Hx Seasonal Allergies, Hx Sleep Apnea, Other Respiratory Problems/Disorders GI History: Reports: Hx Gastroesophageal Reflux Disease - ON MEDICATION FOR, Hx Irritable Bowel, Hx Ulcer - STARTING OF AN ULCER IN THE PAST Denies: Hx Cirrhosis, Hx Crohn's Disease, Hx Diverticulosis, Hx Gall Bladder Disease, Hx Gastrointestinal Bleed, Hx Hiatal Hernia, Hx Jaundice, Hx Obstructive Bowel, Hx Ileostomy, Hx Pyloric Stenosis, Other GI Disorders History: Denies: Other Problems/Disorders Musculoskeletal History: Denies: Hx Arthritis, Hx Back Problems, Hx Bursitis, Hx Congenital Bone Abnormalities, Hx Fibromyalgia, Hx Gout, Hx Orthopedic Injury, Hx Osteoporosis, Hx Scoliosis, Hx Tendonitis, Other Musculoskeletal History Sensory History: Denies: Hx Cataracts, Hx Contacts or Glasses, Hx Eye Injury, Hx Eye Prosthesis, Hx Glaucoma, Hx Legally Blind, Hx Macular Degeneration, Hx Vision Problem, Hx Deafness, Hx Hearing Aid, Hx Hearing Problem, Other Sensory Impairments Opthamlomology History: Denies: Hx Cataracts, Hx Contacts or Glasses, Hx Eye Injury, Hx Eye Prosthesis, Hx Glaucoma, Hx Legally Blind, Hx Macular Degeneration, Hx Vision Problem, Other Sensory Impairments Neurological History: Reports: Hx Migraine - TREATS WITH REST AND TYLENOL, Hx Seizures - Pseudoseizures (per pt)-LAST 3-4 MONTHS AGO, Other Neuro Impairments/ Disorders - seizures versus psychogenic events Denies: Hx Dementia, Hx Developmental Delay, Hx Headaches, Hx Nerve Disease, Hx Spinal Cord Injury, Hx Transient Ischemic Attacks (TIA) Psychiatric History: Reports: Hx Anxiety, Hx Depression, Hx Post Traumatic Stress Disorder, Hx Inpatient Treatment, Hx Community Mental Health Tx, Hx Bipolar Disorder, Hx Suicide Attempt Denies: Hx Attention Deficit Hyperactivity Disorder, Hx Eating Disorder, Hx Panic Disorder, Hx Schizophrenia, Hx of Violent Episodes Against Others, Hx Substance Abuse - Cancer History Cancer Type, Location and Year: None reported - Surgical History Surgery Procedure, Year, and Place: [id number] YEARS AGO Hx Anesthesia Reactions: No - Immunization History Date of Tetanus Vaccine: UNKNOWN Date of Influenza Vaccine: 2012 Infectious Disease History: No Infectious Disease History: Denies: Hx Clostridium Difficile, Hx Hepatitis, Hx Human Immunodeficiency Virus (HIV), Hx of Known/Suspected MRSA, Hx Shingles, Hx Tuberculosis, Traveled Outside the [place] in Last 30 Days - Family History Known Family History: Positive: Seizure Disorder - pseudo-seizures - Social History Alcohol Use: None Hx Substance Use: No Substance Use Type: Reports: None Hx Tobacco Use: Yes Smoking Status (MU): Light Every Day Tobacco Smoker Type: Cigarettes Amount Used/How Often: 1/2 PPD X 20 YEARS- OFF AND ON Length of Time of Smoking/Using Tobacco: 23 Have You Smoked in the Last Year: Yes - smokes 1/2 pack/day. No other form tobacco or nicotine in last year Review of Systems Negative: Fever Psychological: Other - Positive: SI with attempt Positive: Other - Negative: HI All Other Systems Reviewed And Are Negative: Yes Physical Exam - Summary Physical Exam Summary: GENERAL: Patient is a well-developed and nourished F who is lying comfortable in the stretcher. Patient is not in any acute respiratory distress. HEAD AND FACE: Normocephalic EYES: PERRLA, EOMI x 2. EARS: Hearing grossly intact. MOUTH: Oropharynx within normal limits. NECK: Supple, trachea is midline, no adenopathy, no JVD, no carotid bruit. CHEST: Symmetric, no tenderness at palpation LUNGS: Clear to auscultation bilaterally. No wheezing or crackles. CVS: Regular rate and rhythm, S1 and S2 present, no murmurs or gallops appreciated. ABDOMEN: Soft, non-tender. Bowel sounds are normal. No abdominal abnormal pulsations. EXTREMITIES: Full ROM in all major joints, no edema, no cyanosis or clubbing. NEURO: Alert and oriented x 3. No acute neurological deficits. Speech is normal and follows commands. SKIN: Dry and warm Psych: Flat affect, positive SI with suicide attempt, no HI. Triage Information Reviewed: Yes Vital Signs On Initial Exam: Initial Vitals Temp Pulse Resp BP Pulse Ox 97.9 F 92 16 108/77 87 10/01/18 14:55 10/01/18 14:55 10/01/18 14:55 10/01/18 14:55 10/01/18 14:55 Vital Signs Reviewed: Yes Diagnostics - Vital Signs Vital Signs Temp Pulse Resp BP Pulse Ox 10/01/18 14:55 97.9 F 92 16 108/77 87 - Laboratory Lab Results: Lab Results 10/01/18 10/01/18 10/01/18 Range/Units 15:40 15:43 15:43 WBC 8.3 (3.5-10.8) 10^3/ul RBC 4.94 (4.00-5.40) 10^6/ul Hgb 14.3 (12.0-16.0) g/dl Hct 43 (35-47) % MCV 87 (80-97) fL MCH 29 (27-31) pg MCHC 33 (31-36) g/dl RDW 15 (10.5-15) % Plt Count 129 L (150-450) 10^3/ul MPV 9.9 (7.4-10.4) fL Neut % (Auto) 67.2 % Lymph % (Auto) 23.1 % [place] % (Auto) 7.4 % Eos % (Auto) 1.7 % Baso % (Auto) 0.6 % Absolute Neuts (auto) 5.6 (1.5-7.7) 10^3/ul Absolute Lymphs (auto) 1.9 (1.0-4.8) 10^3/ul Absolute Monos (auto) 0.6 (0-0.8) 10^3/ul Absolute Eos (auto) 0.1 (0-0.6) 10^3/ul Absolute Basos (auto) 0 (0-0.2) 10^3/ul Absolute Nucleated RBC 0 10^3/ul Nucleated RBC % 0 Sodium Pending Potassium Pending Chloride Pending Carbon Dioxide Pending Anion Gap Pending BUN Pending Creatinine Pending Est GFR ( Amer) Pending Est GFR (Non-Af Amer) Pending BUN/Creatinine Ratio Pending Glucose Pending Calcium Pending Total Bilirubin Pending AST Pending ALT Pending Alkaline Phosphatase Pending Total Protein Pending Albumin Pending Globulin Pending Albumin/Globulin Ratio Pending TSH Pending Beta HCG, Quant 0.72 mIU/mL Urine Color Yellow Urine Appearance Cloudy Urine pH 7.0 (5-9) Ur Specific [place] 1.009 L (1.010-1.030) Urine Protein Negative (Negative) Urine Ketones Negative (Negative) Urine Blood Negative (Negative) Urine Nitrate Negative (Negative) Urine Bilirubin Negative (Negative) Urine Urobilinogen Negative (Negative) Ur Leukocyte Esterase 3+ A (Negative) Urine WBC (Auto) 2+(11-20/hpf) A (Absent) Urine RBC (Auto) Absent (Absent) Ur Squamous Epith Cells Present A (Absent) Urine Bacteria Absent (Absent) Urine Glucose Negative (Negative) Salicylates Pending Acetaminophen Pending Serum Alcohol Pending Result Diagrams: 10/01/18 15:43 10/01/18 15:43 Lab Statement: Any lab studies that have been ordered have been reviewed, and results considered in the medical decision making process. Course/Dx - Course Course Of Treatment: A 43 y/o female brought in by [place] [facility] presents to [facility] with a chief complaint of a suicide attempt by slitting her wrists today. The physical exam revealed Flat affect, positive SI with suicide attempt, no HI. In the ED course the patient was given nicotine INH. Bloodwork, chemistries and toxicology obtained. Urines obtained. Ur Leukocyte Esterase 3+, Urine WBC 2+ . The patient has been medically cleared. The patient will be signed out to Dr. Castro upon shift change pending MHE. - Differential Dx/Clinical Impression Provider Diagnosis: Depression, Bipolar 1 disorder Discharge - Sign-Out/Discharge Documenting (check all that apply): Sign-Out Patient Signing out patient TO: Sandoval Castro - pending MHE Patient Received Moderate/Deep Sedation with Procedure: No - Discharge Plan Condition: Stable Disposition: HOME Patient Education Materials: Bipolar Disorder (ED), Depression (ED), Help Prevent Suicide (ED) Referrals: Astrid Gonzalez MD [Primary Care Provider] - 3 Days Additional Instructions: Follow up with your primary care provider. Return to the emergency department for any new or worsening symptoms. - Billing Disposition and Condition Condition: STABLE Disposition: Home - Attestation Statements Document Initiated by Scribe: Yes Documenting Scribe: Anurag Mcnamara Provider For Whom Scribe is Documenting (Include Credential): Esther Martinez MD Scribe Attestation: Anurag Mesa, scribed for Esther Martinez MD on 10/02/18 at 0925. Scribe Documentation Reviewed: Yes Provider Attestation: The documentation as recorded by the Anurag baugh accurately reflects the service I personally performed and the decisions made by Jelly anaya MD Status of Scribe Document: Viewed
[2018-10-01 16:49] LABS: ALT 10 U/L (7-52); AST 11 U/L (13-39); Albumin/Globulin Ratio 1.7 (1-3); Alkaline Phosphatase 94 U/L (34-104); Anion Gap 7 mmol/L (2-11); BUN/Creatinine Ratio 13.3 (8-20); Blood Urea Nitrogen 12 mg/dL (6-24); CO2 Carbon Dioxide 25 mmol/L (22-32); Chloride 107 mmol/L (101-111); EGFR African American 83.1 (>60); EGFR Non-African American 68.7 (>60); Globulin 2.4 g/dL (2-4); Glucose 97 mg/dL (70-100); Potassium 4.1 mmol/L (3.5-5.0); Sodium 139 mmol/L (135-145); Total Protein 6.4 g/dL (6.4-8.9)
[2018-10-01 16:50] LABS: Barbiturates Urine Screen None Detected (None Detect); Benzodiazepine Urine Screen None Detected (None Detect); Urine Cannabinoids Screen None Detected (None Detect)
[2018-10-01 16:56] LABS: TSH (Thyroid Stimulating Horm) 1.99 mcIU/mL (0.34-5.60)
[2018-10-01 16:58] LABS: Acetaminophen < 15 mcg/mL; Alcohol < 10 mg/dL (<10); Salicylate < 2.50 mg/dL (<30)
[2018-10-01] MEDS ORDERED: Mouth Piece, Nicotine* 1 EACH CARTRIDGE INH ONE (18:00)
--- NOTE | 2018-10-01 21:43 | ED ---
Progress - Progress Note Progress Note: The patient is a sign-out from Dr. Esther Martinez MD, to Dr. Sandoval Castro MD, at change of shift at 1900 pending MHE and disposition. Per mental health counselor Devika Denney, the patient is going to be discharged home by Dr. Romero. She is diagnosed with bipolar disorder. Patient agrees with this plan and understands the need for return to the ED if necessary. - Consult/PCP Time Called: 17:20 Course/Dx - Course Course Of Treatment: A 43 y/o female brought in by [facility] presents to [facility] with a chief complaint of a suicide attempt by slitting her wrists today. The physical exam revealed Flat affect, positive SI with suicide attempt, no HI. In the ED course the patient was given nicotine INH. Bloodwork, chemistries and toxicology obtained. Urines obtained. Ur Leukocyte Esterase 3+, Urine WBC 2+ . The patient has been medically cleared. The patient will be signed out to Dr. Castro upon shift change pending MHE. - Diagnoses Provider Diagnoses: Depression, Bipolar 1 disorder Discharge - Sign-Out/Discharge Documenting (check all that apply): Patient Departure - Patient will be discharged home., Receiving Sign-Out Receiving patient FROM: Esther Martinez - Patient is a sign-out from Dr. Jelly Martinez MD, to Dr. Sandoval Castro MD, at change of shift at 1900 pending MHE and disposition. Patient Received Moderate/Deep Sedation with Procedure: No - Discharge Plan Condition: Stable Disposition: HOME Patient Education Materials: Bipolar Disorder (ED), Depression (ED), Help Prevent Suicide (ED) Referrals: Astrid Gonzalez MD [Primary Care Provider] - 3 Days Additional Instructions: Follow up with your primary care provider. Return to the emergency department for any new or worsening symptoms. - Billing Disposition and Condition Condition: STABLE Disposition: Home - Attestation Statements Document Initiated by Rubio: Yes Documenting Scribe: Lili aPlomo Provider For Whom Rubio is Documenting (Include Credential): Dr. Sandoval Castro MD Scribe Attestation: Lili Mesa scribed for Dr. Sandoval Castro MD on 10/02/18 at 0606. Scribe Documentation Reviewed: Yes Provider Attestation: The documentation as recorded by the Lili baugh accurately reflects the service I personally performed and the decisions made by me, Dr. Sandoval Castro MD Status of Jcibmatti Document: Viewed
[2018-10-01 22:15] VITALS: BP 115/72
== END 2018-10-01 22:14 | disposition home or self-care (01) ==
LOC: ED 14:47
DX: F32.9 Major depressive disorder, single episode, unspecified (principal); Z72.0 Tobacco use; F43.10 Post-traumatic stress disorder, unspecified
CPT/HCPCS: 36415; 80053; 80307; 80320; 80329; 81003; 81015; 84443; 84702; 85025; 87086; 99285; G0480

== ENCOUNTER 2018-11-29 18:46 | Inpatient (IN) | payer OTHER ==
[2018-11-29] MEDS ORDERED: Albuterol/Ipratropium NEB.SOL* Albuterol 2.5 MG/Ipratropium 0.5 MG 3 ML INH ONE (19:09)
[2018-11-29 19:17] LABS: ABS Basophils 0.1 10^3/ul (0-0.2); ABS Eosinophils 0.2 10^3/ul (0-0.6); ABS Lymphocytes 2.2 10^3/ul (1.0-4.8); ABS Monocytes 0.4 10^3/ul (0-0.8); ABS Neutrophils 5.3 10^3/ul (1.5-7.7); Eosinophil % 2.2 %; Hematocrit 46 % (35-47); Hemoglobin 15.8 g/dL (12.0-16.0); Lymphocyte % 26.7 %; Mean Corpuscular HGB Conc 34 g/dL (31-36); Mean Corpuscular Hemoglobin 30 pg (27-31); Mean Corpuscular Volume 87 fL (80-97); Mean Platelet Volume 9.5 fL (7.4-10.4); Nucleated Red Blood Cells % 0.1; Platelet Count 172 10^3/uL (150-450); Red Blood Count 5.29 10^6 /uL (3.70-4.87); Red Cell Distribution Width 14 % (10.5-15); White Blood Count 8.2 10^3/uL (3.5-10.8)
--- NOTE | 2018-11-29 19:33 | ED ---
Psychiatric Complaint - HPI Summary HPI Summary: Pt is a 43 y/o F presenting to the ED with a chief complaint of suicidal ideations. She states she has bipolar disorder, and very quickly came out of her manic phase and into a depressive phase. She has been suicidal before, and has been hospitalized before. She states she wants to punch something or hurt myself or take a bunch of pills, and that shes tired of crying. She denies hallucinations, and she did not do her breathing treatment today because she didnt care. She denies fevers. - History Of Current Complaint Chief Complaint: EDSuicidal Time Seen by Provider: 11/29/18 18:56 Accompanied By: alone Hx Obtained From: Patient Hx Last Menstrual Period: 12/18/13 Onset/Duration: Gradual Onset, Lasting Days, Still Present Timing: Constant Severity Initially: Moderate Severity Currently: Moderate Character: Depressed, Anxious Aggravating Factor(s): Nothing Alleviating Factor(s): Nothing Related History: Positive For: Prior Psychiatric Issues Has Suicidal: Reports: Thoughts Has Homicidal: Denies: Thoughts - Allergies/Home Medications Allergies/Adverse Reactions: Allergies Allergy/AdvReac Type Severity Reaction Status Date / Time levofloxacin [From Levaquin] Allergy Unknown Verified 11/29/18 19:28 Reaction Details methylphenidate Allergy See Comment Verified 11/29/18 19:28 prednisone Allergy Anxiety Verified 11/29/18 19:28 GRAPEFRUIT Allergy AVOIDS DUE Uncoded 11/29/18 19:28 TO CURRENT MEDICATION SHE IS TAKING PMH/Surg Hx/FS Hx/Imm Hx Previously Healthy: No Endocrine/Hematology History: Denies: Hx Anticoagulant Therapy, Hx Blood Disorders, Hx Blood Transfusions, Hx Bone Marrow Disease, Hx Diabetes, Hx Systemic Lupus Erythematosus, Hx Sickle Cell Disease, Hx Thyroid Disease, Hx Anemia, Hx Unexplained Bleeding, Other Endocrine/Hematological Disorders Cardiovascular History: Reports: Hx Hypercholesterolemia Denies: Hx Hypertension Respiratory History: Reports: Hx Asthma - PRN INHALER- IMPROVED SINCE QUITTING SMOKING Denies: Hx Chronic Bronchitis, Hx Chronic Obstructive Pulmonary Disease (COPD ), Hx Cystic Fibrosis, Hx Lung Cancer, Hx Pleural Effusion, Hx Pneumonia, Hx Pulmonary Edema, Hx Pulmonary Embolism, Hx Seasonal Allergies, Hx Sleep Apnea, Other Respiratory Problems/Disorders GI History: Reports: Hx Gastroesophageal Reflux Disease - ON MEDICATION FOR, Hx Irritable Bowel, Hx Ulcer - STARTING OF AN ULCER IN THE PAST Denies: Hx Cirrhosis, Hx Crohn's Disease, Hx Diverticulosis, Hx Gall Bladder Disease, Hx Gastrointestinal Bleed, Hx Hiatal Hernia, Hx Jaundice, Hx Obstructive Bowel, Hx Ileostomy, Hx Pyloric Stenosis, Other GI Disorders History: Denies: Other Problems/Disorders Musculoskeletal History: Denies: Hx Arthritis, Hx Back Problems, Hx Bursitis, Hx Congenital Bone Abnormalities, Hx Fibromyalgia, Hx Gout, Hx Orthopedic Injury, Hx Osteoporosis, Hx Scoliosis, Hx Tendonitis, Other Musculoskeletal History Sensory History: Denies: Hx Cataracts, Hx Contacts or Glasses, Hx Eye Injury, Hx Eye Prosthesis, Hx Glaucoma, Hx Legally Blind, Hx Macular Degeneration, Hx Vision Problem, Hx Deafness, Hx Hearing Aid, Hx Hearing Problem, Other Sensory Impairments Opthamlomology History: Denies: Hx Cataracts, Hx Contacts or Glasses, Hx Eye Injury, Hx Eye Prosthesis, Hx Glaucoma, Hx Legally Blind, Hx Macular Degeneration, Hx Vision Problem, Other Sensory Impairments Neurological History: Reports: Hx Migraine - TREATS WITH REST AND TYLENOL, Hx Seizures - Pseudoseizures (per pt)-LAST 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 AGO, Other Neuro Impairments/ Disorders - seizures versus psychogenic events Denies: Hx Dementia, Hx Developmental Delay, Hx Headaches, Hx Nerve Disease, Hx Spinal Cord Injury, Hx Transient Ischemic Attacks (TIA) Psychiatric History: Reports: Hx Anxiety, Hx Depression, Hx Post Traumatic Stress Disorder, Hx Inpatient Treatment, Hx Community Mental Health Tx, Hx Bipolar Disorder, Hx Suicide Attempt Denies: Hx Attention Deficit Hyperactivity Disorder, Hx Eating Disorder, Hx Panic Disorder, Hx Schizophrenia, Hx of Violent Episodes Against Others, Hx Substance Abuse - Cancer History Cancer Type, Location and Year: None reported - Surgical History Surgery Procedure, Year, and Place: [id number] YEARS AGO Hx Anesthesia Reactions: No - Immunization History Date of Tetanus Vaccine: UNKNOWN Date of Influenza Vaccine: 2012 Infectious Disease History: No Infectious Disease History: Denies: Hx Clostridium Difficile, Hx Hepatitis, Hx Human Immunodeficiency Virus (HIV), Hx of Known/Suspected MRSA, Hx Shingles, Hx Tuberculosis, Traveled Outside the [place] in Last 30 Days - Family History Known Family History: Positive: Seizure Disorder - pseudo-seizures - Social History Alcohol Use: None Hx Substance Use: No Substance Use Type: Reports: None Hx Tobacco Use: Yes Smoking Status (MU): Light Every Day Tobacco Smoker Type: Cigarettes Amount Used/How Often: 1/2 PPD X 20 YEARS- OFF AND ON Length of Time of Smoking/Using Tobacco: 23 Have You Smoked in the Last Year: Yes - smokes 1/2 pack/day. No other form tobacco or nicotine in last year Review of Systems Negative: Fever Positive: Anxious, Depressed. Negative: Other - HI, hallucinations All Other Systems Reviewed And Are Negative: Yes Physical Exam - Summary Physical Exam Summary: GENERAL: Patient is a well-developed and nourished female who is lying comfortable in the stretcher. Patient is not in any acute respiratory distress. HEAD AND FACE: Normocephalic EYES: PERRLA, EOMI x 2. EARS: Hearing grossly intact. MOUTH: Oropharynx within normal limits. NECK: Supple, trachea is midline, no adenopathy, no JVD, no carotid bruit. CHEST: Symmetric, no tenderness at palpation LUNGS: Bilateral wheezes. CVS: Regular rate and rhythm, S1 and S2 present, no murmurs or gallops appreciated. ABDOMEN: Soft, non-tender. Bowel sounds are normal. No abnormal abdominal pulsations. EXTREMITIES: Full ROM in all major joints, no edema, no cyanosis or clubbing. NEURO: Alert and oriented x 3. No acute neurological deficits. Speech is normal and follows commands. SKIN: Dry and warm Psych: Flat affect, positive SI, negative HI, negative visual/auditory hallucinations. Triage Information Reviewed: Yes Vital Signs On Initial Exam: Initial Vitals Temp Pulse Resp BP Pulse Ox 98.2 F 108 17 123/84 91 11/29/18 18:49 11/29/18 18:49 11/29/18 18:49 11/29/18 18:49 11/29/18 18:49 Vital Signs Reviewed: Yes Diagnostics - Vital Signs Vital Signs Temp Pulse Resp BP Pulse Ox 11/29/18 18:49 98.2 F 108 17 123/84 91 - Laboratory Lab Results: Lab Results 11/29/18 Range/Units 19:11 WBC 8.2 (3.5-10.8) 10^3/uL RBC 5.29 H (3.70-4.87) 10^6 /uL Hgb 15.8 (12.0-16.0) g/dL Hct 46 (35-47) % MCV 87 (80-97) fL MCH 30 (27-31) pg MCHC 34 (31-36) g/dL RDW 14 (10.5-15) % Plt Count 172 (150-450) 10^3/uL MPV 9.5 (7.4-10.4) fL Neut % (Auto) 64.7 % Lymph % (Auto) 26.7 % Sanders % (Auto) 5.3 % Eos % (Auto) 2.2 % Baso % (Auto) 1.1 % Absolute Neuts (auto) 5.3 (1.5-7.7) 10^3/ul Absolute Lymphs (auto) 2.2 (1.0-4.8) 10^3/ul Absolute Monos (auto) 0.4 (0-0.8) 10^3/ul Absolute Eos (auto) 0.2 (0-0.6) 10^3/ul Absolute Basos (auto) 0.1 (0-0.2) 10^3/ul Absolute Nucleated RBC 0.0 10^3/ul Nucleated RBC % 0.1 Result Diagrams: 11/29/18 19:11 11/29/18 19:11 Lab Statement: Any lab studies that have been ordered have been reviewed, and results considered in the medical decision making process. Re-Evaluation - Re-Evaluation 1st re-eval Re-Evaluation Time: 20:20 Change: Unchanged Comment: The pt was on the floor and convulsing. 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 I evaluated her again and she is at her normal baseline. Course/Dx - Course Course Of Treatment: Pt is a 43 y/o F presenting to the ED with a chief complaint of suicidal ideations d/t coming down very quickly from a manic phase of her bipolar disorder. She states she wants to punch something or hurt myself or take a bunch of pills, and that shes tired of crying. She denies hallucinations, and she did not do her breathing treatment today because she didnt care. She denies fevers. On examination, the pt had a flat affect, positive SI, negative HI, and negative visual/auditory hallucinations, as well as wheezes bilaterally in the lungs. At 2019, pt was on the floor and convulsing. 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 I evaluated her again and she is at her normal baseline. The pt will be signed out to Dr. Miner at shift change pending [facility] with dx of suicidal ideations. - Differential Dx/Clinical Impression Provider Diagnosis: Suicidal ideation Discharge - Sign-Out/Discharge Documenting (check all that apply): Sign-Out Patient Signing out patient TO: oJe Miner - Discharge Plan Condition: Stable Referrals: Astrid Gonzalez MD [Primary Care Provider] - - Billing Disposition and Condition Condition: STABLE - Attestation Statements Document Initiated by Scribe: Yes Documenting Scribe: Natalie Trotter Provider For Whom Scribe is Documenting (Include Credential): Esther Martinez MD. Scribe Attestation: Natalie Mesa, guidoed for Esther Martinez MD. on 11/29/18 at 2133. Scribe Documentation Reviewed: Yes Provider Attestation: The documentation as recorded by the scribe, Natalie Trotter accurately reflects the service I personally performed and the decisions made by Jelly anaya MD. Status of Scribe Document: Viewed
--- OUTSIDE RECORDS SUMMARY | 2018-11-29 19:33 | XMS REPORT | Continuity of Care Document ---
:1975 External Reference #:[id number] Author Name Annelise Thomas Care Team Providers Name Role Phone Astrid Gonzalez MD Primary Care Physician Unavailable Payers Date Identification Numbers Payment Provider Subscriber Policy Number: [id number] Ari Myers Group Number: [id number] [address] PayID: [id number] [place] [address] Effective: 2018 Policy Number: [id number] [place] [facility] Jevon Myers Onset: 2018 PayID: [id number] [address] [place] [address] Advance Directives Type Date Description Status Comment Other Directive 03/13/2017 Health Care Proxy Current and Verified Problems Active Problems Provider Date Sadiq Osman M.D. Onset: 02/04/2016 Gastroesophageal reflux disease Camilo Osman M.D. 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 a day Recreational Drug Use Denies Drug Use Smoking Status Reviewed: 11/19/18 Patient is a current started at age 16 smoker, smokes every day smoking 1-5 cigs. a day Allergies, Adverse Reactions, Alerts Active Allergies Reaction Severity Comments Date Ritalin Severe profuse sweating and 02/04/2016 poundign chest Prednisone exacerbates mental illness 02/22/2016 Levaquin 02/22/2016 Grapefruit 06/20/2016 Medications Active Medications SIG Qnty Indications Ordering Date Provider Azithromycin 11/19/18 reports 6tabs J45.901 Page Dumont, 10/26/2018 250mg Tablets not taking take MD 2 tablets today; then one tablet daily Methylprednisolone 11/19/18 reports 21units J45.901 Page Dumont, 10/26/2018 4mg TBPK not taking take MD as instructed on the tyron Nicorette 11/19/18 reports 72units F17.210 Astrid 10/09/2018 2mg Lozenges not using as Fatuma Gonzalez needed for cravings not to exceed 5 a day Naproxen 1 by mouth twice 30tabs M54.5 Timothy E. 08/21/2018 500mg Tablets a day as needed Fatuma Beck pain Cyclobenzaprine HCL Take one tablet 14tabs S23.3xxA Page Dumont, 2017 10mg at night as MD Tablets needed Albuterol Sulfate four times a day 1125ml J01.90 Astrid 06/05/2018 (2.5mg/3ML) as needed Fatuma Gonzalez 0.083% Nebulizer Nebulizer nebulizer 1units Astrid 11/03/2017 [facility] Fatuma [place] etc Advair HFA Inhale 2 Puffs 36units Astrid 09/11/2017 115-21mcg/Act By Mouth Every Fatuma Gonzalez Aerosol 12 Hours Ventolin HFA Inhale 2 Puffs 18units Astrid 05/19/2016 108(90Base) By Mouth 4 Times Fatuma Gonzalez mcg/Act Aerosol Daily as Needed Rexulti Take 1 Tablet By Unknown 2mg Tablets Mouth Every Day Hydroxyzine HCL Take 1 Tablet By Unknown 25mg Tablets Mouth Twice A Day And 2 Tablets AT Bedtime as Needed For Agitatiom Omeprazole Take 1 Capsule 90caps Astrid 40mg Capsules DR By Mouth Every Fatuma Gonzalez Day Ibuprofen as needed Unknown 200mg Capsules Prazosin HCL 10/26/18 reports Unknown 2mg Capsules not taking now taking 1mg a day-----once daily Clonazepam pt states now 1 Unknown 0.5mg Tablets mg----1 daily prn Trazodone HCL 2 by mouth every Unknown 100mg Tablets night at bedtime History Medications Prednisone take 4 tab daily x 3 QS Astrid Gonzalez, 06/05/2018 - 10mg Tablets days then 3 tab M.D. 06/17/2018 daily x 3 days and then 2 tab daily x 3 days then 1 tab daily X 3 days Azithromycin take 2 tab on day 1 6tabs J40 Astrid Gonzalez, 06/05/2018 - 250mg then 1 tab daily x 4 M.D. 07/02/2018 Tablets days Prednisone 2 tab by mouth every QS J45.41 Astrid Gonzalez, 05/01/2018 - 20mg Tablets day x4 days then 1 M.D. 05/11/2018 tab daily for 4days, then 1/2 tab daily for 3 days Prednisone 2 tab by mouth every QS J44.1 Astrid Gonzalez, 04/23/2018 - 20mg Tablets day x4 days then 1 M.D. 05/01/2018 tab daily for 3 days, then 1/2 tab daily for 3 days Claritin once a day 10tabs Astrid Gonzalez, 04/23/2018 - 10mg Tablets M.D. 06/05/2018 Nitrofurantoin 1 by mouth twice a 20caps Alissa Bob, 01/18/2018 - Monohyd Macro day for 10 days N.P. 01/28/2018 100mg Capsules Sulfamethoxazole/Trim one by mouth twice a 14tabs N39.0 Alissa Bob, - ethoprim DS day for 7 days N.P. 01/18/2018 800-160mg Tablets Doxycycline Hyclate 1 tab by mouth twice 20tabs Lissy 11/01/2017 - a day for 10 days Fatuma Suarez 11/12/2017 100mg Tablets Amoxicillin/Clavulana 1 tablet twice daily 20tabs Lissy 08/18/2017 - te Potassium for 10 days Fatuma Suarez 10/30/2017 875-125mg Tablets Naproxen take 1 tablet by 30tabs M54.5 Astrid Gonzalez, 06/05/2017 - 375mg Tablets mouth twice daily M.D. 08/21/2018 with food Nicotine no lonher doing this 112units Timothy Caro 02/15/2017 - 21-14-7mg/24HR Fatuma Beck 03/29/2017 Kit Advair HFA 2 puff every 12 36gm J01.90 Astrid Gonzalez, 01/18/2017 - hours M.DSaw 03/13/2017 115-21mcg/Act Aerosol Eq Nicotine as needed daily 28units F17.21 Astrid Gonzalez, 01/18/2017 - 14mg/24HR 0 M.DSaw 03/12/2017 Patches 24HR Albuterol Sulfate inhale the contents 90units J01.90 Astrid Gonzalez, 01/18 - of 1 vial via M.D. 06/05/2018 0.63mg/3ML Nebulizer nebulizer every 4 to 6 hours as needed Nitrofurantoin 1 by mouth twice a 14caps N30.01 Astrid Gonzalez, 2016 - Macrocrystal day M.D. 12/26/2016 100mg Capsules Amoxicillin 1 three times a day 30caps Timothy Caro 07/05/2016 - 500mg for 10 days Fatuma Beck 10/18/2016 Capsules Metronidazole apply intravaginally 1units Astrid Gonzalez, 06/21/2016 - 0.75% Gel once a day x 7 days M.D. 06/29/2016 Fluconazole 1 by mouth every day 2tabs B37.9 Astrid Gonzalez, 06/20/2016 - 150mg M.DaSw 06/23/2016 Tablets Advair Diskus inhale 1 dose by 60units Wilbert Carlos NP 05/18/2016 - mouth twice a day 06/02/2016 500-50mcg/Dose Aerosol Medrol 6 by mouth day 1 5 21units J45.90 Alissa Bob, 05/02/2016 - 4mg TBPK by mouth day 2 4 by 1 N.P. 05/08/2016 mouth day 3 3 by mouth day 4 2 by mouth day 5 1 by mouth day 6 Ibuprofen by mouth three times 60tabs M54.5 Alissa Bob, 05/02/2016 - 800mg Tablets a day as needed N.P. 12/12/2016 Tizanidine HCL one by mouth every 4 30caps M54.5 Alissa Bob, 2015 - 4mg hours as needed for N.P. 05/16/2016 Capsules muscle spasms Sulfamethoxazole/Trim one by mouth twice a 14tabs N39.0 Alissa Bob, - ethoprim DS day for 7 days N.P. 03/29/2016 800-160mg Tablets Clotrimazole apply twice daily 45gm B35.3 [place] 02/04/2016 - 1% Cream both feet after Fatuma Osman 05/02/2016 shower. Rexulti 1 po qd Unknown - 3mg Tablets 08/21/2018 Prazosin HCL 1 capsule at night Unknown - 2mg 03/07/2016 Capsules Hydroxyzine HCL 1 tab q6h prn Unknown - 50mg 03/12/2017 Tablets Denta 5000 Plus use for brushing Unknown - 1.1% teeth bid 03/12/2017 Cream Tylenol Extra 2 by mouth as needed Unknown - Strength 06/19/2017 500mg Tablets Bupropion HCL ER (XL) 1 po qd Unknown - 03/07/2016 150mg Tablets ER 24HR Wellbutrin XL 1 by mouth every day Unknown - 150mg 10/30/2017 Tablets ER 24HR Nicotrol once a day Josseline Unknown - 10mg Inhaler 07/02/2018 Cyclobenzaprine HCL Take 1/2 Tablet By Unknown - Mouth Three Times 07/02/2018 10mg Tablets Daily as Needed (Muscle Spasm) Lamotrigine Take 1 Tablet By Unknown - 100mg Mouth Every Day 10/03/2018 Tablets Immunizations CPT Code Status Date Vaccine Lot # [id number] Given 03/29/2017 Tdap - Tetanus/Diptheria/Acellular Pertussis [id number] Given 03/29/2017 Influenza Virus Vaccine, Quadrivalent, Split, [id number] Preservative Free [id number] Refused 06/20/2016 Influenza Virus Vaccine, Quadrivalent, Split, Preservative Free Vital Signs Date Vital Result Comment 11/19/2018 4:58pm Height 64.5 inches 5'4.50" Weight 207.00 lb Heart Rate 100 /min BP Systolic Sitting 102 mmHg BP Diastolic Sitting 58 mmHg Body Temperature 97.3 F O2 % BldC Oximetry 92 % BMI (Body Mass Index) 35.0 kg/m2 10/26/2018 3:59pm Height 64.5 inches 5'4.50" Weight 204.00 lb Heart Rate 98 /min BP Systolic Sitting 110 mmHg BP Diastolic Sitting 73 mmHg Body Temperature 99.0 F O2 % BldC Oximetry 92 % BMI (Body Mass Index) 34.5 kg/m2 10/09/2018 11:48am Height 64.5 inches 5'4.50" Weight 204.00 lb Heart Rate 80 /min BP Systolic Sitting 109 mmHg BP Diastolic Sitting 69 mmHg O2 % BldC Oximetry 94 % BMI (Body Mass Index) 34.5 kg/m2 10/03/2018 1:24pm Height 64.5 inches 5'4.50" Weight 206.00 lb Heart Rate 106 /min BP Systolic Sitting 106 mmHg BP Diastolic Sitting 73 mmHg O2 % BldC Oximetry 92 % BMI (Body Mass Index) 34.8 kg/m2 08/21/2018 1:58pm Height 64.5 inches 5'4.50" Weight 203.00 lb Heart Rate 109 /min BP Systolic Sitting 100 mmHg BP Diastolic Sitting 60 mmHg O2 % BldC Oximetry 97 % BMI (Body Mass Index) 34.3 kg/m2 07/02/2018 10:05am Height 64.5 inches 5'4.50" Weight 209.00 lb Heart Rate 105 /min BP Systolic Sitting 100 mmHg BP Diastolic Sitting 70 mmHg O2 % BldC Oximetry 94 % BMI (Body Mass Index) 35.3 kg/m2 06/05/2018 10:33am Height 64.5 inches 5'4.50" Weight 209.00 lb Heart Rate 104 /min BP Systolic Sitting 110 mmHg BP Diastolic Sitting 68 mmHg Body Temperature 97.9 F O2 % BldC Oximetry 95 % BMI (Body Mass Index) 35.3 kg/m2 05/01/2018 8:57am Height 64.5 inches 5'4.50" Weight 207.00 lb Heart Rate 107 /min BP Systolic Sitting 112 mmHg BP Diastolic Sitting 68 mmHg O2 % BldC Oximetry 93 % BMI (Body Mass Index) 35.0 kg/m2 04/23/2018 8:57am Height 64.5 inches 5'4.50" Weight 208.00 lb Heart Rate 97 /min BP Systolic Sitting 100 mmHg BP Diastolic Sitting 62 mmHg Body Temperature 97.3 F O2 % BldC Oximetry 94 % BMI (Body Mass Index) 35.1 kg/m2 01/16/2018 3:29pm Height 64.5 inches 5'4.50" Weight 203.00 lb Heart Rate 94 /min Body Temperature 97.1 F O2 % BldC Oximetry 91 % BMI (Body Mass Index) 34.3 kg/m2 11/28/2017 11:05am Weight 201.00 lb Heart Rate 97 /min BP Systolic Sitting 92 mmHg BP Diastolic Sitting 68 mmHg O2 % BldC Oximetry 96 % 10/31/2017 5:13pm Weight 196.00 lb Heart Rate 60 /min BP Systolic Sitting 118 mmHg BP Diastolic Sitting 74 mmHg Body Temperature 98.3 F O2 % BldC Oximetry 97 % 2017 10:15am Weight 201.00 lb Heart Rate 101 /min BP Systolic Sitting 100 mmHg BP Diastolic Sitting 60 mmHg Body Temperature 97.1 F O2 % BldC Oximetry 92 % 06/19/2017 10:15am Weight 203.00 lb Heart Rate 92 /min BP Systolic Sitting 110 mmHg BP Diastolic Sitting 70 mmHg Body Temperature 97.1 F O2 % BldC Oximetry 93 % 06/05/2017 3:27pm Weight 200.00 lb Heart Rate 85 /min BP Systolic Sitting 100 mmHg BP Diastolic Sitting 68 mmHg Body Temperature 97.0 F Pain Level 8 lower back O2 % BldC Oximetry 92 % 03/29/2017 10:48am Height 64.1 inches 5'4.10" Weight 203.00 lb Heart Rate 81 /min BP Systolic Sitting 102 mmHg BP Diastolic Sitting 78 mmHg Body Temperature 97.1 F O2 % BldC Oximetry 95 % BMI (Body Mass Index) 34.7 kg/m2 03/13/2017 11:50am Weight 199.00 lb Heart Rate 90 /min BP Systolic Sitting 102 mmHg BP Diastolic Sitting 64 mmHg Body Temperature 97.4 F O2 % BldC Oximetry 94 % 01/18/2017 3:18pm Weight 202.38 lb Heart Rate 89 /min BP Systolic 110 mmHg BP Diastolic 70 mmHg Body Temperature 97.5 F O2 % BldC Oximetry 92 % 12/12/2016 11:48am Weight 205.00 lb Heart Rate 76 /min BP Systolic Sitting 124 mmHg BP Diastolic Sitting 82 mmHg Respiratory Rate 15 /min Body Temperature 97.3 F O2 % BldC Oximetry 98 % 10/18/2016 1:33pm Weight 204.00 lb Heart Rate 88 /min BP Systolic Sitting 108 mmHg BP Diastolic Sitting 75 mmHg Respiratory Rate 16 /min Body Temperature 98.5 F O2 % BldC Oximetry 98 % 07/05/2016 2:52pm Weight 203.25 lb Heart Rate 89 /min BP Systolic 110 mmHg BP Diastolic 70 mmHg Body Temperature 98.1 F O2 % BldC Oximetry 98 % 06/20/2016 1:08pm Weight 206.00 lb Heart Rate 94 /min BP Systolic Sitting 98 mmHg BP Diastolic Sitting 66 mmHg Body Temperature 98.1 F O2 % BldC Oximetry 96 % 05/18/2016 4:10pm Weight 206.00 lb Heart Rate 90 /min BP Systolic Sitting 122 mmHg BP Diastolic Sitting 80 mmHg Respiratory Rate 15 /min Body Temperature 97.7 F O2 % BldC Oximetry 98 % 05/02/2016 11:11am Weight 208.00 lb Heart Rate 84 /min BP Systolic Sitting 116 mmHg BP Diastolic Sitting 76 mmHg Respiratory Rate 15 /min Body Temperature 97.8 F O2 % BldC Oximetry 97 % 03/22/2016 3:19pm Weight 210.00 lb Heart Rate 90 /min BP Systolic Sitting 114 mmHg BP Diastolic Sitting 66 mmHg Respiratory Rate 15 /min Body Temperature 97.6 F O2 % BldC Oximetry 98 % 02/22/2016 1:00pm Height 64.5 inches 5'4.50" Weight 200.00 lb Heart Rate 80 /min BP Systolic Sitting 110 mmHg BP Diastolic Sitting 70 mmHg Respiratory Rate 17 /min BMI (Body Mass Index) 33.8 kg/m2 02/04/2016 12:57pm Height 64.5 inches 5'4.50" Weight 207.31 lb Heart Rate 104 /min BP Systolic Sitting 116 mmHg BP Diastolic Sitting 72 mmHg Body Temperature 97.6 F O2 % BldC Oximetry 97 % BMI (Body Mass Index) 35.0 kg/m2 Results Test Date Facility Test Result H/L Range Note CBC Auto Diff 10/01/2018 [facility] White Blood 8.3 10^3/uL N 3.5-10.8 [place] [address] [phone] Red Blood Count 4.94 10^6/uL N 4.00-5.40 Hemoglobin 14.3 g/dL N 12.0-16.0 Hematocrit 43 % N 35-47 Mean Corpuscular Volume 87 fL N 80-97 Mean Corpuscular Hemoglobin 29 pg N 27-31 Mean Corpuscular HGB Conc 33 g/dL N 31-36 Red Cell Distribution Width 15 % N 10.5-15 Platelet Count 129 10^3/uL Low 150-450 Mean Platelet Volume 9.9 fL N 7.4-10.4 Abs Neutrophils 5.6 10^3/uL N 1.5-7.7 Abs Lymphocytes 1.9 10^3/uL N 1.0-4.8 Abs Monocytes 0.6 10^3/uL N 0-0.8 Abs Eosinophils 0.1 10^3/uL N 0-0.6 Abs Basophils 0 10^3/uL N 0-0.2 Abs Nucleated RBC 0 10^3/uL Granulocyte % 67.2 % Lymphocyte % 23.1 % Monocyte % 7.4 % Eosinophil % 1.7 % Basophil % 0.6 % Nucleated Red Blood Cells % 0 Urinalysis Profile 10/01/2018 [facility] U[place] [address] [phone] Urine Appearance Cloudy Urine Specific [place] 1.009 Low 1.010-1.030 Urine pH 7.0 N 5-9 Urine Urobilinogen Negative Negative Urine Ketones Negative Negative Urine Protein Negative Negative Urine Leukocytes 3+ Abnormal Negative Urine Blood Negative Negative Urine Nitrite Negative Negative Urine Bilirubin Negative Negative Urine Glucose Negative Negative Urine White Blood Cell 2+(11-20/hpf) Abnormal Absent Urine Red Blood Cell Absent Absent Urine Bacteria Absent Absent Urine Squamous Epithelial Cell Present Abnormal Absent Laboratory test 10/01/2018 [facility] HCG 0.72 mIU/mL [address] [place] [address] [phone] Comp Metabolic 10/01/2018 [facility] Sodium 139 mmol/L N 135- [address] [place] [address] [phone] Potassium 4.1 mmol/L N 3.5-5.0 Chloride 107 mmol/L N 101-111 Co2 Carbon Dioxide 25 mmol/L N 22-32 Anion Gap 7 mmol/L N 2-11 Glucose 97 mg/dL N 70-100 Blood Urea Nitrogen 12 mg/dL N 6-24 Creatinine 0.90 mg/dL N 0.51-0.95 BUN/Creatinine Ratio 13.3 N 8-20 Calcium 9.0 mg/dL N 8.6-10.3 Total Protein 6.4 g/dL N 6.4-8.9 Albumin 4.0 g/dL N 3.2-5.2 Globulin 2.4 g/dL N 2-4 Albumin/Globulin Ratio 1.7 N 1-3 Total Bilirubin 0.20 mg/dL N 0.2-1.0 Alkaline Phosphatase 94 U/L N 34-104 Alt 10 U/L N 7-52 Ast 11 U/L Low 13-39 Egfr Non- 68.7 >60 Egfr 83.1 >60 2 Laboratory test 10/01/2018 [facility] TSH (Thyroid 1.99 mcIU/mL N 0.34-5.[address] Stim Horm) [place] [address] [phone] Acetaminophen < 15 g/mL 3 Alcohol < 10 mg/dL N <10 Salicylate < 2.50 mg/dL <30 Urine Drug 10/01/2018 [facility] Amphetamine Ur None Detected None Detect SCR ED & [address] [place] [address] [phone] Barbiturates Urine Screen None Detected None Detect Benzodiazepine Urine Screen None Detected None Detect Urine Cannabinoids Screen None Detected None Detect Urine Cocaine Screen None Detected None Detect Urine Opiates Screen None Detected None Detect Urine Phencyclidine Screen None Detected None Detect 4 Urine Culture And 10/01/2018 [facility] Urine SEE RESULT [address] [place] [address] [phone] CBC Auto Diff 05/03/2018 [facility] White Blood 12.9 High 3.5- [address] Count 10^3/uL 0.8 [place] [address] [phone] Red Blood Count 5.03 10^6/uL N 4.00-5.40 Hemoglobin 14.4 g/dL N 12.0-16.0 Hematocrit 43 % N 35-47 Mean Corpuscular Volume 86 fL N 80-97 Mean Corpuscular Hemoglobin 29 pg N 27-31 Mean Corpuscular HGB Conc 33 g/dL N 31-36 Red Cell Distribution Width 15 % N 10.5-15 Platelet Count 160 10^3/uL N 150-450 Mean Platelet Volume 9.2 um3 N 7.4-10.4 Abs Neutrophils 8.6 10^3/uL High 1.5-7.7 Abs Lymphocytes 3.6 10^3/uL N 1.0-4.8 Abs Monocytes 0.6 10^3/uL N 0-0.8 Abs Eosinophils 0 10^3/uL N 0-0.6 Abs Basophils 0.1 10^3/uL N 0-0.2 Abs Nucleated RBC 0 10^3/uL Granulocyte % 66.7 % N 38-83 Lymphocyte % 27.7 % N 25-47 Monocyte % 4.9 % N 0-7 Eosinophil % 0.2 % N 0-6 Basophil % 0.5 % N 0-2 Nucleated Red Blood Cells % 0.1 Comp Metabolic Panel 05/03/2018 [facility] Sodium 138 mmol/L N 135-[address] [place] [address] [phone] Potassium 3.7 mmol/L N 3.5-5.0 Chloride 105 mmol/L N 101-111 Co2 Carbon Dioxide 23 mmol/L N 22-32 Anion Gap 10 mmol/L N 2-11 Glucose 97 mg/dL N 70-100 Blood Urea Nitrogen 17 mg/dL N 6-24 Creatinine 1.10 mg/dL High 0.51-0.95 BUN/Creatinine Ratio 15.5 N 8-20 Calcium 9.3 mg/dL N 8.6-10.3 Total Protein 6.5 g/dL N 6.4-8.9 Albumin 4.2 g/dL N 3.2-5.2 Globulin 2.3 g/dL N 2-4 Albumin/Globulin Ratio 1.8 N 1-3 Total Bilirubin 0.40 mg/dL N 0.2-1.0 Alkaline Phosphatase 89 U/L N 34-104 Alt 16 U/L N 7-52 Ast 15 U/L N 13-39 Egfr Non- 54.7 >60 Egfr 66.2 >60 6 Laboratory test 05/03/2018 [facility] C Reactive 2.00 mg/L N < 8.[address] [place] [address] [phone] CBC No Diff 05/02/2018 [facility] White Blood 10.7 N 3.5-10.[address] Count 10^3/[place] [address] [phone] Red Blood Count 5.14 10^6/uL N 4.00-5.40 Hemoglobin 15.0 g/dL N 12.0-16.0 Hematocrit 44 % N 35-47 Mean Corpuscular Volume 86 fL N 80-97 Mean Corpuscular Hemoglobin 29 pg N 27-31 Mean Corpuscular HGB Conc 34 g/dL N 31-36 Red Cell Distribution Width 15 % N 10.5-15 Platelet Count 164 10^3/uL N 150-450 Mean Platelet Volume 9.6 um3 N 7.4-10.4 Laboratory test 05/02/2018 [facility] D Dimer < 200 N Less Than [address] Quantitative ng/mL 230 [place] [address] [phone] Comp Metabolic 05/02/2018 [facility] Sodium 139 mmol/L N 135- [address] [place] [address] [phone] Potassium 4.2 mmol/L N 3.5-5.0 Chloride 106 mmol/L N 101-111 Co2 Carbon Dioxide 26 mmol/L N 22-32 Anion Gap 7 mmol/L N 2-11 Glucose 146 mg/dL High 70-100 Blood Urea Nitrogen 17 mg/dL N 6-24 Creatinine 1.24 mg/dL High 0.51-0.95 BUN/Creatinine Ratio 13.7 N 8-20 Calcium 9.5 mg/dL N 8.6-10.3 Total Protein 6.7 g/dL N 6.4-8.9 Albumin 4.3 g/dL N 3.2-5.2 Globulin 2.4 g/dL N 2-4 Albumin/Globulin Ratio 1.8 N 1-3 Total Bilirubin 0.30 mg/dL N 0.2-1.0 Alkaline Phosphatase 104 U/L N 34-104 Alt 18 U/L N 7-52 Ast 15 U/L N 13-39 Egfr Non- 47.7 >60 Egfr 57.7 >60 8 Laboratory test 05/02/2018 [facility] Troponin-I 0.00 ng/mL < 0.[address] (TnI) [place] [address] [phone] CBC Auto Diff 03/06/2018 [facility] White Blood 7.7 N 3.5- 10.[address] Count 10^3/[place] [address] [phone] Red Blood Count 5.15 10^6/uL N 4.00-5.40 Hemoglobin 15.0 g/dL N 12.0-16.0 Hematocrit 44 % N 35-47 Mean Corpuscular Volume 85 fL N 80-97 Mean Corpuscular Hemoglobin 29 pg N 27-31 Mean Corpuscular HGB Conc 35 g/dL N 31-36 Red Cell Distribution Width 14 % N 10.5-15 Platelet Count 174 10^3/uL N 150-450 Mean Platelet Volume 9.7 um3 N 7.4-10.4 Abs Neutrophils 5.2 10^3/uL N 1.5-7.7 Abs Lymphocytes 1.8 10^3/uL N 1.0-4.8 Abs Monocytes 0.5 10^3/uL N 0-0.8 Abs Eosinophils 0.1 10^3/uL N 0-0.6 Abs Basophils 0.1 10^3/uL N 0-0.2 Abs Nucleated RBC 0 10^3/uL Granulocyte % 67.9 % N 38-83 Lymphocyte % 23.1 % Low 25-47 Monocyte % 6.5 % N 0-7 Eosinophil % 1.5 % N 0-6 Basophil % 1.0 % N 0-2 Nucleated Red Blood Cells % 0 Urinalysis Profile 03/06/2018 [facility] Urine Color Yellow [address] [place] [address] [phone] Urine Appearance Cloudy Urine Specific [place] 1.013 N 1.010-1.030 Urine pH 7.0 N 5-9 Urine Urobilinogen Negative Negative Urine Ketones Negative Negative Urine Protein Negative Negative Urine Leukocytes 1+ Abnormal Negative Urine Blood Negative Negative Urine Nitrite Negative Negative Urine Bilirubin Negative Negative Urine Glucose Negative Negative Urine White Blood Cell Trace(0-5/hpf) Absent Urine Red Blood Cell Trace(0-2/hpf) Absent Urine Bacteria Absent Absent Urine Squamous Epithelial Cell Present Abnormal Absent Urine Culture And 03/06/2018 [facility] Urine Culture SEE RESULT [address] [place] [address] [phone] Laboratory test 03/06/2018 [facility] HCG < 0.60 [address] mIU/[place] [address] [phone] Comp Metabolic 03/06/2018 [facility] Sodium 140 mmol/L N 135- [address] [place] [address] [phone] Potassium 4.1 mmol/L N 3.5-5.0 Chloride 107 mmol/L N 101-111 Co2 Carbon Dioxide 26 mmol/L N 22-32 Anion Gap 7 mmol/L N 2-11 Glucose 94 mg/dL N 70-100 Blood Urea Nitrogen 9 mg/dL N 6-24 Creatinine 1.02 mg/dL High 0.51-0.95 BUN/Creatinine Ratio 8.8 N 8-20 Calcium 9.5 mg/dL N 8.6-10.3 Total Protein 7.1 g/dL N 6.4-8.9 Albumin 4.3 g/dL N 3.2-5.2 Globulin 2.8 g/dL N 2-4 Albumin/Globulin Ratio 1.5 N 1-3 Total Bilirubin 0.40 mg/dL N 0.2-1.0 Alkaline Phosphatase 124 U/L High 34-104 Alt 17 U/L N 7-52 Ast 16 U/L N 13-39 Egfr Non- 59.7 >60 Egfr 72.3 >60 11 Laboratory test 03/06/2018 [facility] Acetaminophen < 15 g/mL [address] [place] [address] [phone] Alcohol < 10 mg/dL N <10 Salicylate < 2.50 mg/dL <30 TSH (Thyroid Stim Horm) 1.92 mcIU/mL N 0.34-5.60 Urine Drug 03/06/2018 [facility] Amphetamine Ur None Detected None Detect SCR ED & [address] [place] [address] [phone] Barbiturates Urine Screen None Detected None Detect Benzodiazepine Urine Screen None Detected None Detect Urine Cannabinoids Screen None Detected None Detect Urine Cocaine Screen None Detected None Detect Urine Opiates Screen None Detected None Detect Urine Phencyclidine Screen None Detected None Detect 13 Ua Routine 01/16/2018 [facility] Ua Specific [place] 1.025 Ua PH 5 Ua Color dark yellow Ua Appera cloudy Ua WBC trace Ua Protein trace Ua Glucose neg Ua Ketones neg Ua Bilirubin neg Ua Urobilinogen neg Ua Nitrite neg Ua Occult Blood 50 Urine Culture And 01/16/2018 [facility] Urine Culture SEE RESULT [address] [place] [address] [phone] Laboratory test 11/28/2017 [facility] Test neg finding Urine Urinalysis Profile 11/17/2017 [facility] Urine Color Yellow [address] [place] [address] [phone] Urine Appearance Clear Urine Specific [place] 1.008 Low 1.010-1.030 Urine pH 7.0 N 5-9 Urine Urobilinogen Negative Negative Urine Ketones Negative Negative Urine Protein Negative Negative Urine Leukocytes 1+ Abnormal Negative Urine Blood Negative Negative Urine Nitrite Negative Negative Urine Bilirubin Negative Negative Urine Glucose Negative Negative Urine White Blood Cell Trace(0-5/hpf) Absent Urine Red Blood Cell Trace(0-2/hpf) Absent Urine Bacteria 1+ Abnormal Absent Urine Squamous Epithelial Cell Present Abnormal Absent Urine Drug 11/17/2017 [facility] Amphetamine Ur None Detected None Detect SCR ED & [address] [place] [address] [phone] Barbiturates Urine Screen None Detected None Detect Benzodiazepine Urine Screen None Detected None Detect Urine Cannabinoids Screen None Detected None Detect Urine Cocaine Screen None Detected None Detect Urine Opiates Screen None Detected None Detect Urine Phencyclidine Screen None Detected None Detect 15 Urine Culture And 11/17/2017 [facility] Urine Culture SEE RESULT [address] [place] [address] [phone] CBC Auto Diff 11/17/2017 [facility] White Blood 7.4 10^3/uL N 3.5-[address] Count 0.8 [place] [address] [phone] Red Blood Count 5.01 10^6/uL N 4.0-5.4 Hemoglobin 14.6 g/dL N 12.0-16.0 Hematocrit 43 % N 35-47 Mean Corpuscular Volume 87 fL N 80-97 Mean Corpuscular Hemoglobin 29 pg N 27-31 Mean Corpuscular HGB Conc 34 g/dL N 31-36 Red Cell Distribution Width 14 % N 10.5-15 Platelet Count 153 10^3/uL N 150-450 Mean Platelet Volume 10.6 um3 High 7.4-10.4 Abs Neutrophils 4.9 10^3/uL N 1.5-7.7 Abs Lymphocytes 1.9 10^3/uL N 1.0-4.8 Abs Monocytes 0.4 10^3/uL N 0-0.8 Abs Eosinophils 0.1 10^3/uL N 0-0.6 Abs Basophils 0 10^3/uL N 0-0.2 Abs Nucleated RBC 0 10^3/uL Granulocyte % 66.5 % N 38-83 Lymphocyte % 25.8 % N 25-47 Monocyte % 5.7 % N 0-7 Eosinophil % 1.5 % N 0-6 Basophil % 0.5 % N 0-2 Nucleated Red Blood Cells % 0.2 Comp Metabolic Panel 11/17/2017 [facility] Sodium 139 mmol/L N 139-145 [address] [place] [address] [phone] Potassium 4.0 mmol/L N 3.5-5.0 Chloride 105 mmol/L N 101-111 Co2 Carbon Dioxide 29 mmol/L N 22-32 Anion Gap 5 mmol/L N 2-11 Glucose 88 mg/dL N 70-100 Blood Urea Nitrogen 11 mg/dL N 6-24 Creatinine 1.01 mg/dL High 0.51-0.95 BUN/Creatinine Ratio 10.9 N 8-20 Calcium 9.2 mg/dL N 8.6-10.3 Total Protein 6.5 g/dL N 6.4-8.9 Albumin 3.9 g/dL N 3.2-5.2 Globulin 2.6 g/dL N 2-4 Albumin/Globulin Ratio 1.5 N 1-3 Total Bilirubin 0.30 mg/dL N 0.2-1.0 Alkaline Phosphatase 88 U/L N 34-104 Alt 10 U/L N 7-52 Ast 13 U/L N 13-39 Egfr Non- 60.4 >60 Egfr 77.7 >60 17 Laboratory test 11/17/2017 [facility] Acetaminophen < 15 g/mL [address] [place] [address] [phone] Alcohol < 10 mg/dL N <10 Salicylate < 2.50 mg/dL <30 TSH (Thyroid Stim Horm) 1.21 mcIU/mL N 0.34-5.60 CBC Auto Diff 09/09/2017 [facility] White Blood 9.2 10^3/uL N 3.5-10.[address] [place] [address] [phone] Red Blood Count 5.27 10^6/uL N 4.0-5.4 Hemoglobin 15.2 g/dL N 12.0-16.0 Hematocrit 45 % N 35-47 Mean Corpuscular Volume 86 fL N 80-97 Mean Corpuscular Hemoglobin 29 pg N 27-31 Mean Corpuscular HGB Conc 34 g/dL N 31-36 Red Cell Distribution Width 14 % N 10.5-15 Platelet Count 139 10^3/uL Low 150-450 Mean Platelet Volume 10 um3 N 7.4-10.4 Abs Neutrophils 6.4 10^3/uL N 1.5-7.7 Abs Lymphocytes 2.1 10^3/uL N 1.0-4.8 Abs Monocytes 0.5 10^3/uL N 0-0.8 Abs Eosinophils 0.1 10^3/uL N 0-0.6 Abs Basophils 0.1 10^3/uL N 0-0.2 Abs Nucleated RBC 0 10^3/uL Granulocyte % 69.8 % N 38-83 Lymphocyte % 22.6 % Low 25-47 Monocyte % 5.5 % N 1-9 Eosinophil % 1.2 % N 0-6 Basophil % 0.9 % N 0-2 Nucleated Red Blood Cells % 0.1 Comp Metabolic Panel 09/09/2017 [facility] Sodium 136 mmol/L N 133-[address] [place] [address] [phone] Potassium 3.8 mmol/L N 3.5-5.0 Chloride 104 mmol/L N 101-111 Co2 Carbon Dioxide 26 mmol/L N 22-32 Anion Gap 6 mmol/L N 2-11 Glucose 99 mg/dL N 70-100 Blood Urea Nitrogen 12 mg/dL N 6-24 Creatinine 1.00 mg/dL High 0.51-0.95 BUN/Creatinine Ratio 12.0 N 8-20 Calcium 9.3 mg/dL N 8.6-10.3 Total Protein 6.7 g/dL N 6.4-8.9 Albumin 4.1 g/dL N 3.2-5.2 Globulin 2.6 g/dL N 2-4 Albumin/Globulin Ratio 1.6 N 1-3 Total Bilirubin 0.40 mg/dL N 0.2-1.0 Alkaline Phosphatase 89 U/L N 34-104 Alt 11 U/L N 7-52 Ast 12 U/L Low 13-39 Egfr Non- 61.1 >60 Egfr 78.6 >60 19 Laboratory test 09/09/2017 [facility] Acetaminophen < 15 g/mL 20 finding [address] [place] [address] [phone] Alcohol < 10 mg/dL N <10 Salicylate < 2.50 mg/dL <30 TSH (Thyroid Stim Horm) 1.53 mcIU/mL N 0.34-5.60 Urinalysis Profile 09/09/2017 [facility] Urine Color Yellow [address] [place] [address] [phone] Urine Appearance Cloudy Urine Specific [place] 1.008 Low 1.010-1.030 Urine pH 6.0 N 5-9 Urine Urobilinogen Negative Negative Urine Ketones Negative Negative Urine Protein Negative Negative Urine Leukocytes 2+ Abnormal Negative Urine Blood Negative Negative Urine Nitrite Negative Negative Urine Bilirubin Negative Negative Urine Glucose Negative Negative Urine White Blood Cell Trace(0-5/hpf) Absent Urine Red Blood Cell Absent Absent Urine Bacteria 1+ Abnormal Absent Urine Squamous Epithelial Cell Present Abnormal Absent Urine Drug 09/09/2017 [facility] Amphetamine Ur None Detected None Detect SCR ED & [address] [place] [address] [phone] Barbiturates Urine Screen None Detected None Detect Benzodiazepine Urine Screen None Detected None Detect Urine Cannabinoids Screen None Detected None Detect Urine Cocaine Screen None Detected None Detect Urine Opiates Screen None Detected None Detect Urine Phencyclidine Screen None Detected None Detect 21 Urine Culture And 09/09/2017 [facility] Urine Culture SEE RESULT [address] [place] [address] [phone] CBC Auto Diff 05/20/2017 [facility] White Blood 8.7 10^3/uL N 3.5-[address] Count 0.8 [place] [address] [phone] Red Blood Count 4.98 10^6/uL N 4.0-5.4 Hemoglobin 14.5 g/dL N 12.0-16.0 Hematocrit 43 % N 35-47 Mean Corpuscular Volume 86 fL N 80-97 Mean Corpuscular Hemoglobin 29 pg N 27-31 Mean Corpuscular HGB Conc 34 g/dL N 31-36 Red Cell Distribution Width 14 % N 10.5-15 Abs Neutrophils 5.4 10^3/uL N 1.5-7.7 Abs Lymphocytes 2.5 10^3/uL N 1.0-4.8 Abs Monocytes 0.5 10^3/uL N 0-0.8 Abs Eosinophils 0.2 10^3/uL N 0-0.6 Abs Basophils 0.1 10^3/uL N 0-0.2 Abs Nucleated RBC 0.02 10^3/uL N Granulocyte % 62.4 % N 38-83 Lymphocyte % 29.1 % N 25-47 Monocyte % 5.3 % N 1-9 Eosinophil % 1.7 % N 0-6 Basophil % 1.5 % N 0-2 Nucleated Red Blood Cells % 0.3 N Platelet Count 90 10^3/uL Low 150-450 23 Comp Metabolic Panel 05/20/2017 [facility] Sodium 135 mmol/L N 133-[address] [place] [address] [phone] Chloride 99 mmol/L Low 101-111 Co2 Carbon Dioxide 30 mmol/L N 22-32 Glucose 98 mg/dL N 70-100 Blood Urea Nitrogen 21 mg/dL N 6-24 Creatinine 1.41 mg/dL High 0.51-0.95 BUN/Creatinine Ratio 14.9 N 8-20 Calcium 9.7 mg/dL N 8.6-10.3 Total Protein 7.6 g/dL N 6.4-8.9 Albumin 4.4 g/dL N 3.2-5.2 Globulin 3.2 g/dL N 2-4 Albumin/Globulin Ratio 1.4 N 1-3 Total Bilirubin 0.40 mg/dL N 0.2-1.0 Alkaline Phosphatase 123 U/L High 34-104 Alt 19 U/L N 7-52 Egfr Non- 41.3 N >60 Egfr 53.1 N >60 24 Potassium 4.4 mmol/L N 3.5-5.0 Anion Gap 6 mmol/L N 2-11 Ast 20 U/L N 13-39 Laboratory test 05/20/2017 [facility] HCG 1.18 mIU/mL N [address] [place] [address] [phone] Acetaminophen < 15 g/mL N 26 Alcohol < 10 mg/dL N <10 Salicylate < 2.50 mg/dL N <30 TSH (Thyroid Stim Horm) 4.59 mcIU/mL N 0.34-5.60 Inr/Protime 05/20/2017 [facility] Inr 0.96 N 0.89-1.[address] [place] [address] [phone] Laboratory test 05/20/2017 [facility] Pathologist (SEE N [address] Review NOTE) [place] [address] [phone] CBC Auto Diff 05/09/2017 [facility] White Blood 9.3 N 3.5- 10.[address] Count 10^3/[place] [address] [phone] Red Blood Count 4.80 10^6/uL N 4.0-5.4 Hemoglobin 13.8 g/dL N 12.0-16.0 Hematocrit 41 % N 35-47 Mean Corpuscular Volume 86 fL N 80-97 Mean Corpuscular Hemoglobin 29 pg N 27-31 Mean Corpuscular HGB Conc 34 g/dL N 31-36 Red Cell Distribution Width 14 % N 10.5-15 Platelet Count 190 10^3/uL N 150-450 Mean Platelet Volume 9 um3 N 7.4-10.4 Abs Neutrophils 6.6 10^3/uL N 1.5-7.7 Abs Lymphocytes 1.9 10^3/uL N 1.0-4.8 Abs Monocytes 0.6 10^3/uL N 0-0.8 Abs Eosinophils 0.1 10^3/uL N 0-0.6 Abs Basophils 0.1 10^3/uL N 0-0.2 Abs Nucleated RBC 0 10^3/uL N Granulocyte % 71.5 % N 38-83 Lymphocyte % 20.5 % Low 25-47 Monocyte % 5.9 % N 1-9 Eosinophil % 1.2 % N 0-6 Basophil % 0.9 % N 0-2 Nucleated Red Blood Cells % 0 N Laboratory test 05/09/2017 [facility] HCG 0.74 mIU/mL N [address] [place] [address] [phone] Comp Metabolic 05/09/2017 [facility] Sodium 138 mmol/L N 133- [address] [place] [address] [phone] Potassium 3.6 mmol/L N 3.5-5.0 Chloride 106 mmol/L N 101-111 Co2 Carbon Dioxide 29 mmol/L N 22-32 Anion Gap 3 mmol/L N 2-11 Glucose 98 mg/dL N 70-100 Blood Urea Nitrogen 9 mg/dL N 6-24 Creatinine 0.97 mg/dL High 0.51-0.95 BUN/Creatinine Ratio 9.3 N 8-20 Calcium 9.0 mg/dL N 8.6-10.3 Total Protein 6.4 g/dL N 6.4-8.9 Albumin 3.7 g/dL N 3.2-5.2 Globulin 2.7 g/dL N 2-4 Albumin/Globulin Ratio 1.4 N 1-3 Total Bilirubin 0.20 mg/dL N 0.2-1.0 Alkaline Phosphatase 98 U/L N 34-104 Alt 11 U/L N 7-52 Ast 12 U/L Low 13-39 Egfr Non- 63.6 N >60 Egfr 81.8 N >60 29 Laboratory test 05/07/2017 [facility] C Reactive 23.48 mg/L High < 5.00 [address] [place] [address] [phone] CBC Auto Diff 05/07/2017 [facility] White Blood 10.0 N 3.5- 10.[address] Count 10^3/[place] [address] [phone] Red Blood Count 4.87 10^6/uL N 4.0-5.4 Hemoglobin 14.3 g/dL N 12.0-16.0 Hematocrit 42 % N 35-47 Mean Corpuscular Volume 86 fL N 80-97 Mean Corpuscular Hemoglobin 29 pg N 27-31 Mean Corpuscular HGB Conc 34 g/dL N 31-36 Red Cell Distribution Width 14 % N 10.5-15 Platelet Count 187 10^3/uL N 150-450 Mean Platelet Volume 9 um3 N 7.4-10.4 Abs Neutrophils 7.2 10^3/uL N 1.5-7.7 Abs Lymphocytes 2.0 10^3/uL N 1.0-4.8 Abs Monocytes 0.6 10^3/uL N 0-0.8 Abs Eosinophils 0.1 10^3/uL N 0-0.6 Abs Basophils 0.1 10^3/uL N 0-0.2 Abs Nucleated RBC 0 10^3/uL N Granulocyte % 72.0 % N 38-83 Lymphocyte % 20.3 % Low 25-47 Monocyte % 6.2 % N 1-9 Eosinophil % 0.7 % N 0-6 Basophil % 0.8 % N 0-2 Nucleated Red Blood Cells % 0 N CBC No Diff 04/27/2017 [facility] White Blood 8.5 10^3/uL N 3.5-10.[address] [place] [address] [phone] Red Blood Count 4.93 10^6/uL N 4.0-5.4 Hemoglobin 14.4 g/dL N 12.0-16.0 Hematocrit 43 % N 35-47 Mean Corpuscular Volume 87 fL N 80-97 Mean Corpuscular Hemoglobin 29 pg N 27-31 Mean Corpuscular HGB Conc 34 g/dL N 31-36 Red Cell Distribution Width 14 % N 10.5-15 Platelet Count 150 10^3/uL N 150-450 Mean Platelet Volume 9 um3 N 7.4-10.4 Comp Metabolic Panel 02/06/2017 [facility] Sodium 136 mmol/L N 133-[address] [place] [address] [phone] Potassium 3.6 mmol/L N 3.5-5.0 Chloride 103 mmol/L N 101-111 Co2 Carbon Dioxide 25 mmol/L N 22-32 Anion Gap 8 mmol/L N 2-11 Glucose 116 mg/dL High 70-100 Blood Urea Nitrogen 9 mg/dL N 6-24 Creatinine 1.06 mg/dL High 0.51-0.95 BUN/Creatinine Ratio 8.5 N 8-20 Calcium 9.4 mg/dL N 8.6-10.3 Total Protein 7.1 g/dL N 6.4-8.9 Albumin 4.3 g/dL N 3.2-5.2 Globulin 2.8 g/dL N 2-4 Albumin/Globulin Ratio 1.5 N 1-3 Total Bilirubin 0.30 mg/dL N 0.2-1.0 Alkaline Phosphatase 104 U/L N 34-104 Alt 10 U/L N 7-52 Ast 11 U/L Low 13-39 Egfr Non- 57.4 N >60 Egfr 73.8 N >60 31 Urinalysis Profile 02/06/2017 [facility] Urine Color Yellow N [address] [place] [address] [phone] Urine Appearance Cloudy N Urine Specific [place] 1.005 Low 1.010-1.030 Urine pH 6.0 N 5-9 Urine Urobilinogen Negative N Negative Urine Ketones Negative N Negative Urine Protein Negative N Negative Urine Leukocytes 2+ Abnormal Negative Urine Blood Negative N Negative Urine Nitrite Negative N Negative Urine Bilirubin Negative N Negative Urine Glucose Negative N Negative Urine White Blood Cell Trace(0-5/hpf) N Absent Urine Red Blood Cell 1+(3-5/hpf) Abnormal Absent Urine Bacteria Absent N Absent Urine Squamous Epithelial Cell Present Abnormal Absent Urine Drug 02/06/2017 [facility] Amphetamine Ur None Detected N None Detect SCR ED & [address] [place] [address] [phone] Barbiturates Urine Screen None Detected N None Detect Benzodiazepine Urine Screen None Detected N None Detect Urine Cannabinoids Screen None Detected N None Detect Urine Cocaine Screen None Detected N None Detect Urine Opiates Screen None Detected N None Detect Urine Phencyclidine Screen None Detected N None Detect 32 CBC Auto Diff 02/06/2017 [facility] White Blood 6.9 10^3/uL N 3.5-10.[address] [place] [address] [phone] Red Blood Count 5.01 10^6/uL N 4.0-5.4 Hemoglobin 14.6 g/dL N 12.0-16.0 Hematocrit 44 % N 35-47 Mean Corpuscular Volume 88 fL N 80-97 Mean Corpuscular Hemoglobin 29 pg N 27-31 Mean Corpuscular HGB Conc 33 g/dL N 31-36 Red Cell Distribution Width 15 % N 10.5-15 Platelet Count 165 10^3/uL N 150-450 Mean Platelet Volume 10 um3 N 7.4-10.4 Abs Neutrophils 4.4 10^3/uL N 1.5-7.7 Abs Lymphocytes 1.9 10^3/uL N 1.0-4.8 Abs Monocytes 0.4 10^3/uL N 0-0.8 Abs Eosinophils 0.1 10^3/uL N 0-0.6 Abs Basophils 0 10^3/uL N 0-0.2 Abs Nucleated RBC 0.01 10^3/uL N Granulocyte % 63.7 % N 38-83 Lymphocyte % 28.1 % N 25-47 Monocyte % 6.2 % N 1-9 Eosinophil % 1.4 % N 0-6 Basophil % 0.6 % N 0-2 Nucleated Red Blood Cells % 0.1 N Laboratory test 02/06/2017 [facility] Acetaminophen < 15 g/mL N [address] [place] [address] [phone] Alcohol < 10 mg/dL N <10 Salicylate < 2.50 mg/dL N <30 TSH (Thyroid Stim Horm) 1.03 mcIU/mL N 0.34-5.60 Urine Culture And 02/06/2017 [facility] Urine Culture SEE RESULT [address] [place] [address] [phone] Urine Drug SCR ED 12/16/2016 [facility] Amphetamine Ur None N None & [facility] [address] [place] [address] [phone] Barbiturates Urine Screen None Detected N None Detect Benzodiazepine Urine Screen None Detected N None Detect Urine Cannabinoids Screen None Detected N None Detect Urine Cocaine Screen None Detected N None Detect Urine Opiates Screen None Detected N None Detect Urine Phencyclidine Screen None Detected N None Detect 35 Inr/Protime 12/16/2016 [facility] Inr 0.90 N 0.89-1.[address] [place] [address] [phone] Urinalysis Profile 12/16/2016 [facility] Urine Color Yellow N [address] [place] [address] [phone] Urine Appearance Cloudy N Urine Specific [place] 1.010 N 1.010-1.030 Urine pH 5.0 N 5-9 Urine Urobilinogen Negative N Negative Urine Ketones Trace Abnormal Negative Urine Protein Negative N Negative Urine Leukocytes 3+ Abnormal Negative Urine Blood Negative N Negative Urine Nitrite Negative N Negative Urine Bilirubin Negative N Negative Urine Glucose Negative N Negative Urine White Blood Cell 3+(>20/hpf) Abnormal Absent Urine Red Blood Cell 3+(>10/hpf) Abnormal Absent Urine Bacteria Absent N Absent Urine Squamous Epithelial Cell Present Abnormal Absent Laboratory test 12/16/2016 [facility] Lactic Acid 0.8 mmol/L N 0.5-2.0 [address] [place] [address] [phone] CBC Auto Diff 12/16/2016 [facility] White Blood 8.2 10^3/uL N 3.5-10.[address] [facility] ([place], [place]) [place] [address] [phone] Red Blood Count 5.19 10^6/uL N 4.0-5.4 Hemoglobin 14.6 g/dL N 12.0-16.0 Hematocrit 44 % N 35-47 Mean Corpuscular Volume 84 fL N 80-97 Mean Corpuscular Hemoglobin 28 pg N 27-31 Mean Corpuscular HGB Conc 34 g/dL N 31-36 Red Cell Distribution Width 14 % N 10.5-15 Platelet Count 148 10^3/uL Low 150-450 Mean Platelet Volume 9 um3 N 7.4-10.4 Abs Neutrophils 5.7 10^3/uL N 1.5-7.7 Abs Lymphocytes 1.8 10^3/uL N 1.0-4.8 Abs Monocytes 0.5 10^3/uL N 0-0.8 Abs Eosinophils 0.2 10^3/uL N 0-0.6 Abs Basophils 0.1 10^3/uL N 0-0.2 Abs Nucleated RBC 0.01 10^3/uL N Granulocyte % 69.0 % N 38-83 Lymphocyte % 21.4 % Low 25-47 Monocyte % 6.1 % N 1-9 Eosinophil % 2.7 % N 0-6 Basophil % 0.8 % N 0-2 Nucleated Red Blood Cells % 0.1 N Comp Metabolic Panel 12/16/2016 [facility] Sodium 136 mmol/L N 133-[address] [place] [address] [phone] Potassium 3.8 mmol/L N 3.5-5.0 Chloride 101 mmol/L N 101-111 Co2 Carbon Dioxide 29 mmol/L N 22-32 Anion Gap 6 mmol/L N 2-11 Glucose 91 mg/dL N 70-100 Blood Urea Nitrogen 10 mg/dL N 6-24 Creatinine 1.01 mg/dL High 0.51-0.95 BUN/Creatinine Ratio 9.9 N 8-20 Calcium 9.9 mg/dL N 8.6-10.3 Total Protein 7.6 g/dL N 6.4-8.9 Albumin 4.5 g/dL N 3.2-5.2 Globulin 3.1 g/dL N 2-4 Albumin/Globulin Ratio 1.5 N 1-3 Total Bilirubin 0.40 mg/dL N 0.2-1.0 Alkaline Phosphatase 133 U/L High 34-104 Alt 20 U/L N 7-52 Ast 20 U/L N 13-39 Egfr Non- 60.7 N >60 Egfr 78.1 N >60 37 Laboratory test 12/16/2016 [facility] Magnesium 1.9 mg/dL N 1.9-2.[address] [place] [address] [phone] Alcohol < 10 mg/dL N <10 Urine Culture And 12/16/2016 [facility] Urine Culture SEE RESULT [address] [place] [address] [phone] Urine Culture And 12/12/2016 [facility] Urine Culture SEE RESULT [address] [place] [address] [phone] Ua Routine 12/12/2016 [facility] Ua Specific 1.005 [place] Ua PH 8 Ua Color yellow Ua Appera cloudy Ua WBC ++ Ua Protein 30+ Ua Glucose neg Ua Ketones neg Ua Bilirubin neg Ua Urobilinogen normal Ua Nitrite neg Ua Occult Blood xlarge Urinalysis Profile 11/18/2016 [facility] Urine Color Yellow N [address] [place] [address] [phone] Urine Appearance Cloudy N Urine Specific [place] 1.014 N 1.010-1.030 Urine pH 5.0 N 5-9 Urine Urobilinogen Negative N Negative Urine Ketones Negative N Negative Urine Protein Negative N Negative Urine Leukocytes 3+ Abnormal Negative Urine Blood 2+ Abnormal Negative Urine Nitrite Negative N Negative Urine Bilirubin Negative N Negative Urine Glucose Negative N Negative Urine White Blood Cell 2+(11-20/hpf) Abnormal Absent Urine Red Blood Cell 1+(3-5/hpf) Abnormal Absent Urine Bacteria Absent N Absent Urine Squamous Epithelial Cell Present Abnormal Absent CBC Auto Diff 11/18/2016 [facility] White Blood 8.7 10^3/uL N 3.5-10.[address] [place] [address] [phone] Red Blood Count 5.05 10^6/uL N 4.0-5.4 Hemoglobin 14.4 g/dL N 12.0-16.0 Hematocrit 43 % N 35-47 Mean Corpuscular Volume 86 fL N 80-97 Mean Corpuscular Hemoglobin 29 pg N 27-31 Mean Corpuscular HGB Conc 33 g/dL N 31-36 Red Cell Distribution Width 15 % N 10.5-15 Platelet Count 149 10^3/uL Low 150-450 Mean Platelet Volume 11 um3 High 7.4-10.4 Abs Neutrophils 6.0 10^3/uL N 1.5-7.7 Abs Lymphocytes 1.9 10^3/uL N 1.0-4.8 Abs Monocytes 0.5 10^3/uL N 0-0.8 Abs Eosinophils 0.1 10^3/uL N 0-0.6 Abs Basophils 0.1 10^3/uL N 0-0.2 Abs Nucleated RBC 0.01 10^3/uL N Granulocyte % 69.2 % N 38-83 Lymphocyte % 22.5 % Low 25-47 Monocyte % 6.1 % N 1-9 Eosinophil % 1.4 % N 0-6 Basophil % 0.8 % N 0-2 Nucleated Red Blood Cells % 0.1 N Comp Metabolic Panel 11/18/2016 [facility] Sodium 137 mmol/L N 133-[address] [place] [address] [phone] Potassium 4.0 mmol/L N 3.5-5.0 Chloride 106 mmol/L N 101-111 Co2 Carbon Dioxide 26 mmol/L N 22-32 Anion Gap 5 mmol/L N 2-11 Glucose 98 mg/dL N 70-100 Blood Urea Nitrogen 10 mg/dL N 6-24 Creatinine 1.01 mg/dL High 0.51-0.95 BUN/Creatinine Ratio 9.9 N 8-20 Calcium 9.3 mg/dL N 8.6-10.3 Total Protein 6.8 g/dL N 6.4-8.9 Albumin 4.0 g/dL N 3.2-5.2 Globulin 2.8 g/dL N 2-4 Albumin/Globulin Ratio 1.4 N 1-3 Total Bilirubin 0.30 mg/dL N 0.2-1.0 Alkaline Phosphatase 101 U/L N 34-104 Alt 8 U/L N 7-52 Ast 12 U/L Low 13-39 Egfr Non- 60.7 N >60 Egfr 78.1 N >60 40 Laboratory test 11/18/2016 [facility] Acetaminophen < 15 g/mL N [address] [place] [address] [phone] Alcohol < 10 mg/dL N <10 Salicylate < 2.50 mg/dL N <30 TSH (Thyroid Stim Horm) 0.66 mcIU/mL N 0.34-5.60 Urine Drug 11/18/2016 [facility] Amphetamine Ur None Detected N None Detect SCR ED & [address] [place] [address] [phone] Barbiturates Urine Screen None Detected N None Detect Benzodiazepine Urine Screen None Detected N None Detect Urine Cannabinoids Screen None Detected N None Detect Urine Cocaine Screen None Detected N None Detect Urine Opiates Screen None Detected N None Detect Urine Phencyclidine Screen None Detected N None Detect 42 Laboratory test 11/18/2016 [facility] HCG < 0.60 N [address] mIU/[place] [address] [phone] Urine Culture And 11/18/2016 [facility] Urine Culture SEE RESULT [address] [place] [address] [phone] Laboratory test 10/18/2016 [facility] HCG 0.75 mIU/mL N [address] [place] [address] [phone] TSH (Thyroid Stim Horm) 1.05 mcIU/mL N 0.34-5.60 Comp Metabolic Panel 10/18/2016 [facility] Sodium 138 mmol/L N 133-[address] [place] [address] [phone] Potassium 4.1 mmol/L N 3.5-5.0 Chloride 103 mmol/L N 101-111 Co2 Carbon Dioxide 28 mmol/L N 22-32 Anion Gap 7 mmol/L N 2-11 Glucose 86 mg/dL N 70-100 Blood Urea Nitrogen 9 mg/dL N 6-24 Creatinine 0.98 mg/dL High 0.51-0.95 BUN/Creatinine Ratio 9.2 N 8-20 Calcium 9.4 mg/dL N 8.6-10.3 Total Protein 6.8 g/dL N 6.4-8.9 Albumin 4.3 g/dL N 3.2-5.2 Globulin 2.5 g/dL N 2-4 Albumin/Globulin Ratio 1.7 N 1-3 Total Bilirubin 0.30 mg/dL N 0.2-1.0 Alkaline Phosphatase 109 U/L High 34-104 Alt 9 U/L N 7-52 Ast 11 U/L Low 13-39 Egfr Non- 62.9 N >60 Egfr 80.8 N >60 46 FSH And LH 10/18/2016 [facility] FSH (Follicle Stim 7.6 mIU/mL N [address] Hormone) [place] [address] [phone] LH (Lutenizing Hormone) 7.8 mcIU/mL N 48 Laboratory test 10/18/2016 [facility] Test negative finding Urine Comp Metabolic 09/20/2016 [facility] Sodium 136 mmol/L N 133- [address] [place] [address] [phone] Potassium 4.1 mmol/L N 3.5-5.0 Chloride 105 mmol/L N 101-111 Co2 Carbon Dioxide 25 mmol/L N 22-32 Anion Gap 6 mmol/L N 2-11 Glucose 106 mg/dL High 70-100 Blood Urea Nitrogen 15 mg/dL N 6-24 Creatinine 0.94 mg/dL N 0.51-0.95 BUN/Creatinine Ratio 16.0 N 8-20 Calcium 9.5 mg/dL N 8.6-10.3 Total Protein 6.9 g/dL N 6.4-8.9 Albumin 4.0 g/dL N 3.2-5.2 Globulin 2.9 g/dL N 2-4 Albumin/Globulin Ratio 1.4 N 1-3 Total Bilirubin 0.30 mg/dL N 0.2-1.0 Alkaline Phosphatase 93 U/L N 34-104 Alt 9 U/L N 7-52 Ast 14 U/L N 13-39 Egfr Non- 66.0 N >60 Egfr 84.8 N >60 49 Laboratory test 09/20/2016 [facility] Magnesium 2.1 mg/dL N 1.9-2.[address] [place] [address] [phone] Alcohol < 10 mg/dL N <10 Laboratory test 09/20/2016 [facility] Lactic Acid 0.5 mmol/L N 0.5-2.0 [address] [place] [address] [phone] CBC Auto Diff 09/20/2016 [facility] White Blood 6.2 10^3/uL N 3.5-10.[address] [place] [address] [phone] Red Blood Count 5.18 10^6/uL N 4.0-5.4 Hemoglobin 14.9 g/dL N 12.0-16.0 Hematocrit 44 % N 35-47 Mean Corpuscular Volume 85 fL N 80-97 Mean Corpuscular Hemoglobin 29 pg N 27-31 Mean Corpuscular HGB Conc 34 g/dL N 31-36 Red Cell Distribution Width 14 % N 10.5-15 Platelet Count 162 10^3/uL N 150-450 Mean Platelet Volume 10 um3 N 7.4-10.4 Abs Neutrophils 3.8 10^3/uL N 1.5-7.7 Abs Lymphocytes 1.9 10^3/uL N 1.0-4.8 Abs Monocytes 0.4 10^3/uL N 0-0.8 Abs Eosinophils 0.1 10^3/uL N 0-0.6 Abs Basophils 0.1 10^3/uL N 0-0.2 Abs Nucleated RBC 0 10^3/uL N Granulocyte % 60.7 % N 38-83 Lymphocyte % 29.9 % N 25-47 Monocyte % 6.4 % N 1-9 Eosinophil % 2.0 % N 0-6 Basophil % 1.0 % N 0-2 Nucleated Red Blood Cells % 0.1 N Inr/Protime 09/20/2016 [facility] Inr 0.92 N 0.89-1.[address] [place] [address] [phone] CBC Auto Diff 08/04/2016 [facility] White Blood 8.3 10^3/uL N 3.5-10.[address] [place] [address] [phone] Red Blood Count 4.86 10^6/uL N 4.0-5.4 Hemoglobin 13.8 g/dL N 12.0-16.0 Hematocrit 41 % N 35-47 Mean Corpuscular Volume 85 fL N 80-97 Mean Corpuscular Hemoglobin 29 pg N 27-31 Mean Corpuscular HGB Conc 34 g/dL N 31-36 Red Cell Distribution Width 14 % N 10.5-15 Platelet Count 130 10^3/uL Low 150-450 Mean Platelet Volume 10 um3 N 7.4-10.4 Abs Neutrophils 5.7 10^3/uL N 1.5-7.7 Abs Lymphocytes 1.8 10^3/uL N 1.0-4.8 Abs Monocytes 0.6 10^3/uL N 0-0.8 Abs Eosinophils 0.2 10^3/uL N 0-0.6 Abs Basophils 0.1 10^3/uL N 0-0.2 Abs Nucleated RBC 0.01 10^3/uL N Granulocyte % 68.7 % N 38-83 Lymphocyte % 21.7 % Low 25-47 Monocyte % 6.8 % N 1-9 Eosinophil % 2.1 % N 0-6 Basophil % 0.7 % N 0-2 Nucleated Red Blood Cells % 0.1 N Comp Metabolic Panel 08/04/2016 [facility] Sodium 137 mmol/L N 133-[address] [place] [address] [phone] Potassium 3.8 mmol/L N 3.5-5.0 Chloride 108 mmol/L N 101-111 Co2 Carbon Dioxide 24 mmol/L N 22-32 Anion Gap 5 mmol/L N 2-11 Glucose 110 mg/dL High 70-100 Blood Urea Nitrogen 14 mg/dL N 6-24 Creatinine 0.90 mg/dL N 0.51-0.95 BUN/Creatinine Ratio 15.6 N 8-20 Calcium 9.0 mg/dL N 8.6-10.3 Total Protein 6.2 g/dL Low 6.4-8.9 Albumin 3.6 g/dL N 3.2-5.2 Globulin 2.6 g/dL N 2-4 Albumin/Globulin Ratio 1.4 N 1-3 Total Bilirubin 0.30 mg/dL N 0.2-1.0 Alkaline Phosphatase 89 U/L N 34-104 Alt 15 U/L N 7-52 Ast 16 U/L N 13-39 Egfr Non- 69.7 N >60 Egfr 89.6 N >60 51 Laboratory test 08/04/2016 [facility] HCG < 0.60 mIU/ mL N [address] [place] [address] [phone] Acetaminophen < 15 g/mL N 53 Alcohol < 10 mg/dL N <10 Salicylate < 2.50 mg/dL N <30 TSH (Thyroid Stim Horm) 0.80 mcIU/mL N 0.34-5.60 Ua Routine 06/20/2016 [facility] Ua Specific [place] 1.015 Ua PH 6 Ua Color yellow Ua Appera cloudy Ua WBC + Ua Protein neg Ua Glucose neg Ua Ketones neg Ua Bilirubin neg Ua Urobilinogen normal Ua Nitrite neg Ua Occult Blood neg Laboratory test 06/20/2016 [facility] Gardnerella/Yeast: SEE RESULT [address] [place] [address] [phone] Urine Culture And 03/22/2016 [facility] Urine Culture SEE RESULT [address] [place] [address] [phone] Ua Routine 03/22/2016 [facility] House Ua Specific [place] 1.020 Ua PH 5 Ua Color yellow [...] Name: ALPA MYERS : [address]: Sandoval Castro MD Acct: [id number] Unit: [id number] AGE: 43 Location: ED Re10/01/18 SEX: F Status: DEP ER SPEC: [id number] YUMIKO: 10/01/18 [facility] DR: Esther Martinez MD REQ: [id number] RECD: 10/01/18 STATUS: ANNIE FRY DR: Astrid Gonzalez MD _ SOURCE: URINE SPDESC: ORDERED: Urine Culture Procedure Result Reported Site Urine Culture Final 10/03/18- 0848 ML No growth of clinically significant organisms * ML - Main Lab . END OF REPORT DEPARTMENT OF PATHOLOGY, [address] [place] [address] Yvan Obrien M.D. Director [facility] # [id number] 6 Because ethnic data is not always readily [...] 15-29 5 Kidney failure <15 (or dialysis) 7 Please note: The following may produce a false positive D Dimer test: - Rheumatoid factor greater than 60 IU/ml - Plasma hemoglobin greater than 0.05 gm/dl - Bilirubin greater than 50 mg/dl - Lipids greater than 1000 mg/dl - FDP greater than 20 ug/ml 8 Because ethnic data is not always [...] 9 SEE RESULT BELOW Name: ALPA MYERS DOB: [address]: Leonor Wong MD Acct: [id number] Unit: [id number] AGE: 42 Location: [facility] Re03/07/18 SEX: F Status: ADM IN SPEC: [id number] YUMIKO: 03/06/[address] [facility] [address]: Sandoval Rinaldi MD REQ: [id number] RECD: 03/06/18 STATUS: COMP OTHR DR: Astrid Gonzalez MD _ SOURCE: URINE SPDESC: ORDERED: Urine Culture Procedure Result Reported Site Urine Culture Final 03/07/18- 1356 ML No growth of clinically significant organisms * ML - Main Lab . END OF REPORT DEPARTMENT OF PATHOLOGY, [address] [place] [address] Yvan Obrien M.D. Director [facility] # [id number] 10 <5.0 Negative 5.0 - 25.0 Indeterminate (Repeat testing recommended after 72 hours) >25.0 Positive Perimenopausal women can display HCG levels of up to 20 mIU/mL 11 Because ethnic data is not always [...] [address]: Alissa Bob NP Acct: [id number] Unit: [id number] AGE: 42 Location: [facility] Re01/16/18 SEX: F Status: REG REF SPEC: [id number] YUMIKO: 01/16/18-[address]: Alissa Bob NP REQ: [id number] RECD: 01/16/18 STATUS: COMP _ SOURCE: URINE SPDESC: ORDERED: Urine Culture COMMENTS: [id number] Procedure Result Reported Site Urine Culture Final 01/18/18- 0810 ML Organism 1 ESCHERICHIA COLI [place] Count >100,000 (Many) CFU/ML 1. ESCHERICHIA COLI [...] . END OF REPORT DEPARTMENT OF PATHOLOGY, [address] [place] [address] Yvan Obrien M.D. Director [facility] # [id number] 15 The urine specimen was tested at the listed cutoffs: Drug class test level (ng/mL) Amphetamines 500 Barbiturates 200 Benzodiazepine metabolites 200 Cocaine metabolites 150 Cannabinoids 50 Opiates 300 Pcp 25 Specimen was received without chain of custody. Results should be used for medical purposes only. 16 SEE RESULT BELOW Name: LOUISKATHRIN WALDENLENE : [address]: Jelly Martinez MD Acct: [id number] Unit: [id number] AGE: 42 Location: ED Re11/17/17 SEX: F Status: DEP ER SPEC: [id number] YUMIKO: 11/17/[address]: Esther Martinez MD REQ: [id number] RECD: 11/17/17 STATUS: ANNIE FRY DR: Astrid Gonzalez MD _ SOURCE: URINE SPDESC: ORDERED: Urine Culture Procedure Result Reported Site Urine Culture Final 11/18/17- 1648 ML No growth of clinically significant organisms * ML - Main Lab . END OF REPORT DEPARTMENT OF PATHOLOGY, [address] [place] [address] Yvan Obrien M.D. Director [facility] # [id number] 17 Because ethnic data is not always readily [...] 15-29 5 Kidney failure <15 (or dialysis) 18 Therapeutic concentration: <50 ug/mL Toxic concentration: >120 ug/mL 19 Because ethnic data is not always readily [...] 15-29 5 Kidney failure <15 (or dialysis) 20 Therapeutic concentration: <50 ug/mL Toxic concentration: >120 ug/mL 21 The urine specimen was tested at the listed cutoffs: Drug class test level (ng/mL) Amphetamines 500 Barbiturates 200 Benzodiazepine metabolites 200 Cocaine metabolites 150 Cannabinoids 50 Opiates 300 Pcp 25 Specimen was received without chain of custody. Results should be used for medical purposes only. 22 SEE RESULT BELOW Name: ALPA MYERS : [address]: Messi Henson MD Acct: [id number] Unit: [id number] AGE: 42 Location: [facility] Re09/09/17 SEX: F Status: ADM IN SPEC: [id number] YUMIKO: 09/09/17-[address] [facility] [address]: Supa Fermin MD REQ: [id number] RECD: 09/09/17 STATUS: ANNIE FRY DR: Astrid Gonzalez MD _ SOURCE: URINE SPDESC: ORDERED: Urine Culture Procedure Result Reported Site Urine Culture Final 09/11/17- 1012 ML No growth of clinically significant organisms * ML - MAIN LAB ([facility]) . END OF REPORT * ML=Testing performed at Main Lab DEPARTMENT OF PATHOLOGY, [address] [place] [address] Yvan Obrien M.D. Director [facility] # [id number] 23 Platelet count confirmed by smear estimate. 24 Because ethnic data is not always readily [...] 15-29 5 Kidney failure <15 (or dialysis) 25 <5.0 Negative 5.0 - 25.0 Indeterminate (Repeat testing recommended after 72 hours) >25.0 Positive Perimenopausal women can display HCG levels of up to 20 mIU/mL 26 Therapeutic concentration: <50 ug/mL Toxic concentration: >120 ug/mL 27 Thrombocytopenia noted on CBC though scattered platelet clumps are noted. This may alter platelet counts. No schistocytes or blasts are seen. Recommend repeat CBC as clinically warranted. Reviewed by Dr. Obrien 28 <5.0 Negative 5.0 - 25.0 Indeterminate (Repeat testing recommended after 72 hours) >25.0 Positive Perimenopausal women can display HCG levels of up to 20 mIU/mL 29 Because ethnic data is not always readily [...] 15-29 5 Kidney failure <15 (or dialysis) 30 Acute inflammation: >10.00 31 Because ethnic data is not always readily [...] 15-29 5 Kidney failure <15 (or dialysis) 32 The urine specimen was tested at the listed cutoffs: Drug class test level (ng/mL) Amphetamines 500 Barbiturates 200 Benzodiazepine metabolites 200 Cocaine metabolites 150 Cannabinoids 50 Opiates 300 Pcp 25 Specimen was received without chain of custody. Results should be used for medical purposes only. 33 Therapeutic concentration: <50 ug/mL Toxic concentration: >120 ug/mL 34 SEE RESULT BELOW Name: ALPA MYERS : [address]: Hector Hercules DO Acct: [id number] Unit: [id number] AGE: 41 Location: ED Re02/06/17 SEX: F Status: DEP ER SPEC: [id number] YUMIKO: 02/06/[address]: Hector Hercules DO REQ: [id number] RECD: 02/06/17 STATUS: ANNIE FRY DR: Astrid Gonzalez MD _ SOURCE: URINE SPDESC: ORDERED: Urine Culture Procedure Result Reported Site Urine Culture Final 02/07/17- 1300 ML No growth of clinically significant organisms * ML - MAIN LAB ([facility]) . END OF REPORT * ML=Testing performed at Main Lab DEPARTMENT OF PATHOLOGY, [address] [place] [address] Yvan Orbien M.D. Director [facility] # [id number] 35 The urine specimen was tested at the listed cutoffs: Drug class test level (ng/mL) Amphetamines 500 Barbiturates 200 Benzodiazepine metabolites 200 Cocaine metabolites 150 Cannabinoids 50 Opiates 300 Pcp 25 Specimen was received without chain of custody. Results should be used for medical purposes only. 36 [facility] Severe Sepsis and Septic Shock Management Bundle Measure requires all lactic acids initially measuring >2.0 mmol/L be repeated. 37 Because ethnic data is not always readily [...] 15-29 5 Kidney failure <15 (or dialysis) 38 SEE RESULT BELOW Name: ALPA MYERS : [address]: Trev Salinas MD Acct: [id number] Unit: [id number] AGE: 41 Location: ED Re12/16/16 SEX: F Status: DEP ER SPEC: [id number] YUMIKO: 12/16/[address]: Supa Fermin MD REQ: [id number] RECD: 12/16/16 STATUS: ANNIE FRY DR: Astrid Gonzalez MD _ SOURCE: URINE SPDESC: ORDERED: Urine Culture Procedure Result Reported Site Urine Culture Final 12/17/16- 1609 ML No Growth (<1,000 CFU/mL) * ML - MAIN LAB ([facility]) . END OF REPORT * ML=Testing performed at Main Lab DEPARTMENT OF PATHOLOGY, [address] [place] [address] Yvan Obrien M.D. Director [facility] # [id number] 39 SEE RESULT BELOW Name: ALPA MYERS : [address]: Astrid Gonzalez MD Acct: [id number] Unit: [id number] AGE: 41 Location: [facility] Re12/12/16 SEX: F Status: REG REF SPEC: [id number] YUMIKO: 12/12/16-[address] [facility] [address]: Astrid Gonzalez MD REQ: [id number] RECD: 12/12/16 STATUS: COMP _ SOURCE: URINE SPDESC: ORDERED: Urine Culture COMMENTS: [id number] Urine Source: Random Procedure Result Reported Site Urine Culture Final 12/14/16- 1234 ML No growth of clinically significant organisms * ML - MAIN LAB ([facility]) . END OF REPORT * ML=Testing performed at Main Lab DEPARTMENT OF PATHOLOGY, [address] [place] [address] Yvan Obrien M.D. Director [facility] # [id number] 40 Because ethnic data is not always readily [...] 15-29 5 Kidney failure <15 (or dialysis) 41 Therapeutic concentration: <50 ug/mL Toxic concentration: >120 ug/mL 42 The urine specimen was tested at the listed cutoffs: Drug class test level (ng/mL) Amphetamines 500 Barbiturates 200 Benzodiazepine metabolites 200 Cocaine metabolites 150 Cannabinoids 50 Opiates 300 Pcp 25 Specimen was received without chain of custody. Results should be used for medical purposes only. 43 <5.0 Negative 5.0 - 25.0 Indeterminate (Repeat testing recommended after 72 hours) >25.0 Positive Perimenopausal women can display HCG levels of up to 20 mIU/mL 44 SEE RESULT BELOW Name: ALPA MYERS : [address]: Juan Nava MD Acct: [id number] Unit: [id number] AGE: 41 Location: [facility] Re11/18/16 SEX: F Status: ADM IN SPEC: [id number] YUMIKO: 11/18/16-[address] [facility] [address]: Sandoval Rinaldi MD REQ: [id number] RECD: 11/18/161557 STATUS: ANNIE FRY DR: Camilo Osman MD _ SOURCE: URINE SPDESC: ORDERED: Urine Culture Procedure Result Reported Site Urine Culture Final 11/20/16- 0909 ML No growth of clinically significant organisms * ML - [facility]) . END OF REPORT * ML=Testing performed at Main Lab DEPARTMENT OF PATHOLOGY, [address] [place] [address] Yvan Obrien M.D. Director [facility] # [id number] 45 <5.0 Negative 5.0 - 25.0 Indeterminate (Repeat testing recommended after 72 hours) >25.0 Positive Perimenopausal women can display HCG levels of up to 20 mIU/mL 46 Because ethnic data is not always [...] 5 Kidney failure <15 (or dialysis) 47 Normally menstruating females - Follicular phase 3 - 9 - Mid-cycle peak 4 - 23 - Luteal phase 1 - 6 Postmenopausal females 16 - 114 48 Normally menstruating females - Follicular Phase 1 - 18 - Mid-Cycle Peak 24 - 105 - Luteal Phase 0.6 - 20 Postmenopausal females 15 - 62 49 Because ethnic data is not always readily [...] 15-29 5 Kidney failure <15 (or dialysis) 50 [facility] Severe Sepsis and Septic Shock Management Bundle Measure requires all lactic acids initially measuring >2.0 mmol/L be repeated. 51 Because ethnic data is not always readily [...] 15-29 5 Kidney failure <15 (or dialysis) 52 <5.0 Negative 5.0 - 25.0 Indeterminate (Repeat testing recommended after 72 hours) >25.0 Positive Perimenopausal women can display HCG levels of up to 20 mIU/mL 53 Therapeutic concentration: <50 ug/mL Toxic concentration: >120 ug/mL 54 SEE RESULT BELOW Name: LOUISALPA : [address]: Astrid Gonzalez MD Acct: [id number] Unit: [id number] AGE: 40 Location: [facility] Re06/20/16 SEX: F Status: REG REF SPEC: [id number] YUMIKO: 06/20/[address] [facility] [address]: Astrid Gonzalez MD REQ: [id number] RECD: 06/20/16 STATUS: COMP _ SOURCE: VAGINAL SPDESC: ORDERED: Denise,Yeast DNA, Trich DNA COMMENTS: [id number] Procedure Result Reported Site Gardnerella/Yeast: Vaginal DNA [...] performed at Main Lab DEPARTMENT OF PATHOLOGY, [address] [place] [address] Yvan Obrien M.D. Director [facility] # [id number] Patient: ALPA MYERS [id number] (Continued) Specimen: [id number] Collected: 06/20/16 Received: 06/20/16 (Continued) Procedure Result Reported Site Trichomonas: Vaginal DNA Probe Final (continued) 06/21/16 124 The presence or absence of T. vaginalis cannot be used as a test for therapeutic success or failure. * ML - [facility]) . END OF REPORT * ML=Testing performed at Main Lab DEPARTMENT OF PATHOLOGY, [address] [place] [address] Yvan Obrien M.D. Director [facility] # [id number] 55 SEE RESULT BELOW Name: ALPA MYERS Anders : [address]: Alissa Bob NP Acct: [id number] Unit: [id number] AGE: 40 Location: [facility] Re03/22/16 SEX: F Status: REG REF SPEC: [id number] YUMIKO: 03/22/16-[address] [facility] [address]: Alissa Bob NP REQ: [id number] RECD: 03/23/16-1035 STATUS: COMP _ SOURCE: URINE SPDESC: ORDERED: Urine Culture COMMENTS: [id number] Procedure Result Reported Site Urine Culture Final 03/24/16- 1301 ML No Growth (<1,000 CFU/mL) * ML - MAIN LAB ([facility]) . END OF REPORT * ML=Testing performed at Main Lab DEPARTMENT OF PATHOLOGY, [address] [place] [address] Yvan Obrien M.D. Director [facility] # [id number] Procedures Date Code Description Status 03/31/2017 34954458 Mammogram Completed 02/06/2017 14553 Diffusing Capacity Completed 02/06/2017 23477 Plethysmography Determination Lung Volumes & Per Airway Completed Resist 02/06/2017 49482 Pulmonary Function><Bronchodil Completed 04/08/2016 36579 EEG Monitoring & Video Recording Completed 01/28/2016 41243 EEG Recording Awake & Drowsy Completed Encounters Type Date Location Provider Dx Diagnosis Office Visit 10/26/2018 [facility] Internal Page Dumont MD J45.901 Unspecified asthma 4:00p Medicine with (acute) exacerbation Office Visit 10/09/2018 Isaura Gonzalez, R05 Cough 11:50a Shira Fernandes F17.210 Nicotine dependence, cigarettes, uncomplicated J06.9 Acute upper respiratory infection, unspecified Office Visit 10/03/2018 1:20p Isaura Resendiz F32.89 Other specified Shira Gonzalez M.D. depressive [place] episodes J06.9 Acute upper respiratory infection, unspecified Office Visit 08/21/2018 2:00p Isaura Resendiz S23.3xxD Sprain of Shira Gonzalez M.D. ligaments of [place] thoracic spine, subsequent encounter Office Visit 07/02/2018 9:50a Isaura Resendiz S23.3xxA Sprain of Shira Gonzalez M.D. ligaments of [place] thoracic spine, initial encounter S23.3xxA Sprain of ligaments of thoracic spine, initial encounter Office Visit 06/05/2018 10:30a Isaura Resendiz J45.41 Moderate Shira Gonzalez M.D. persistent asthma [place] with (acute) exacerbation J40 Bronchitis, not specified as acute or chronic F17.210 Nicotine dependence, cigarettes, uncomplicated Office Visit 05/01/2018 8:50a [facility] Internal Astrid J45.41 Moderate Shira Gonzalez M.D. persistent asthma [place] with (acute) exacerbation Office Visit 04/23/2018 9:10a [facility] Internal Astrid J44.1 Chronic Shira Gonzalez M.D. obstructive [place] pulmonary disease w (acute) exacerbation F17.210 Nicotine dependence, cigarettes, uncomplicated J06.9 Acute upper respiratory infection, unspecified Office Visit 01/16/2018 3:40p [facility] Internal Alissa Bob, N39.0 Urinary tract Medicine N.P. infection, site not specified Office Visit 11/28/2017 10:50a [facility] Internal Astrid Gonzalez, F44.5 Conversion Medicine Flex Burris disorder with [place] seizures or convulsions N91.1 Secondary amenorrhea F17.210 Nicotine dependence, cigarettes, uncomplicated Office Visit 10/31/2017 4:20p [facility] Internal Medicine Lissy Suarez M.D. R05 Cough J45.41 Moderate persistent asthma with (acute) exacerbation G40.89 Other seizures Office Visit 2017 10:30a [facility] Internal Astrid J01.90 Acute sinusitis , Shira Gonzalez M.D. unspecified [place] F44.5 Conversion disorder with seizures or convulsions J44.1 Chronic obstructive pulmonary disease w (acute) exacerbation Office Visit 06/19/2017 10:30a [facility] Internal Astrid Gonzalez M54.5 Low back pain Medicine - MSafia [place] G47.00 Insomnia, unspecified Office Visit 06/05/2017 [facility] Internal Camilo M54.5 Low back pain 3:00p Shira Osman M.D. Rd Office Visit 05/22/2017 [facility] Crispin N17.9 Acute kidney 7:07a Assoc,luz maria Camacho, failure, Hospitalists [place] unspecified D69.6 Thrombocytopenia, unspecified R45.851 Suicidal ideations F32.9 Major depressive disorder, single episode, unspecified Office Visit 05/21/2017 [facility] Sana Bo N17.9 Acute kidney 7:03a Assoc,luz maria Angulo, CASTING ASSOCIATE failure, Hospitalists unspecified D69.6 Thrombocytopenia, unspecified R45.851 Suicidal ideations F32.9 Major depressive disorder, single episode, unspecified Office Visit 04/07/2017 11:10a [facility] Dermatology Freddie Smith, D22.62 Melanocytic nevi MD of left upper limb, including shoulder D22.5 Melanocytic nevi of trunk B36.0 Pityriasis versicolor Office Visit 03/29/2017 11:10a [facility] Internal Astrid Gonzalez, Z00.00 Encntr for Medicine - [place] general adult [place] medical exam w/o abnormal findings Z12.83 Encounter for screening for malignant neoplasm of skin F51.04 Psychophysiologic insomnia K21.9 Gastro-esophageal reflux disease without esophagitis Z13.1 Encounter for screening for diabetes mellitus Z12.31 Encntr screen mammogram for malignant neoplasm of breast Z23 Encounter for immunization Z13.220 Encounter for screening for lipoid disorders F17.210 Nicotine dependence, cigarettes, uncomplicated Office Visit 03/13/2017 11:50a [facility] Internal Astrid F17.210 Nicotine Medicine Flex Gonzalez M.D. dependence, [place] cigarettes, uncomplicated J40 Bronchitis, not specified as acute or chronic F43.22 Adjustment disorder with anxiety Office Visit 01/18/2017 2:40p [facility] Internal Astrid Gonzalez, J40 Bronchitis , not Medicine - [place] specified as acute [place] or chronic F17.210 Nicotine dependence, cigarettes, uncomplicated K21.9 Gastro-esophageal reflux disease without esophagitis Office Visit 12/12/2016 11:50a [facility] Internal Medicine Astrid Gonzalez, R30.0 Dysuria - Dom Burris N30.01 Acute cystitis with hematuria Office Visit 10/18/2016 1:40p [facility] Internal Astrid N91.1 Secondary Medicine Flex Gonzalez M.D. amenorrhea Dom R11.2 Nausea with vomiting, unspecified Office Visit 07/05/2016 2:40p [facility] Internal Timothy Caro J06.9 Acute upper Medicine Flex Beck M.D. respiratory Dom infection, unspecified Office Visit 06/20/2016 1:00p [facility] Internal Astrid B37.3 Candidiasis of Medicine Flex Gonzalez M.D. vulva and vagina [place] N89.8 Other specified noninflammatory disorders of vagina R35.1 Nocturia Office Visit 05/18/2016 4:20p [facility] Internal Wilbert Carlos, BETSY J06.9 Acute upper Medicine respiratory infection, unspecified Office Visit 05/02/2016 11:20a [facility] Internal Alissa Bob, M54.5 Low back pain Medicine N.P. F17.210 Nicotine dependence, cigarettes, uncomplicated J45.901 Unspecified asthma with (acute) exacerbation M46.1 Sacroiliitis, not elsewhere classified Office Visit 04/09/2016 [facility] Rosie Wilson, F44.5 Conversion 2:39p Clinic MD disorder with seizures or convulsions Office Visit 04/08/2016 [facility] Rosie Wilson F44.5 Conversion 2:38p Clinic MD disorder with seizures or convulsions Office Visit 03/22/2016 [facility] Internal Medicine Alissa N39.0 Urinary tract 3:00p Varn, N.P. infection, site not specified Office Visit 02/22/2016 [facility] Rosie Wilson, R56.9 Unspecified 1:00p [facility] convulsions Office Visit 02/04/2016 [facility] Internal Medicine Camilo B35.3 Tinea pedis 1:20p - [place] Nahun Osman M.D. F17.210 Nicotine dependence, cigarettes, uncomplicated K21.9 Gastro-esophageal reflux disease without esophagitis Office Visit 09/15/2015 [facility] Aric Mancia R10.84 Generalized 3:14p Assoc,pc Fatuma TOBIAS abdominal pain Hospitalists Office Visit 09/14/2015 [facility] Demian [place], R10.84 Generalized 3:13p Assoc,pc N.P. abdominal pain Hospitalists E78.5 Hyperlipidemia, unspecified F41.9 Anxiety disorder, unspecified F32.9 Major depressive disorder, single episode, unspecified Plan of Treatment Future Appointment(s):11/27/2018 11:50 am - Astrid Gonzalez M.D. at [facility] Internal Qwlhhyty52/29/2019 - Page Dumont, MDM54.5 Low back painReferral:Pain Clinic, Pain/Clinic/CTR
--- OUTSIDE RECORDS SUMMARY | 2018-11-29 19:33 | XMS REPORT | Continuity of Care Document ---
:1975 External Reference #:[id number] Author Name Sunni Castellon Care Team Providers Name Role Phone Astrid Gonzalez MD Primary Care Physician Unavailable Payers Date Identification Numbers Payment Provider Subscriber Policy Number: [id number] Ari Myers Group Number: [id number] [address] PayID: [id number] [place] [address] Effective: 2018 Policy Number: [id number] [place] Jevon Myers Onset: 2018 PayID: [id number] [address] [place] [address] Advance Directives Type Date Description Status Comment [...] Use Denies Drug Use Smoking Status Reviewed: 10/26/18 Patient is a current started at age 16 smoker, smokes every day smoking 1-5 cigs. a day Allergies, Adverse Reactions, Alerts Active Allergies Reaction Severity Comments Date Ritalin Severe profuse sweating and 02/04/2016 poundign chest Prednisone exacerbates mental illness 02/22/2016 Levaquin 02/22/2016 Grapefruit 06/20/2016 Medications Active Medications SIG Qnty Indications Ordering Date Provider Azithromycin take 2 tablets 6tabs J45.901 Page Dumont, 10/26/2018 250mg Tablets today; then one MD tablet daily Methylprednisolone take as 21units J45.901 Page Dumont, 10/26/2018 4mg TBPK instructed on the tyron Nicorette as needed for 72units F17.210 Astrid 10/09/2018 2mg Lozenges cravings not to Fatuma Gonzalez exceed 5 a day Naproxen 1 by mouth twice 30tabs M54.5 Timothy ESaw 08/21/2018 500mg Tablets a day as needed Fatuma Beck pain Cyclobenzaprine HCL 10/26/18 reports 14tabs S23.3xxA Timothy ESaw 07/02/2018 10mg not taking 1 Fatuma Beck Tablets tablet by mouth [id number] as needed muscle spasms Albuterol Sulfate four times a day 1125ml J01.90 Astrid 06/05/2018 (2.5mg/3ML) as needed Fatuma Gonzalez 0.083% Nebulizer Nebulizer nebulizer 1units Astrid 11/03/2017 [facility] supplies, tubing Fatuma Gonzalez etc Advair HFA [...] 36gm J01.90 Astrid Gonzalez, 01/18/2017 - hours M.D. 03/13/2017 115-21mcg/Act Aerosol Eq Nicotine as needed [...] 2tabs B37.9 Astrid Gonzalez, 06/20/2016 - 150mg M.DSaw 06/23/2016 Tablets Advair Diskus inhale 1 dose [...] Tablets Clotrimazole apply twice daily 45gm B35.3 Camilo 02/04/2016 - 1% Cream both feet after [...] CPT Code Status Date Vaccine Lot # [id number] Given 03/29/2017 Tdap - Tetanus/Diptheria/Acellular Pertussis [id number] Given 03/29/2017 Influenza Virus Vaccine, Quadrivalent, Split, [id number] Preservative Free [id number] Refused 06/20/2016 Influenza Virus Vaccine, Quadrivalent, Split, Preservative Free Vital Signs Date Vital Result Comment 10/26/2018 3:59pm Height 64.5 inches 5'4.50" Weight [...] H/L Range Note CBC Auto Diff 10/01/2018 [facility] White Blood 8.3 10^3/uL N 3.5-10.[address] [place] [address] [phone] Red Blood Count 4.94 10^6/uL N 4.00-5.40 [...] Blood Cells % 0 Urinalysis Profile 10/01/2018 [facility] Urine Color Yellow [address] [place] [address] [phone] Urine Appearance Cloudy Urine Specific [place] 1.009 Low 1.010-1.030 Urine pH 7.0 N [...] Cell Present Abnormal Absent Laboratory test 10/01/2018 [facility] HCG 0.72 mIU/mL 1 finding [address] [place] [address] [phone] Comp Metabolic 10/01/2018 [facility] Sodium 139 mmol/L N 135- [address] [place] [address] [phone] Potassium 4.1 mmol/L N 3.5-5.0 Chloride 107 [...] Egfr 83.1 >60 2 Laboratory test 10/01/2018 [facility] TSH (Thyroid 1.99 mcIU/mL N 0.34-5.[address] Stim Horm) [place] [address] [phone] Acetaminophen < 15 g/mL 3 Alcohol < 10 mg/dL N <10 Salicylate < 2.50 mg/dL <30 Urine Drug 10/01/2018 [facility] Amphetamine Ur None Detected None Detect SCR ED & [address] [place] [address] [phone] Barbiturates Urine Screen None Detected None Detect Benzodiazepine Urine Screen None Detected None Detect Urine Cannabinoids Screen None Detected None Detect Urine Cocaine Screen None Detected None Detect Urine Opiates Screen None Detected None Detect Urine Phencyclidine Screen None Detected None Detect 4 Urine Culture And 10/01/2018 [facility] Urine SEE RESULT [address] [place] [address] [phone] CBC Auto Diff 05/03/2018 [facility] White Blood 12.9 High 3.5- [address] Count 10^3/uL 0.8 [place] [address] [phone] Red Blood Count 5.03 10^6/uL N 4.00-5.40 [...] Cells % 0.1 Comp Metabolic Panel 05/03/2018 [facility] Sodium 138 mmol/L N 135-[address] [place] [address] [phone] Potassium 3.7 mmol/L N 3.5-5.0 Chloride 105 [...] Egfr 66.2 >60 6 Laboratory test 05/03/2018 [facility] C Reactive 2.00 mg/L N < 8.[address] [place] [address] [phone] CBC No Diff 05/02/2018 [facility] White Blood 10.7 N 3.5-10.[address] Count 10^3/[place] [address] [phone] Red Blood Count 5.14 10^6/uL N 4.00-5.40 Hemoglobin 15.0 g/dL N 12.0-16.0 Hematocrit 44 % N 35-47 Mean Corpuscular Volume 86 fL N 80-97 Mean Corpuscular Hemoglobin 29 pg N 27-31 Mean Corpuscular HGB Conc 34 g/dL N 31-36 Red Cell Distribution Width 15 % N 10.5-15 Platelet Count 164 10^3/uL N 150-450 Mean Platelet Volume 9.6 um3 N 7.4-10.4 Laboratory test 05/02/2018 [facility] D Dimer < 200 N Less Than [address] Quantitative ng/mL 230 [place] [address] [phone] Comp Metabolic 05/02/2018 [facility] Sodium 139 mmol/L N 135- [address] [place] [address] [phone] Potassium 4.2 mmol/L N 3.5-5.0 Chloride 106 [...] Egfr 57.7 >60 8 Laboratory test 05/02/2018 [facility] Troponin-I 0.00 ng/mL < 0.[address] (TnI) [place] [address] [phone] CBC Auto Diff 03/06/2018 [facility] White Blood 7.7 N 3.5- 10.[address] Count 10^3/[place] [address] [phone] Red Blood Count 5.15 10^6/uL N 4.00-5.40 [...] Blood Cells % 0 Urinalysis Profile 03/06/2018 [facility] Urine Color Yellow [address] [place] [address] [phone] Urine Appearance Cloudy Urine Specific [place] 1.013 N 1.010-1.030 Urine pH 7.0 N [...] Present Abnormal Absent Urine Culture And 03/06/2018 [facility] Urine Culture SEE RESULT [address] [place] [address] [phone] Laboratory test 03/06/2018 [facility] HCG < 0.60 [address] mIU/[place] [address] [phone] Comp Metabolic 03/06/2018 [facility] Sodium 140 mmol/L N 135- [address] [place] [address] [phone] Potassium 4.1 mmol/L N 3.5-5.0 Chloride 107 [...] Egfr 72.3 >60 11 Laboratory test 03/06/2018 [facility] Acetaminophen < 15 g/mL [address] [place] [address] [phone] Alcohol < 10 mg/dL N <10 Salicylate < 2.50 mg/dL <30 TSH (Thyroid Stim Horm) 1.92 mcIU/mL N 0.34-5.60 Urine Drug 03/06/2018 [facility] Amphetamine Ur None Detected None Detect SCR ED & [address] [place] [address] [phone] Barbiturates Urine Screen None Detected None Detect Benzodiazepine Urine Screen None Detected None Detect Urine Cannabinoids Screen None Detected None Detect Urine Cocaine Screen None Detected None Detect Urine Opiates Screen None Detected None Detect Urine Phencyclidine Screen None Detected None Detect 13 Ua Routine 01/16/2018 [facility] Ua Specific [place] 1.025 Ua PH 5 Ua Color dark yellow Ua Appera cloudy Ua WBC trace Ua Protein trace Ua Glucose neg Ua Ketones neg Ua Bilirubin neg Ua Urobilinogen neg Ua Nitrite neg Ua Occult Blood 50 Urine Culture And 01/16/2018 [facility] Urine Culture SEE RESULT [address] [place] [address] [phone] Laboratory test 11/28/2017 [facility] Test neg finding Urine Urinalysis Profile 11/17/2017 [facility] Urine Color Yellow [address] [place] [address] [phone] Urine Appearance Clear Urine Specific [place] 1.008 Low 1.010-1.030 Urine pH 7.0 N [...] Cell Present Abnormal Absent Urine Drug 11/17/2017 [facility] Amphetamine Ur None Detected None Detect SCR ED & [address] [place] [address] [phone] Barbiturates Urine Screen None Detected None Detect Benzodiazepine Urine Screen None Detected None Detect Urine Cannabinoids Screen None Detected None Detect Urine Cocaine Screen None Detected None Detect Urine Opiates Screen None Detected None Detect Urine Phencyclidine Screen None Detected None Detect 15 Urine Culture And 11/17/2017 [facility] Urine Culture SEE RESULT [address] [place] [address] [phone] CBC Auto Diff 11/17/2017 [facility] White Blood 7.4 10^3/uL N 3.5-[address] Count 0.8 [place] [address] [phone] Red Blood Count 5.01 10^6/uL N 4.0-5.4 [...] Cells % 0.2 Comp Metabolic Panel 11/17/2017 [facility] Sodium 139 mmol/L N 139-[address] [place] [address] [phone] Potassium 4.0 mmol/L N 3.5-5.0 Chloride 105 [...] Egfr 77.7 >60 17 Laboratory test 11/17/2017 [facility] Acetaminophen < 15 g/mL [address] [place] [address] [phone] Alcohol < 10 mg/dL N <10 Salicylate < 2.50 mg/dL <30 TSH (Thyroid Stim Horm) 1.21 mcIU/mL N 0.34-5.60 CBC Auto Diff 09/09/2017 [facility] White Blood 9.2 10^3/uL N 3.5-10.[address] [place] [address] [phone] Red Blood Count 5.27 10^6/uL N 4.0-5.4 [...] Cells % 0.1 Comp Metabolic Panel 09/09/2017 [facility] Sodium 136 mmol/L N 133-[address] [place], [place] [address] [phone] Potassium 3.8 mmol/L N 3.5-5.0 Chloride 104 [...] Egfr 78.6 >60 19 Laboratory test 09/09/2017 [facility] Acetaminophen < 15 g/mL [address] [place] [address] [phone] Alcohol < 10 mg/dL N <10 Salicylate < 2.50 mg/dL <30 TSH (Thyroid Stim Horm) 1.53 mcIU/mL N 0.34-5.60 Urinalysis Profile 09/09/2017 [facility] Urine Color Yellow [address] [place] [address] [phone] Urine Appearance Cloudy Urine Specific [place] 1.008 Low 1.010-1.030 Urine pH 6.0 N [...] Cell Present Abnormal Absent Urine Drug 09/09/2017 [facility] Amphetamine Ur None Detected None Detect SCR ED & [address] [place] [address] [phone] Barbiturates Urine Screen None Detected None Detect Benzodiazepine Urine Screen None Detected None Detect Urine Cannabinoids Screen None Detected None Detect Urine Cocaine Screen None Detected None Detect Urine Opiates Screen None Detected None Detect Urine Phencyclidine Screen None Detected None Detect 21 Urine Culture And 09/09/2017 [facility] Urine Culture SEE RESULT [address] [place] [address] [phone] CBC Auto Diff 05/20/2017 [facility] White Blood 8.7 10^3/uL N 3.5-[address] Count 0.8 [place] [address] [phone] Red Blood Count 4.98 10^6/uL N 4.0-5.4 [...] Low 150-450 23 Comp Metabolic Panel 05/20/2017 [facility] Sodium 135 mmol/L N 133-145 [address] [place] [address] [phone] Chloride 99 mmol/L Low 101-111 Co2 Carbon [...] 20 U/L N 13-39 Laboratory test 05/20/2017 [facility] HCG 1.18 mIU/mL N [address] [place] [address] [phone] Acetaminophen < 15 g/mL N 26 Alcohol < 10 mg/dL N <10 Salicylate < 2.50 mg/dL N <30 TSH (Thyroid Stim Horm) 4.59 mcIU/mL N 0.34-5.60 Inr/Protime 05/20/2017 [facility] Inr 0.96 N 0.89-1.[address] [place] [address] [phone] Laboratory test 05/20/2017 [facility] Pathologist (SEE N [address] Review NOTE) [place] [address] [phone] CBC Auto Diff 05/09/2017 [facility] White Blood 9.3 N 3.5- 10.[address] Count 10^3/[place] [address] [phone] Red Blood Count 4.80 10^6/uL N 4.0-5.4 [...] Cells % 0 N Laboratory test 05/09/2017 [facility] HCG 0.74 mIU/mL N [address] [place] [address] [phone] Comp Metabolic 05/09/2017 [facility] Sodium 138 mmol/L N 133- [address] [place] [address] [phone] Potassium 3.6 mmol/L N 3.5-5.0 Chloride 106 [...] 81.8 N >60 29 Laboratory test 05/07/2017 [facility] C Reactive 23.48 mg/L High < 5.00 [address] [place] [address] [phone] CBC Auto Diff 05/07/2017 [facility] White Blood 10.0 N 3.5- 10.[address] Count 10^3/[place] [address] [phone] Red Blood Count 4.87 10^6/uL N 4.0-5.4 [...] % 0 N CBC No Diff 04/27/2017 [facility] White Blood 8.5 10^3/uL N 3.5-10.[address] [place] [address] [phone] Red Blood Count 4.93 10^6/uL N 4.0-5.4 [...] um3 N 7.4-10.4 Comp Metabolic Panel 02/06/2017 [facility] Sodium 136 mmol/L N 133-[address] [place] [address] [phone] Potassium 3.6 mmol/L N 3.5-5.0 Chloride 103 [...] 73.8 N >60 31 Urinalysis Profile 02/06/2017 [facility] Urine Color Yellow N [address] [place] [address] [phone] Urine Appearance Cloudy N Urine Specific [place] 1.005 Low 1.010-1.030 Urine pH 6.0 N [...] Cell Present Abnormal Absent Urine Drug 02/06/2017 [facility] Amphetamine Ur None Detected N None Detect SCR ED & [address] [place] [address] [phone] Barbiturates Urine Screen None Detected N None Detect Benzodiazepine Urine Screen None Detected N None Detect Urine Cannabinoids Screen None Detected N None Detect Urine Cocaine Screen None Detected N None Detect Urine Opiates Screen None Detected N None Detect Urine Phencyclidine Screen None Detected N None Detect 32 CBC Auto Diff 02/06/2017 [facility] White Blood 6.9 10^3/uL N 3.5-10.[address] [place] [address] [phone] Red Blood Count 5.01 10^6/uL N 4.0-5.4 [...] Cells % 0.1 N Laboratory test 02/06/2017 [facility] Acetaminophen < 15 g/mL N [address] [place] [address] [phone] Alcohol < 10 mg/dL N <10 Salicylate < 2.50 mg/dL N <30 TSH (Thyroid Stim Horm) 1.03 mcIU/mL N 0.34-5.60 Urine Culture And 02/06/2017 [facility] Urine Culture SEE RESULT [address] [place] [address] [phone] Urine Drug SCR ED 12/16/2016 [facility] Amphetamine Ur None N None & [facility] [address] [place] [address] [phone] Barbiturates Urine Screen None Detected N None Detect Benzodiazepine Urine Screen None Detected N None Detect Urine Cannabinoids Screen None Detected N None Detect Urine Cocaine Screen None Detected N None Detect Urine Opiates Screen None Detected N None Detect Urine Phencyclidine Screen None Detected N None Detect 35 Inr/Protime 12/16/2016 [facility] Inr 0.90 N 0.89-1.[address] [place] [address] [phone] Urinalysis Profile 12/16/2016 [facility] Urine Color Yellow N [address] [place] [address] [phone] Urine Appearance Cloudy N Urine Specific [place] 1.010 N 1.010-1.030 Urine pH 5.0 N [...] Cell Present Abnormal Absent Laboratory test 12/16/2016 [facility] Lactic Acid 0.8 mmol/L N 0.5-2.0 [address] [place] [address] [phone] CBC Auto Diff 12/16/2016 [facility] White Blood 8.2 10^3/uL N 3.5-10.[address] [place] [address] [phone] Red Blood Count 5.19 10^6/uL N 4.0-5.4 [...] % 0.1 N Comp Metabolic Panel 12/16/2016 [facility] Sodium 136 mmol/L N 133-[address] [place] [address] [phone] Potassium 3.8 mmol/L N 3.5-5.0 Chloride 101 [...] 78.1 N >60 37 Laboratory test 12/16/2016 [facility] Magnesium 1.9 mg/dL N 1.9-2.[address] [place] [address] [phone] Alcohol < 10 mg/dL N <10 Urine Culture And 12/16/2016 [facility] Urine Culture SEE RESULT [address] [place] [address] [phone] Urine Culture And 12/12/2016 [facility] Urine Culture SEE RESULT [address] [place] [address] [phone] Ua Routine 12/12/2016 [facility] Ua Specific 1.005 [place] Ua PH 8 Ua Color yellow Ua Appera cloudy Ua WBC ++ Ua Protein 30+ Ua Glucose neg Ua Ketones neg Ua Bilirubin neg Ua Urobilinogen normal Ua Nitrite neg Ua Occult Blood xlarge Urinalysis Profile 11/18/2016 [facility] Urine Color Yellow N [address] [place] [address] [phone] Urine Appearance Cloudy N Urine Specific [place] 1.014 N 1.010-1.030 Urine pH 5.0 N [...] Present Abnormal Absent CBC Auto Diff 11/18/2016 [facility] White Blood 8.7 10^3/uL N 3.5-10.[address] [place] [address] [phone] Red Blood Count 5.05 10^6/uL N 4.0-5.4 [...] % 0.1 N Comp Metabolic Panel 11/18/2016 [facility] Sodium 137 mmol/L N 133-[address] [place] [address] [phone] Potassium 4.0 mmol/L N 3.5-5.0 Chloride 106 [...] 78.1 N >60 40 Laboratory test 11/18/2016 [facility] Acetaminophen < 15 g/mL N [address] [place] [address] [phone] Alcohol < 10 mg/dL N <10 Salicylate < 2.50 mg/dL N <30 TSH (Thyroid Stim Horm) 0.66 mcIU/mL N 0.34-5.60 Urine Drug 11/18/2016 [facility] Amphetamine Ur None Detected N None Detect SCR ED & [address] [place] [address] [phone] Barbiturates Urine Screen None Detected N None Detect Benzodiazepine Urine Screen None Detected N None Detect Urine Cannabinoids Screen None Detected N None Detect Urine Cocaine Screen None Detected N None Detect Urine Opiates Screen None Detected N None Detect Urine Phencyclidine Screen None Detected N None Detect 42 Laboratory test 11/18/2016 [facility] HCG < 0.60 N [address] mIU/[place] [address] [phone] Urine Culture And 11/18/2016 [facility] Urine Culture SEE RESULT [address] [place] [address] [phone] Laboratory test 10/18/2016 [facility] HCG 0.75 mIU/mL N [address] [place] [address] [phone] TSH (Thyroid Stim Horm) 1.05 mcIU/mL N 0.34-5.60 Comp Metabolic Panel 10/18/2016 [facility] Sodium 138 mmol/L N 133-[address] [place] [address] [phone] Potassium 4.1 mmol/L N 3.5-5.0 Chloride 103 [...] N >60 46 FSH And LH 10/18/2016 [facility] FSH (Follicle Stim 7.6 mIU/mL N [address] Hormone) [place] [address] [phone] LH (Lutenizing Hormone) 7.8 mcIU/mL N 48 Laboratory test 10/18/2016 [facility] Test negative finding Urine Comp Metabolic 09/20/2016 [facility] Sodium 136 mmol/L N 133- [address] [place] [address] [phone] Potassium 4.1 mmol/L N 3.5-5.0 Chloride 105 [...] 84.8 N >60 49 Laboratory test 09/20/2016 [facility] Magnesium 2.1 mg/dL N 1.9-2.[address] [place] [address] [phone] Alcohol < 10 mg/dL N <10 Laboratory test 09/20/2016 [facility] Lactic Acid 0.5 mmol/L N 0.5-2.0 [address] [place] [address] [phone] CBC Auto Diff 09/20/2016 [facility] White Blood 6.2 10^3/uL N 3.5-10.[address] [place] [address] [phone] Red Blood Count 5.18 10^6/uL N 4.0-5.4 [...] Blood Cells % 0.1 N Inr/Protime 09/20/2016 [facility] Inr 0.92 N 0.89-1.[address] [place] [address] [phone] CBC Auto Diff 08/04/2016 [facility] White Blood 8.3 10^3/uL N 3.5-10.[address] [place] [address] [phone] Red Blood Count 4.86 10^6/uL N 4.0-5.4 [...] % 0.1 N Comp Metabolic Panel 08/04/2016 [facility] Sodium 137 mmol/L N 133-[address] [place] [address] [phone] Potassium 3.8 mmol/L N 3.5-5.0 Chloride 108 [...] 89.6 N >60 51 Laboratory test 08/04/2016 [facility] HCG < 0.60 mIU/ mL N [address] [place] [address] [phone] Acetaminophen < 15 g/mL N 53 Alcohol < 10 mg/dL N <10 Salicylate < 2.50 mg/dL N <30 TSH (Thyroid Stim Horm) 0.80 mcIU/mL N 0.34-5.60 Ua Routine 06/20/2016 [facility] Ua Specific [place] 1.015 Ua PH 6 Ua Color yellow Ua Appera cloudy Ua WBC + Ua Protein neg Ua Glucose neg Ua Ketones neg Ua Bilirubin neg Ua Urobilinogen normal Ua Nitrite neg Ua Occult Blood neg Laboratory test 06/20/2016 [facility] Gardnerella/Yeast: SEE RESULT [address] [place] [address] [phone] Urine Culture And 03/22/2016 [facility] Urine Culture SEE RESULT [address] [place] [address] [phone] Ua Routine 03/22/2016 [facility] Ua Specific [place] 1.020 Ua PH 5 Ua Color yellow [...] [address]: Sandoval Castro MD Acct: [id number] Unit: [id number] AGE: 43 Location: ED Re10/01/18 SEX: F Status: DEP ER SPEC: [id number] YUMIKO: 10/01/18-[address]: Esther Martinez MD REQ: [id number] RECD: 10/01/182975 STATUS: ANNIE FRY DR: Astrid Gonzalez MD _ SOURCE: URINE [facility]: ORDERED: Urine Culture Procedure Result Reported Site Urine Culture Final 10/03/18- 0848 ML No growth of clinically significant organisms * ML - Main Lab . END OF REPORT DEPARTMENT OF PATHOLOGY, [address] [place] [address] Yvan Obrien M.D. Director [facility] # [id number] 6 Because ethnic data is not always [...] (or dialysis) 9 SEE RESULT BELOW Name: LOUISUZIEL WALDENE : [address]: Leonor Wong MD Acct: [id number] Unit: [id number] AGE: 42 Location: [place] [address] Re03/07/18 SEX: F Status: ADM IN SPEC: [id number] YUMIKO: 03/06/18-1449 [facility] [address]: Sandoval Rinaldi MD REQ: [id number] RECD: 03/06/18 STATUS: ANNIE FRY DR: Astrid Gonzalez MD _ S[facility]: Urine [facility] Procedure Result Reported Site Urine Culture Final 03/07/18- 1015 ML No growth of clinically significant organisms * ML - Main Lab . END OF REPORT DEPARTMENT OF PATHOLOGY, [address] [place] [address] Yvan Obrien M.D. Director [facility] # [id number] 10 <5.0 Negative 5.0 - 25.0 Indeterminate [...] [address]: Alissa Bob NP Acct: [id number] Unit: [id number] AGE: 42 Location: [facility] Re01/16/18 SEX: F Status: REG REF SPEC: [id number] YUMIKO: 01/16/181556 [facility] DR: Alissa Bob NP REQ: [id number] RECD: 01/16/18 STATUS: COMP _ SOURCE: URINE [facility]: ORDERED: Urine Culture COMMENTS: [id number] Procedure Result Reported Site Urine Culture Final 01/18/18- 0810 ML Organism 1 ESCHERICHIA COLI Rowe Count >100,000 (Many) CFU/ML 1. ESCHERICHIA COLI [...] . END OF REPORT DEPARTMENT OF PATHOLOGY, [address] [place] [address] Yvan Obrien M.D. Director [facility] # [id number] 15 The urine specimen was tested at the listed cutoffs: Drug class test level (ng/mL) Amphetamines 500 Barbiturates 200 Benzodiazepine metabolites 200 Cocaine metabolites 150 Cannabinoids 50 Opiates 300 Pcp 25 Specimen was received without chain of custody. Results should be used for medical purposes only. 16 SEE RESULT BELOW Name: ALPA MYERS : [address]: Jelly Martinez MD Acct: [id number] Unit: [id number] AGE: 42 Location: ED Re11/17/17 SEX: F Status: DEP ER SPEC: [id number] YUMIKO: 11/17/[address]: Esther Martinez MD REQ: [id number] RECD: 11/17/17 STATUS: ANNIE FRY DR: Astrid Gonzalez MD _ SOURCE: URINE [facility]: ORDERED: Urine Culture Procedure Result Reported Site Urine Culture Final 11/18/17- 1647 ML No growth of clinically significant organisms * ML - Main Lab . END OF REPORT DEPARTMENT OF PATHOLOGY, [address] [place] [address] Yvan Obrien M.D. Director [facility] # [id number] 17 Because ethnic data is not always [...] [address]: Messi Henson MD Acct: [id number] Unit: [id number] AGE: 42 Location: [place] [id number] Re09/09/17 SEX: F Status: ADM IN SPEC: [id number] YUMIKO: 09/09/17-1712 [facility] DR: Supa Fermin MD REQ: [id number] RECD: 09/09/17 STATUS: ANNIE FRY DR: Astrid Gonzalez MD _ SOURCE: URINE SPDESC: ORDERED: Urine Culture Procedure Result Reported Site Urine Culture Final 09/11/17- 1012 ML No growth of clinically significant organisms * ML - MAIN LAB ([facility]) . END OF REPORT * ML=Testing performed at Main Lab DEPARTMENT OF PATHOLOGY, [address] [place] [address] Yvan Obrien M.D. Director [facility] # [id number] 23 Platelet count confirmed by smear estimate. [...] [address]: Hector Hercules DO Acct: [id number] Unit: [id number] AGE: 41 Location: ED Re02/06/17 SEX: F Status: DEP ER SPEC: [id number] YUMIKO: 02/06/17 [facility] DR: Hector Hercules DO REQ: [id number] RECD: 02/06/17 STATUS: ANNIE FRY DR: Astrid Gonzalez MD _ SOURCE: URINE [facility]: ORDERED: Urine Culture Procedure Result Reported Site Urine Culture Final 02/07/17- 1300 ML No growth of clinically significant organisms * ML - MAIN LAB ([facility]) . END OF REPORT * ML=Testing performed at Main Lab DEPARTMENT OF PATHOLOGY, [address] [place] [address] Yvan Obrien M.D. Director [facility] # [id number] 35 The urine specimen was tested at the listed cutoffs: Drug class test level (ng/mL) Amphetamines 500 Barbiturates 200 Benzodiazepine metabolites 200 Cocaine metabolites 150 Cannabinoids 50 Opiates 300 Pcp 25 Specimen was received without chain of custody. Results should be used for medical purposes only. 36 [facility] Severe Sepsis and Septic Shock [...] [address]: Trev Salinas MD Acct: [id number] Unit: [id number] AGE: 41 Location: ED Re12/16/16 SEX: F Status: DEP ER SPEC: [id number] YUMIKO: 12/16/[address]: Supa Fermin MD REQ: [id number] RECD: 12/16/16 STATUS: ANNIE FRY DR: Astrid Gonzalez MD _ SOURCE: URINE SPDESC: ORDERED: Urine Culture Procedure Result Reported Site Urine Culture Final 12/17/16- 1609 ML No Growth (<1,000 CFU/mL) * ML - MAIN LAB ([facility]) . END OF REPORT * ML=Testing performed at Main Lab DEPARTMENT OF PATHOLOGY, [address] [place] [address] Yvan Obrien M.D. Director [facility] # [id number] 39 SEE RESULT BELOW Name: ALPA MYERS : [address]: Astrid Gonzalez MD Acct: [id number] Unit: [id number] AGE: 41 Location: [facility] Re12/12/16 SEX: F Status: REG REF SPEC: [id number] YUMIKO: 12/12/16-1225 [facility] DR: Astrid Gonzalez MD REQ: [id number] RECD: 12/12/16 STATUS: COMP _ SOURCE: URINE SPDESC: ORDERED: Urine Culture COMMENTS: [id number] Urine Source: Random Procedure Result Reported Site Urine Culture Final 12/14/16- 1234 ML No growth of clinically significant organisms * ML - MAIN LAB ([facility]) . END OF REPORT * ML=Testing performed at Main Lab DEPARTMENT OF PATHOLOGY, [address] [place] [address] Yvan Obrien M.D. Director [facility] # [id number] 40 Because ethnic data is not always [...] [address]: Juan Nava MD Acct: [id number] Unit: [id number] AGE: 41 Location: [facility] Re11/18/16 SEX: F Status: ADM IN SPEC: [id number] YUMIKO: 11/18/16-5 [facility] DR: Sandoval Rinaldi MD REQ: [id number] RECD: 11/18/167870 STATUS: ANNIE FRY DR: Camilo Osman MD _ SOURCE: URINE SPDESC: ORDERED: Urine Culture Procedure Result Reported Site Urine Culture Final 11/20/16- 0909 ML No growth of clinically significant organisms * ML - MAIN LAB ([facility]) . END OF REPORT * ML=Testing performed at Main Lab DEPARTMENT OF PATHOLOGY, [address] [place] [address] Yvan Obrien M.D. Director [facility] # [id number] 45 <5.0 Negative 5.0 - 25.0 Indeterminate [...] 5 Kidney failure <15 (or dialysis) 50 [facility] Severe Sepsis and Septic Shock [...] >120 ug/mL 54 SEE RESULT BELOW Name: ALPA MYERS : [address]: Astrid Gonzalez MD Acct: [id number] Unit: [id number] AGE: 40 Location: [facility] Re06/20/16 SEX: F Status: REG REF SPEC: [id number] YUMIKO: 06/20/16-1415 [facility] [address]: Astrid Gonzalez MD REQ: [id number] RECD: 06/20/16 STATUS: COMP _ SOURCE: VAGINAL SPDESC: ORDERED: Denise,Yeast DNA, Trich DNA COMMENTS: [id number] Procedure Result Reported Site Gardnerella/Yeast: Vaginal DNA [...] performed at Main Lab DEPARTMENT OF PATHOLOGY, [address] [place] [address] Yvan Obrien M.D. Director [facility] # [id number] Patient: ALPA MYERS [id number] (Continued) Specimen: [id number] Collected: 06/20/16 Received: 06/20/16 (Continued) Procedure Result Reported Site Trichomonas: Vaginal DNA Probe Final (continued) 06/21/16- 1241 The presence or absence of T. vaginalis cannot be used as a test for therapeutic success or failure. * ML - MAIN LAB ([facility]) . END OF REPORT * ML=Testing performed at Main Lab DEPARTMENT OF PATHOLOGY, [address] [place] [address] Yvan Obrien M.D. Director [facility] # [id number] 55 SEE RESULT BELOW Name: ALPA MYERS : [address]: Alissa Bob NP Acct: [id number] Unit: [id number] AGE: 40 Location: [facility] Re03/22/16 SEX: F Status: REG REF SPEC: [id number] YUMIKO: 03/22/16-[address]: Alissa Bob [employer] SUPERINTENDENT REQ: [id number] RECD: 03/23/16-1035 STATUS: COMP _ SOURCE: URINE SPDESC: ORDERED: Urine Culture COMMENTS: [id number] Procedure Result Reported Site Urine Culture Final 03/24/16- 1301 ML No Growth (<1,000 CFU/mL) * ML - MAIN LAB ([facility]) . END OF REPORT * ML=Testing performed at Main Lab DEPARTMENT OF PATHOLOGY, [address] [place] [address] Yvan Obrien M.D. Director [facility] # [id number] Procedures Date Code Description Status 03/31/2017 27105265 Mammogram Completed 02/06/2017 44535 Diffusing Capacity Completed 02/06/2017 97812 Plethysmography Determination Lung Volumes & Per Airway Completed Resist 02/06/2017 58430 Pulmonary Function><Bronchodil Completed 04/08/2016 88667 EEG Monitoring & Video Recording Completed 01/28/2016 36750 EEG Recording Awake & Drowsy Completed Encounters Type Date Location Provider Dx Diagnosis Office Visit 10/26/2018 Isaura Dumont MD J45.901 Unspecified asthma 4:00p Medicine with (acute) exacerbation Office Visit 10/09/2018 Isaura Gonzalez, R05 Cough 11:50a Shira Mccord M.D. [place] F17.210 Nicotine dependence, cigarettes, uncomplicated J06.9 Acute [...] initial encounter Office Visit 06/05/2018 10:30a Isaura Mcnamara45.41 Moderate Shira Gonzalez M.D. persistent asthma [place] with (acute) exacerbation J40 Bronchitis, not specified as acute or chronic F17.210 Nicotine dependence, cigarettes, uncomplicated Office Visit 05/01/2018 8:50a Isaura Mcnamara45.41 Moderate Shira Gonzalez M.D. persistent asthma [place] with (acute) exacerbation Office Visit 04/23/2018 9:10a [facility] Astrid J44.1 Chronic Medicine Flex Gonzalez M.D. obstructive [place] pulmonary disease w (acute) exacerbation F17.210 Nicotine dependence, cigarettes, uncomplicated J06.9 Acute upper respiratory infection, unspecified Office Visit 01/16/2018 3:40p [facility] Alissa Bob, N39.0 Urinary tract Medicine N.P. infection, site not specified Office Visit 11/28/2017 10:50a [facility] Astrid Gonzalez, F44.5 Conversion Medicine - MSawDSaw disorder with [place] seizures or convulsions N91.1 Secondary amenorrhea F17.210 Nicotine dependence, cigarettes, uncomplicated Office Visit 10/31/2017 4:20p [facility] Lissy Suarez M.D. R05 Cough J45.41 Moderate persistent asthma with (acute) exacerbation G40.89 Other seizures Office Visit 2017 10:30a [facility] Astrid J01.90 Acute sinusitis , Shira Gonzalez M.D. unspecified [place] F44.5 Conversion disorder with seizures or convulsions J44.1 Chronic obstructive pulmonary disease w (acute) exacerbation Office Visit 06/19/2017 10:30a [facility] Astrid Gonzalez M54.5 Low back pain Medicine - MSafia [place] G47.00 Insomnia, unspecified Office Visit 06/05/2017 [facility] Camilo M54.5 Low back pain 3:00p Shira Osman M.D. Rd Office Visit 05/22/2017 [facility] Crispin N17.9 Acute kidney 7:07a Assoc,luz maria Camacho, failure, Hospitalists [place] unspecified D69.6 Thrombocytopenia, unspecified R45.851 Suicidal ideations F32.9 Major depressive disorder, single episode, unspecified Office Visit 05/21/2017 [facility] Sana Bo N17.9 Acute kidney 7:03a Assocluz maria, FISH HATCHERY SUPERINTENDENT failure, Hospitalists unspecified D69.6 Thrombocytopenia, unspecified R45.851 Suicidal ideations F32.9 Major depressive disorder, single episode, unspecified Office Visit 04/07/2017 11:10a [facility] Freddie Smith, D22.62 Melanocytic nevi MD of left upper limb, including shoulder D22.5 Melanocytic nevi of trunk B36.0 Pityriasis versicolor Office Visit 03/29/2017 11:10a [facility] Astrid Gonzalez, Z00.00 Encntr for Medicine - M.D. general adult [place] medical exam w/o abnormal findings Z12.83 Encounter for screening for malignant neoplasm of skin F51.04 Psychophysiologic insomnia K21.9 Gastro-esophageal reflux disease without esophagitis Z13.1 Encounter for screening for diabetes mellitus Z12.31 Encntr screen mammogram for malignant neoplasm of breast Z23 Encounter for immunization Z13.220 Encounter for screening for lipoid disorders F17.210 Nicotine dependence, cigarettes, uncomplicated Office Visit 03/13/2017 11:50a [facility] Astrid F17.210 Nicotine Shira Gonzalez M.D. dependence, [place] cigarettes, uncomplicated J40 Bronchitis, not specified as acute or chronic F43.22 Adjustment disorder with anxiety Office Visit 01/18/2017 2:40p [facility] Astrid Gonzalez, J40 Bronchitis , not Medicine - MSafia specified as acute [place] or chronic F17.210 Nicotine dependence, cigarettes, uncomplicated K21.9 Gastro-esophageal reflux disease without esophagitis Office Visit 12/12/2016 11:50a [facility] Astrid Gonzalez, R30.0 Dysuria - Dom Burris N30.01 Acute cystitis with hematuria Office Visit 10/18/2016 1:40p [facility] Astrid N91.1 Secondary Medicine Flex Gonzalez M.D. amenorrhea Dom R11.2 Nausea with vomiting, unspecified Office Visit 07/05/2016 2:40p [facility] Timothy Mcnamara06.9 Acute upper Medicine Flex Beck M.D. respiratory Dom infection, unspecified Office Visit 06/20/2016 1:00p [facility] Astrid B37.3 Candidiasis of Shira Gonzalez M.D. vulva and vagina Dom N89.8 Other specified noninflammatory disorders of vagina R35.1 Nocturia Office Visit 05/18/2016 4:20p [facility] Wilbert Carlos NP J06.9 Acute upper Medicine respiratory infection, unspecified Office Visit 05/02/2016 11:20a [facility] Alissa Varn, M54.5 Low back pain Medicine N.P. F17.210 Nicotine dependence, cigarettes, uncomplicated J45.901 Unspecified asthma with (acute) exacerbation M46.1 Sacroiliitis, not elsewhere classified Office Visit 04/09/2016 [facility] Rosie Wilson, F44.5 Conversion 2:39p Clinic MD disorder with seizures or convulsions Office Visit 04/08/2016 [facility] Rosie Wilson F44.5 Conversion 2:38p Clinic MD disorder with seizures or convulsions Office Visit 03/22/2016 [facility] Alissa N39.0 Urinary tract 3:00p Varn, N.P. infection, site not specified Office Visit 02/22/2016 [facility] Rosie Wilson, R56.9 Unspecified 1:00p [facility] convulsions Office Visit 02/04/2016 [facility] Camilo B35.3 Tinea pedis 1:20p - [place] Nahun Osman M.D. F17.210 Nicotine dependence, cigarettes, uncomplicated K21.9 Gastro-esophageal reflux disease without esophagitis Office Visit 09/15/2015 [facility] Aric Mancia R10.84 Generalized 3:14p Assoc,pc Ella TOBIAS. abdominal pain Hospitalists Office Visit 09/14/2015 [facility] Demian Amador, R10.84 Generalized 3:13p Assoc,pc N.P. abdominal pain Hospitalists E78.5 Hyperlipidemia, unspecified F41.9 Anxiety disorder, unspecified F32.9 Major depressive disorder, single episode, unspecified Plan of Treatment Future Appointment(s):11/27/2018 11:50 am - Astrid Gonzalez M.D. at [facility] Bzihlfwp86/05/2019 - Page Dumont MDJ45.901 Unspecified asthma with ( acute) exacerbationNew Medication:Azithromycin 250 mg - take 2 tablets today; then one tablet dailyMethylprednisolone 4 mg - take as instructed on the tyron
[2018-11-29 19:34] LABS: ALT 10 U/L (7-52); Albumin 4.4 g/dL (3.2-5.2); Albumin/Globulin Ratio 1.6 (1-3); Alkaline Phosphatase 116 U/L (34-104); Blood Urea Nitrogen 9 mg/dL (6-24); CO2 Carbon Dioxide 29 mmol/L (22-32); Calcium 9.7 mg/dL (8.6-10.3); Chloride 106 mmol/L (101-111); EGFR African American 63.9 (>60); EGFR Non-African American 52.8 (>60); Globulin 2.8 g/dL (2-4); Glucose 100 mg/dL (70-100); Sodium 141 mmol/L (135-145); Total Protein 7.2 g/dL (6.4-8.9)
[2018-11-29 19:40] LABS: Acetaminophen < 15 mcg/mL; Alcohol < 10 mg/dL (<10); HCG Pregnancy 1.69 mIU/mL; Salicylate < 2.50 mg/dL (<30)
[2018-11-29 19:56] LABS: Anion Gap 6 mmol/L (2-11); Potassium 4.4 mmol/L (3.5-5.0)
[2018-11-29 20:09] LABS: AST 13 U/L (13-39)
[2018-11-29 21:16] LABS: Urine Appearance Clear; Urine Bilirubin Negative (Negative); Urine Blood Negative (Negative); Urine Color Yellow; Urine Glucose Negative (Negative); Urine Ketones Negative (Negative); Urine Nitrite Negative (Negative); Urine Protein Negative (Negative); Urine Specific Gravity 1.009 (1.010-1.030); Urine Urobilinogen Negative (Negative)
[2018-11-29 21:30] LABS: Urine Benzodiazepine Screen None Detected (None Detect); Urine Opiates Screen None Detected (None Detect)
--- NOTE | 2018-11-29 23:01 | ED ---
Progress - Progress Note Progress Note: Patient is received as a sign out from Dr. Martinez at 0 11/29/18 shift change pending disposition of this mental health patient. 2247 - Patient's case was reviewed by Dr. Castro, patient will be a voluntary [facility] with Dx of bipolar disorder. - Consult/PCP Time Called: 21:23 Re-Evaluation - Re-Evaluation 1st re-eval Re-Evaluation Time: 20:20 Change: Unchanged Comment: The pt was on the floor and convulsing. 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 I evaluated her again and she is at her normal baseline. Course/Dx - Course Course Of Treatment: Patient is received as a sign out from Dr. Martinez at 04/11 shift change pending disposition of this mental health patient. 2247 - Patient's case was reviewed by Dr. Castro, patient will be a voluntary admission to [facility] with Dx of bipolar disorder. - Diagnoses Provider Diagnoses: Bipolar disorder - Provider Notifications Discussed Care Of Patient With: Oneil Castro Time Discussed With Above Provider: 22:48 Instructed by Provider To: Other - 2247 - Patient's case was reviewed by Dr. Castro, patient will be a voluntary admission to [facility] with Dx of bipolar disorder. Discharge - Sign-Out/Discharge Documenting (check all that apply): Patient Departure - admit - Discharge Plan Condition: Stable [place] [place]errals: Astrid Gonzalez MD [Primary Care Provider] - - Attestation Statements Document Initiated by Scribe: Yes Documenting Scribe: ITZEL UMAÑA Provider For Whom Rubio is Documenting (Include Credential): ROBIN PIKE MD Scribe Attestation: ITZEL Mesa, scribed for ROBIN PIKE MD on 11/29/18 at 5104. Status of Scribe Document: Ready
[2018-11-30] MEDS ORDERED: Al Hydrox/Mg Hydrox/Simet LIQ* 30 ML UDC PO PRN (01:23)
[2018-11-30] MEDS ORDERED: Acetaminophen TAB* 325 MG PO PRN (01:23)
[2018-11-30] MEDS ORDERED: hydrOXYzine HCL TAB* 50 MG PO PRN (01:24)
[2018-11-30] MEDS ORDERED: Albuterol 2.5 MG/3 ML NEB.SOL* (0.083%) INH PRN (01:30)
[2018-11-30] MEDS ORDERED: Nicotine* 2MG (FRUIT FLAVOR) GUM PO PRN (03:03)
[2018-11-30] MEDS: Albuterol HFA INHALER* 8 gm MDI INH PRN ×2 (06:11→15:15)
[2018-11-30] MEDS: clonazePAM TAB(*) 1 MG PO PRN (07:04)
[2018-11-30 08:09] LABS: HDL Cholesterol 43.5 mg/dL
[2018-11-30] MEDS: Pantoprazole TAB * 40 MG TAB PO SCH (09:10)
[2018-11-30] MEDS: Multivitamins/Minerals TAB PO SCH (09:10)
[2018-11-30] MEDS: hydrOXYzine HCL TAB* 25 MG PO PRN (10:54)
--- NOTE | 2018-11-30 11:39 | PN ---
BSU: Group Therapy Note - Service Type Service Type: 80581 Group Psychotherapy - Cognitive Behavioral Group Therapy ( CBT):Patient was attentive and participatory in CBT programming this morning, and remained in good behavioral control. Patient expressed positive insights regarding relevant treatment interventions and goals.
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
[2018-11-30] MEDS: Cyclobenzaprine TAB* 10 MG PO PRN ×2 (16:32→20:52)
[2018-11-30] MEDS: Prazosin CAP* 1 MG PO SCH (20:46)
[2018-11-30] MEDS: traZODone TAB* 100 MG PO SCH (20:46)
[2018-11-30] MEDS: BREXPIPRAZOLE 2 MG PO SCH (20:47)
[2018-11-30] MEDS ORDERED: Prazosin CAP* 1 MG PO SCH (21:00)
[2018-11-30] MEDS: Nicotine Patch Removal NOTE FOLLOW UP SCH (21:51)
[2018-12-01] MEDS: Cyclobenzaprine TAB* 10 MG PO PRN ×2 (05:11→20:22)
[2018-12-01] MEDS: Albuterol HFA INHALER* 8 gm MDI INH PRN (07:40)
[2018-12-01] MEDS: Pantoprazole TAB * 40 MG TAB PO SCH (09:11)
[2018-12-01] MEDS: Multivitamins/Minerals TAB PO SCH (09:11)
[2018-12-01] MEDS: Nicotine PATCH 21 MG/24 HR* PATCH TRANSDERM SCH (09:12)
--- NOTE | 2018-12-01 13:58 | PN ---
Subjective - Subjective Date of Service: 12/01/18 Service Type: 94470 Hosp care 15 min low complexity Subjective: Alpa is seen in weekend coverage for NPP, Rula Ozuna. The patient appears somewhat distressed and reports that she is mad at herself for coming to the hospital and missing Mother's Day weekend because of it. "I'm pissed that I came here. I didn't really need this. I didn't try to do any of my DBT skills when I got stressed out, I just took the easy way and came here." Alpa is praised for these reflections, although cautioned not to be overly hard on herself. She denies SI and would like to be discharged today, although she understands that we do not do weekend discharges. Staff notes that she is adherent with unit expectations. Objective - General Observations Appearance: Well Groomed Appears Stated Age: Yes Stature: WNL Posture: WNL Eye Contact: Average Behavior/Activity: WNL - Interaction Observations Attitude Towards Examiner: Cooperative Stated Mood: Dysphoric Affect: Full Speech Pattern/Tone: Clear, Appropriate, Normal Volume Thought Process: Coherent Perception: WNL Thought Content: Self-Deprecatory Hallucination Type: None Delusion Type: None - Cognitive Function Orientation: A&O x 4 Level of Consciousness: Awake Cognition: WNL Estimated Intelligence: Borderline Range Insight: WNL Judgment Within Normal Limits: Yes - Medication Compliance Cooperative with Inpatient Medication Regimen: Yes - Group Participation Participates in Group Activities: Yes Assessment - Assessment Merits Inpatient Hospitalization: Consolidate Improvements, Pending Safe DC Plan Inpatient DSM-V Dx: F32.9 Clinical Impression: 43 y.o. , white female with a history of borderline personality and borderline intellectual functioning arrives at the hospital complaining of "manic" symptoms and thoughts of harming herself. BSU: Problem List - Patient Problems (1) Depression Current Visit: Yes Status: Acute Priority: Medium Code(s): F32.9 - MAJOR DEPRESSIVE DISORDER, SINGLE EPISODE, UNSPECIFIED SNOMED Code(s): 23400145 Plan - Plan Treatment Plan: Name: ALPA MYERS Birthdate: 1975 [id number] Continue with outpatient regimen of brexpiprazole, clonazepam, hydroxyzine, and trazodone. Start low dose prazosin for PTSD symptoms. Target Monday (12/03) for discharge. Continued Medication Management: Different Medication Medications: Current Medications Acetaminophen (Tylenol Tab*) 650 mg PO Q4H PRN PRN Reason: PAIN; OR TEMP >101 Last Admin: 11/30/18 09:09 Dose: 650 mg Al Hydrox/Mg Hydrox/Simethicone (Maalox Plus*) 30 ml PO Q4H PRN PRN Reason: INDIGESTION Albuterol (Ventolin Hfa Inhaler*) 2 puff INH Q6H PRN PRN Reason: WHEEZING Last Admin: 12/01/18 07:40 Dose: 2 puff Albuterol (Ventolin 2.5 Mg/3 Ml Neb.Abi*) 2.5 mg INH Q6H PRN PRN Reason: SHORTNESS OF BREATH Brexpiprazole (Rexulti (Nf)) 2 mg PO BEDTIME RINA Last Admin: 11/30/18 20:47 Dose: 2 mg Clonazepam (Klonopin Tab(*)) 1 mg PO TID PRN PRN Reason: ANXIETY Last Admin: 11/30/18 07:04 Dose: 1 mg Cyclobenzaprine HCl (Flexeril Tab*) 10 mg PO BID PRN PRN Reason: SPASMS Last Admin: 12/01/18 05:11 Dose: 10 mg Hydroxyzine HCl (Atarax Tab*) 50 mg PO BEDTIME PRN PRN Reason: .AGITATION Hydroxyzine HCl (Atarax Tab*) 25 mg PO 0900,1400 PRN PRN Reason: ANXIETY Last Admin: 11/30/18 10:54 Dose: 25 mg Multivitamins/Minerals (Theragran/Minerals Tab*) 1 tab PO DAILY [facility] Last Admin: 12/01/18 09:11 Dose: 1 tab Naproxen (Naprosyn Tab*) 500 mg PO Q12H PRN PRN Reason: PAIN Nicotine (Nicotine Patch 21 Mg/24 Hr*) 1 patch TRANSDERM DAILY@0800 [facility] Last Admin: 12/01/18 09:12 Dose: Not Given Nicotine Polacrilex (Nicotine Gum*) 2 mg PO Q2H PRN PRN Reason: CRAVING Pantoprazole Sodium (Protonix Tab*) 40 mg PO DAILY [facility] Last Admin: 12/01/18 09:11 Dose: 40 mg Pharmacy Profile Note (Nicotine Patch Removal Note*) 1 note FOLLOW UP 2099 [facility] Last Admin: 11/30/18 21:51 Dose: 1 note Prazosin HCl (Minipress Cap*) 2 mg PO BEDTIME [facility] Last Admin: 11/30/18 20:46 Dose: 2 mg Trazodone HCl (Desyrel Tab*) 200 mg PO BEDTIME [facility] Last Admin: 11/30/18 20:46 Dose: 200 mg - Discharge Plan Discharge Plan: Outpatient Follow Up Outpatient Program: [facility]
[2018-12-01] MEDS: Naproxen TAB* 250 MG PO PRN (14:40)
[2018-12-01] MEDS: hydrOXYzine HCL TAB* 25 MG PO PRN (14:40)
[2018-12-01] MEDS: Prazosin CAP* 1 MG PO SCH (20:18)
[2018-12-01] MEDS: traZODone TAB* 100 MG PO SCH (20:18)
[2018-12-01] MEDS: BREXPIPRAZOLE 2 MG PO SCH (20:19)
[2018-12-01 20:24] VITALS: BP 109/70
[2018-12-01] MEDS: Nicotine Patch Removal NOTE FOLLOW UP SCH (20:26)
[2018-12-02] MEDS: Pantoprazole TAB * 40 MG TAB PO SCH (09:46)
[2018-12-02] MEDS: Multivitamins/Minerals TAB PO SCH (09:46)
[2018-12-02] MEDS: Nicotine PATCH 21 MG/24 HR* PATCH TRANSDERM SCH (09:47)
[2018-12-02] MEDS: Albuterol HFA INHALER* 8 gm MDI INH PRN (09:47)
[2018-12-02] MEDS: hydrOXYzine HCL TAB* 25 MG PO PRN (12:26)
[2018-12-02] MEDS: clonazePAM TAB(*) 1 MG PO PRN ×2 (18:19→20:40)
[2018-12-02] MEDS: Cyclobenzaprine TAB* 10 MG PO PRN (18:19)
[2018-12-02] MEDS: BREXPIPRAZOLE 2 MG PO SCH (20:32)
[2018-12-02] MEDS: Nicotine Patch Removal NOTE FOLLOW UP SCH (20:33)
[2018-12-02] MEDS: Prazosin CAP* 1 MG PO SCH (20:35)
[2018-12-02] MEDS: traZODone TAB* 100 MG PO SCH (20:35)
[2018-12-03] MEDS: Albuterol HFA INHALER* 8 gm MDI INH PRN (07:00)
[2018-12-03] MEDS: Naproxen TAB* 250 MG PO PRN (07:00)
[2018-12-03] MEDS: Multivitamins/Minerals TAB PO SCH (09:15)
[2018-12-03] MEDS: Pantoprazole TAB * 40 MG TAB PO SCH (09:15)
[2018-12-03] MEDS: Nicotine PATCH 21 MG/24 HR* PATCH TRANSDERM SCH (09:15)
--- NOTE | 2018-12-03 10:48 | DCNOTE ---
Subjective - Subjective Service Types: 70558 Hosp DC Day Mgmt simple under 30 min Discharge Date: 12/03/18 Subjective: Patient reports decreased anxiety and improved mood. She states she has been sleeping well. She reports readiness for discharge and is eager to return home. She states her primary stressor is daughter's acting out at school. We discuss ways in which she can support her daughter and teachers, as well as prioritize her own coping skills while Chrissy is at school. Pt is receptive to suggestions by appeals writer and SW in regards to time management. Patient denies SI or passive wish. She is knowledgeable of upcoming DBT group and therapy appt this week. Objective - General Observations Appearance: Well Groomed Stature: Overweight Posture: WNL Eye Contact: Average Behavior/Activity: WNL - Interaction Observations Attitude Towards Examiner: Cooperative Stated Mood: Euthymic Affect: Bright Speech Pattern/Tone: Clear, Appropriate, Normal Volume Thought Process: Coherent, Goal Directed Perception: WNL Thought Content: WNL Hallucination Type: None Delusion Type: None - Cognitive Function Orientation: A&O x 4 Level of Consciousness: Alert Cognition: WNL Estimated Intelligence: Borderline Range Insight: WNL Judgment Within Normal Limits: Yes - Medication Compliance Cooperative with Inpatient Medication Regimen: Yes - Group Participation Participates in Group Activities: Yes DC Assessment - Assessment Clinical Impression: 43 y.o. , white female with a history of borderline personality and borderline intellectual functioning arrives at the hospital complaining of "manic" symptoms and thoughts of harming herself. She is psychiatrically stable and denies SI or passive wish. She requests to be discharged today. Merits Inpatient Hospitalization: No Clear for Discharge: Adequate Clinical Respons, Acceptable Safety Profile Inpatient DSM-V Dx: F32.9 Discharge Planning - Discharge Planning Discharge Plan: Outpatient Follow Up Outpatient Program: [facility] Recommendations for Continuing Care: Medication Management, Psychotherapy, Routine Metabolic Monitoring, Primary Care Followup Medications: Current Medications Acetaminophen (Tylenol Tab*) 650 mg PO Q4H PRN PRN Reason: PAIN; OR TEMP >101 Last Admin: 11/30/18 09:09 Dose: 650 mg Al Hydrox/Mg Hydrox/Simethicone (Maalox Plus*) 30 ml PO Q4H PRN PRN Reason: INDIGESTION Albuterol (Ventolin Hfa Inhaler*) 2 puff INH Q6H PRN PRN Reason: WHEEZING Last Admin: 12/03/18 07:00 Dose: 2 puff Albuterol (Ventolin 2.5 Mg/3 Ml Neb.Abi*) 2.5 mg INH Q6H PRN PRN Reason: SHORTNESS OF BREATH Brexpiprazole (Rexulti (Nf)) 2 mg PO BEDTIME RINA Last Admin: 12/02/18 20:32 Dose: 2 mg Clonazepam (Klonopin Tab(*)) 1 mg PO TID PRN PRN Reason: ANXIETY Last Admin: 12/02/18 20:40 Dose: 1 mg Cyclobenzaprine HCl (Flexeril Tab*) 10 mg PO BID PRN PRN Reason: SPASMS Last Admin: 12/02/18 18:19 Dose: 10 mg Hydroxyzine HCl (Atarax Tab*) 50 mg PO BEDTIME PRN PRN Reason: .AGITATION Last Admin: 12/02/18 20:35 Dose: 50 mg Hydroxyzine HCl (Atarax Tab*) 25 mg PO 0900,1400 PRN PRN Reason: ANXIETY Last Admin: 12/02/18 12:26 Dose: 25 mg Multivitamins/Minerals (Theragran/Minerals Tab*) 1 tab PO DAILY RINA Last Admin: 12/03/18 09:15 Dose: 1 tab Naproxen (Naprosyn Tab*) 500 mg PO Q12H PRN PRN Reason: PAIN Last Admin: 12/03/18 07:00 Dose: 500 mg Pantoprazole Sodium (Protonix Tab*) 40 mg PO DAILY RINA Last Admin: 12/03/18 09:15 Dose: 40 mg Prazosin HCl (Minipress Cap*) 2 mg PO BEDTIME RINA Last Admin: 12/02/18 20:35 Dose: 2 mg Trazodone HCl (Desyrel Tab*) 200 mg PO BEDTIME RINA Last Admin: 12/02/18 20:35 Dose: 200 mg Discharge Planning: Prescriptions provided for discharge [x] Yes [] No Follow up care details as per social work arrangements: [facility]- Dr Gonzalez as needed Patient response to discharge plan: [x] eager for discharge [x] agreeable with discharge plan [] ambivalent about discharge [] disagrees with discharge today
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
== END 2018-12-03 12:25 | disposition home or self-care (01) | DRG 754 ==
LOC: ED 18:46 → BSU 23:24
PROVIDERS: ADMIT Psychiatry & Neurology Psychiatry; ATTEND Psychiatry & Neurology Psychiatry
DX: F32.9 Major depressive disorder, single episode, unspecified (principal); R45.851 Suicidal ideations; F60.3 Borderline personality disorder; R41.83 Borderline intellectual functioning; F31.2 Bipolar disorder, current episode manic severe with psychotic features; F43.10 Post-traumatic stress disorder, unspecified; F90.9 Attention-deficit hyperactivity disorder, unspecified type; Z62.810 Personal history of physical and sexual abuse in childhood; Z62.811 Personal history of psychological abuse in childhood; J45.909 Unspecified asthma, uncomplicated; E66.9 Obesity, unspecified; K21.9 Gastro-esophageal reflux disease without esophagitis; F17.210 Nicotine dependence, cigarettes, uncomplicated; E78.5 Hyperlipidemia, unspecified; K58.9 Irritable bowel syndrome, unspecified; N18.9 Chronic kidney disease, unspecified; Z79.899 Other long term (current) drug therapy; Z68.34 Body mass index [BMI] 34.0-34.9, adult; Z81.8 Family history of other mental and behavioral disorders; Z81.1 Family history of alcohol abuse and dependence
CPT/HCPCS: 36415; 80053; 80061; 80307; 80320; 80329; 81003; 83036; 84443; 84702; 85025; 99222; 99231; 99238; 99284; A9270-GY; G0480

== ENCOUNTER 2019-02-12 13:22 | Emergency (ER) | payer OTHER ==
[2019-02-12] MEDS ORDERED: clonazePAM TAB(*) 0.5 MG PO ONE (14:03)
--- NOTE | 2019-02-12 14:06 | ED ---
Syncope/Near Syncope - HPI Summary HPI Summary: Pt is a 43 y/o F presenting to the ED with a chief complaint of seizures. 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 Per the pts daughter, she has had approximately 5 episodes prior to being seen. She did not take the Klonopin when she started to feel one coming on, as she had to drive to pick her daughter up. Currently, she feels physically fine, just anxious. Has been seen by a outside neurologist with a normal workup per the patient - History Of Current Complaint Chief Complaint: EDSeizure Time Seen by Provider: 02/12/19 13:26 Hx Obtained From: Patient Onset/Duration: Sudden Onset, Lasting Minutes, Resolved Context: Witnessed Activity At Onset: At Rest Aggravating Factor(s): Nothing Alleviating Factor(s): Nothing Associated Signs And Symptoms: Seizure - pseudoseizure Related History: Similar Episode/Dx as - past visits: pseudoseizures - Allergies/Home Medications Allergies/Adverse Reactions: Allergies Allergy/AdvReac Type Severity Reaction Status Date / Time levofloxacin [From Levaquin] Allergy Unknown Verified 02/12/19 13:43 Reaction Details methylphenidate Allergy See Comment Verified 02/12/19 13:43 prednisone Allergy Anxiety Verified 02/12/19 13:43 GRAPEFRUIT Allergy AVOIDS DUE Uncoded 02/12/19 13:43 TO CURRENT MEDICATION SHE IS TAKING Home Medications: Home Medications Baclofen TAB* [Lioresal TAB*] 5 - 10 mg PO Q8HR PRN 02/12/19 [History Confirmed 02/12/19] Brexpiprazole (NF) [Rexulti 3 mg tab (NF)] 3 mg PO DAILY 02/12/19 [History Confirmed 02/12/19] Fluticas/Salmet 115/21 HFA(NF) [Advair HFA 115/21 (NF)] 2 puff INH BID 02/12/19 [History Confirmed 02/12/19] Naproxen TAB* [Naprosyn 250 mg TAB*] 500 mg PO BID WITH MEALS 02/12/19 [History Confirmed 02/12/19] Omeprazole (Nf) [Prilosec (NF)] 40 mg PO DAILY 02/12/19 [History Confirmed 02/12] clonazePAM [Clonazepam] 2 mg PO DAILY PRN MDD 4mg 02/12/19 [History Confirmed ] hydrOXYzine HCL TAB* [Atarax TAB 50 MG *] 50 mg PO BEDTIME PRN 02/12/19 [ History Confirmed 02/12/19] PMH/Surg Hx/FS Hx/Imm Hx Previously Healthy: Yes Endocrine/Hematology History: Denies: Hx Anticoagulant Therapy, Hx Blood Disorders, Hx Blood Transfusions, Hx Bone Marrow Disease, Hx Diabetes, Hx Systemic Lupus Erythematosus, Hx Sickle Cell Disease, Hx Thyroid Disease, Hx Anemia, Hx Unexplained Bleeding, Other Endocrine/Hematological Disorders Cardiovascular History: Reports: Hx Hypercholesterolemia Denies: Hx Hypertension Respiratory History: Reports: Hx Asthma - PRN INHALER Denies: Hx Chronic Bronchitis, Hx Chronic Obstructive Pulmonary Disease (COPD ), Hx Cystic Fibrosis, Hx Lung Cancer, Hx Pleural Effusion, Hx Pneumonia, Hx Pulmonary Edema, Hx Pulmonary Embolism, Hx Seasonal Allergies, Hx Sleep Apnea, Other Respiratory Problems/Disorders GI History: Reports: Hx Gastroesophageal Reflux Disease - ON MEDICATION FOR, Hx Irritable Bowel, Hx Ulcer - STARTING OF AN ULCER IN THE PAST Denies: Hx Cirrhosis, Hx Crohn's Disease, Hx Diverticulosis, Hx Gall Bladder Disease, Hx Gastrointestinal Bleed, Hx Hiatal Hernia, Hx Jaundice, Hx Obstructive Bowel, Hx Ileostomy, Hx Pyloric Stenosis, Other GI Disorders History: Denies: Other Problems/Disorders Musculoskeletal History: Reports: Hx Fibromyalgia, Hx Scoliosis Denies: Hx Arthritis, Hx Back Problems, Hx Bursitis, Hx Congenital Bone Abnormalities, Hx Gout, Hx Orthopedic Injury, Hx Osteoporosis, Hx Tendonitis, Other Musculoskeletal History Sensory History: Reports: Hx Contacts or Glasses - Pt does not have her glasses with her Denies: Hx Cataracts, Hx Eye Injury, Hx Eye Prosthesis, Hx Glaucoma, Hx Legally Blind, Hx Macular Degeneration, Hx Vision Problem, Hx Deafness, Hx Hearing Aid, Hx Hearing Problem, Other Sensory Impairments Opthamlomology History: Reports: Hx Contacts or Glasses - Pt does not have her glasses with her Denies: Hx Cataracts, Hx Eye Injury, Hx Eye Prosthesis, Hx Glaucoma, Hx Legally Blind, Hx Macular Degeneration, Hx Vision Problem, Other Sensory Impairments Neurological History: Reports: Hx Migraine - TREATS WITH REST AND TYLENOL, Hx Seizures - Pseudoseizures (per pt)-LAST 3-4 MONTHS AGO-LAST was yesterday, Other Neuro Impairments/Disorders - seizures versus psychogenic events Denies: Hx Dementia, Hx Developmental Delay, Hx Headaches, Hx Nerve Disease, Hx Spinal Cord Injury, Hx Transient Ischemic Attacks (TIA) Psychiatric History: Reports: Hx Anxiety, Hx Depression, Hx Post Traumatic Stress Disorder, Hx Inpatient Treatment, Hx Community Mental Health Tx, Hx Bipolar Disorder, Hx Suicide Attempt Denies: Hx Attention Deficit Hyperactivity Disorder, Hx Eating Disorder, Hx Panic Disorder, Hx Schizophrenia, Hx of Violent Episodes Against Others, Hx Substance Abuse - Cancer History Cancer Type, Location and Year: None reported - Surgical History Surgery Procedure, Year, and Place: [id number] YEARS AGO. Cervical lining removed in 2017 Hx Anesthesia Reactions: No - Immunization History Date of Tetanus Vaccine: UNKNOWN Date of Influenza Vaccine: 2012 Immunizations Up to Date: Yes Infectious Disease History: No Infectious Disease History: Denies: Hx Clostridium Difficile, Hx Hepatitis, Hx Human Immunodeficiency Virus (HIV), Hx of Known/Suspected MRSA, Hx Shingles, Hx Tuberculosis, Traveled Outside the [place] in Last 30 Days - Family History Known Family History: Positive: Seizure Disorder - pseudo-seizures - Social History Alcohol Use: Rare Hx Substance Use: No Substance Use Type: Reports: None Hx Tobacco Use: Yes Smoking Status (MU): Current Every Day Smoker Type: Cigarettes Amount Used/How Often: 1/2 PPD X 20 YEARS- OFF AND ON Length of Time of Smoking/Using Tobacco: 23 Have You Smoked in the Last Year: Yes - smokes 1/2 pack/day. No other form tobacco or nicotine in last year Review of Systems Neurological: Other - pseudoseizures Positive: Anxious All Other Systems Reviewed And Are Negative: Yes Physical Exam - Summary Physical Exam Summary: Constitutional: Well-developed, Well-nourished, Skin: Warm, Dry HENT: Normocephalic; Atraumatic Eyes: Conjunctiva normal Neck: Musculoskeletal ROM normal neck. (-) JVD, (-) Stridor Cardio: Rhythm regular, rate normal, Heart sounds normal; Intact distal pulses; Radial pulses are 2+ and symmetric. (-) Murmur Pulmonary/Chest wall: Effort normal. (-) Respiratory distress, (-) Wheezes, (-) Rales Abd: Soft, (-) tenderness, Musculoskeletal: (-) Edema Lymph: (-) Cervical adenopathy Neuro: Alert, Oriented x3. No focal neuro deficits. Ambulates with a steady gait Psych: Tearful, no SI. Triage Information Reviewed: Yes Vital Signs On Initial Exam: Initial Vitals BP 130/80 02/12/19 13:35 Vital Signs Reviewed: Yes Diagnostics - Vital Signs Vital Signs Temp Pulse Resp BP Pulse Ox 02/12/19 13:37 97.8 F 85 20 130/80 92 02/12/19 13:36 82 90 02/12/19 13:35 130/80 - Laboratory Lab Statement: Any lab studies that have been ordered have been reviewed, and results considered in the medical decision making process. Course/Dx Course Of Treatment: 43-year-old female with a history of non-epileptiform seizures who presents with seizure-like activity at home. Vital signs stable, no acute distress. Normal neurological exam. Patient appears very anxious and tearful therefore well give her half of her home dose of Klonopin 0.5 mg. Patient is driving and will have her mother picked her up to go home from the ER. Patients daughter and patient were updated on plan and agreed. Patient reports several left stressors have been causing her to have increased seizure- like activity and she understands that the best way to resolve this is to do stress. Patient has Klonopin at home and follow up with her outpatient physician. - Diagnoses Provider Diagnoses: Pseudoseizures Discharge - Sign-Out/Discharge Documenting (check all that apply): Patient Departure Patient Received Moderate/Deep Sedation with Procedure: No - Discharge Plan Condition: Stable Disposition: HOME Referrals: Astrid Gonzalez MD [Primary Care Provider] - Additional Instructions: Please follow up with your primary care provider. Return to the emergency department with any new or worsening symptoms. - Billing Disposition and Condition Condition: STABLE Disposition: Home - Attestation Statements Document Initiated by Jcibmatti: Yes Documenting Scribe: Natalie Trotter Provider For Whom Rubio is Documenting (Include Credential): Fiona Martinez MD. Scribe Attestation: Natalie Mesa, scribed for Fiona Martinez MD. on 02/12/19 at 1426. Scribe Documentation Reviewed: Yes Provider Attestation: The documentation as recorded by the scribe, Natalie O'Ken accurately reflects the service I personally performed and the decisions made by me, Fiona Martinez MD. Status of Scribe Document: Viewed
[2019-02-12 14:57] VITALS: BP 107/74
== END 2019-02-12 14:57 | disposition home or self-care (01) ==
LOC: ED 13:22
DX: F44.5 Conversion disorder with seizures or convulsions (principal); Z88.1 Allergy status to other antibiotic agents; Z88.8 Allergy status to other drugs, medicaments and biological substances; Z79.899 Other long term (current) drug therapy; E78.00 Pure hypercholesterolemia, unspecified; J45.909 Unspecified asthma, uncomplicated; K21.9 Gastro-esophageal reflux disease without esophagitis; M79.7 Fibromyalgia; F41.9 Anxiety disorder, unspecified; F32.9 Major depressive disorder, single episode, unspecified; F17.210 Nicotine dependence, cigarettes, uncomplicated
CPT/HCPCS: 99283; A9270-GY

== ENCOUNTER 2019-03-08 13:26 | Emergency (ER) | payer OTHER ==
--- NOTE | 2019-03-08 13:42 | ED ---
HPI Chest Pain - HPI Summary HPI Summary: 43 year old F brought in by ambulance to [facility] complains of sharp chest pain since today which has resolved. The patient does not have chest pain. The patient rates the pain 0/10 in severity. Symptoms aggravated by nothing. Symptoms alleviated by nothing. Patient reports left arm numbness that has resolved as well. Patient additionally complains of nausea, cough. Patient denies vomiting. Last night, patient had a severe anxiety attack. Patient smokes , occasionally drinks alcohol, denies drugs. She has hx asthma for which she uses an inhaler. She has been using her inhaler lately per nurse. She has hx hyperchoelsterolemia. - History of Current Complaint Chief Complaint: EDGeneral Time Seen by Provider: 03/08/19 13:31 Hx Obtained From: Patient Onset/Duration: Started Hours Ago, Resolved Current Severity: None Pain Intensity: 0 Pain Scale Used: 0-10 Numeric Aggravating Factor(s): Nothing Alleviating Factor(s): Nothing Associated Signs and Symptoms: Positive: Other: - left arm numbness that has resolved, nausea, cough; NEG: vomiting - Additional Pertinent History Primary Care Physician: SUSANA - Allergy/Home Medications Allergies/Adverse Reactions: Allergies Allergy/AdvReac Type Severity Reaction Status Date / Time levofloxacin [From Levaquin] Allergy Unknown Verified 02/13/19 13:39 Reaction Details methylphenidate Allergy See Comment Verified 02/13/19 13:39 prednisone Allergy Anxiety Verified 02/13/19 13:39 GRAPEFRUIT Allergy AVOIDS DUE Uncoded 02/13/19 13:39 TO CURRENT MEDICATION SHE IS TAKING Home Medications: Home Medications Albuterol 2.5MG/3ML (0.083%)* [Ventolin 2.5 MG/3 ML NEB.TRICIA*] 2.5 mg INH Q6H PRN 03/08/19 [History Confirmed 03/08/19] Cyclobenzaprine TAB* [Flexeril 10 MG TAB*] 10 mg PO BEDTIME PRN 03/08/19 [ History Confirmed 03/08/19] Ibuprofen TAB* [Advil TAB*] 200 mg PO Q6H PRN 03/08/19 [History Confirmed ] Naproxen TAB* [Naprosyn 250 mg TAB*] 500 mg PO BID PRN 03/08/19 [History Confirmed 03/08/19] Omeprazole CAP (NF) [Prilosec CAP* 20 MG] 20 mg PO DAILY 03/08/19 [History Confirmed 03/08/19] hydrOXYzine HCL TAB* [Atarax 25 MG TAB*] 25 mg PO BID PRN 03/08/19 [History Confirmed 03/08/19] PMH/Surg Hx/FS Hx/Imm Hx Endocrine/Hematology History: Denies: Hx Anticoagulant Therapy, Hx Blood Disorders, Hx Blood Transfusions, Hx Bone Marrow Disease, Hx Diabetes, Hx Systemic Lupus Erythematosus, Hx Sickle Cell Disease, Hx Thyroid Disease, Hx Anemia, Hx Unexplained Bleeding, Other Endocrine/Hematological Disorders Cardiovascular History: Reports: Hx Hypercholesterolemia Denies: Hx Hypertension Respiratory History: Reports: Hx Asthma - PRN INHALER Denies: Hx Chronic Bronchitis, Hx Chronic Obstructive Pulmonary Disease (COPD ), Hx Cystic Fibrosis, Hx Lung Cancer, Hx Pleural Effusion, Hx Pneumonia, Hx Pulmonary Edema, Hx Pulmonary Embolism, Hx Seasonal Allergies, Hx Sleep Apnea, Other Respiratory Problems/Disorders GI History: Reports: Hx Gastroesophageal Reflux Disease - ON MEDICATION FOR, Hx Irritable Bowel, Hx Ulcer - STARTING OF AN ULCER IN THE PAST Denies: Hx Cirrhosis, Hx Crohn's Disease, Hx Diverticulosis, Hx Gall Bladder Disease, Hx Gastrointestinal Bleed, Hx Hiatal Hernia, Hx Jaundice, Hx Obstructive Bowel, Hx Ileostomy, Hx Pyloric Stenosis, Other GI Disorders History: Denies: Other Problems/Disorders Musculoskeletal History: Reports: Hx Back Problems, Hx Fibromyalgia, Hx Scoliosis Denies: Hx Arthritis, Hx Bursitis, Hx Congenital Bone Abnormalities, Hx Gout , Hx Orthopedic Injury, Hx Osteoporosis, Hx Tendonitis, Other Musculoskeletal History Sensory History: Reports: Hx Contacts or Glasses - Pt does not have her glasses with her Denies: Hx Cataracts, Hx Eye Injury, Hx Eye Prosthesis, Hx Glaucoma, Hx Legally Blind, Hx Macular Degeneration, Hx Vision Problem, Hx Deafness, Hx Hearing Aid, Hx Hearing Problem, Other Sensory Impairments Opthamlomology History: Reports: Hx Contacts or Glasses - Pt does not have her glasses with her Denies: Hx Cataracts, Hx Eye Injury, Hx Eye Prosthesis, Hx Glaucoma, Hx Legally Blind, Hx Macular Degeneration, Hx Vision Problem, Other Sensory Impairments Neurological History: Reports: Hx Migraine - TREATS WITH REST AND TYLENOL, Hx Seizures - Pseudoseizures (per pt)-LAST 3-4 MONTHS AGO-LAST was yesterday, Other Neuro Impairments/Disorders - seizures versus psychogenic events Denies: Hx Dementia, Hx Developmental Delay, Hx Headaches, Hx Nerve Disease, Hx Spinal Cord Injury, Hx Transient Ischemic Attacks (TIA) Psychiatric History: Reports: Hx Anxiety, Hx Depression, Hx Post Traumatic Stress Disorder, Hx Inpatient Treatment, Hx Community Mental Health Tx, Hx Bipolar Disorder, Hx Suicide Attempt Denies: Hx Attention Deficit Hyperactivity Disorder, Hx Eating Disorder, Hx Panic Disorder, Hx Schizophrenia, Hx of Violent Episodes Against Others, Hx Substance Abuse - Cancer History Cancer Type, Location and Year: None reported - Surgical History Surgery Procedure, Year, and Place: [id number] YEARS AGO. Cervical lining removed in 2017 Hx Anesthesia Reactions: No - Immunization History Date of Tetanus Vaccine: UNKNOWN Date of Influenza Vaccine: 2012 Infectious Disease History: No Infectious Disease History: Denies: Hx Clostridium Difficile, Hx Hepatitis, Hx Human Immunodeficiency Virus (HIV), Hx of Known/Suspected MRSA, Hx Shingles, Hx Tuberculosis, Traveled Outside the [place] in Last 30 Days - Family History Known Family History: Positive: Seizure Disorder - pseudo-seizures - Social History Alcohol Use: Weekly Alcohol Amount: 1-2 Hx Substance Use: No Substance Use Type: Reports: None Hx Tobacco Use: Yes Smoking Status (MU): Current Every Day Smoker Type: Cigarettes Amount Used/How Often: 1/2 PPD X 20 YEARS- OFF AND ON Length of Time of Smoking/Using Tobacco: 23 Have You Smoked in the Last Year: Yes - smokes 1/2 pack/day. No other form tobacco or nicotine in last year Review of Systems Positive: Chest Pain Positive: Cough Positive: Nausea. Negative: Vomiting Positive: Numbness - left arm All Other Systems Reviewed And Are Negative: Yes Physical Exam - Summary Physical Exam Summary: VITAL SIGNS: Reviewed. GENERAL: Patient is an obese FEMALE who is lying comfortable in the stretcher. Patient is not in any acute respiratory distress. HEAD AND FACE: No signs of trauma. No ecchymosis, hematomas or skull depressions. No sinus tenderness. EYES: PERRLA, EOMI x 2, No injected conjunctiva, no nystagmus. EARS: Hearing grossly intact. Ear canals and tympanic membranes are within normal limits. MOUTH: Oropharynx within normal limits. NECK: Supple, trachea is midline, no adenopathy, no JVD, no carotid bruit, no c- spine tenderness, neck with full ROM. CHEST: Symmetric, no tenderness at palpation. LUNGS: Diffuse wheezing. CVS: Regular rate and rhythm, S1 and S2 present, no murmurs or gallops appreciated. ABDOMEN: Soft, non-tender. No signs of distention. No rebound, no guarding, and no masses palpated. Bowel sounds are normal. EXTREMITIES: FROM in all major joints, no edema, no cyanosis or clubbing. NEURO: Alert and oriented x 3. No acute neurological deficits. Speech is normal and follows commands. SKIN: Dry and warm. Triage Information Reviewed: Yes Vital Signs On Initial Exam: Initial Vitals Temp Pulse Resp BP Pulse Ox 97.5 F 89 18 112/78 91 03/08/19 13:30 03/08/19 13:30 03/08/19 13:30 03/08/19 13:30 03/08/19 13:30 Vital Signs Reviewed: Yes Diagnostics - Vital Signs Vital Signs Temp Pulse Resp BP Pulse Ox 03/08/19 13:30 97.5 F 89 18 112/78 91 - Laboratory Result Diagrams: 03/08/19 13:57 03/08/19 13:57 Lab Statement: Any lab studies that have been ordered have been reviewed, and results considered in the medical decision making process. - Radiology Chest x-ray Radiology Interpretation Completed By: Radiologist Summary of Radiographic Findings: NO ACTIVE CARDIOPULMONARY DISEASE. ED physician has reviewed this report. - EKG 1336 Cardiac Rate: NL - 87 BPM EKG Rhythm: Sinus Rhythm Summary of EKG Findings: Normal sinus rhythm [address] elevations Chest Pain Course/Dx - Course Assessment/Plan: 43 year old F brought in by ambulance to [facility] complains of sharp chest pain since today which has resolved. The patient does not have chest pain. The patient rates the pain 0/10 in severity. Symptoms aggravated by nothing. Symptoms alleviated by nothing. Patient reports left arm numbness that has resolved as well. Patient additionally complains of nausea, cough. Patient denies vomiting. Last night, the patient had a severe anxiety attack. Patient smokes, occasionally drinks alcohol, denies drugs. She has hx asthma for which she uses an inhaler. She has been using her inhaler lately per nurse. She has hx hypercholesterolemia. Blood test results without any significant abnormality except for hemoglobin of 16.1, platelet is 135, and troponin 1 is 0.00. EKG is a normal sinus rhythm without any significant elevations. Chest x -ray impression: No active cardiopulmonary disease. In the ED course, the patient was given DuoNebs, IV fluids, and Solu-Medrol since I believe the patient has a COPD exacerbation. After these medications were given, the symptoms have improved. ABG within normal limits. Second troponin is 0.00. Therefore, the patient will be discharged home with follow-up with PCP. Patient was given instructions to return to the emergency room he develops any other Symptoms. She understands and agrees. - Diagnoses Provider Diagnoses: Chest pain, Wheezing Discharge - Sign-Out/Discharge Documenting (check all that apply): Patient Departure - Discharge Patient Received Moderate/Deep Sedation with Procedure: No - Discharge Plan Condition: Stable Disposition: HOME Patient Education Materials: COPD (Chronic Obstructive Pulmonary Disease) (ED) Referrals: Page Dumont MD [Primary Care Provider] - 3 Days Additional Instructions: Follow up with your primary care provider in 3 days. Return to the Emergency Department for new or worsening symptoms. - Billing Disposition and Condition Condition: STABLE Disposition: Home - Attestation Statements Document Initiated by Scribe: Yes Documenting Scribe: Gilda Bhagat Provider For Whom Scribe is Documenting (Include Credential): Timothy Jiménez MD Scribe Attestation: I, Gilda Bhagat, scribed for Timothy Jiménez MD on 03/08/19 at 1858. Scribe Documentation Reviewed: Yes Provider Attestation: The documentation as recorded by the scribeGilda accurately reflects the service I personally performed and the decisions made by me, Timothy Jiménez MD Status of Scribe Document: Viewed
[2019-03-08] MEDS ORDERED: methylPREDNISolone 125 MG* 2 ML VIAL IV ONE (13:46)
[2019-03-08] MEDS ORDERED: Albuterol 2.5 MG/3 ML NEB.SOL* (0.083%) INH ONE (13:46)
[2019-03-08 14:17] LABS: ABS Basophils 0.1 10^3/ul (0-0.2); ABS Eosinophils 0.1 10^3/ul (0-0.6); ABS Lymphocytes 2.3 10^3/ul (1.0-4.8); ABS Monocytes 0.6 10^3/ul (0-0.8); ABS Neutrophils 5.6 10^3/ul (1.5-7.7); Eosinophil % 1.1 %; Hematocrit 47 % (35-47); Hemoglobin 16.1 g/dL (12.0-16.0); Lymphocyte % 26.5 %; Mean Corpuscular HGB Conc 34 g/dL (31-36); Mean Corpuscular Hemoglobin 30 pg (27-31); Mean Corpuscular Volume 87 fL (80-97); Nucleated Red Blood Cells % 0.1; Platelet Count 135 10^3/uL (150-450); Red Blood Count 5.45 10^6 /uL (3.70-4.87); Red Cell Distribution Width 14 % (10-15); White Blood Count 8.6 10^3/uL (3.5-10.8)
[2019-03-08 14:26] LABS: Albumin 4.2 g/dL (3.2-5.2); Albumin/Globulin Ratio 1.7 (1-3); BUN/Creatinine Ratio 13.4 (8-20); Calcium 9.5 mg/dL (8.6-10.3); EGFR African American 76.2 (>60); Globulin 2.5 g/dL (2-4); Magnesium 1.9 mg/dL (1.9-2.7); Total Bilirubin 0.3 mg/dL (0.2-1.0); Total Protein 6.7 g/dL (6.4-8.9)
[2019-03-08 14:29] LABS: CKMB ng/mL 3.3 ng/mL (0.6-6.3)
[2019-03-08 14:32] LABS: HCG Pregnancy 1.14 mIU/mL
[2019-03-08 15:01] LABS: TSH (Thyroid Stimulating Horm) 2.53 mcIU/mL (0.34-5.60)
[2019-03-08] MEDS ORDERED: Albuterol/Ipratropium NEB.SOL* Albuterol 2.5 MG/Ipratropium 0.5 MG 3 ML INH ONE (16:20)
[2019-03-08 17:35] VITALS: BP 121/66
== END 2019-03-08 17:40 | disposition home or self-care (01) ==
LOC: ED 13:26
DX: R07.9 Chest pain, unspecified (principal); R06.2 Wheezing; E78.00 Pure hypercholesterolemia, unspecified; K21.9 Gastro-esophageal reflux disease without esophagitis; F17.210 Nicotine dependence, cigarettes, uncomplicated; Z88.1 Allergy status to other antibiotic agents; Z88.8 Allergy status to other drugs, medicaments and biological substances; Z79.899 Other long term (current) drug therapy
CPT/HCPCS: 36415; 71045; 80053; 82550; 82553; 82803; 83605; 83735; 83880; 84443; 84484; 84702; 85025; 93005; 96374; 99284; A9270-GY; J2930

== ENCOUNTER 2019-05-15 14:51 | Emergency (ER) | payer OTHER ==
--- NOTE | 2019-05-15 15:09 | ED ---
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 Has hx pseudoseizure. Usually gets one once a week. This afternoon, patient was at [facility] for allergy testing. After she finished her allergy testing, patient had a pseudoseizure. Patient reports fatigue. No injury from seizure. States she takes Klonopin at night. States she took it last night. States she gets pseudoseizure when she is fatigued. States she didn't sleep well last night because her neighbors were loud as they were doing erasmo in the apartment above her. . States she thinks she is dehydrated. not postictal. Symptoms aggravated by nothing. Symptoms alleviated by nothing. States she is not . States she has not had a menstrual cycle in 2 years since having her cervical lining removed. Rare alcohol. Smokes cigarettes. No drugs. Patients medication reviewed this visit. - History of Current Complaint Stated Complaint: SEIZURES PER EMS Time Seen by Provider: 05/15/19 14:54 Hx Obtained From: Patient Onset/Duration: Started minutes ago, Resolved Timing: Constant Aggravating: Nothing Alleviating: Nothing - Additional Pertinent History Primary Care Physician: [id number] - Allergy/Home Medications Allergies/Adverse Reactions: Allergies Allergy/AdvReac Type Severity Reaction Status Date / Time levofloxacin [From Levaquin] Allergy Unknown Verified 05/15/19 15:12 Reaction Details methylphenidate Allergy See Comment Verified 05/15/19 15:12 prednisone Allergy Anxiety Verified 05/15/19 15:12 GRAPEFRUIT Allergy AVOIDS DUE Uncoded 05/15/19 15:12 TO CURRENT MEDICATION SHE IS TAKING Home Medications: Home Medications Ipratropium 0.5MG/2.5ML NEB* [Atrovent 0.5 MG NEB.TRICIA*] 0.5 mg INH Q6H PRN 05/15 [History Confirmed 05/15/19] Omeprazole (Nf) [Prilosec (NF)] 40 mg PO DAILY 05/15/19 [History Confirmed 05/15] clonazePAM TAB(*) [KlonoPIN TAB(*)] 2 mg PO DAILY PRN 05/15/19 [History Confirmed 05/15/19] PMH/Surg Hx/FS Hx/Imm Hx Previously Healthy: No Endocrine/Hematology History: Denies: Hx Anticoagulant Therapy, Hx Blood Disorders, Hx Blood Transfusions, Hx Bone Marrow Disease, Hx Diabetes, Hx Systemic Lupus Erythematosus, Hx Sickle Cell Disease, Hx Thyroid Disease, Hx Anemia, Hx Unexplained Bleeding, Other Endocrine/Hematological Disorders Cardiovascular History: Reports: Hx Hypercholesterolemia Denies: Hx Hypertension Respiratory History: Reports: Hx Asthma - PRN INHALER Denies: Hx Chronic Bronchitis, Hx Chronic Obstructive Pulmonary Disease (COPD ), Hx Cystic Fibrosis, Hx Lung Cancer, Hx Pleural Effusion, Hx Pneumonia, Hx Pulmonary Edema, Hx Pulmonary Embolism, Hx Seasonal Allergies, Hx Sleep Apnea, Other Respiratory Problems/Disorders GI History: Reports: Hx Gastroesophageal Reflux Disease - ON MEDICATION FOR, Hx Irritable Bowel, Hx Ulcer - STARTING OF AN ULCER IN THE PAST Denies: Hx Cirrhosis, Hx Crohn's Disease, Hx Diverticulosis, Hx Gall Bladder Disease, Hx Gastrointestinal Bleed, Hx Hiatal Hernia, Hx Jaundice, Hx Obstructive Bowel, Hx Ileostomy, Hx Pyloric Stenosis, Other GI Disorders History: Denies: Other Problems/Disorders Musculoskeletal History: Reports: Hx Back Problems, Hx Fibromyalgia, Hx Scoliosis Denies: Hx Arthritis, Hx Bursitis, Hx Congenital Bone Abnormalities, Hx Gout , Hx Orthopedic Injury, Hx Osteoporosis, Hx Tendonitis, Other Musculoskeletal History Sensory History: Reports: Hx Contacts or Glasses - Pt does not have her glasses with her Denies: Hx Cataracts, Hx Eye Injury, Hx Eye Prosthesis, Hx Glaucoma, Hx Legally Blind, Hx Macular Degeneration, Hx Vision Problem, Hx Deafness, Hx Hearing Aid, Hx Hearing Problem, Other Sensory Impairments Opthamlomology History: Reports: Hx Contacts or Glasses - Pt does not have her glasses with her Denies: Hx Cataracts, Hx Eye Injury, Hx Eye Prosthesis, Hx Glaucoma, Hx Legally Blind, Hx Macular Degeneration, Hx Vision Problem, Other Sensory Impairments Neurological History: Reports: Hx Migraine - TREATS WITH REST AND TYLENOL, Hx Seizures - Pseudoseizures (per pt), Other Neuro Impairments/Disorders - seizures versus psychogenic events Denies: Hx Dementia, Hx Developmental Delay, Hx Headaches, Hx Nerve Disease, Hx Spinal Cord Injury, Hx Transient Ischemic Attacks (TIA) Psychiatric History: Reports: Hx Anxiety, Hx Depression, Hx Post Traumatic Stress Disorder, Hx Inpatient Treatment, Hx Community Mental Health Tx, Hx Bipolar Disorder, Hx Suicide Attempt Denies: Hx Attention Deficit Hyperactivity Disorder, Hx Eating Disorder, Hx Panic Disorder, Hx Schizophrenia, Hx of Violent Episodes Against Others, Hx Substance Abuse - Cancer History Cancer Type, Location and Year: None reported - Surgical History Surgery Procedure, Year, and Place: [id number] YEARS AGO. Cervical lining removed in 2017 Hx Anesthesia Reactions: No - Immunization History Date of Tetanus Vaccine: UNKNOWN Date of Influenza Vaccine: 2012 Infectious Disease History: Denies: Hx Clostridium Difficile, Hx Hepatitis, Hx Human Immunodeficiency Virus (HIV), Hx of Known/Suspected MRSA, Hx Shingles, Hx Tuberculosis - Family History Known Family History: Positive: Seizure Disorder - pseudo-seizures - Social History Occupation: Disabled Lives: With Family Alcohol Use: Rare Hx Substance Use: No Substance Use Type: Reports: None Hx Tobacco Use: Yes Smoking Status (MU): Current Every Day Smoker Type: Cigarettes Amount Used/How Often: 1/2 PPD X 20 YEARS- OFF AND ON Length of Time of Smoking/Using Tobacco: 23 Have You Smoked in the Last Year: Yes - smokes 1/2 pack/day. No other form tobacco or nicotine in last year Review of Systems Positive: Fatigue Neurological: Other - seizure All Other Systems Reviewed And Are Negative: Yes Physical Exam - Summary Physical Exam Summary: Vital Signs Reviewed: Yes A+Ox3, no distress Eyes: Conjunctiva Clear, ISABEL. 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 NIH Scale - NIH Scale Level of Consciousness: Alert/Keenly Responsive Ask Patient the Month and His/Her Age: Both Correct Ask Pt to Open/Close Eyes and Mesh Man/Release Non-Paretic Hand: Both Correctly Best Gaze (Only Horizontal Eye Movement): Normal Visual Field Testing: No Visual Loss Facial Paresis-Pt to Smile & Close Eyes or Grimace Symmetry: Normal/Symmetrical Motor Function - Right Arm: No Drift-Holds 10 Seconds Motor Function - Left Arm: No Drift-Holds 10 Seconds Motor Function - Right Leg: No Drift-Holds 10 Seconds Motor Function - Left Leg: No Drift-Holds 10 Seconds Limb Ataxia-Must be out of Proportion to Weakness Present: Absent Sensory (Use Pinprick to Test Arms/Legs/Trunk/Face): Normal Best Language (Describe Picture, Name Items): No Aphasia Dysarthria (Read Several Words): Normal Extinction and Inattention: No Abnormality Total Score: 0 Re-Evaluation - Re-Evaluation First Eval Re-Evaluation Time: 16:05 Change: Worse Comment: patient is wheezing per nurse - will order duoneb. uses Albuterol at home per nurse. will order Albuterol Second Eval Re-Evaluation Time: 16:40 Change: Improved Comment: at bedside with patient Pt feeling much better. wheezing resolved - would like to go home. at bedside to take pt. is agreeable to discharge Course/Dx - Course Course Of Treatment: Pt present by EMS after having a sz at the allergy offcie. Pt with a history of pseudoseizures - states this feels the same. Pt without any complaints, no injuries. vss. pt with scattered wheeze. no injuries or focal neuro findings. Will check labs, duoneb, reassess, anticipate discharge - Diagnoses Provider Diagnoses: Pseudoseizure Discharge ED - Sign-Out/Discharge Documenting (check all that apply): Patient Departure - Discharge - Discharge Plan Condition: Stable Disposition: HOME Patient Education Materials: Nonepileptic Seizures (ED) Referrals: Astrid Gonzalez MD [Primary Care Provider] - Additional Instructions: - stay well hydrated. Drink plenty of non-alcoholic, non-caffinated beverages - Take medications as prescribed - work to decrease cigarette smoke -get plenty of restful sleep - contact your doctor to schedule a follow-up appointment. - Billing Disposition and Condition Condition: STABLE Disposition: Home - Attestation Statements Document Initiated by Scribe: Yes Documenting Scribe: Gilda Bhagat Provider For Whom Scribe is Documenting (Include Credential): Lili Rodrigues MD Scribe Attestation: I, Gilda Olayinka, scribed for Lili Rodrigues MD on 05/16/19 at 2111. Scribe Documentation Reviewed: Yes Provider Attestation: The documentation as recorded by the scribe, Gilda Bhagat accurately reflects the service I personally performed and the decisions made by me, Lili Rodrigues MD Status of Scribe Document: Viewed
[2019-05-15 15:25] LABS: ABS Basophils 0.1 10^3/ul (0-0.2); ABS Eosinophils 0.1 10^3/ul (0-0.6); ABS Monocytes 0.5 10^3/ul (0-0.8); ABS Neutrophils 5.1 10^3/ul (1.5-7.7); Eosinophil % 1.3 %; Hematocrit 45 % (35-47); Hemoglobin 15.8 g/dL (12.0-16.0); Lymphocyte % 25.4 %; Mean Corpuscular HGB Conc 35 g/dL (31-36); Mean Corpuscular Hemoglobin 30 pg (27-31); Mean Corpuscular Volume 86 fL (80-97); Mean Platelet Volume 9.8 fL (7.4-10.4); Platelet Count 133 10^3/uL (150-450); Red Blood Count 5.28 10^6 /uL (3.70-4.87); Red Cell Distribution Width 14 % (10-15); White Blood Count 7.7 10^3/uL (3.5-10.8)
[2019-05-15] MEDS: NS 0.9% 1000 ML** 1,000 ML IV ONE (15:33)
[2019-05-15 15:42] LABS: Albumin 4.1 g/dL (3.2-5.2); Albumin/Globulin Ratio 1.6 (1-3); BUN/Creatinine Ratio 14.1 (8-20); Calcium 9.3 mg/dL (8.6-10.3); EGFR African American 74.4 (>60); EGFR Non-African American 61.5 (>60); Globulin 2.6 g/dL (2-4); Magnesium 1.7 mg/dL (1.9-2.7); Potassium 3.9 mmol/L (3.5-5.0); Total Bilirubin 0.3 mg/dL (0.2-1.0); Total Protein 6.7 g/dL (6.4-8.9)
[2019-05-15 15:47] LABS: HCG Pregnancy 0.71 mIU/mL
[2019-05-15 16:09] LABS: Urine Appearance Cloudy; Urine Bacteria Absent (Absent); Urine Bilirubin Negative (Negative); Urine Blood Negative (Negative); Urine Color Yellow; Urine Glucose Negative (Negative); Urine Ketones Negative (Negative); Urine Nitrite Negative (Negative); Urine Protein Negative (Negative); Urine Red Blood Cell Absent (Absent); Urine Specific Gravity 1.004 (1.010-1.030); Urine Squamous Epithelial Cell Present (Absent); Urine Urobilinogen Negative (Negative); Urine White Blood Cell Trace(0-5/hpf) (Absent)
[2019-05-15] MEDS: Albuterol 2.5 MG/3 ML NEB.SOL* (0.083%) INH ONE (16:34)
[2019-05-15 16:50] VITALS: BP 101/62
== END 2019-05-15 16:50 | disposition home or self-care (01) ==
LOC: ED 14:51
DX: F44.5 Conversion disorder with seizures or convulsions (principal); E78.00 Pure hypercholesterolemia, unspecified; K21.9 Gastro-esophageal reflux disease without esophagitis; F41.9 Anxiety disorder, unspecified; F43.10 Post-traumatic stress disorder, unspecified; J45.909 Unspecified asthma, uncomplicated; F17.210 Nicotine dependence, cigarettes, uncomplicated; Z79.899 Other long term (current) drug therapy; Z88.1 Allergy status to other antibiotic agents; Z88.8 Allergy status to other drugs, medicaments and biological substances
CPT/HCPCS: 36415; 80053; 81003; 81015; 83735; 84702; 85025; 87086; 96360; 99283

== ENCOUNTER 2019-05-27 17:29 | Inpatient (IN) | payer OTHER ==
--- NOTE | 2019-05-27 18:26 | ED ---
Psychiatric Complaint - HPI Summary HPI Summary: Patient is a 43 y/o F w/ Hx of dina, bipolar disorder, and depression who presents to [facility] with complaints of SI. Patient claims that it has been five days since she has slept and also reports visual hallucinations. She reports that she is on multiple medications which she has been taking as prescribed. Patient has multiple previous visits to [facility] with admission to [facility]. Patient took klonopin [employer]. Home medications and allergies are reviewed. - History Of Current Complaint Chief Complaint: EDMentalHealth Time Seen by Provider: 05/27/19 17:53 Hx Obtained From: Patient Hx Last Menstrual Period: 12/18/13 Onset/Duration: Still Present Timing: Constant Character: Depressed - SI Associated Signs And Symptoms: Positive: Hallucinating, Sleep Disturbance Has Suicidal: Reports: Thoughts - Allergies/Home Medications Allergies/Adverse Reactions: Allergies Allergy/AdvReac Type Severity Reaction Status Date / Time levofloxacin [From Levaquin] Allergy Unknown Verified 05/27/19 17:40 Reaction Details methylphenidate Allergy See Comment Verified 05/27/19 17:40 prednisone Allergy Anxiety Verified 05/27/19 17:40 GRAPEFRUIT Allergy AVOIDS DUE Uncoded 05/15/19 15:12 TO CURRENT MEDICATION SHE IS TAKING Home Medications: Home Medications Prazosin CAP* [Minipress CAP*] 2 mg PO DAILY 05/27/19 [History Confirmed ] PMH/Surg Hx/FS Hx/Imm Hx Endocrine/Hematology History: Denies: Hx Anticoagulant Therapy, Hx Blood Disorders, Hx Blood Transfusions, Hx Bone Marrow Disease, Hx Diabetes, Hx Systemic Lupus Erythematosus, Hx Sickle Cell Disease, Hx Thyroid Disease, Hx Anemia, Hx Unexplained Bleeding, Other Endocrine/Hematological Disorders Cardiovascular History: Reports: Hx Hypercholesterolemia Denies: Hx Hypertension Respiratory History: Reports: Hx Asthma - PRN INHALER Denies: Hx Chronic Bronchitis, Hx Chronic Obstructive Pulmonary Disease (COPD ), Hx Cystic Fibrosis, Hx Lung Cancer, Hx Pleural Effusion, Hx Pneumonia, Hx Pulmonary Edema, Hx Pulmonary Embolism, Hx Seasonal Allergies, Hx Sleep Apnea, Other Respiratory Problems/Disorders GI History: Reports: Hx Gastroesophageal Reflux Disease - ON MEDICATION FOR, Hx Irritable Bowel, Hx Ulcer - STARTING OF AN ULCER IN THE PAST Denies: Hx Cirrhosis, Hx Crohn's Disease, Hx Diverticulosis, Hx Gall Bladder Disease, Hx Gastrointestinal Bleed, Hx Hiatal Hernia, Hx Jaundice, Hx Obstructive Bowel, Hx Ileostomy, Hx Pyloric Stenosis, Other GI Disorders History: Denies: Other Problems/Disorders Musculoskeletal History: Reports: Hx Back Problems, Hx Fibromyalgia, Hx Scoliosis Denies: Hx Arthritis, Hx Bursitis, Hx Congenital Bone Abnormalities, Hx Gout , Hx Orthopedic Injury, Hx Osteoporosis, Hx Tendonitis, Other Musculoskeletal History Sensory History: Reports: Hx Contacts or Glasses - Pt does not have her glasses with her Denies: Hx Cataracts, Hx Eye Injury, Hx Eye Prosthesis, Hx Glaucoma, Hx Legally Blind, Hx Macular Degeneration, Hx Vision Problem, Hx Deafness, Hx Hearing Aid, Hx Hearing Problem, Other Sensory Impairments Opthamlomology History: Reports: Hx Contacts or Glasses - Pt does not have her glasses with her Denies: Hx Cataracts, Hx Eye Injury, Hx Eye Prosthesis, Hx Glaucoma, Hx Legally Blind, Hx Macular Degeneration, Hx Vision Problem, Other Sensory Impairments Neurological History: Reports: Hx Migraine - TREATS WITH REST AND TYLENOL, Hx Seizures - Pseudoseizures (per pt), Other Neuro Impairments/Disorders - seizures versus psychogenic events Denies: Hx Dementia, Hx Developmental Delay, Hx Headaches, Hx Nerve Disease, Hx Spinal Cord Injury, Hx Transient Ischemic Attacks (TIA) Psychiatric History: Reports: Hx Anxiety, Hx Depression, Hx Post Traumatic Stress Disorder, Hx Inpatient Treatment, Hx Community Mental Health Tx, Hx Bipolar Disorder, Hx Suicide Attempt Denies: Hx Attention Deficit Hyperactivity Disorder, Hx Eating Disorder, Hx Panic Disorder, Hx Schizophrenia, Hx of Violent Episodes Against Others, Hx Substance Abuse - Cancer History Cancer Type, Location and Year: None reported - Surgical History Surgery Procedure, Year, and Place: [id number] YEARS AGO. Cervical lining removed in 2017 Hx Anesthesia Reactions: No - Immunization History Date of Tetanus Vaccine: UNKNOWN Date of Influenza Vaccine: 2013 Infectious Disease History: No Infectious Disease History: Denies: Hx Clostridium Difficile, Hx Hepatitis, Hx Human Immunodeficiency Virus (HIV), Hx of Known/Suspected MRSA, Hx Shingles, Hx Tuberculosis, Traveled Outside the [place] in Last 30 Days - Family History Known Family History: Positive: Seizure Disorder - pseudo-seizures - Social History Alcohol Use: Rare Alcohol Amount: 4 Hx Substance Use: No Substance Use Type: Reports: None Hx Tobacco Use: Yes Smoking Status (MU): Current Every Day Smoker Type: Cigarettes Amount Used/How Often: 1/2 PPD X 20 YEARS- OFF AND ON Length of Time of Smoking/Using Tobacco: 23 Have You Smoked in the Last Year: Yes - smokes 1/2 pack/day. No other form tobacco or nicotine in last year Review of Systems Constitutional: Other - positive - sleep disturbance Psychological: Other - positive - SI and visual hallucinations All Other Systems Reviewed And Are Negative: Yes Physical Exam - Summary Physical Exam Summary: Appearance: The patient is well-nourished in no acute distress and in no acute pain. Skin: The skin is warm and dry, and skin color reflects adequate perfusion. HEENT: The head is normocephalic and atraumatic. The pupils are equal and reactive. The conjunctivae are clear and without drainage. Nares are patent and without drainage. Mouth reveals moist mucous membranes, and the throat is without erythema and exudate. The external ears are intact. The ear canals are patent and without drainage. The tympanic membranes are intact. Neck: The neck is supple with full range of motion and non-tender. There are no carotid bruits. There is no neck vein distension. Respiratory: Chest is non-tender. Lungs are clear to auscultation and breath sounds are symmetrical and equal. Cardiovascular: Heart is regular rate and rhythm. There is no murmur or rub auscultated. There is no peripheral edema and pulses are symmetrical and equal. Abdomen: The abdomen is soft and non-tender. There are normal bowel sounds heard in all four quadrants and there is no organomegaly palpated. Musculoskeletal: There is no back tenderness noted. Extremities are non-tender with full range of motion. There is good capillary refill. There is no peripheral edema or calf tenderness elicited. Neurological: Patient is alert and oriented to person, place and time. The patient has symmetrical motor strength in all four extremities. Cranial nerves are grossly intact. Deep tendon reflexes are symmetrical and equal in all four extremities. Psychiatric: The patient has a blunted affect. Triage Information Reviewed: Yes Vital Signs On Initial Exam: Initial Vitals Temp Pulse Resp BP Pulse Ox 97.5 F 101 16 114/81 92 05/27/19 17:32 05/27/19 17:32 05/27/19 17:32 05/27/19 17:32 05/27/19 17:32 Vital Signs Reviewed: Yes Procedures - Sedation Patient Received Moderate/Deep Sedation with Procedure: No Diagnostics - Vital Signs Vital Signs Temp Pulse Resp BP Pulse Ox 05/27/19 17:32 97.5 F 101 16 114/81 92 - Laboratory Result Diagrams: 05/27/19 18:37 05/27/19 18:37 Lab Statement: Any lab studies that have been ordered have been reviewed, and results considered in the medical decision making process. Course/Dx - Course Course Of Treatment: Ms. Hart is medically cleared in the emergency department is awaiting mental health eval this time. She has been stable and cooperative. - Differential Dx/Clinical Impression Provider Diagnosis: Depression Discharge ED - Sign-Out/Discharge Documenting (check all that apply): Sign-Out Patient Signing out patient TO: Mary Lou Erickson - Discharge Plan Condition: Stable Referrals: Astrid Gonzalez MD [Primary Care Provider] - - Billing Disposition and Condition Condition: STABLE - Attestation Statements Document Initiated by Scribe: Yes Documenting Scribe: ITZEL UMAÑA Provider For Whom Scribe is Documenting (Include Credential): CHAYA AVELAR MD Scribe Attestation: IITZEL, scribed for CHAYA AVELAR MD on 05/27/19 at 2152. Scribe Documentation Reviewed: Yes Provider Attestation: The documentation as recorded by the ITZEL baugh accurately reflects the service I personally performed and the decisions made by me, CHAYA AVELAR MD Status of Scribe Document: Viewed
[2019-05-27 18:41] LABS: ABS Basophils 0.1 10^3/ul (0-0.2); ABS Eosinophils 0.2 10^3/ul (0-0.6); ABS Monocytes 0.6 10^3/ul (0-0.8); ABS Neutrophils 5.4 10^3/ul (1.5-7.7); Eosinophil % 2.3 %; Hematocrit 46 % (35-47); Hemoglobin 15.7 g/dL (12.0-16.0); Lymphocyte % 24.6 %; Mean Corpuscular HGB Conc 34 g/dL (31-36); Mean Corpuscular Hemoglobin 30 pg (27-31); Mean Corpuscular Volume 87 fL (80-97); Mean Platelet Volume 9.8 fL (7.4-10.4); Nucleated Red Blood Cells % 0.1; Platelet Count 150 10^3/uL (150-450); Red Blood Count 5.28 10^6 /uL (3.70-4.87); Red Cell Distribution Width 15 % (10-15); White Blood Count 8.3 10^3/uL (3.5-10.8)
[2019-05-27 18:58] LABS: ALT 17 U/L (7-52); AST 15 U/L (13-39); Albumin 4.1 g/dL (3.2-5.2); Albumin/Globulin Ratio 1.5 (1-3); Alkaline Phosphatase 104 U/L (34-104); Anion Gap 5 mmol/L (2-11); BUN/Creatinine Ratio 10.2 (8-20); Blood Urea Nitrogen 11 mg/dL (6-24); CO2 Carbon Dioxide 28 mmol/L (22-32); Calcium 9.6 mg/dL (8.6-10.3); Chloride 106 mmol/L (101-111); EGFR African American 67.3 (>60); EGFR Non-African American 55.6 (>60); Globulin 2.7 g/dL (2-4); Glucose 99 mg/dL (70-100); Potassium 4.1 mmol/L (3.5-5.0); Sodium 139 mmol/L (135-145); Total Protein 6.8 g/dL (6.4-8.9)
[2019-05-27 19:08] LABS: Acetaminophen < 15 mcg/mL; Alcohol < 10 mg/dL (<10); Salicylate < 2.50 mg/dL (<30)
[2019-05-27 19:23] LABS: TSH (Thyroid Stimulating Horm) 4.24 mcIU/mL (0.34-5.60)
--- OUTSIDE RECORDS SUMMARY | 2019-05-27 20:08 | XMS REPORT | Continuity of Care Document ---
:1975 External Reference #:[id number] Author Name Tori Jacobson MD (transmitted by agent of provider Hlaley Yoo) Address [address], [address] [place] [id number] Care Team Providers Name Role Phone Astrid Gonzalez MD - Internal Care Team Information [employer] [phone] Medicine Problems Active Problems Provider Date Tinea pedmagdaleno Osman M.D. Onset: 02/04/2016 Gastroesophageal reflux disease Camilo Osman M.D. 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 Onset: 05/22/2017 Intellectual functioning disability Onset: Social History Type Date Description Comments Sex Unknown ETOH Use Occasionally consumes alcohol Tobacco Use Start: Unknown Patient is a current started at age 16 smoker, smokes every day smoking 1-5 cigs. a day Recreational Drug Use Denies Drug Use Smoking Status Reviewed: 05/16/19 Patient is a current started at age 16 smoker, smokes every day smoking 1-5 cigs. a day Allergies, Adverse Reactions, Alerts Active Allergies Reaction Severity Comments Date Ritalin Severe profuse sweating and 02/04/2016 poundign chest Prednisone exacerbates mental illness 02/22/2016 Levaquin 02/22/2016 Grapefruit 06/20/2016 Medications Active Medications SIG Qnty Indications Ordering Date Provider Clonazepam 4MG prn Other Ordering 05/16/2019 Provider Ipratropium 1 inhalation via 180ml J44.1 Astrid Gonzalez 03/11/2019 [place]/Albuterol nebulizer every M.D. Sulfate 4- 6 hours as 0.5-2.5(3)mg/3ML needed Solution Naproxen 1 by mouth twice 30tabs M54.5 Astrid Lisa, 08/21/2018 500mg Tablets a day as needed M.D. pain Cyclobenzaprine HCL Take one tablet 14tabs S23.3xxA Page Dumont MD 2017 10mg at night as Tablets needed Albuterol Sulfate four times a day 1125ml J01.90 Astrid Gonzalez, 2017 as needed M.D. (2.5mg/3ML) 0.083% Nebulizer Nebulizer nebulizer 1units Astrid Gonzalez, 11/03/2017 Misc supplies, tubing M.D. etc Advair HFA Inhale 2 Puffs By 36units Astrid Gonzalez, 09/11/2017 115-21mcg/Act Mouth Every 12 M.D. Aerosol Hours Ventolin HFA Inhale 2 Puffs By 18units Astrid Gonzalez, 05/19/2016 108(90Base) Mouth 4 Times M.D. mcg/Act Aerosol Daily as Needed Rexulti Take 1 Tablet By Unknown 2mg Tablets Mouth Every Day Hydroxyzine HCL Take 1 Tablet By Unknown 25mg Mouth Twice A Day Tablets And 2 Tablets AT Bedtime as Needed For Agitatiom Omeprazole Take 1 Capsule By 90caps Astrid Gonzalez, 40mg Capsules Mouth Every Day M.D. DR Smith as needed Unknown 200mg Capsules Prazosin HCL taking 1mg twice Unknown 2mg Capsules a day Clonazepam pt states now 1 Unknown 0.5mg Tablets mg----1 daily prn Trazodone HCL 2 by mouth every Unknown 100mg night at bedtime Tablets History Medications Prednisone 4 tab daily X 3 QS J44.1 Astrid Gonzalez, 03/11/2019 - 10mg days 3 tab daily M.D. 03/21/2019 Tablets x 3 days and then 2 tab daily x 3 days 1 tab daily x 3 days Baclofen take 1/2 to 1 14tabs M54.5 Astrid Gonzalez, 12/21/2018 - 10mg Tablets tablet by mouth M.D. 05/16/2019 every 8 hours as needed for muscle spasms Immunizations CPT Code Status Date Vaccine Lot # [id number] Given 03/29/2017 Tdap - Tetanus/Diptheria/Acellular Pertussis [id number] Given 03/29/2017 Influenza Virus Vaccine, Quadrivalent, Split, [id number] Preservative Free [id number] Refused 06/20/2016 Influenza Virus Vaccine, Quadrivalent, Split, Preservative Free Vital Signs Date Vital Result Comment 05/16/2019 10:33am Height 64.5 inches 5'4.50" Weight 213.00 lb Heart Rate 104 /min BP Systolic 132 mmHg BP Diastolic 70 mmHg O2 % BldC Oximetry 94 % BMI (Body Mass Index) 36.0 kg/m2 Neck Circumference in inches 15 03/11/2019 10:34am Height 64.5 inches 5'4.50" Weight 211.00 lb Heart Rate 89 /min BP Systolic Sitting 123 mmHg BP Diastolic Sitting 83 mmHg O2 % BldC Oximetry 92 % BMI (Body Mass Index) 35.7 kg/m2 Results Test Date Facility Test Result H/L Range Note CBC Auto 05/15/2019 [facility] White Blood 7.7 10^3/uL Normal 3.5-10.[address] [place] [address] [phone] Red Blood Count 5.28 10^6/uL High 3.70-4.87 Hemoglobin 15.8 g/dL Normal 12.0-16.0 Hematocrit 45 % Normal 35-47 Mean Corpuscular Volume 86 fL Normal 80-97 Mean Corpuscular Hemoglobin 30 pg Normal 27-31 Mean Corpuscular HGB Conc 35 g/dL Normal 31-36 Red Cell Distribution Width 14 % Normal 10-15 Platelet Count 133 10^3/uL Low 150-450 Mean Platelet Volume 9.8 fL Normal 7.4-10.4 Abs Neutrophils 5.1 10^3/uL Normal 1.5-7.7 Abs Lymphocytes 2.0 10^3/uL Normal 1.0-4.8 Abs Monocytes 0.5 10^3/uL Normal 0-0.8 Abs Eosinophils 0.1 10^3/uL Normal 0-0.6 Abs Basophils 0.1 10^3/uL Normal 0-0.2 Abs Nucleated RBC 0.0 10^3/uL Granulocyte % 66.5 % Lymphocyte % 25.4 % Monocyte % 5.9 % Eosinophil % 1.3 % Basophil % 0.9 % Nucleated Red Blood Cells % 0.0 Comp Metabolic 05/15/2019 [facility] Sodium 139 mmol/L Normal 135-145 Panel [address] [place] [address] [phone] Potassium 3.9 mmol/L Normal 3.5-5.0 Chloride 106 mmol/L Normal 101-111 Co2 Carbon Dioxide 28 mmol/L Normal 22-32 Anion Gap 5 mmol/L Normal 2-11 Glucose 92 mg/dL Normal 70-100 Blood Urea Nitrogen 14 mg/dL Normal 6-24 Creatinine 0.99 mg/dL High 0.51-0.95 BUN/Creatinine Ratio 14.1 Normal 8-20 Calcium 9.3 mg/dL Normal 8.6-10.3 Total Protein 6.7 g/dL Normal 6.4-8.9 Albumin 4.1 g/dL Normal 3.2-5.2 Globulin 2.6 g/dL Normal 2-4 Albumin/Globulin Ratio 1.6 Normal 1-3 Total Bilirubin 0.30 mg/dL Normal 0.2-1.0 Alkaline Phosphatase 90 U/L Normal 34-104 Alt 11 U/L Normal 7-52 Ast 12 U/L Low 13-39 Egfr Non- 61.5 >60 Egfr 74.4 >60 1 Laboratory test 05/15/2019 [facility] Magnesium 1.7 mg/dL Low 1.9-2.7 finding [address] [place] [address] [phone] HCG 0.71 mIU/mL 2 Urinalysis Profile 05/15/2019 [facility] Urine Color Yellow [address] [place] [address] [phone] Urine Appearance Cloudy Urine Specific [employer] 1.004 Low 1.010-1.030 Urine pH 6.0 Normal 5-9 Urine Urobilinogen Negative Negative Urine Ketones Negative Negative Urine Protein Negative Negative Urine Leukocytes 1+ Abnormal Negative Urine Blood Negative Negative Urine Nitrite Negative Negative Urine Bilirubin Negative Negative Urine Glucose Negative Negative Urine White Blood Cell Trace(0-5/hpf) Absent Urine Red Blood Cell Absent Absent Urine Bacteria Absent Absent Urine Squamous Epithelial Cell Present Abnormal Absent Order 03/11/2019 [facility] Nebulizer <pending> [address] [place] [address] [phone] Arterial Blood 03/08/2019 [facility] O2 Device 4lpm NC Gas [address] [place] [address] [phone] PH Arterial 7.40 Normal 7.35-7.45 Pco2 Arterial 40 mmHg Normal 35-45 Po2 Arterial 118 mmHg High 80-100 O2 Saturation Arterial 99.5 % High 94.0-98.0 Base Excess Arterial 0.0 mmol/L Normal -2.0-2.0 3 Hco3 Arterial 24.7 mmol/L Normal 19-31 CBC Auto 03/08/2019 [facility] White Blood 8.6 10^3/uL Normal 3.5-10.[address] [place] [address] [phone] Red Blood Count 5.45 10^6/uL High 3.70-4.87 Hemoglobin 16.1 g/dL High 12.0-16.0 Hematocrit 47 % Normal 35-47 Mean Corpuscular Volume 87 fL Normal 80-97 Mean Corpuscular Hemoglobin 30 pg Normal 27-31 Mean Corpuscular HGB Conc 34 g/dL Normal 31-36 Red Cell Distribution Width 14 % Normal 10-15 Platelet Count 135 10^3/uL Low 150-450 Mean Platelet Volume 10.0 fL Normal 7.4-10.4 Abs Neutrophils 5.6 10^3/uL Normal 1.5-7.7 Abs Lymphocytes 2.3 10^3/uL Normal 1.0-4.8 Abs Monocytes 0.6 10^3/uL Normal 0-0.8 Abs Eosinophils 0.1 10^3/uL Normal 0-0.6 Abs Basophils 0.1 10^3/uL Normal 0-0.2 Abs Nucleated RBC 0.0 10^3/uL Granulocyte % 65.0 % Lymphocyte % 26.5 % Monocyte % 6.6 % Eosinophil % 1.1 % Basophil % 0.8 % Nucleated Red Blood Cells % 0.1 Laboratory test 03/08/2019 [facility] B-Type 12 pg/mL <=[address] [place] [address] Peptide BNP [phone] Lactic Acid 1.1 mmol/L Normal 0.5-2.0 4 Comp Metabolic 03/08/2019 [facility] Sodium 139 mmol/L Normal 135-145 Panel [address] [place] [address] [phone] Potassium 4.0 mmol/L Normal 3.5-5.0 Chloride 107 mmol/L Normal 101-111 Co2 Carbon Dioxide 25 mmol/L Normal 22-32 Anion Gap 7 mmol/L Normal 2-11 Glucose 91 mg/dL Normal 70-100 Blood Urea Nitrogen 13 mg/dL Normal 6-24 Creatinine 0.97 mg/dL High 0.51-0.95 BUN/Creatinine Ratio 13.4 Normal 8-20 Calcium 9.5 mg/dL Normal 8.6-10.3 Total Protein 6.7 g/dL Normal 6.4-8.9 Albumin 4.2 g/dL Normal 3.2-5.2 Globulin 2.5 g/dL Normal 2-4 Albumin/Globulin Ratio 1.7 Normal 1-3 Total Bilirubin 0.30 mg/dL Normal 0.2-1.0 Alkaline Phosphatase 109 U/L High 34-104 Alt 10 U/L Normal 7-52 Ast 11 U/L Low 13-39 Egfr Non- 63.0 >60 Egfr 76.2 >60 5 Laboratory test 03/08/2019 [facility] Magnesium 1.9 mg/dL Normal 1.9-2.7 finding [address] [place] [address] [phone] Creatine Kinase(CK) 64 U/L Normal 10-223 Troponin-I (TnI) 0.00 ng/mL <0.04 6 CKMB 03/08/2019 [facility] CKMB ng/mL 3.3 ng/mL Normal 0.6- 6.[address] [place] [address] [phone] Laboratory test 03/08/2019 [facility] HCG 1.14 7 finding mIU/[place] [address] [phone] TSH (Thyroid Stim Horm) 2.53 mcIU/mL Normal 0.34-5.60 Laboratory test 03/08/2019 [facility] Troponin-I 0.00 <0.04 8 finding (TnI) ng/[place] [address] [phone] CBC Auto Diff 11/29/2018 [facility] White Blood 8.2 Normal 3.5 -10.[address] Count 10^3/[place] [address] [phone] Red Blood Count 5.29 10^6/uL High 3.70-4.87 Hemoglobin 15.8 g/dL Normal 12.0-16.0 Hematocrit 46 % Normal 35-47 Mean Corpuscular Volume 87 fL Normal 80-97 Mean Corpuscular Hemoglobin 30 pg Normal 27-31 Mean Corpuscular HGB Conc 34 g/dL Normal 31-36 Red Cell Distribution Width 14 % Normal 10.5-15 Platelet Count 172 10^3/uL Normal 150-450 Mean Platelet Volume 9.5 fL Normal 7.4-10.4 Abs Neutrophils 5.3 10^3/uL Normal 1.5-7.7 Abs Lymphocytes 2.2 10^3/uL Normal 1.0-4.8 Abs Monocytes 0.4 10^3/uL Normal 0-0.8 Abs Eosinophils 0.2 10^3/uL Normal 0-0.6 Abs Basophils 0.1 10^3/uL Normal 0-0.2 Abs Nucleated RBC 0.0 10^3/uL Granulocyte % 64.7 % Lymphocyte % 26.7 % Monocyte % 5.3 % Eosinophil % 2.2 % Basophil % 1.1 % Nucleated Red Blood Cells % 0.1 Comp Metabolic 11/29/2018 [facility] Sodium 141 mmol/L Normal 135-[address] [place] [address] [phone] Chloride 106 mmol/L Normal 101-111 Co2 Carbon Dioxide 29 mmol/L Normal 22-32 Glucose 100 mg/dL Normal 70-100 Blood Urea Nitrogen 9 mg/dL Normal 6-24 Creatinine 1.13 mg/dL High 0.51-0.95 BUN/Creatinine Ratio 8.0 Normal 8-20 Calcium 9.7 mg/dL Normal 8.6-10.3 Total Protein 7.2 g/dL Normal 6.4-8.9 Albumin 4.4 g/dL Normal 3.2-5.2 Globulin 2.8 g/dL Normal 2-4 Albumin/Globulin Ratio 1.6 Normal 1-3 Total Bilirubin 0.30 mg/dL Normal 0.2-1.0 Alkaline Phosphatase 116 U/L High 34-104 Alt 10 U/L Normal 7-52 Egfr Non- 52.8 >60 Egfr 63.9 >60 9 Potassium 4.4 mmol/L Normal 3.5-5.0 Anion Gap 6 mmol/L Normal 2-11 Ast 13 U/L Normal 13-39 Laboratory test 11/29/2018 [facility] Acetaminophen < 15 g/mL 10 finding [address] [place] [address] [phone] Alcohol < 10 mg/dL Normal <10 Salicylate < 2.50 mg/dL <30 HCG 1.69 mIU/mL 11 TSH (Thyroid Stim Horm) 2.10 mcIU/mL Normal 0.34-5.60 Urinalysis Profile 11/29/2018 [facility] Urine Color Yellow [address] [place] [address] [phone] Urine Appearance Clear Urine Specific [employer] 1.009 Low 1.010-1.030 Urine pH 7.0 Normal 5-9 Urine Urobilinogen Negative Negative Urine Ketones Negative Negative Urine Protein Negative Negative Urine Leukocytes Negative Negative Urine Blood Negative Negative Urine Nitrite Negative Negative Urine Bilirubin Negative Negative Urine Glucose Negative Negative Urine Drug 11/29/2018 [facility] Urine None Detected None Detect SCR ED & [address] [facility] [place] [address] Screen [phone] Urine Barbiturates Screen None Detected None Detect Urine Benzodiazepine Screen None Detected None Detect Urine Cannabinoids Screen None Detected None Detect Urine Cocaine Screen None Detected None Detect Urine Opiates Screen None Detected None Detect Urine Phencyclidine Screen None Detected None Detect 12 1 Because ethnic data is not always [...] 5 Kidney failure <15 (or dialysis) 2 <5.0 Negative 5.0 - 25.0 Indeterminate (Repeat testing recommended after 72 hours) >25.0 Positive Perimenopausal women can display HCG levels of up to 20 mIU/mL 3 Reference ranges based on room air. 4 [facility] Severe Sepsis and Septic Shock Management Bundle Measure requires all lactic acids initially measuring >2.0 mmol/L be repeated. 5 Because ethnic data is not always readily [...] 15-29 5 Kidney failure <15 (or dialysis) 6 Troponin-I testing on Plasma Separator Tubes (PST) has a known false positive rate of 0.20-0.40%. All positive troponins reflex immediately to secondary confirmatory testing. Using the [employer] DxI 800 Access Immunoassay systems, the 99th percentile upper reference limit was demonstrated to be < 0.03 ng/mL. 7 <5.0 Negative 5.0 - 25.0 Indeterminate (Repeat testing recommended after 72 hours) >25.0 Positive Perimenopausal women can display HCG levels of up to 20 mIU/mL 8 Troponin-I testing on Plasma Separator Tubes (PST) has a known false positive rate of 0.20-0.40%. All positive troponins reflex immediately to secondary confirmatory testing. Using the [employer] DxI 800 Access Immunoassay systems, the 99th percentile upper reference limit was demonstrated to be < 0.03 ng/mL. 9 Because ethnic data is not always readily [...] 15-29 5 Kidney failure <15 (or dialysis) 10 Therapeutic concentration: <50 ug/mL Toxic concentration: >120 ug/mL 11 <5.0 Negative 5.0 - 25.0 Indeterminate (Repeat testing recommended after 72 hours) >25.0 Positive Perimenopausal women can display HCG levels of up to 20 mIU/mL 12 The urine specimen was tested at the listed cutoffs: Drug class test level (ng/mL) Amphetamines 500 Barbiturates 200 Benzodiazepine metabolites 200 Cocaine metabolites 150 Cannabinoids 50 Opiates 300 Pcp 25 Specimen was received without chain of custody. Results should be used for medical purposes only. Procedures Date Code Description Status 03/31/2017 [id number] Mammogram Completed Medical Devices Description No Information Available Encounters Type Date Location Provider Dx Diagnosis Office Visit 03/11/2019 [facility] Internal Astrid Gonzalez, J44.1 Chronic obstructive 10:30a Medicine - [facility] MSawDSaw pulmonary disease w (acute) exacerbation Z91.018 Allergy to other foods R53.83 Other fatigue Office Visit 12/21/2018 10:00a [facility] Internal Page Dumont MD M54.5 Low back pain Medicine - [facility] G40.89 Other seizures Office Visit 11/19/2018 5:00p [facility] Aury Dumont MD M54.5 Low back pain Medicine - [facility] Assessments Date Code Description Provider 05/16/2019 R06.83 Snoring Tori Jacobson MD 05/16/2019 R53.83 Other fatigue Tori Jacobson MD 05/16/2019 G47.00 Insomnia, unspecified Tori Jacobson MD 03/11/2019 J44.1 Chronic obstructive pulmonary disease with Astrid Gonzalez M.D. (acute) exacerbation 03/11/2019 Z91.018 Allergy to other foods Astrid Gonzalez M.D. 03/11/2019 R53.83 Other fatigue Astrid Gonzalez M.D. 12/21/2018 M54.5 Low back pain Page Dumont MD 12/21/2018 G40.89 Other seizures Page Dumont MD 11/19/2018 M54.5 Low back pain Page Dumont MD Plan of Treatment Future Appointment(s):06/26/2019 1:45 pm - Nury Hilario DNP, RN, ROUTE SERVICE REPRESENTATIVE-BC at [facility]05/16/2019 - Tori Jacobson MDR06.83 SnoringNew Orders:Home Sleep Testing, Ordered: 05/16/19Follow up:3 xloxyS54.83 Other womtqbeT75.00 Insomnia, unspecified Functional Status Description No Information Available Mental Status Description No Information Available Referrals Refer to Reason for Referral Status Appt Date [facility] don't use antihistamines for 72 hrs Sent 05/15 prior. [address] [address] [phone] [facility] Sent 05/16/2019 [address] [place] [address] [phone] Pain Clinic Sent 02/13/2019 [address] [place] [address] [phone]
--- OUTSIDE RECORDS SUMMARY | 2019-05-27 20:08 | XMS REPORT | Continuity of Care Document ---
:1975 External Reference #:[id number] Author Name Karmen Canada M.D. Address [address] [place] [address] Care Team Providers Name Role Phone Astrid Gonzalez M.D. Care Team Information [employer] [phone] Problems Active Problems Provider Date Allergy to food Karmen Canada M.D. Onset: 05/15/2019 Allergic rhinitis due to animals Karmen Canada M.D. Onset: 05/15/2019 Allergic rhinitis due to pollen Karmen Canada M.D. Onset: 05/15/2019 Social History Type Date Description Comments Sex Unknown ETOH Use Occasionally consumes alcohol Tobacco Use Start: Unknown Light tobacco smoker (10 has considered or fewer cigarettes/day) quitting, but not yet ready Recreational Drug Use Denies Drug Use Allergies, Adverse Reactions, Alerts Active Allergies Reaction Severity Comments Date Prednisone Anxiety 05/15/2019 Levaquin Unknown 05/15/2019 Grapefruit Unknown 05/15/2019 Medications Active Medications SIG Qnty Indications Ordering Provider Date Cyclobenzaprine HCL As needed. Cristhian, 10mg CALVIN Romero Tablets Omeprazole 1 tab daily. Astrid Gonzalez, 40mg Capsules DR JAMES Hydroxyzine HCL 1 tab am. 2 tabs Unknown 25mg Tablets pm. Trazodone HCL 2 tabs at night. Unknown 100mg Tablets Naproxen Morrow, 500mg Tablets CALVIN Romero Prazosin HCL 1 tab at night. Unknown 1mg Capsules Rexulti 1 tab at night. Unknown 3mg Tablets Advair HFA 2 inhales once Astrid Gonzalez, 115-21mcg/Act in morning 2 MD Aerosol inhales in evening. Albuterol Sulfate HFA As needed. Astrid Gonzalez, 108(90Base) mcg/Act Aerosol Clonazepam As needed. Unknown 2mg Tablets Ipratropium As needed. Astrid Gonzalez, Dolores/Albuterol MD Sulfate 0.5-2.5(3)mg/3ML Solution Immunizations Description No Information Available Vital Signs Date Vital Result Comment 05/15/2019 1:29pm Height 64 inches 5'4" Weight 200.00 lb Weight 90.720 kg Respiratory Rate 18 /min Heart Rate 108 /min O2 % BldC Oximetry 90 % BP Systolic 112 mmHg BP Diastolic 83 mmHg BMI (Body Mass Index) 34.3 kg/m2 Results Description No Information Available Procedures Description No Information Available Medical Devices Description No Information Available Encounters Type Date Location Provider Dx Diagnosis Office Visit 05/15/2019 Kelli Canada M.D. J30.1 Allergic rhinitis due 1:20p to pollen J30.81 Allergic rhinitis due to animal (cat) (dog) hair and dander J30.89 Other allergic rhinitis T78.1xxA Oth adverse food reactions, not elsewhere classified, init Assessments Date Code Description Provider 05/15/2019 J30.1 Allergic rhinitis due to pollen Karmen Canada M.D. 05/15/2019 J30.81 Allergic rhinitis due to animals Karmen Canada M.D. 05/15/2019 J30.89 Allergic rhinitis due to animals Karmen Canada M.D. 05/15/2019 T78.1xxA Allergy to food Karmen Canada M.D. Plan of Treatment No Information Available Functional Status Description No Information Available Mental Status Description No Information Available Referrals Description No Information Available
[2019-05-27 21:34] LABS: Urine Appearance Clear; Urine Bacteria Absent (Absent); Urine Bilirubin Negative (Negative); Urine Blood Negative (Negative); Urine Color Yellow; Urine Glucose Negative (Negative); Urine Ketones Negative (Negative); Urine Nitrite Negative (Negative); Urine Protein Negative (Negative); Urine Red Blood Cell Trace(0-2/hpf) (Absent); Urine Specific Gravity 1.016 (1.010-1.030); Urine Squamous Epithelial Cell Present (Absent); Urine Urobilinogen Negative (Negative); Urine White Blood Cell 1+(6-10/hpf) (Absent)
[2019-05-27 21:45] LABS: Urine Benzodiazepine Screen None Detected (None Detect); Urine Opiates Screen None Detected (None Detect)
--- NOTE | 2019-05-27 23:45 | ED ---
Progress - Progress Note Progress Note: The patient is a sign-out from Dr. Sandoval Rinaldi MD, to Dr. Mary Lou Erickson MD, at change of shift at 2200 on 05/27/2019, pending mental health evaluation and disposition. 3833 - mental health stippler reports that Dr. Romero, psychiatry, has reviewed the pt's case and has determined that admission is the best plan of treatment on voluntary status; dx of bipolar disorder Course/Dx - Diagnoses Provider Diagnoses: Depression, Bipolar disorder - Provider Notifications Discussed Care Of Patient With: mental health stippler Time Discussed With Above Provider: 22:45 Instructed by Provider To: Other - Dr. Romero has been reported to have reviewed the patient's case and determined that she should be admitted, which she agrees to on a voluntary status, dx of bipolar disorder. Discharge ED - Sign-Out/Discharge Documenting (check all that apply): Patient Departure - Patient is voluntarily admitted., Receiving Sign-Out Receiving patient FROM: Sandoval Rinaldi - Patient is a sign-out from Dr. Sandoval Rinaldi MD, at 2200 on 05/27/2019, pending MHE and disposition. - Discharge Plan Condition: Stable Disposition: PSYCHIATRIC FACILITY-[facility] [place] - Billing Disposition and Condition Condition: STABLE Disposition: Psychiatric Facility [facility] [place] - Attestation Statements Document Initiated by Jcibe: Yes Documenting Scribe: Lili Palomo Provider For Whom Rubio is Documenting (Include Credential): Dr. Mary Lou Erickson MD Scribe Attestation: Lili [place] scribed for Dr. Mary Lou Erickson MD on 05/28/19 at 0520. Scribe Documentation Reviewed: Yes Provider Attestation: The documentation as recorded by the Lili baugh accurately reflects the service I personally performed and the decisions made by me, Dr. Mary Lou Erickson MD Status of Scribe Document: Viewed Procedures - Sedation Patient Received Moderate/Deep Sedation with Procedure: No
[2019-05-28] MEDS ORDERED: Al Hydrox/Mg Hydrox/Simet LIQ* 30 ML UDC PO PRN (01:11)
[2019-05-28] MEDS ORDERED: Acetaminophen TAB* 325 MG PO PRN (01:11)
[2019-05-28] MEDS ORDERED: hydrOXYzine HCL TAB* 25 MG PO PRN (01:12)
[2019-05-28] MEDS ORDERED: Cyclobenzaprine TAB* 10 MG PO PRN (01:15)
[2019-05-28] MEDS ORDERED: clonazePAM TAB(*) 1 MG PO PRN (01:17)
[2019-05-28] MEDS ORDERED: Albuterol HFA INHALER* 8 gm MDI INH PRN (06:40)
[2019-05-28] MEDS ORDERED: Cyclobenzaprine TAB* 10 MG PO SCH (09:00)
[2019-05-28] MEDS ORDERED: Mometasone/Formoter 200/5 MDI INH SCH (09:00)
[2019-05-28] MEDS ORDERED: hydrOXYzine HCL TAB* 25 MG PO SCH (09:00)
[2019-05-28] MEDS ORDERED: Vitamin THERAPEUTIC TAB PO SCH (09:00)
[2019-05-28 12:04] VITALS: BP 102/68
[2019-05-28 12:52] LABS: Cholesterol 226 mg/dL; HDL Cholesterol 41.8 mg/dL; LDL Cholesterol 125 mg/dL; Triglycerides 295 mg/dL
--- NOTE | 2019-05-28 13:26 | HP ---
CC: Dr. Astrid Gonzalez; [facility] * HISTORY AND PHYSICAL AND DISCHARGE SUMMARY: DATE OF ADMISSION: 05/27/19 DATE OF DISCHARGE: 05/28/19 SUPERVISING PSYCHIATRIST: Dr. Messi Henson.* (DICTATED BY HAWA FARR NP) DIAGNOSES: 1. Bipolar I disorder, current episode depressed. 2. Borderline personality disorder. 3. Adjustment disorder with disturbance of mood. CONDITION AT THE TIME OF DISCHARGE: Improved. The patient is euthymic with bright affect. She is in behavioral control. She denies suicidal ideation. She reports sleeping well last night. She states that she is wanting to return home to sleep in her own environment. She states that she obtained CPAP machine yesterday and expects that this will help greatly with sleep. She reports she will phone her for a ride home and that he will likely be able to do this after he works until 4:30 today. The patient is discharged to home. MENTAL STATUS EXAM: Alpa is a 43-year-old white female, who appears slightly younger than stated age. She is obese, casually dressed, disheveled and wearing pajamas. She is alert and oriented x3. She is pleasant upon approach and answers questions fully. Eye contact is good. Speech is soft, articulate, and spontaneous. Mood is euthymic with full range of affect. No abnormal psychomotor activity noted. Thought process is logical, goal directed and coherent. Thought content is negative for suicidal ideation or passive wish. She denies HI or . She denies auditory or visual hallucinations. She denies delusions and there are no perceptual disturbances noted. Insight and judgment are good and that she is reporting improved mood since last night and desired to return home. She has a low average intellect. INSTRUCTIONS GIVEN TO THE PATIENT: A. Medications: She will remain on current medications: 1. Rexulti 3 mg p.o. every evening. 2. Cyclobenzaprine 5 to 10 mg p.o. b.i.d. p.r.n. back pain. 3. Albuterol inhaler 2 puffs q.6 hours p.r.n. SOB or wheezing. 4. Albuterol nebulizer q.6 hours p.r.n. SOB. 5. Omeprazole 40 mg p.o. daily. 6. Clonazepam 2 mg daily p.r.n. 7. Hydroxyzine 25 mg p.o. q.a.m. and 50 mg at bedtime. 8. Prazosin 2 mg q.a.m. and 1 mg at bedtime. 9. Naproxen 500 mg p.o. b.i.d. p.r.n. B. Diet: Regular. C. Activity: Ambulation as tolerated. Tobacco cessation is not applicable. The patient declines nicotine replacement. Pending labs: I have added on hemoglobin A1c and lipid panel too, but already collected, so these will be nonfasting. These were last drawn in November of this year. D. Followup care: The patient will follow up with [facility] and primary care provider, Dr. Astrid Gonzalez. E. Substance use followup is not applicable. HOSPITAL COURSE: Part A. Reason for admission: The patient presented to the emergency department brought in by her due to thoughts of suicide. She reports poor sleep and she reports treatment adherence. She reported not feeling safe returning home due to demons being there. She was admitted on voluntary status during the overnight. She reports sleeping fairly well while here. She identifies some conflict in the neighborhood amongst the neighbors, but otherwise denies feeling unsafe returning home. 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 She was feeling well and not sure why she presented to the emergency department. She denies hallucinations. She reports that she is tired during the day and wants to sleep. She is receptive to suggestion to remain awake during the day in order to have improved sleep at night. She is pleasant and cooperative. She is in behavioral control. She has been safe on all checks. She reports that her therapist is away for the next week and agrees to follow up with her upon return. HAWA FARR NP [id number]/[facility] #: [id number] DONE[place]
[2019-05-28] MEDS ORDERED: traZODone TAB* 100 MG PO SCH (21:00)
[2019-05-28] MEDS ORDERED: Prazosin CAP* 1 MG PO SCH (21:00)
[2019-05-28] MEDS ORDERED: PTO:Brexpiprazole (NF) 3 MG TAB PO SCH (21:00)
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
== END 2019-05-28 15:28 | disposition home or self-care (01) | DRG 753 ==
LOC: ED 17:29 → BSU 23:48
PROVIDERS: ADMIT Psychiatry & Neurology Psychiatry; ATTEND Psychiatry & Neurology Psychiatry
DX: F31.31 Bipolar disorder, current episode depressed, mild (principal); R45.851 Suicidal ideations; F60.3 Borderline personality disorder; F43.24 Adjustment disorder with disturbance of conduct; E78.00 Pure hypercholesterolemia, unspecified; K21.9 Gastro-esophageal reflux disease without esophagitis; M79.7 Fibromyalgia; J45.909 Unspecified asthma, uncomplicated; Z79.51 Long term (current) use of inhaled steroids; Z79.899 Other long term (current) drug therapy; Z88.8 Allergy status to other drugs, medicaments and biological substances; Z91.018 Allergy to other foods
CPT/HCPCS: 36415; 80053; 80061; 80307; 80320; 80329; 81003; 81015; 83036; 84443; 85025; 87086; 99238; 99284; A9270-GY; G0480

== ENCOUNTER 2019-10-09 15:09 | Emergency (ER) | payer OTHER ==
[2019-10-09] MEDS ORDERED: NS 0.9% 1000 ML** 1,000 ML IV ONE (15:11)
--- NOTE | 2019-10-09 15:16 | ED ---
Neurological HPI - HPI Summary HPI Summary: AARON WETZEL called from the field by EMS at 1446, ETA 20 minutes. This patient is a 44 y/o female presenting to [facility] via EMS for left sided weakness today. EMS reports patient's last known well was today 10/09/19 at 1300 when patient began to have difficulty speaking and left sided weakness. Per EMS patient has been having a nonproductive cough over the last month. EMS denies any recent travel for the patient. Patient denies any chest pain or shortness of breath. Patient reports she has been cleaning her home with Clorox since 10:00 today and since then she has been having lower back pain and right leg pain. Patient denies urinary or fecal dysfunction. Patient denies any hx of HTN or DM. Denies hx of strokes. PMHx includes anxiety, depression, PTSD, bipolar disorder, fibromyalgia, asthma , seizures. Home Medications Medication Instructions Recorded Confirmed Type traZODone TAB* [Desyrel TAB*] 200 mg PO BEDTIME tab 12/03/18 10/09/19 Rx Brexpiprazole (NF) [Rexulti 3 mg 3 mg PO QPM 02/12/19 10/09/19 History tab (NF)] Ipratropium 0.5MG/2.5ML NEB* 0.5 mg INH Q6H PRN 05/15/19 10/09/19 History [Atrovent 0.5 MG NEB.TRICIA*] Albuterol HFA INHALER* [Ventolin 2 puff INH Q6H PRN mdi 05/28/19 10/09/19 Rx HFA Inhaler*] Mometasone/Formoter 200/5 MDI* 2 puff INH BID mdi 05/28/19 10/09/19 Rx [Dulera 200/5 MDI*] Meloxicam [Mobic] 7.5 mg PO BID 08/28/19 10/09/19 History Methocarbamol TAB* [Robaxin 500 MG 750 mg PO BID PRN 08/28/19 10/09/19 History TAB*] Cefdinir [Cefdinir 300 MG CAP] 1 tab PO Q12H 10/09/19 10/09/19 History Famotidine TAB* [Pepcid 20 MG TAB*] 1 tab PO BID 10/09/19 10/09/19 History Ondansetron HCl [Zofran 4 MG TAB] 4 mg PO Q8H PRN 10/09/19 10/09/19 History Prazosin 1 mg CAP [Minipress 1 mg 2 mg PO BEDTIME 10/09/19 10/09/19 History CAP] clonazePAM [Clonazepam] 1 mg PO BID PRN MDD 2 10/09/19 10/09/19 History hydrOXYzine HCL TAB* [Atarax 25 MG 50 mg PO QID PRN 10/09/19 10/09/19 History TAB*] - History of Current Complaint Stated Complaint: POSS STROKE PER EMS Hx Obtained From: Patient, EMS Hx Last Menstrual Period: 12/18/13 Onset/Duration: Sudden Onset, Still Present Timing: Sudden Onset Current Severity: Moderate Neurological Deficit Location: LUE, LLE Pain Intensity: 0 Pain Scale Used: 0-10 Numeric Character: Weak - left sided, Impaired Speech Aggravating: Nothing Alleviating: Nothing Associated Signs and Symptoms: Positive: Weakness, Pain - right leg and lower back, Impaired Speech. Negative: Fever, Chest Pain, Shortness of Breath - Additional Pertinent History Primary Care Physician: SUSANA - Allergy/Home Medications Allergies/Adverse Reactions: Allergies Allergy/AdvReac Type Severity Reaction Status Date / Time levofloxacin [From Levaquin] Allergy Unknown Verified 08/28/19 09:26 Reaction Details methylphenidate Allergy See Comment Verified 08/28/19 09:26 prednisone Allergy Anxiety Verified 08/28/19 09:26 GRAPEFRUIT Allergy AVOIDS DUE Uncoded 05/15/19 15:12 TO CURRENT MEDICATION SHE IS TAKING Home Medications: Home Medications traZODone TAB* [Desyrel TAB*] 200 mg PO BEDTIME tab 12/03/18 [Rx Confirmed ] Brexpiprazole (NF) [Rexulti 3 mg tab (NF)] 3 mg PO QPM 02/12/19 [History Confirmed 10/09/19] Ipratropium 0.5MG/2.5ML NEB* [Atrovent 0.5 MG NEB.TRICIA*] 0.5 mg INH Q6H PRN 05/15 [History Confirmed 10/09/19] Albuterol HFA INHALER* [Ventolin HFA Inhaler*] 2 puff INH Q6H PRN mdi 05/28/19 [Rx Confirmed 10/09/19] Mometasone/Formoter 200/5 MDI* [Dulera 200/5 MDI*] 2 puff INH BID mdi 05/28/19 [Rx Confirmed 10/09/19] Meloxicam [Mobic] 7.5 mg PO BID 08/28/19 [History Confirmed 10/09/19] Methocarbamol TAB* [Robaxin 500 MG TAB*] 750 mg PO BID PRN 08/28/19 [History Confirmed 10/09/19] Cefdinir [Cefdinir 300 MG CAP] 1 tab PO Q12H 10/09/19 [History Confirmed ] Famotidine TAB* [Pepcid 20 MG TAB*] 1 tab PO BID 10/09/19 [History Confirmed ] Ondansetron HCl [Zofran 4 MG TAB] 4 mg PO Q8H PRN 10/09/19 [History Confirmed ] Prazosin 1 mg CAP [Minipress 1 mg CAP] 2 mg PO BEDTIME 10/09/19 [History Confirmed 10/09/19] clonazePAM [Clonazepam] 1 mg PO BID PRN MDD 2 10/09/19 [History Confirmed ] hydrOXYzine HCL TAB* [Atarax 25 MG TAB*] 50 mg PO QID PRN 10/09/19 [History Confirmed 10/09/19] PMH/Surg Hx/FS Hx/Imm Hx Endocrine/Hematology History: Denies: Hx Anticoagulant Therapy, Hx Blood Disorders, Hx Blood Transfusions, Hx Bone Marrow Disease, Hx Diabetes, Hx Systemic Lupus Erythematosus, Hx Sickle Cell Disease, Hx Thyroid Disease, Hx Anemia, Hx Unexplained Bleeding, Other Endocrine/Hematological Disorders Cardiovascular History: Reports: Hx Hypercholesterolemia Denies: Hx Hypertension Respiratory History: Reports: Hx Asthma - PRN INHALER Denies: Hx Chronic Bronchitis, Hx Chronic Obstructive Pulmonary Disease (COPD ), Hx Cystic Fibrosis, Hx Lung Cancer, Hx Pleural Effusion, Hx Pneumonia, Hx Pulmonary Edema, Hx Pulmonary Embolism, Hx Seasonal Allergies, Hx Sleep Apnea, Other Respiratory Problems/Disorders GI History: Reports: Hx Gastroesophageal Reflux Disease - ON MEDICATION FOR, Hx Irritable Bowel, Hx Ulcer - STARTING OF AN ULCER IN THE PAST Denies: Hx Cirrhosis, Hx Crohn's Disease, Hx Diverticulosis, Hx Gall Bladder Disease, Hx Gastrointestinal Bleed, Hx Hiatal Hernia, Hx Jaundice, Hx Obstructive Bowel, Hx Ileostomy, Hx Pyloric Stenosis, Other GI Disorders History: Denies: Other Problems/Disorders Musculoskeletal History: Reports: Hx Back Problems, Hx Fibromyalgia, Hx Scoliosis Denies: Hx Arthritis, Hx Bursitis, Hx Congenital Bone Abnormalities, Hx Gout , Hx Orthopedic Injury, Hx Osteoporosis, Hx Tendonitis, Other Musculoskeletal History Sensory History: Reports: Hx Contacts or Glasses - Pt does not have her glasses with her Denies: Hx Cataracts, Hx Eye Injury, Hx Eye Prosthesis, Hx Glaucoma, Hx Legally Blind, Hx Macular Degeneration, Hx Vision Problem, Hx Deafness, Hx Hearing Aid, Hx Hearing Problem, Other Sensory Impairments Opthamlomology History: Reports: Hx Contacts or Glasses - Pt does not have her glasses with her Denies: Hx Cataracts, Hx Eye Injury, Hx Eye Prosthesis, Hx Glaucoma, Hx Legally Blind, Hx Macular Degeneration, Hx Vision Problem, Other Sensory Impairments Neurological History: Reports: Hx Migraine - TREATS WITH REST AND TYLENOL, Hx Seizures - Pseudoseizures (per pt), Other Neuro Impairments/Disorders - seizures versus psychogenic events Denies: Hx Dementia, Hx Developmental Delay, Hx Headaches, Hx Nerve Disease, Hx Spinal Cord Injury, Hx Transient Ischemic Attacks (TIA) Psychiatric History: Reports: Hx Anxiety, Hx Depression, Hx Post Traumatic Stress Disorder, Hx Inpatient Treatment, Hx Community Mental Health Tx, Hx Bipolar Disorder, Hx Suicide Attempt Denies: Hx Attention Deficit Hyperactivity Disorder, Hx Eating Disorder, Hx Panic Disorder, Hx Schizophrenia, Hx of Violent Episodes Against Others, Hx Substance Abuse - Cancer History Cancer Type, Location and Year: None reported - Surgical History Surgical History: Yes Surgery Procedure, Year, and Place: [id number] YEARS AGO. Cervical lining removed in 2017 Hx Anesthesia Reactions: No - Immunization History Date of Tetanus Vaccine: UNKNOWN Date of Influenza Vaccine: 2012 Infectious Disease History: Denies: Hx Clostridium Difficile, Hx Hepatitis, Hx Human Immunodeficiency Virus (HIV), Hx of Known/Suspected MRSA, Hx Shingles, Hx Tuberculosis - Family History Known Family History: Positive: Seizure Disorder - pseudo-seizures - Social History Alcohol Use: Occasionally Alcohol Amount: 4 Hx Substance Use: No Substance Use Type: Reports: None Hx Tobacco Use: Yes Smoking Status (MU): Current Every Day Smoker Type: Cigarettes Amount Used/How Often: 1 PPD Length of Time of Smoking/Using Tobacco: 23 Have You Smoked in the Last Year: Yes - smokes 1/2 pack/day. No other form tobacco or nicotine in last year Review of Systems Negative: Fever Negative: Chest Pain Positive: Cough. Negative: Shortness Of Breath Negative: incontinence, other - NEGATIVE: urinary or fecal dysfunction Musculoskeletal: Other - POSITIVE: right leg pain, low back pain Neurological/Mental Status: Other - POSITIVE: difficulty speaking Positive: Weakness - left sided All Other Systems Reviewed And Are Negative: Yes Physical Exam - Summary Physical Exam Summary: VITAL SIGNS: Reviewed. GENERAL: Patient is a well-developed and nourished female who is lying comfortable in the stretcher. Patient is not in any acute respiratory distress. HEAD AND FACE: No signs of trauma. No ecchymosis, hematomas or skull depressions. No sinus tenderness. EYES: PERRLA, EOMI x 2, No injected conjunctiva, no nystagmus. No photophobia. EARS: Hearing grossly intact. Ear canals and tympanic membranes are within normal limits. MOUTH: Oropharynx within normal limits. NECK: Supple, trachea is midline, no adenopathy, no JVD, no carotid bruit, no c- spine tenderness, neck with full ROM. No meningeal signs, no Kernig's or brudzinskis signs. CHEST: Symmetric, no tenderness at palpation. LUNGS: Clear to auscultation bilaterally. No wheezing or crackles. CVS: Regular rate and rhythm, S1 and S2 present, no murmurs or gallops appreciated. ABDOMEN: Soft, non-tender. No signs of distention. No rebound, no guarding, and no masses palpated. Bowel sounds are normal. EXTREMITIES: FROM in all major joints, no edema, no cyanosis or clubbing. NEURO: Alert and oriented x 3. Left sided weakness. Slurred speech. SKIN: Dry and warm. GCS: 15 Triage Information Reviewed: Yes Vital Signs On Initial Exam: Initial Vitals Temp Pulse Resp BP Pulse Ox 97.9 F 85 20 122/81 94 10/09/19 15:27 10/09/19 15:27 10/09/19 15:27 10/09/19 15:27 10/09/19 15:27 Vital Signs Reviewed: Yes Procedures - Sedation Patient Received Moderate/Deep Sedation with Procedure: No Diagnostics - Laboratory Result Diagrams: 10/09/19 15:33 10/09/19 15:33 Lab Statement: Any lab studies that have been ordered have been reviewed, and results considered in the medical decision making process. - Radiology Chest XR Radiology Interpretation Completed By: Radiologist Summary of Radiographic Findings: IMPRESSION: No active cardiopulmonary disease is noted. Dr. Jiménez has reviewed this report. Lumbar spine XR Radiology Interpretation Completed By: Radiologist Summary of Radiographic Findings: IMPRESSION: No fracture of the lumbar spine is noted. Dr. Jiménez has reviewed this report. - CT Brain CT CT Interpretation Completed By: Radiologist Summary of CT Findings: IMPRESSION: No acute intracranial pathology. Preliminary findings were discussed with Dr. Jiménez at approximately 3:24 PM on October 09, 2019. - EKG 16:17 Cardiac Rate: NL - at 74 bpm EKG Rhythm: Sinus Rhythm Summary of EKG Findings: EKG at 1617 shows normal sinus rhythm at a rate of [address] elevations. This EKG was interpreted and reviewed by ED physician. NIH Scale - NIH Scale Level of Consciousness: Alert/Keenly Responsive Ask Patient the Month and His/Her Age: Both Correct Ask Pt to Open/Close Eyes and Lead Engineer/Release Non-Paretic Hand: Both Correctly Best Gaze (Only Horizontal Eye Movement): Normal Visual Field Testing: No Visual Loss Facial Paresis-Pt to Smile & Close Eyes or Grimace Symmetry: Normal/Symmetrical Motor Function - Right Arm: No Drift-Holds 10 Seconds Motor Function - Left Arm: Drifts LT 10 seconds Motor Function - Right Leg: No Drift-Holds 10 Seconds Motor Function - Left Leg: Drifts LT 10 seconds Limb Ataxia-Must be out of Proportion to Weakness Present: Absent Sensory (Use Pinprick to Test Arms/Legs/Trunk/Face): Normal Best Language (Describe Picture, Name Items): No Aphasia Dysarthria (Read Several Words): Slurs Some Words Extinction and Inattention: No Abnormality Total Score: 3 Re-Evaluation - Re-Evaluation First Eval Re-Evaluation Time: 17:52 Change: Improved Comment: Patient's back pain was treated. Patient is feeling better. Patient is ambulatory. Therefore she will be discharged home with follow up from her PCP. Course/Dx - Course Course Of Treatment: Aaron Wetzel called from field by EMS at 1446, ETA 20 minutes. EMS arrives to the ED at 1509, ED physician immediately at bedside. Patient to CT at [address] Ghotra at bedside. Patient returns from CT at 15: 22. Dr. Vines, radiologist, reports negative brain CT. Dr. Ghotra, neurologist, at 1535 reports patient has no risk factors. Per Dr. Ghotra, TPA is not recommended as he doesn't think patient is having neurological deficits and is not having a TIA. Assessment/Plan: AARON WETZEL called from the field by EMS at 1446, ETA 20 minutes. This patient is a 44 y/o female presenting to [facility] via EMS for left sided weakness today. EMS reports patient's last known well was today 10/09/19 at 1300 when patient began to have difficulty speaking and left sided weakness. Per EMS patient has been having a nonproductive cough over the last month. EMS denies any recent travel for the patient. Patient denies any chest pain or shortness of breath. Patient reports she has been cleaning her home with Clorox since 10:00 today and since then she has been having lower back pain and right leg pain. Patient denies any hx of HTN or DM. Denies hx of strokes. PMHx includes anxiety, depression, PTSD, bipolar disorder, fibromyalgia, asthma, seizures. Initially the patient had some left-sided weakness and slurred speech. On reexamination the patients symptoms have resolved. Head CT shows no acute intracranial pathology. Dr. Ghotra at bedside. After his examination he also found the NIH score equal to 0. He did not see any signs of a TIA or CVA. The patient has some paraspinal muscle spine tenderness in the lumbar spine. Patient was given Toradol and Norflex and the symptoms resolved. In the ED course the patient was placed in a awake overnight monitor, IV access was obtained, IV fluids were started. Past medical records reviewed. Blood test w/ o a significant abnormality except for creatinine 1.13, AST 12, alkaline phosphatase is 106. Lumbar spine XR impression: No acute fracture or the lumbar spine. At this time the patient is ambulatory with no ataxia. The patient has a good steady walk. Therefore, the patient will be discharged home with follow up from her primary care physician. Patient is hemodynamically stable, alert and oriented 3. - Diagnoses Provider Diagnoses: Lumbar back pain, Paresthesia During the Visit The Following Alert/Code Occurred: Aaron Wetzel - called from the field at 1446, ETA 20 minutes - Physician Notifications Discussed Care Of Patient With: Dale Vines Time Discussed With Above Provider: 15:25 Instructed by Provider To: Other - Dr. Vines, radiologist, reports negative brain CT. - Critical Care Time Critical Care Time: 30-74 min Discharge ED - Sign-Out/Discharge Documenting (check all that apply): Patient Departure - Discharge home - Discharge Plan Condition: Stable Disposition: HOME Patient Education Materials: Paresthesia (ED), Back Pain (ED) Referrals: Astrid Gonzalez MD [Primary Care Provider] - Additional Instructions: FOLLOW UP WITH YOUR PRIMARY CARE PROVIDER IN 2-3 DAYS. RETURN TO THE ED FOR ANY NEW OR WORSENING SYMPTOMS. - Billing Disposition and Condition Condition: STABLE Disposition: Home - Attestation Statements Document Initiated by Scribe: Yes Documenting Scribe: Ghislaine Kenny Provider For Whom Rubio is Documenting (Include Credential): Timothy Jiménez MD Scribe Attestation: Ghislaine Mesa, scribed for Timothy Jiménez MD on 10/11/19 at 0352. Scribe Documentation Reviewed: Yes Provider Attestation: The documentation as recorded by the Ghislaine baugh accurately reflects the service I personally performed and the decisions made by me, Timothy Jiménez MD Status of Scribe Document: Viewed
[2019-10-09 15:41] LABS: ABS Basophils 0.1 10^3/ul (0-0.2); ABS Eosinophils 0.2 10^3/ul (0-0.6); ABS Lymphocytes 2.4 10^3/ul (1.0-4.8); ABS Monocytes 0.5 10^3/ul (0-0.8); Eosinophil % 1.9 %; Hematocrit 43 % (35-47); Hemoglobin 14.7 g/dL (12.0-16.0); Lymphocyte % 29.6 %; Mean Corpuscular HGB Conc 34 g/dL (31-36); Mean Corpuscular Hemoglobin 29 pg (27-31); Mean Corpuscular Volume 86 fL (80-97); Mean Platelet Volume 9.7 fL (7.4-10.4); Platelet Count 162 10^3/uL (150-450); Red Blood Count 5.01 10^6 /uL (3.70-4.87); Red Cell Distribution Width 14 % (10-15); White Blood Count 8.1 10^3/uL (3.5-10.8)
[2019-10-09] MEDS ORDERED: Ketorolac INJ* 30 MG/ML 1 ML VIAL IV PUSH ONE (15:42)
[2019-10-09] MEDS ORDERED: Orphenadrine Citrate IV* 30 MG/ML 2 ML VIAL IV ONE (15:43)
[2019-10-09 16:08] LABS: Activated Partial Thrombo Time 40.1 seconds (26.0-38.0); Albumin 3.9 g/dL (3.2-5.2); Albumin/Globulin Ratio 1.5 (1-3); BUN/Creatinine Ratio 10.6 (8-20); Calcium 9.2 mg/dL (8.6-10.3); EGFR African American 63.6 (>60); EGFR Non-African American 52.6 (>60); Globulin 2.6 g/dL (2-4); HDL Cholesterol 34.9 mg/dL; INR 0.96 (0.82-1.09); Total Bilirubin 0.3 mg/dL (0.2-1.0); Total Protein 6.5 g/dL (6.4-8.9)
--- OUTSIDE RECORDS SUMMARY | 2019-10-09 16:24 | XMS REPORT | Continuity of Care Document ---
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 Onset: 02/04/2016 Gastroesophageal reflux disease [...] Use Denies Drug Use Smoking Status Reviewed: 09/23/19 Patient is a current started at age 16 smoker, smokes every day smoking 1-5 cigs. a day Allergies, Adverse Reactions, Alerts Active Allergies Reaction Severity Comments Date Ritalin Severe profuse sweating and 02/04/2016 poundign chest Prednisone exacerbates mental illness 02/22/2016 Levaquin 02/22/2016 Grapefruit 06/20/2016 Medications Active Medications SIG Qnty Indications Ordering Date Provider Albuterol Sulfate Inhale 2 Puffs By 18units J01.90 Rubi Pond, 08/25/2019 HFA Mouth 4 Times M.D., FACP 108(90Base) Daily as Needed mcg/Act Aerosol Wixela Inhub 1 inhalation twice 60units Page Dumont MD 08/14/2019 daily 250-50mcg/Dose Aerosol Ipratropium 1 inhalation via 180ml J44.1 Astrid Gonzalez, 03/11/2019 Lisman/Albuterol nebulizer every 4- M.D. Sulfate 6 hours as needed 0.5-2.5(3)mg/3ML Solution Naproxen 1 by mouth twice a 30tabs M54.5 Astrid Gonzalez, 08/21/2018 500mg day as needed pain M.D. Tablets Nebulizer nebulizer 1units Astrid Gonzalez, 11/03/2017 Misc supplies, tubing M.D. etc Ventolin HFA inhale 2 puffs by 18units Rubi Pond, 05/19/2016 mouth 4 times M.D., FACP 108(90Base) mcg/Act daily as needed Aerosol Trazodone HCL 2 by mouth every Unknown 100mg night at bedtime Tablets Prazosin HCL taking 1mg twice a Unknown 2mg day Capsules Ibuprofen as needed Unknown 200mg Capsules Omeprazole take 1 capsule by 30caps Page Dumont MD 40mg mouth every day Capsules DR Hydroxyzine HCL Take 1 Tablet By Unknown 50mg Mouth Twice A Day Tablets And 2 Tablets AT Bedtime as Needed For Agitatiom Rexulti Take 1 Tablet By Unknown 3mg Tablets Mouth Every Day Klonopin 1 by mouth twice a Unknown 1mg Tablets day History Medications Azithromycin take 2 tablets 6tabs J44.9 Page Dumont MD 08/23/2019 - 250mg today; then one 09/23/2019 Tablets tablet daily Prednisone 4 tab daily X 3 QS J44.1 Page Dumont MD 05/30/2019 - 10mg Tablets days 3 tab daily 09/23/2019 x 3 days and then 2 tab daily x 3 days 1 tab daily x 3 days Clonazepam 4MG prn Other Ordering 05/16/2019 - Provider 09/23/2019 Immunizations CPT Code Status Date Vaccine Lot # [id number] Given 03/29/2017 Tdap - Tetanus/Diptheria/Acellular Pertussis [id number] Given 03/29/2017 Influenza Virus Vaccine, Quadrivalent, Split, [id number] Preservative Free [id number] Refused 06/20/2016 Influenza Virus Vaccine, Quadrivalent, Split, Preservative Free Vital Signs Date Vital Result Comment 09/23/2019 3:10pm Height 64.5 inches 5'4.50" Weight 215.38 lb Heart Rate 82 /min BP Systolic Sitting 106 mmHg BP Diastolic Sitting 71 mmHg BMI (Body Mass Index) 36.4 kg/m2 08/23/2019 4:17pm Height 64.5 inches 5'4.50" Weight 230.00 lb Heart Rate 94 /min BP Systolic Sitting 115 mmHg BP Diastolic Sitting 85 mmHg Body Temperature 98.0 F O2 % BldC Oximetry 90 % BMI (Body Mass Index) 38.9 kg/m2 Results Test Acquired Date Facility Test Result H/L Range Note CBC Auto 05/27/2019 [facility] White Blood 8.3 10^3/uL Normal 3.5-10.[address] [place] [address] [phone] Red Blood Count 5.28 10^6/uL High 3.70-4.87 Hemoglobin 15.7 g/dL Normal 12.0-16.0 Hematocrit 46 % Normal 35-47 Mean Corpuscular Volume 87 fL Normal 80-97 Mean Corpuscular Hemoglobin 30 pg Normal 27-31 Mean Corpuscular HGB Conc 34 g/dL Normal 31-36 Red Cell Distribution Width 15 % Normal 10-15 Platelet Count 150 10^3/uL Normal 150-450 Mean Platelet Volume 9.8 fL Normal 7.4-10.4 Abs Neutrophils 5.4 10^3/uL Normal 1.5-7.7 Abs Lymphocytes 2.0 10^3/uL Normal 1.0-4.8 Abs Monocytes 0.6 10^3/uL Normal 0-0.8 Abs Eosinophils 0.2 10^3/uL Normal 0-0.6 Abs Basophils 0.1 10^3/uL Normal 0-0.2 Abs Nucleated RBC 0.0 10^3/uL Granulocyte % 65.4 % Lymphocyte % 24.6 % Monocyte % 6.7 % Eosinophil % 2.3 % Basophil % 1.0 % Nucleated Red Blood Cells % 0.1 Comp Metabolic 05/27/2019 [facility] Sodium 139 mmol/L Normal 135-[address] [place] [address] [phone] Potassium 4.1 mmol/L Normal 3.5-5.0 Chloride 106 mmol/L Normal 101-111 Co2 Carbon Dioxide 28 mmol/L Normal 22-32 Anion Gap 5 mmol/L Normal 2-11 Glucose 99 mg/dL Normal 70-100 Blood Urea Nitrogen 11 mg/dL Normal 6-24 Creatinine 1.08 mg/dL High 0.51-0.95 BUN/Creatinine Ratio 10.2 Normal 8-20 Calcium 9.6 mg/dL Normal 8.6-10.3 Total Protein 6.8 g/dL Normal 6.4-8.9 Albumin 4.1 g/dL Normal 3.2-5.2 Globulin 2.7 g/dL Normal 2-4 Albumin/Globulin Ratio 1.5 Normal 1-3 Total Bilirubin 0.30 mg/dL Normal 0.2-1.0 Alkaline Phosphatase 104 U/L Normal 34-104 Alt 17 U/L Normal 7-52 Ast 15 U/L Normal 13-39 Egfr Non- 55.6 >60 Egfr 67.3 >60 1 Laboratory test 05/27/2019 [facility] Acetaminophen < 15 g/mL [address] [place] [address] [phone] Alcohol < 10 mg/dL Normal <10 Salicylate < 2.50 mg/dL <30 TSH (Thyroid Stim Horm) 4.24 mcIU/mL Normal 0.34-5.60 Urinalysis Profile 05/27/2019 [facility] Urine Color Yellow [address] [place] [address] [phone] Urine Appearance Clear Urine Specific [place] 1.016 Normal 1.010-1.030 Urine pH 6.0 Normal 5-9 Urine Urobilinogen Negative Negative Urine Ketones Negative Negative Urine Protein Negative Negative Urine Leukocytes 2+ Abnormal Negative Urine Blood Negative Negative Urine Nitrite Negative Negative Urine Bilirubin Negative Negative Urine Glucose Negative Negative Urine White Blood Cell 1+(6-10/hpf) Abnormal Absent Urine Red Blood Cell Trace(0-2/hpf) Absent Urine Bacteria Absent Absent Urine Squamous Epithelial Cell Present Abnormal Absent Urine Drug 05/27/2019 [facility] Urine None Detected None Detect SCR ED & [address] Amphetamine [place] [address] Screen [phone] Urine Barbiturates Screen None Detected None Detect Urine Benzodiazepine Screen None Detected None Detect Urine Cannabinoids Screen None Detected None Detect Urine Cocaine Screen None Detected None Detect Urine Opiates Screen None Detected None Detect Urine Phencyclidine Screen None Detected None Detect 3 Lipid Profile 05/27/2019 [facility] Triglycerides 295 mg/dL 4 (Trig/Chol/HDL) [address] [place] [address] [phone] Cholesterol 226 mg/dL 5 HDL Cholesterol 41.8 mg/dL 6 LDL Cholesterol 125 mg/dL 7 Laboratory test 05/27/2019 [facility] Hemoglobin 5.8 % High 4.0-5.6 [address] A1c ([place] [address] HGB) [phone] Urine Culture And 05/27/2019 [facility] Urine Culture SEE [address] [place] [address] BELOW [phone] CBC Auto Diff 05/15/2019 [facility] White Blood 7.7 Normal 3.5 -10.[address] Count 10^3/[place] [address] [phone] Red Blood Count 5.28 10^6/uL High 3.70-4.87 [...] Blood Cells % 0.0 Comp Metabolic 05/15/2019 [facility] Sodium 139 mmol/L Normal 135-[address] [place] [address] [phone] Potassium 3.9 mmol/L Normal 3.5-5.0 Chloride 106 [...] Egfr Non- 61.5 >60 Egfr 74.4 >60 10 Laboratory test 05/15/2019 [facility] Magnesium 1.7 mg/dL Low 1.9-2.[address] [place] [address] [phone] HCG 0.71 mIU/mL 11 Urinalysis Profile 05/15/2019 [facility] Urine Color Yellow [address] [place] [address] [phone] Urine Appearance Cloudy Urine Specific [place] 1.004 Low 1.010-1.030 Urine pH 6.0 Normal [...] Cell Present Abnormal Absent Urine Culture And 05/15/2019 [facility] Urine Culture SEE RESULT [address] [place] [address] [phone] 1 Because ethnic data is not always [...] 5 Kidney failure <15 (or dialysis) 2 Therapeutic concentration: <50 ug/mL Toxic concentration: >120 ug/mL 3 The urine specimen was tested at the listed cutoffs: Drug class test level (ng/mL) Amphetamines 500 Barbiturates 200 Benzodiazepine metabolites 200 Cocaine metabolites 150 Cannabinoids 50 Opiates 300 Pcp 25 Specimen was received without chain of custody. Results should be used for medical purposes only. 4 Desirable: <150 Borderline High: 150-199 High: 200-499 Very High: >500 5 Desirable: <200 Borderline High: 200-239 High: >239 6 Low: <40 Desirable: 40-60 High: >60 7 Desirable: <100 Near Optimal: 100-129 Borderline High: 130-159 High: 160-189 Very High: >189 8 Therapeutic target for the treatment of diabetes mellitus patients is <7% HBA1C, and in selective patients <6.0%. Please refer to [place] [employer] diabetic care guidelines for further information. 9 SEE RESULT BELOW Name: ALPA MYERS : [address]: Leonor Wong MD Acct: [id number] Unit: [id number] AGE: 43 Location: [facility] 212-01 Re05/27/19 Dis: 05/28/19 SEX: F Status: DIS IN SPEC: [id number] YUMIKO: 05/27/[address] [facility] [address]: Sandoval Rinaldi MD REQ: [id number] RECD: 05/27/19 STATUS:COMP GISELLAHR DR: Astrid Gonzalez MD _ SOURCE: URINE SPDESC: ORDERED: Urine Culture Procedure Result Reported Site Urine Culture Final 05/29/19918 ML No growth of clinically significant organisms * ML - Main Lab . END OF REPORT DEPARTMENT OF PATHOLOGY, [address] [place] [address] Yvan Obrien M.D. Director [facility] # [id number] 10 Because ethnic data is not always readily [...] 15-29 5 Kidney failure <15 (or dialysis) 11 <5.0 Negative 5.0 - 25.0 Indeterminate (Repeat testing recommended after 72 hours) >25.0 Positive Perimenopausal women can display HCG levels of up to 20 mIU/mL 12 SEE RESULT BELOW Name: ALPA MYERS : [address]: Lili Rodrigues MD Acct: [id number] Unit: [id number] AGE: 43 Location: ED Re05/15/19 SEX: F Status: DEP ER SPEC: [id number] YUMIKO: 05/15/19-[address] [facility] [address]: Lili Rodrigues MD REQ: [id number] RECD: 05/15/193679 STATUS: ANNIE FRY DR: Astrid Gonzalez MD _ SOURCE: URINE SPDESC: ORDERED: Urine Culture Procedure Result Reported Site Urine Culture Final 05/16/19- 1602 ML No growth of clinically significant organisms * ML - Main Lab . END OF REPORT DEPARTMENT OF PATHOLOGY, [address] [place] [address] Yvan Obrien M.D. Director [facility] # [id number] Procedures Date Code Description Status 08/05/2019 61459 Polysomnography Sleep Staging 4+ Parameters Completed 03/31/2017 50333515 Mammogram Completed Medical Devices Description No Information Available Encounters Type Date Location Provider Dx Diagnosis Office Visit 09/23/2019 [facility] Internal Wernerum Shiva R10.84 [facility] abdominal pain R19.7 Diarrhea, unspecified Office Visit 08/23/2019 4:20p [facility] Aury Dumont MD M54.5 [facility] J[facility].9 Chronic obstructive pulmonary disease, unspecified Office Visit 05/30/2019 11:20a [facility] Anders Vann44.1 Chronic Medicine - Reynaldo JAMES obstructive pulmonary disease w (acute) exacerbation Office Visit 05/16/2019 10:45a [facility] R06.83 [facility] R53.83 Other fatigue G47.00 Insomnia, unspecified Assessments Date Code Description Provider 09/23/2019 R10.84 Generalized abdominal pain Wernerisac Shiva Carey, H[facility] SAWYER 09/23/2019 R19.7 Diarrhea, unspecified Frank Carey, HOG SAWYER 08/23/2019 M54.5 Low back pain Page Dumont MD 08/23/2019 J44.9 Chronic obstructive pulmonary disease, Page Dumont MD unspecified 08/05/2019 G47.33 Obstructive sleep apnea (adult) Tori Jacobson MD (pediatric) 05/30/2019 J44.1 Chronic obstructive pulmonary disease Page Dumont MD with (acute) exacerbation 05/16/2019 R06.83 Snoring Tori Jacobson MD 05/16/2019 R53.83 Other fatigue Tori Jacobson MD 05/16/2019 G47.00 Insomnia, unspecified Tori Jacobson MD Plan of Treatment Future Appointment(s):10/15/2019 10:00 am - Nury Hilario DNP, RN, EMERGENCY CARE ATTENDANT-BC at [facility]09/23/2019 - Frank Shiva Carey, NPR10.84 Generalized abdominal painComments:Take Tylenol for pain. Call with any worsening symptoms. Continue drinking fluids and eat soft foods.Follow up: as [id number] Diarrhea, unspecifiedComments:We are ordering stool cultures. Please get your sample to the lab as soon as possible. Functional Status Description No Information Available Mental Status Description No Information Available Referrals Description No Information Available
--- OUTSIDE RECORDS SUMMARY | 2019-10-09 16:24 | XMS REPORT ---
:1975 Author Organization [facility] Care Team Providers Name Role Phone Roque Dinora Primary Care Physician Unavailable Allergies, Adverse Reactions, Alerts Allergy Code CodeSystem Reaction Severity Criticality Status Start Substance Date Moderate Medications Medication Medication Medication Start Stop Route Dose Status Fill Code CodeSystem Date Date Instructions hydroxyzine HCl 560658 RxNorm 2019- oral 25 mg completed for 15 -18 05-02 tablet day(s) Rexulti 0466286 RxNorm oral 3 mg 1 active Take 1 tablet 7-03 tablet once a day once a for 30 day(s) day Advair HFA 417744 RxNorm inhl 115-21 active for 90 2-19 mcg/actu day(s) ation HFA aerosol inhaler cyclobenzaprine 695820 RxNorm 0 oral 10 mg active for 7 4-04 tablet day(s) hydroxyzine HCl 907667 RxNorm 2018-07 2020- oral 25 mg completed for 30 0-18 02-06 tablet day(s) hydroxyzine HCl 041513 RxNorm 2019-0 oral 50 mg 1 active Take 1 tablet 2-06 tablet four times a four day as needed times a for 30 day(s) day omeprazole 482080 RxNorm 2019- oral 40 mg completed for 30 - 05-02 capsule, day(s) delayed release( DR/EC) prazosin 144807 RxNorm 0 oral 2 mg active for 30 7-10 capsule day(s) Rexulti 3367092 RxNorm 2019- oral 2 mg completed for 30 - 07-03 tablet day(s) trazodone 706502 RxNorm 2019- oral 100 mg completed for 30 2- 08-04 tablet day(s) prazosin 517564 RxNorm 2019- oral 1 mg completed for 30 3-07 05-02 capsule day(s) prazosin 023724 RxNorm 2017-07 2019- oral 2 mg completed for 30 2-18 06-14 capsule day(s) clonazepam 19740901 RxNorm 2019- oral 2 mg completed for 30 5-24 09-20 tablet day(s) trazodone 255729 RxNorm oral 100 mg active for 30 5-06 tablet day(s) lamotrigine 195744 RxNorm 2019- oral 100 mg completed for 30 -18 05-02 tablet day(s) hydroxyzine HCl 175671 RxNorm 2019- oral 25 mg completed for 30 11-22-31 tablet day(s) prazosin 386551 RxNorm 2019- oral 1 mg 1 completed 1 capsule 6-10 capsule at bedtime at for 30 day(s) bedtime clonazepam 19740901 RxNorm 2020- oral 2 mg 1 completed Take 1 tablet 9-20 -06 tablet twice a day twice a as needed for day 30 day(s) clonazepam 19740901 RxNorm 2019- oral 2 mg completed for 30 3-05 05-08 tablet day(s) albuterol 656489 RxNorm 2017-07 inhl 2.5 mg/3 active for 30 sulfate 1-13 mL day(s) (0.083 %) solution for nebuliza tion prazosin 242016 RxNorm 2018-07 oral 1 mg 1 active 1 capsule 1-20 capsule at bedtime at for 30 day(s) bedtime Problems Problem Name Code CodeSystem Alternate Alternate Start End Status Narrative Code CodeSystem Date Date Tobacco use 78022698 SNOMED-CT 2018- Active 5-17 Bipolar 24238659 SNOMED-CT 0 Active affective 3-22 disorder, unspecified 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 [facility] [id number] patient, [phone] which requires at least 2 of these 3 diaz components: A problem focused history; A problem focused examination; Straightforw [place] medical decision making. Mario Psychotherap 800605 SNOMED-CT () 2018-12-13 complete Mental y, 45 04 d Health- minutes with [place] patient [address], [id number] Psychotherap 089556 SNOMED-CT () 2019-01-10 complete Mental y, 45 04 d Health- minutes with [place] patient [address], [id number] Psychotherap 867455 SNOMED-CT () 2019-05-01 complete Mental y, 45 04 d Health- minutes with [address], [id number] Psychotherap 559924 SNOMED-CT () 2019-07-16 complete Mental y, 45 04 d Health- minutes with [address], [id number] Psychotherap 496885 SNOMED-CT () 2019-08-19 complete Mental y, 45 04 d Health- minutes with [address], [id number] Psychotherap 348461 SNOMED-CT () 2018-11-15 complete Mental y, 45 04 d Health- minutes with [address], [id number] Psychotherap 636000 SNOMED-CT () 2019-02-14 complete Mental y, 45 04 d Health- minutes with [address], [id number] Psychotherap 646268 SNOMED-CT () 2019-05-16 complete Mental y, 45 04 d Health- minutes with [address], [id number] Psychotherap 838201 SNOMED-CT () 2018-10-24 complete Mental y, 45 04 d Health- minutes with [address], [id number] Psychotherap 560837 SNOMED-CT () 2019-07-25 complete Mental y, 45 04 d Health- minutes with [address], [id number] Psychotherap 475100 SNOMED-CT () 2019-02-25 complete Mental y, 45 04 d Health- minutes with [address], [id number] Psychotherap 969960 SNOMED-CT () 2019-03-04 complete Mental y, 45 04 d Health- minutes with [address], [id number] [phone] Psychotherap 648884 SNOMED-CT () 2019-04-18 complete Mental y, 45 04 d Health- minutes with [address], [id number] Psychotherap 200591 SNOMED-CT () 2018-12-20 complete Mental y, 45 04 d Health- minutes with [address], [id number] Psychotherap 286006 SNOMED-CT () 2018-12-27 complete Mental y, 45 04 d Health- minutes with [address], [id number] Psychotherap 987457 SNOMED-CT () 2019-03-15 complete Mental y, 45 04 d Health- minutes with [address], [id number] Psychotherap 852954 SNOMED-CT () 2019-09-05 complete Mental y, 45 04 d Health- minutes with [address], [id number] [id number] Psychotherap 226107 SNOMED-CT () 2019-06-06 complete Mental y, 45 04 d Health- minutes with [address], [id number] Psychotherap 837194 SNOMED-CT () 2018-11-22 complete Mental y, 45 04 d Health- minutes with [address], [id number] Psychotherap 112822 SNOMED-CT () 2019-01-02 complete Mental y, 45 04 d Health- minutes with [place] patient [address], [id number] [id number] Psychotherap 064329 SNOMED-CT () 2019-02-21 complete Mental y, 45 04 d Health- minutes with [place] patient [address], [id number] Psychotherap 736206 SNOMED-CT () 2019-06-19 complete Mental y, 45 04 d Health- minutes with [place] patient [address], [id number] Psychotherap 803239 SNOMED-CT () 2019-02-07 complete Mental y, 45 04 d Health- minutes with [place] patient [address], [id number] Psychotherap 754180 SNOMED-CT () 2019-08-29 complete Mental y, 45 04 d Health- minutes with [place] patient [address], [id number] [id number] Psychotherap 786770 SNOMED-CT () 2019-04-01 complete Mental y, 45 04 d Health- minutes with [address], [id number] Psychotherap 410243 SNOMED-CT () 2019-07-02 complete Mental y, 45 04 d Health- minutes with [address], [id number] Psychotherap 173769 SNOMED-CT () 2019-06-26 complete Mental y, 45 04 d Health- minutes with [place] patient [address], [id number] [phone] Psychotherap 612233 SNOMED-CT () 2019-03-26 complete Mental y, 45 04 d Health- minutes with [place] patient [address], [id number] Office or [id number] SNOMED-CT () 2019-08-29 complete Mental other 7 d Health- [facility] [place] [facility] [address] [facility] [id number], [phone] which requires at least 2 of these 3 diaz components: An expanded problem focused history; An expanded problem focused examination; Medical decision making of low Office or 525405 SNOMED-CT () 2019-06-06 complete Mental other 7 d Health- outpatient [place] [facility] for [address] [facility] [id number] patient, [phone] which requires at least 2 of these 3 diaz components: An expanded problem focused history; An expanded problem focused examination; Medical decision making of low Office or 930134 SNOMED-CT () 2019-01-02 complete Mental other 7 d Health- outpatient [place] visit for [address] [facility] [id number] patient, [phone] which requires at least 2 of these 3 diaz components: An expanded problem focused history; An expanded problem focused examination; Medical decision making of low Office or 868534 SNOMED-CT () 2019-04-12 complete Mental other 7 d Health- outpatient [place] visit for [address] [place] [facility] [id number] patient, [phone] which requires at least 2 of these 3 diaz components: An expanded problem focused history; An expanded problem focused examination; Medical decision making of low Office or 725915 SNOMED-CT () 2018-11-22 complete Mental other 7 d Health- outpatient [place] visit for [address] [facility] [id number] patient, [phone] which requires at least 2 of these 3 diaz components: An expanded problem focused history; An expanded problem focused examination; Medical decision making of low Group 801977 SNOMED-CT () 2019-02-07 complete Mental psychotherap 8 d Health- y (other [place] than of a [address] group) [place], [place], [id number] Group [id number] SNOMED-CT () 2018-12-06 complete Mental psychotherap 8 d Health- y (other [place] than of a [address] group) [place], [place], [id number] Group [id number] SNOMED-CT () 2019-02-27 complete Mental psychotherap 8 d Health- y (other [place] than of a [address] group) [place], [place], [id number] [id number] Group [id number] SNOMED-CT () 2018-12-20 complete Mental psychotherap 8 d Health- y (other [place] than of a [address] group) [place], [place], [id number] Group [id number] SNOMED-CT () 2019-01-03 complete Mental psychotherap 8 d Health- y (other [place] than of a [address] group) [place], [place], [id number] [phone] Group [id number] SNOMED-CT () 2019-02-13 complete Mental psychotherap 8 d Health- y (other [place] than of a [address] group) [place], [place], [id number] [id number] Group [id number] SNOMED-CT () 2018-11-22 complete Mental psychotherap 8 d Health- y (other [place] than of a [address] group) [place], [place], [id number] Group [id number] SNOMED-CT () 2018-11-29 complete Mental psychotherap 8 d Health- y (other [place] than of a [address] group) [place], [place], [id number] [id number] Group [id number] SNOMED-CT () 2018-12-27 complete Mental psychotherap 8 d Health- y (other [place] than of a [address] group) [place], [place], [id number] Group [id number] SNOMED-CT () 2018-12-13 complete Mental psychotherap 8 d Health- y (other [place] than of a [address] group) [place], [place], [id number] Group [id number] SNOMED-CT () 2018-11-15 complete Mental psychotherap 8 d Health- y (other [place] than of a [address]) [place], [place], [id number] Group [id number] SNOMED-CT () 2019-01-10 complete Mental psychotherap 8 d Health- y (other [place] than of a [address]) [place], [place], [id number] SNOMED-CT () 2019-03-19 complete Mental d Health[address], [id number] SNOMED-CT () 2019-04-12 complete Mental d [address], [id number] SNOMED-CT () 2018-11-01 complete Mental d [address], [id number] SNOMED-CT () 2018-12-06 complete Mental d Health[address], [id number] Encounters/Encounter Diagnoses Encounter Name Encounter Diagnosis Diagnosis Diagnosis Date of Service Code Code Name CodeSystem Diagnosis Delivery Location [facility] [id number] Bipolar SNOMED-CT 2019-09-25 Behavioral Individual 30 affective Health min disorder, Clinic , , unspecified , Vital Signs No Information Social History Element Description Description Start End Code CodeSystem AdditionalInfo Date Date SexAssignedAtBirth Female F AdministrativeGender 08-16 Hospital Discharge Instructions Reason For Referral Medical Equipment FDA Assessments
--- OUTSIDE RECORDS SUMMARY | 2019-10-09 16:24 | XMS REPORT | Continuity of Care Document ---
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 Onset: 02/04/2016 Gastroesophageal reflux disease Camilo Osman M.D. 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 Sulfate 6 hours [...] CPT Code Status Date Vaccine Lot # [id number] Given 03/29/2017 Tdap - Tetanus/Diptheria/Acellular Pertussis [id number] Given 03/29/2017 Influenza Virus Vaccine, Quadrivalent, Split, [id number] Preservative Free 72291 Refused 06/20/2016 Influenza Virus Vaccine, Quadrivalent, Split, [...] Result H/L Range Note CBC Auto 05/27/2019 [facility] White Blood 8.3 10^3/uL Normal 3.5-10.[address] [place] [address] [phone] Red Blood Count 5.28 10^6/uL High 3.70-4.87 [...] Blood Cells % 0.1 Comp Metabolic 05/27/2019 [facility] Sodium 139 mmol/L Normal 135-145 Panel [address] [place] [address] [phone] Potassium 4.1 mmol/L Normal 3.5-5.0 Chloride 106 [...] Egfr 67.3 >60 1 Laboratory test 05/27/2019 [facility] Acetaminophen < 15 g/mL 2 finding [address] [place] [address] [phone] Alcohol < 10 mg/dL Normal <10 Salicylate < 2.50 mg/dL <30 TSH (Thyroid Stim Horm) 4.24 mcIU/mL Normal 0.34-5.60 Urinalysis Profile 05/27/2019 [facility] Urine Color Yellow [address] [place] [address] [phone] Urine Appearance Clear Urine Specific [place] 1.016 Normal 1.010-1.030 Urine pH 6.0 Normal [...] Cell Present Abnormal Absent Urine Drug 05/27/2019 [facility] Urine None Detected None Detect SCR ED & [address] [place] [address] Screen [phone] Urine Barbiturates Screen None Detected None Detect Urine Benzodiazepine Screen None Detected None Detect Urine Cannabinoids Screen None Detected None Detect Urine Cocaine Screen None Detected None Detect Urine Opiates Screen None Detected None Detect Urine Phencyclidine Screen None Detected None Detect 3 Lipid Profile 05/27/2019 [facility] Triglycerides 295 mg/dL 4 (Trig/Chol/HDL) [address] [place] [address] [phone] Cholesterol 226 mg/dL 5 HDL Cholesterol 41.8 mg/dL 6 LDL Cholesterol 125 mg/dL 7 Laboratory test 05/27/2019 [facility] Hemoglobin 5.8 % High 4.0-5.6 [address] A1c ([place] [address] HGB) [phone] Urine Culture And 05/27/2019 [facility] Urine Culture SEE [address] [place] [address] BELOW [phone] CBC Auto Diff 05/15/2019 [facility] White Blood 7.7 Normal 3.5 -10.[address] Count 10^3/[place] [address] [phone] Red Blood Count 5.28 10^6/uL High 3.70-4.87 [...] Blood Cells % 0.0 Comp Metabolic 05/15/2019 [facility] Sodium 139 mmol/L Normal 135-[address] [place] [address] [phone] Potassium 3.9 mmol/L Normal 3.5-5.0 Chloride 106 [...] Egfr 74.4 >60 10 Laboratory test 05/15/2019 [facility] Magnesium 1.7 mg/dL Low 1.9-2.[address] [place] [address] [phone] HCG 0.71 mIU/mL 11 Urinalysis Profile 05/15/2019 [facility] Urine Color Yellow [address] [place] [address] [phone] Urine Appearance Cloudy Urine Specific [place] 1.004 Low 1.010-1.030 Urine pH 6.0 Normal [...] Present Abnormal Absent Urine Culture And 05/15/2019 [facility] Urine Culture SEE RESULT [address] [place] [address] [phone] 1 Because ethnic data is not always [...] in selective patients <6.0%. Please refer to [place] [employer] diabetic care guidelines for further information. 9 SEE RESULT BELOW Name: ALPA HART : [address]: Leonor Wong MD Acct: [id number] Unit: [id number] AGE: 43 Location: [facility] 212-01 Re05/27/19 Dis: 05/28/19 SEX: F Status: DIS IN SPEC: [id number] YUMIKO: 05/27/19 [facility] DR: Sandoval Rinaldi MD REQ: [id number] RECD: 05/27/19 STATUS:COMP LISANDRA DR: Astrid Gonzalez MD _ SOURCE: URINE SPDESC: ORDERED: Urine Culture Procedure Result Reported Site Urine Culture Final 05/29/19918 ML No growth of clinically significant organisms * ML - Main Lab . END OF REPORT DEPARTMENT OF PATHOLOGY, [address] [place] [address] Yvan Obrien M.D. Director [facility] # [id number] 10 Because ethnic data is not always [...] mIU/mL 12 SEE RESULT BELOW Name: ALPA HART : [address]: Lili Rodrigues MD Acct: [id number] Unit: [id number] AGE: 43 Location: ED Re05/15/19 SEX: F Status: DEP ER SPEC: [id number] YUMIKO: 05/15/19-1500 [facility] DR: Lili Rodrigues MD REQ: [id number] RECD: 05/15/198603 STATUS: ANNIE FRY DR: Astrid Gonzalez MD _ SOURCE: URINE SPDESC: ORDERED: Urine Culture Procedure Result Reported Site Urine Culture Final 05/16/19- 1602 ML No growth of clinically significant organisms * ML - Main Lab . END OF REPORT DEPARTMENT OF PATHOLOGY, [address] [place] [address] Yvan Obrien M.D. Director [facility] # [id number] Procedures Date Code Description Status 08/05/2019 93326 Polysomnography Sleep Staging 4+ Parameters Completed 03/31/2017 39020580 Mammogram Completed Medical Devices Description No Information Available Encounters Type Date Location Provider Dx Diagnosis Office Visit 08/23/2019 [facility] Aury Dumont MD M54.5 Low back pain 4:20p Medicine - [facility] J44.9 Chronic obstructive pulmonary disease, unspecified Office Visit 05/30/2019 11:20a Isaura Dumont J44.1 Chronic Medicine - Reynaldo JAMES obstructive pulmonary disease w (acute) exacerbation Office Visit 05/16/2019 10:45a [facility] R06.83 [facility] Isaura Jacobson R53.83 Other fatigue G47.00 Insomnia, unspecified Assessments Date Code Description Provider 09/23/2019 R10.84 Generalized abdominal pain Frank Carey, BETSY 09/23/2019 R19.7 Diarrhea, unspecified Frank Carey NP 08/23/2019 M54.5 Low back pain Page Dumont [...] Tori Jacobson MD Plan of Treatment Future Appointment(s):10/01/2019 1:00 pm - Nury Hilario DNP, RN, FLATWORK FOLDER-BC at [facility]09/23/2019 - Frank Carey, NPR10.84 Generalized abdominal painComments:Take Tylenol for pain. Call with any worsening symptoms. Continue drinking fluids and eat soft foods.Follow up: as umkabqZ42.7 Diarrhea, unspecifiedComments:We are ordering stool cultures. Please get your sample to the lab as soon as possible. Functional Status Description No Information Available Mental Status Description No Information Available Referrals Description No Information Available
--- OUTSIDE RECORDS SUMMARY | 2019-10-09 16:24 | XMS REPORT | Continuity of Care Document ---
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 Onset: 02/04/2016 Gastroesophageal reflux [...] Use Denies Drug Use Smoking Status Reviewed: 08/23/19 Patient is a current started at age 16 smoker, smokes every day smoking 1-5 cigs. a day Allergies, Adverse Reactions, Alerts Active Allergies Reaction Severity Comments Date Ritalin Severe profuse sweating and 02/04/2016 poundign chest Prednisone exacerbates mental illness 02/22/2016 Levaquin 02/22/2016 Grapefruit 06/20/2016 Medications Active Medications SIG Qnty Indications Ordering Date Provider Azithromycin take 2 tablets 6tabs J44.9 Page Dumont MD 08/23/2019 250mg today; then one Tablets tablet daily Wixela Inhub 1 inhalation 60units Page Dumont MD 08/14/2019 twice daily 250-50mcg/Dose Aerosol Prednisone 4 tab daily X 3 QS J44.1 Page Dumont MD 05/30/2019 10mg Tablets days 3 tab daily x 3 days and then 2 tab daily x 3 days 1 tab daily x 3 days Clonazepam 4MG prn Other Ordering 05/16/2019 Provider Ipratropium 1 inhalation via 180ml J44.1 Astrid Gonzalez, 03/11/2019 [place]/Albuterol nebulizer every M.D. Sulfate 4- 6 hours as 0.5-2.5(3)mg/3ML needed Solution Naproxen 1 by mouth twice 30tabs M54.5 Astrid Gonzalez, 08/21/2018 500mg Tablets a day as needed M.D. pain Cyclobenzaprine HCL Take one tablet 14tabs S23.3xxA Page Dumont MD 2017 10mg at night as Tablets needed Albuterol Sulfate four times a day 1125ml J01.90 Astrid Gonzalez, 2017 as needed M.D. (2.5mg/3ML) 0.083% Nebulizer Nebulizer nebulizer 1units [facility]id [facility], [facility] Ventolin HFA inhale 2 puffs by 18units Rubi Pond, 05/19/2016 108(90Base) mouth 4 times M.D., FACP mcg/Act Aerosol daily as needed Trazodone HCL 2 by mouth every Unknown 100mg night at bedtime Tablets Prazosin HCL taking 1mg twice Unknown 2mg Capsules a day Ibuprofen as needed Unknown 200mg Capsules Omeprazole Take 1 Capsule By 30caps Astrid Gonzalez, 40mg Capsules Mouth Every Day M.D. Hydroxyzine HCL Take 1 Tablet By Unknown 25mg Mouth Twice A Day Tablets And 2 Tablets AT Bedtime as Needed For Agitatiom Rexulti Take 1 Tablet By Unknown 2mg Tablets Mouth Every Day Prazosin HCL take 1 capsule by Unknown 1mg Capsules mouth at bedtime History Medications Prednisone 4 tab daily X 3 QS J44.1 Astrid Gonzalez, 03/11/2019 - 10mg Tablets days 3 tab daily M.D. 03/21/2019 x 3 days and then 2 tab daily x 3 days 1 tab daily x 3 days Immunizations CPT Code Status Date Vaccine Lot # [id number] Given 03/29/2017 Tdap - Tetanus/Diptheria/Acellular Pertussis [id number] Given 03/29/2017 Influenza Virus Vaccine, Quadrivalent, Split, [id number] Preservative Free [id number] Refused 06/20/2016 Influenza Virus Vaccine, Quadrivalent, Split, Preservative Free Vital Signs Date Vital Result Comment 08/23/2019 4:17pm Height 64.5 inches 5'4.50" Weight 230.00 lb Heart Rate 94 /min BP Systolic Sitting 115 mmHg BP Diastolic Sitting 85 mmHg Body Temperature 98.0 F O2 % BldC Oximetry 90 % BMI (Body Mass Index) 38.9 kg/m2 05/30/2019 11:09am Height 64.5 inches 5'4.50" Weight 217.00 lb Heart Rate 88 /min BP Systolic Sitting 110 mmHg BP Diastolic Sitting 79 mmHg Body Temperature 98.5 F O2 % BldC Oximetry 94 % BMI (Body Mass Index) 36.7 kg/m2 Results Test Acquired Date Facility Test Result H/L Range Note CBC Auto 05/27/2019 [facility] White Blood 8.3 10^3/uL Normal 3.5-10.[address] [place] [address] [phone] Red Blood Count 5.28 10^6/uL High 3.70-4.87 [...] Blood Cells % 0.1 Comp Metabolic 05/27/2019 [facility] Sodium 139 mmol/L Normal 135-145 Panel [address] [place] [address] [phone] Potassium 4.1 mmol/L Normal 3.5-5.0 Chloride 106 [...] Egfr 67.3 >60 1 Laboratory test 05/27/2019 [facility] Acetaminophen < 15 g/mL 2 finding [address] [place] [address] [phone] Alcohol < 10 mg/dL Normal <10 Salicylate < 2.50 mg/dL <30 TSH (Thyroid Stim Horm) 4.24 mcIU/mL Normal 0.34-5.60 Urinalysis Profile 05/27/2019 [facility] Urine Color Yellow [address] [place] [address] [phone] Urine Appearance Clear Urine Specific Sparkman 1.016 Normal 1.010-1.030 Urine pH 6.0 Normal [...] Cell Present Abnormal Absent Urine Drug 05/27/2019 [facility] Urine None Detected None Detect SCR ED & [address] [place] [address] Screen [phone] Urine Barbiturates Screen None Detected None Detect Urine Benzodiazepine Screen None Detected None Detect Urine Cannabinoids Screen None Detected None Detect Urine Cocaine Screen None Detected None Detect Urine Opiates Screen None Detected None Detect Urine Phencyclidine Screen None Detected None Detect 3 Lipid Profile 05/27/2019 [facility] Triglycerides 295 mg/dL 4 (Trig/Chol/HDL) [address] [place] [address] [phone] Cholesterol 226 mg/dL 5 HDL Cholesterol 41.8 mg/dL 6 LDL Cholesterol 125 mg/dL 7 Laboratory test 05/27/2019 [facility] Hemoglobin A1c 5.8 % High 4.0-5.[address] (Glyco HGB) [place] [address] [phone] Urine Culture And 05/27/2019 [facility] Urine Culture SEE [address] [place] [address] BELOW [phone] Urine Culture And 05/15/2019 [facility] Urine Culture SEE [address] [place] [address] BELOW [phone] Urinalysis 05/15/2019 [facility] Urine Color Yellow Profile [address] [place] [address] [phone] Urine Appearance Cloudy Urine Specific Sparkman 1.004 Low 1.010-1.030 Urine pH 6.0 Normal [...] Epithelial Cell Present Abnormal Absent Laboratory test 05/15/2019 [facility] Magnesium 1.7 mg/dL Low 1.9-2.[address] [place] [address] [phone] HCG 0.71 mIU/mL 11 Comp Metabolic 05/15/2019 [facility] Sodium 139 mmol/L Normal 135-[address] [place] [address] [phone] Potassium 3.9 mmol/L Normal 3.5-5.0 Chloride 106 [...] Egfr Non- 61.5 >60 Egfr 74.4 >60 12 CBC Auto 05/15/2019 [facility] White Blood 7.7 10^3/uL Normal 3.5-10.[address] [place] [address] [phone] Red Blood Count 5.28 10^6/uL High 3.70-4.87 [...] % Nucleated Red Blood Cells % 0.0 Order 03/11/2019 [facility] Nebulizer <pending> [address] [place] [address] [phone] Laboratory test 03/08/2019 [facility] Troponin-I 0.00 ng/mL < 0.[address] (TnI) [place] [address] [phone] Arterial Blood 03/08/2019 [facility] O2 Device 4lpm NC Gas [address] [place] [address] [phone] PH Arterial 7.40 Normal 7.35-7.45 Pco2 Arterial 40 mmHg Normal 35-45 Po2 Arterial 118 mmHg High 80-100 O2 Saturation Arterial 99.5 % High 94.0-98.0 Base Excess Arterial 0.0 mmol/L Normal -2.0-2.0 14 Hco3 Arterial 24.7 mmol/L Normal 19-31 CBC Auto 03/08/2019 [facility] White Blood 8.6 10^3/uL Normal 3.5-10.[address] [place] [address] [phone] Red Blood Count 5.45 10^6/uL High 3.70-4.87 [...] Blood Cells % 0.1 Laboratory test 03/08/2019 [facility] B-Type 12 pg/mL <=[address] [place] [address] Peptide BNP [phone] Lactic Acid 1.1 mmol/L Normal 0.5-2.0 15 Comp Metabolic 03/08/2019 [facility] Sodium 139 mmol/L Normal 135-[address] [place] [address] [phone] Potassium 4.0 mmol/L Normal 3.5-5.0 Chloride 107 [...] Egfr Non- 63.0 >60 Egfr 76.2 >60 16 Laboratory test 03/08/2019 [facility] Magnesium 1.9 mg/dL Normal 1.9-2.7 finding [address] [place] [address] [phone] Creatine Kinase(CK) 64 U/L Normal 10-223 Troponin-I (TnI) 0.00 ng/mL <0.04 17 CKMB 03/08/2019 [facility] CKMB ng/mL 3.3 ng/mL Normal 0.6- 6.[address] [place] [address] [phone] Laboratory test 03/08/2019 [facility] HCG 1.14 [address] mIU/[place] [address] [phone] TSH (Thyroid Stim Horm) 2.53 mcIU/mL Normal 0.34-5.60 1 Because ethnic data is not always [...] in selective patients <6.0%. Please refer to [place] [employer] diabetic care guidelines for further information. 9 SEE RESULT BELOW Name: ALPA MYERS : [address]: Leonor Wong MD Acct: [id number] Unit: [id number] AGE: 43 Location: [facility] Re05/27/19 Dis: 05/28/19 SEX: F Status: DIS IN SPEC: [id number] YUMIKO: 05/27/[address]: Sandoval Rinaldi MD REQ: [id number] RECD: 05/27/19 STATUS:COMP OTHR DR: Astrid Gonzalez MD _ SOURCE: URINE SPDESC: ORDERED: Urine Culture Procedure Result Reported Site Urine Culture Final 05/29/19918 ML No growth of clinically significant organisms * ML - Main Lab . END OF REPORT DEPARTMENT OF PATHOLOGY, [address] [place] [address] Yvan Obrien M.D. Director [facility] # [id number] 10 SEE RESULT BELOW Name: ALPA MYERS : [address]: Lili Rodrigues MD Acct: [id number] Unit: [id number] AGE: 43 Location: ED Re05/15/19 SEX: F Status: DEP ER SPEC: [id number] YUMIKO: 05/15/19-[address]: Lili Rodrigues MD REQ: [id number] RECD: 05/15/19 STATUS: ANNIE FRY DR: Astrid Gonzalez MD _ SOURCE: URINE SPDESC: ORDERED: Urine Culture Procedure Result Reported Site Urine Culture Final 05/16/19- 1602 ML No growth of clinically significant organisms * ML - Main Lab . END OF REPORT DEPARTMENT OF PATHOLOGY, [address] [place] [address] Yvan Obrien M.D. Director [facility] # [id number] 11 <5.0 Negative 5.0 - 25.0 Indeterminate (Repeat testing recommended after 72 hours) >25.0 Positive Perimenopausal women can display HCG levels of up to 20 mIU/mL 12 Because ethnic data is not always readily [...] 15-29 5 Kidney failure <15 (or dialysis) 13 Troponin-I testing on Plasma Separator Tubes (PST) has a known false positive rate of 0.20-0.40%. All positive troponins reflex immediately to secondary confirmatory testing. Using the [employer]Comm DxI 800 Access Immunoassay systems, the 99th percentile upper reference limit was demonstrated to be < 0.03 ng/mL. 14 Reference ranges based on room air. 15 [facility] Severe Sepsis and Septic Shock Management Bundle Measure requires all lactic acids initially measuring >2.0 mmol/L be repeated. 16 Because ethnic data is not always readily [...] 15-29 5 Kidney failure <15 (or dialysis) 17 Troponin-I testing on Plasma Separator Tubes (PST) has a known false positive rate of 0.20-0.40%. All positive troponins reflex immediately to secondary confirmatory testing. Using the [employer] DxI 800 Access Immunoassay systems, the 99th percentile upper reference limit was demonstrated to be < 0.03 ng/mL. 18 <5.0 Negative 5.0 - 25.0 Indeterminate (Repeat testing recommended after 72 hours) >25.0 Positive Perimenopausal women can display HCG levels of up to 20 mIU/mL Procedures Date Code Description Status 08/05/2019 23814 Polysomnography Sleep Staging 4+ Parameters Completed 03/31/2017 64524787 Mammogram Completed Medical Devices Description No Information Available Encounters Type Date Location Provider Dx Diagnosis Office Visit 05/30/2019 [facility] Internal Page Dumont MD J44.1 Chronic obstructive 11:20a Medicine - [facility] pulmonary disease w (acute) exacerbation Office Visit 05/16/2019 [facility] Tori Jacobson, R06.83 Snoring 10:45a [facility] R53.83 Other fatigue G47.00 Insomnia, unspecified Office Visit 03/11/2019 10:30a [facility] Internal Astrid J44.1 Chronic obstructive Medicine - Fatuma Gonzalez pulmonary disease w Ccmob (acute) exacerbation Z91.018 Allergy to other foods R53.83 Other fatigue Assessments Date Code Description Provider 08/23/2019 M54.5 Low back pain Page Dumont MD 08/23/2019 J44.9 Chronic obstructive pulmonary disease, Page Dumont MD unspecified 08/05/2019 G47.33 Obstructive sleep apnea (adult) (pediatric) Tori Jacobson MD 05/30/2019 J44.1 Chronic obstructive pulmonary disease with Page Dumont MD (acute) exacerbation 05/16/2019 R06.83 Snoring Tori Jacobson MD 05/16/2019 R53.83 Other fatigue Tori Jacobson MD 05/16/2019 G47.00 Insomnia, unspecified Tori Jacobson MD 03/11/2019 J44.1 Chronic obstructive pulmonary disease with Astrid Gonzalez M.D. (acute) exacerbation 03/11/2019 Z91.018 Allergy to other foods Astrid Gonzalez M.D. 03/11/2019 R53.83 Other fatigue Astrid Gonzalez M.D. Plan of Treatment Future Appointment(s):10/01/2019 1:00 pm - Nury Hilario DNP, RN, GRINDING ROOM SUPERVISOR-BC at [facility]08/23/2019 - Page Dumont, MDM54.5 Low back painComments:Stop the flexeril at this timeTake the methocarbamol as prescribed by the ERJ44.9 Chronic obstructive pulmonary disease, unspecifiedNew Medication: Azithromycin 250 mg - take 2 tablets today; then one tablet daily Functional Status Description No Information Available Mental Status Description No Information Available Referrals Refer to Reason for Referral Status Appt Date [facility] Sent 05/16/2019 [address] [address] [phone] [facility] don't use antihistamines for 72 hrs Closed prior. [address] [place] [address] [phone]
--- OUTSIDE RECORDS SUMMARY | 2019-10-09 16:24 | XMS REPORT ---
:1975 Author Organization [facility] Care Team Providers Name Role Phone Roque Dinora Primary Care Physician Unavailable Allergies, Adverse Reactions, Alerts Allergy Code CodeSystem Reaction Severity Criticality Status Start Substance Date Moderate Medications Medication Medication Medication Start Stop Route Dose Status Fill Code CodeSystem Date Date Instructions albuterol 125225 RxNorm 2017-07 inhl 2.5 mg/3 active for 30 sulfate 1-13 mL day(s) (0.083 %) solution for nebuliza tion Rexulti 9572935 RxNorm 2019- oral 2 mg active for 30 2-08 07-31 tablet day(s) Advair HFA 061860 RxNorm inhl 115-21 active for 90 2-19 mcg/actu day(s) ation HFA aerosol inhaler lamotrigine 652300 RxNorm 2019- oral 100 mg completed for 30 1-18 05-02 tablet day(s) cyclobenzaprine 929599 RxNorm oral 10 mg active for 7 4-04 tablet day(s) hydroxyzine HCl 941555 RxNorm 2019- oral 25 mg active for 30 5-02 07-31 tablet day(s) prazosin 128810 RxNorm 2019 oral 1 mg 1 active 1 capsule 6-14 capsule at bedtime at for 30 day(s) bedtime prazosin 546622 RxNorm 2019- oral 1 mg completed for 30 3-07 05-02 capsule day(s) omeprazole 20020901 RxNorm 2019- oral 40 mg completed for 30 3-22 05-02 capsule, day(s) delayed release( DR/EC) clonazepam 19740901 RxNorm 2019-0 oral 2 mg active for 30 5-24 tablet day(s) hydroxyzine HCl 224979 RxNorm 0 2019- oral 25 mg completed for 15 1-18 05-02 tablet day(s) trazodone 027723 RxNorm 2019- oral 100 mg active for 30 2-12 08-04 tablet day(s) prazosin 026942 RxNorm 2017-07 2019- oral 2 mg completed for 30 2-18 06-14 capsule day(s) clonazepam 154735 RxNorm 2019- oral 2 mg completed for 30 3- 05-08 tablet day(s) Problems Problem Name Code CodeSystem Alternate Alternate Start End Status Narrative Code CodeSystem Date Date Bipolar 03796185 SNOMED-CT Active affective 3-22 disorder, unspecified Tobacco use 84066077 SNOMED-CT Active 5-17 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 Relevant diagnostic tests/laboratory data Narrative No Information Procedures Procedure Code CodeSystem Target Date of Status Service Device Device Device Name Site Procedure Delivery Code Name UID Location Office or 079781 SNOMED-CT () 2019-01-02 complete Mental other 7 d Health- outpatient Genny visit for [address] [id number] patient, [id number] which requires at least 2 of these 3 diaz components: An expanded problem focused history; An expanded problem focused examination; Medical decision making of low Office or 398793 SNOMED-CT () 2019-06-06 complete Mental other 7 d Health- outpatient Genny visit for [address] [id number] patient, [phone] which requires at least 2 of these 3 diaz components: An expanded problem focused history; An expanded problem focused examination; Medical decision making of low Office or 410236 SNOMED-CT () 2018-11-22 complete Mental other 7 d Health- outpatient Power visit for [address] [id number] patient, [phone] which requires at least 2 of these 3 diaz components: An expanded problem focused history; An expanded problem focused examination; Medical decision making of low Office or 817718 SNOMED-CT () 2019-04-12 complete Mental other 7 d Health- outpatient Genny visit for [address] of an [place], established [id number] patient, [id number] which requires at least 2 of these 3 diaz components: An expanded problem focused history; An expanded problem focused examination; Medical decision making of low Psychotherap 033503 SNOMED-CT () 2019-06-19 complete Mental y, 45 04 d Health- minutes with Power patient [address], [id number] Psychotherap 891356 SNOMED-CT () 2019-02-07 complete Mental y, 45 04 d Health- minutes with Genny patient [address], [id number] Psychotherap 348934 SNOMED-CT () 2018-11-22 complete Mental y, 45 04 d Health- minutes with Genny patient [address], [id number] Psychotherap 238261 SNOMED-CT () 2019-01-02 complete Mental y, 45 04 d Health- minutes with Power patient [address], [id number] Psychotherap 846243 SNOMED-CT () 2019-02-21 complete Mental y, 45 04 d Health- minutes with Genny patient [address], [id number] Psychotherap 559806 SNOMED-CT () 2019-06-06 complete Mental y, 45 04 d Health- minutes with [address], [id number] [id number] Psychotherap 378701 SNOMED-CT () 2019-07-25 complete Mental y, 45 04 d Health- minutes with Genny patient [address], [id number] Psychotherap 887164 SNOMED-CT () 2019-02-25 complete Mental y, 45 04 d Health- minutes with Genny patient [address], [id number] Psychotherap 163882 SNOMED-CT () 2019-02-14 complete Mental y, 45 04 d Health- minutes with Power patient [address], [id number] [phone] Psychotherap 157720 SNOMED-CT () 2018-10-24 complete Mental y, 45 04 d Health- minutes with [address], [id number] Psychotherap 101085 SNOMED-CT () 2019-05-16 complete Mental y, 45 04 d Health- minutes with [address], [id number] Psychotherap 810290 SNOMED-CT () 2018-11-15 complete Mental y, 45 04 d Health- minutes with [address], [id number] Psychotherap 793038 SNOMED-CT () 2019-07-16 complete Mental y, 45 04 d Health- minutes with [address], [id number] Psychotherap 006564 SNOMED-CT () 2019-08-19 complete Mental y, 45 04 d Health- minutes with [address], [id number] Psychotherap 061972 SNOMED-CT () 2019-04-18 complete Mental y, 45 04 d Health- minutes with [address], [id number] [id number] Psychotherap 352815 SNOMED-CT () 2019-03-04 complete Mental y, 45 04 d Health- minutes with [address], [id number] Psychotherap 141174 SNOMED-CT () 2019-03-26 complete Mental y, 45 04 d Health- minutes with [address], 804602411 [id number] Psychotherap 666464 SNOMED-CT () 2019-07-02 complete Mental y, 45 04 d Health- minutes with [address], [id number] Psychotherap 522859 SNOMED-CT () 2019-04-01 complete Mental y, 45 04 d Health- minutes with [address], [id number] Psychotherap 970848 SNOMED-CT () 2019-06-26 complete Mental y, 45 04 d Health- minutes with [address], [id number] [phone] Psychotherap 417275 SNOMED-CT () 2018-12-13 complete Mental y, 45 04 d Health- minutes with [address], [id number] Psychotherap 599999 SNOMED-CT () 2019-01-10 complete Mental y, 45 04 d Health- minutes with [address], [id number] Psychotherap 668603 SNOMED-CT () 2019-05-01 complete Mental y, 45 04 d Health- minutes with [address], [id number] Psychotherap 241060 SNOMED-CT () 2018-12-20 complete Mental y, 45 04 d Health- minutes with [address], [id number] Psychotherap 339511 SNOMED-CT () 2018-12-27 complete Mental y, 45 04 d Health- minutes with [address], [id number] [id number] Psychotherap 143957 SNOMED-CT () 2019-03-15 complete Mental y, 45 04 d Health- minutes with [address], [id number] SNOMED-CT () 2018-12-06 complete Mental d Health- [address], [id number] SNOMED-CT () 2019-04-12 complete Mental d Health- [address], [id number] [id number] SNOMED-CT () 2019-03-19 complete Mental d Health- [address], [id number] SNOMED-CT () 2018-11-01 complete Mental d Health- Genny [address], [id number] Group [id number] SNOMED-CT () 2018-11-29 complete Mental psychotherap 8 d Health- y (other Power than of a [address] group) [place], [place], [id number] Group [id number] SNOMED-CT () 2018-12-27 complete Mental psychotherap 8 d Health- y (other Power than of a [address] group) [place], [place], [id number] [id number] Group [id number] SNOMED-CT () 2018-12-13 complete Mental psychotherap 8 d Health- y (other [place]enny than of a [address] group) [place], [place], [id number] Group [id number] SNOMED-CT () 2018-11-22 complete Mental psychotherap 8 d Health- y (other Power than of a [address] group) [place], [place], [id number] [id number] Group [id number] SNOMED-CT () 2018-12-06 complete Mental psychotherap 8 d Health- y (other Power than of a [address] group) [place], [place], [id number] Group [id number] SNOMED-CT () 2019-02-27 complete Mental psychotherap 8 d Health- y (other Genny than of a [address] group) [place], [place], [id number] [id number] Group [id number] SNOMED-CT () 2018-12-20 complete Mental psychotherap 8 d Health- y (other Genny than of a [address] group) [place], [place], [id number] Group [id number] SNOMED-CT () 2019-02-07 complete Mental psychotherap 8 d Health- y (other Power than of a [address] group) [place], [place], [id number] [id number] Group [id number] SNOMED-CT () 2018-11-15 complete Mental psychotherap 8 d Health- y (other Genny than of a [address]) [place], [place], [id number] [id number] Group [id number] SNOMED-CT () 2019-02-13 complete Mental psychotherap 8 d Health- y (other Power than of a [address]) [place], [place], [phone] Office or [id number] SNOMED-CT () 2019-01-30 complete Mental other 6 d Health- outpatient Power visit for [address], [facility], of an [facility] established [id number] patient, [id number] which requires at least 2 of these 3 diaz components: A problem focused history; A problem focused examination; Straightforw [place] medical decision making. Counselin Encounters/Encounter Diagnoses Encounter Name Encounter Diagnosis Diagnosis Diagnosis Date of Service Code Code Name CodeSystem Diagnosis Delivery Location [facility] [address] [id number] Bipolar SNOMED-CT 2019-08-19 Behavioral Individual 30 affective Health min disorder, [facility] [address] [place], [place], [id number] Vital Signs No Information Social History Element Description Description Start End Code CodeSystem AdditionalInfo Date Date SexAssignedAtBirth Female F AdministrativeGender 25 Hospital Discharge Instructions Reason For Referral Medical Equipment FDA Assessments
--- OUTSIDE RECORDS SUMMARY | 2019-10-09 16:24 | XMS REPORT ---
:1975 Author Organization [facility] Care Team Providers Name Role Phone Dinora Nevarez Primary Care Physician Unavailable Allergies, Adverse Reactions, Alerts Allergy Code CodeSystem Reaction Severity Criticality Status Start Substance Date Moderate Medications Medication Medication Medication Start Stop Route Dose Status Fill Code CodeSystem Date Date Instructions albuterol 783840 RxNorm 2017-07 inhl 2.5 mg/3 active for 30 sulfate 1-13 mL day(s) (0.083 %) solution for nebuliza tion trazodone 689055 RxNorm 2019- oral 100 mg completed for 30 2-12 08-04 tablet day(s) prazosin 972556 RxNorm 2019- oral 1 mg completed for 30 3- 05-02 capsule day(s) Rexulti 9297384 RxNorm oral 3 mg 1 active Take 1 tablet 7-03 tablet once a day once a for 30 day(s) day lamotrigine 016360 RxNorm 2019- oral 100 mg completed for 30 1-18 05-02 tablet day(s) hydroxyzine HCl 528974 RxNorm 2019- oral 25 mg completed for 15 -18 05-02 tablet day(s) prazosin 704139 RxNorm 2019- oral 1 mg 1 completed 1 capsule 614 07-10 capsule at bedtime at for 30 day(s) bedtime cyclobenzaprine 752939 RxNorm oral 10 mg active for 7 4-04 tablet day(s) clonazepam 266936 RxNorm 2019- oral 2 mg completed for 30 3-05 05-08 tablet day(s) Advair HFA 010374 RxNorm inhl 115-21 active for 90 2-19 mcg/actu day(s) ation HFA aerosol inhaler prazosin 362650 RxNorm oral 2 mg active for 30 7-10 capsule day(s) Rexulti 5316619 RxNorm 2019- oral 2 mg completed for 30 2-08 07-03 tablet day(s) prazosin 173691 RxNorm 2017-07 2019- oral 2 mg completed for 30 2-18 06-14 capsule day(s) clonazepam 835802 RxNorm 2019- oral 2 mg completed for 30 5-24 09-20 tablet day(s) trazodone 441449 RxNorm oral 100 mg active for 30 5-06 tablet day(s) omeprazole 20020901 RxNorm 2019- oral 40 mg completed for 30 3-22 05-02 capsule, day(s) delayed release( DR/EC) prazosin 863174 RxNorm 2018-07 oral 1 mg 1 active 1 capsule 1-20 capsule at bedtime at for 30 day(s) bedtime hydroxyzine HCl 487473 RxNorm 2019- oral 25 mg completed for 30 11-22 07-31 tablet day(s) hydroxyzine HCl 643891 RxNorm oral 50 mg 1 active Take 1 tablet 2-06 tablet four times a four day as needed times a for 30 day(s) day clonazepam 042085 RxNorm 2020- oral 2 mg 1 completed Take 1 tablet 9-20 02-06 tablet twice a day twice a as needed for day 30 day(s) hydroxyzine HCl 238282 RxNorm 2018-07 2020- oral 25 mg completed for 30 0-18 02-06 tablet day(s) Problems Problem Name Code CodeSystem Alternate Alternate Start End Status Narrative Code CodeSystem Date Date Bipolar 61005296 SNOMED-CT Active affective 3-22 disorder, unspecified Emotionally 28558116 SNOMED-CT Active 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 disorder Tobacco use 81157434 SNOMED-CT Active 5-17 Relevant diagnostic tests/laboratory data Narrative No Information Procedures Procedure Code CodeSystem Target Date of Status Service Device Device Device Name Site Procedure Delivery Code Name UID Location SNOMED-CT () 2019-03-19 complete Mental d Health- [address], [id number] Psychotherap [id number] SNOMED-CT () 2019-09-05 complete Mental y, 45 04 d Health- minutes with [place] patient [address], [id number] Group [id number] SNOMED-CT () 2018-12-13 complete Mental psychotherap 8 d Health- y (other [place] than of a [address], [id number] [phone] Psychotherap [id number] SNOMED-CT () 2019-02-07 complete Mental y, 45 04 d Health- minutes with [place] patient [address], [id number] Office [place] [id number] SNOMED-CT () 2019-06-06 complete Mental other 7 d Health- outpatient [place] visit for [address], [facility], [facility], established [id number] patient, [id number] which requires at least 2 of these 3 diaz components: An expanded problem focused history; An expanded problem focused examination; Medical decision making of low Psychotherap [id number] SNOMED-CT () 2019-01-02 complete Mental y, 45 04 d Health- minutes with [place] patient [address], [id number] [id number] Office or [id number] SNOMED-CT () 2019-01-02 complete Mental other 7 d Health- outpatient [place] visit for [address], [facility], established [id number] patient, [id number] which requires at least 2 of these 3 diaz components: An expanded problem focused history; An expanded problem focused examination; Medical decision making of low Psychotherap [id number] SNOMED-CT () 2019-08-19 complete Mental y, 45 04 d Health- minutes with [place] patient [address], [id number] Psychotherap 359307 SNOMED-CT () 2019-02-25 complete Mental y, 45 04 d Health- minutes with [place] patient [address], [id number] Psychotherap 740991 SNOMED-CT () 2019-04-18 complete Mental y, 45 04 d Health- minutes with [place] patient [address], [id number] [id number] Psychotherap [id number] SNOMED-CT () 2019-08-29 complete Mental y, 45 04 d Health- minutes with [place] patient [address], [id number] [id number] Group [id number] SNOMED-CT () 2019-01-03 complete Mental psychotherap 8 d Health- y (other [place] than of a [address] group) [place], [place], [id number] [phone] Office [place] [id number] SNOMED-CT () 2019-04-12 complete Mental other 7 d Health- outpatient [place] visit for [address], [facility], established [id number] patient, [id number] which requires at least 2 of these 3 diaz components: An expanded problem focused history; An expanded problem focused examination; Medical decision making of low Group [id number] SNOMED-CT () 2018-12-06 complete Mental psychotherap 8 d Health- y (other [place] than of a [address] group) [place], [place], [id number] Group [id number] SNOMED-CT () 2018-11-29 complete Mental psychotherap 8 d Health- y (other [place] than of a [address] group) [place], [place], [id number] [phone] Office or [id number] SNOMED-CT () 2019-01-30 complete Mental other 6 d Health- outpatient [place] visit for [address], [facility], established [id number] patient, [id number] which requires at least 2 of these 3 diaz components: A problem focused history; A problem focused examination; [facility] [place] [facility] decision making. [facility] [id number] SNOMED-CT () 2019-02-27 complete Mental psychotherap 8 d Health- y (other [place] than of a [address] group) [place], [place], [id number] [id number] Psychotherap [id number] SNOMED-CT () 2019-07-02 complete Mental y, 45 04 d Health- minutes with [place] patient [address], [id number] [id number] Group [id number] SNOMED-CT () 2019-02-13 complete Mental psychotherap 8 d Health- y (other [place] than of a [address]) [place], [id number] [id number] Psychotherap 660751 SNOMED-CT () 2019-05-01 complete Mental y, 45 04 d Health- minutes with [place] patient [address], [id number] [id number] Psychotherap 346805 SNOMED-CT () 2019-01-10 complete Mental y, 45 04 d Health- minutes with [place] patient [address], [id number] [id number] SNOMED-CT () 2018-12-06 complete Mental d Health- [address], [id number] SNOMED-CT () 2018-11-01 complete Mental d Health- [address], [id number] Psychotherap [id number] SNOMED-CT () 2018-11-15 complete Mental y, 45 04 d Health- minutes with [place] patient [address], [id number] Group [id number] SNOMED-CT () 2019-01-10 complete Mental psychotherap 8 d Health- y (other [place] than of a [address]) [place], [place], [id number] [id number] Psychotherap 914705 SNOMED-CT () 2019-09-19 complete Mental y, 45 04 d Health- minutes with [place] patient [address], [id number] Psychotherap [id number] SNOMED-CT () 2018-12-27 complete Mental y, 45 04 d Health- minutes with [place] patient [address], [id number] [phone] Psychotherap 465011 SNOMED-CT () 2019-07-16 complete Mental y, 45 04 d Health- minutes with [place] patient [address], [id number] [id number] Group [id number] SNOMED-CT () 2018-11-15 complete Mental psychotherap 8 d Health- y (other [place] than of a [address]) [place], [place], [id number] [id number] Group [id number] SNOMED-CT () 2018-11-22 complete Mental psychotherap 8 d Health- y (other [place] than of a [address] group) [place], [place], [id number] [phone] Office or [id number] SNOMED-CT () 2018-11-22 complete Mental other 7 d Health- outpatient [place] visit for [address], [facility], established [id number] patient, [id number] which requires at least 2 of these 3 diaz components: An expanded problem focused history; An expanded problem focused examination; Medical decision making of [facility] Office or [id number] SNOMED-CT () 2019-08-29 complete Mental other 7 d Health- outpatient [place] visit for [address], [facility], established [id number] patient, [id number] which requires at least 2 of these 3 diaz components: An expanded problem focused history; An expanded problem focused examination; Medical decision making of [facility] Psychotherap [id number] SNOMED-CT () 2018-12-20 complete Mental y, 45 04 d Health- minutes with [place] patient [address], [id number] [id number] Psychotherap [id number] SNOMED-CT () 2019-06-06 complete Mental y, 45 04 d Health- minutes with [place] patient [address], [phone] Psychotherap 201513 SNOMED-CT () 2019-03-15 complete Mental y, 45 04 d Health- minutes with [place] patient [address], [id number] SNOMED-CT () 2019-04-12 complete Mental d Health- [address], [id number] [phone] Psychotherap 856191 SNOMED-CT () 2018-10-24 complete Mental y, 45 04 d Health- minutes with [address], [id number] Group [id number] SNOMED-CT () 2018-12-27 complete Mental psychotherap 8 d Health- y (other [place] than of a [facility] [place], [id number] [phone] Psychotherap 467012 SNOMED-CT () 2019-03-26 complete Mental y, 45 04 d Health- minutes with [address], [id number] [id number] Psychotherap 701925 SNOMED-CT () 2019-02-14 complete Mental y, 45 04 d Health- minutes with [address], [id number] [phone] Psychotherap 221616 SNOMED-CT () 2018-12-13 complete Mental y, 45 04 d Health- minutes with [address], [id number] Psychotherap 959047 SNOMED-CT () 2019-04-01 complete Mental y, 45 04 d Health- minutes with [address], [id number] [id number] Psychotherap 896681 SNOMED-CT () 2019-02-21 complete Mental y, 45 04 d Health- minutes with [address], [id number] Psychotherap 101011 SNOMED-CT () 2019-06-19 complete Mental y, 45 04 d Health- minutes with [address], [id number] [phone] Psychotherap 420778 SNOMED-CT () 2019-07-25 complete Mental y, 45 04 d Health- minutes with [address], [id number] Psychotherap 090975 SNOMED-CT () 2019-05-16 complete Mental y, 45 04 d Health- minutes with [place] patient [address], [id number] [id number] Psychotherap 630673 SNOMED-CT () 2019-03-04 complete Mental y, 45 04 d Health- minutes with [place] patient [address], [id number] Group [id number] SNOMED-CT () 2018-12-20 complete Mental psychotherap 8 d Health- y (other [place] than of a [address]) [place], [place], [id number] [id number] Psychotherap 678801 SNOMED-CT () 2018-11-22 complete Mental y, 45 04 d Health- minutes with [place] patient [address], [id number] [phone] Group [id number] SNOMED-CT () 2019-02-07 complete Mental psychotherap 8 d Health- y (other [place] than of a [address]) [place], [place], [id number] [phone] Psychotherap 846913 SNOMED-CT () 2019-06-26 complete Mental y, 45 04 d Health- minutes with [place] patient [address], [id number] [phone] Encounters/Encounter Diagnoses Encounter Name Encounter Diagnosis Diagnosis Diagnosis Date of Service Code Code Name CodeSystem Diagnosis Delivery Location Psychotherapy - 59936 [id number] Bipolar SNOMED-CT 2019-09-25 Behavioral Individual 30 affective Health min disorder, Clinic , , unspecified , Vital Signs No Information Social History Element Description Description Start End Code CodeSystem AdditionalInfo Date Date SexAssignedAtBirth Female 0 F AdministrativeGender 08-16 Hospital Discharge Instructions Reason For Referral Medical Equipment FDA Assessments
[2019-10-09 16:47] LABS: TSH (Thyroid Stimulating Horm) 1.99 mcIU/mL (0.34-5.60)
[2019-10-09 16:51] LABS: Potassium 4.2 mmol/L (3.5-5.0)
--- NOTE | 2019-10-09 17:24 | CONS ---
NEUROLOGY CONSULTATION NOTE: DATE OF CONSULT: 10/09/19 - EMERGENCY DEPT CONSULTING PROVIDER: Dr. Jiménez. REASON FOR CONSULT: Transient left-sided numbness and right lower extremity chronic weakness and pain. CHIEF COMPLAINT: "My back gave out." HISTORY OF PRESENT ILLNESS: Ms. Alpa Hart is a 44-year-old female, who is right-handed, who was cleaning her house with [employer] today since 10 a.m. At approximately 1500 on 10/09/19, the patient developed severe low back pain while cleaning. She states that her last known well time is between 1300 to 1400. She then developed headache, left arm numbness, and slurred speech. This was transient and lasted a few minutes. She developed dizziness when she started standing up from bending forward after cleaning. This was associated with the headache. Again, she is currently headache free, but she has history of migraine headaches in the past. She frequently has 3-4 headache days a month lasting for at least 6 to 8 hours. She does develop photophobia and nausea with her typical headaches. Her last headache was earlier today, which seemed to have improved. The patient's main concern is low back pain that is radiating towards the right lower extremity. She has trouble lifting the right leg due to pain in the back. She has had this many times before. Toradol usually significantly improves with the pain. The patient is on muscle relaxers for chronic low back spasm. The patient denied any impairment in her bowel or bladder functions. PAST MEDICAL HISTORY: PTSD, anxiety, depression, low back pain, tobacco use. The patient has history of COPD as well as GERD. PAST SURGICAL HISTORY: Cervical resection. MEDICATIONS: 1. Trazodone 200 mg p.o. at bedtime. 2. Brexpiprazole 3 mg p.o. at night. 3. Atrovent 0.5 mg inhaler every 6 hours. 4. Meloxicam 7.5 mg p.o. b.i.d. 5. Methocarbamol 750 mg p.o. b.i.d. 6. Clonazepam 1 mg p.o. b.i.d. as needed for anxiety. 7. Ondansetron 4 mg p.o. every 8 hours as needed. 8. Cefdinir 1 tablet p.o. every 12 hours. 9. Prazosin 2 mg p.o. at bedtime. 10. Hydroxyzine 50 mg p.o. 4 times as needed. The patient is on cefdinir for which she reports as abdominal pain that was thought to be related to an infection. ALLERGIES: LEVOFLOXACIN, METHYLPHENIDATE, PREDNISONE, GRAPEFRUIT. FAMILY HISTORY: No history of stroke or seizures. SOCIAL HISTORY: She lives with her . She smokes 1 pack per day for over 20 years. She drinks alcohol occasionally. She is currently unemployed. REVIEW OF SYSTEMS: A 14-point review of systems was obtained and otherwise negative except for what was mentioned in the HPI. The patient denied any recent falls or history of trauma to the back. PHYSICAL EXAM: Vitals: Temperature of 97.9, pulse of 85, respiratory rate of 20, oxygen saturation of 94%, blood pressure of 122/81. General: Well- nourished, well- developed female, in no acute distress. She has no dentures. Head: Atraumatic, normocephalic without any obvious abnormality. Neck is supple and symmetrical with no carotid bruits. Eyes: Conjunctivae/corneas are clear. Chest: Clear to auscultation bilaterally with no wheezing or rhonchi. Cardiovascular: Regular rate and rhythm with normal S1, S2. Extremities: Normal range of motion with no cyanosis. The patient had positive straight leg raise on the right. She has tenderness to deep palpation in the paraspinal region of the lower lumbar spine. Skin: No skin lesions or lacerations. Psych : Flat affect, slightly depressed mood. The patient denied any suicidal or homicidal ideation. Neurological Examination: Mental Status: Awake, alert, oriented to person, place, time, and general circumstances. Speech and comprehension including naming, repetition and fluency were assessed and found to be normal. Cranial Nerves: Pupils equal, round, reactive to light. Extraocular muscles are intact. There is no sensation loss in the face. There is no facial asymmetry. Tongue is symmetric and midline with no atrophy or fasciculation. Motor Examination: Initially when presenting through the ED on the stretcher, the patient had pronator drift that was forcefully slamming her left arm down to the bed, but again immediately with reassurance, she was able to keep both arms up without any problems. Her strength is 5/5 strength throughout except for she has reduced movement of the right lower extremity mostly hip flexion due to pain in the low back. Sensation: Intact to light touch throughout. Reflexes 2+ in the upper extremity, 1+ in the knees and trace at the ankles bilaterally. Downgoing plantar responses bilaterally. Coordination: Normal ijxaxg-[id number] and wexm-ki-fvrx testing bilaterally. Gait : Deferred. DIAGNOSTIC STUDIES/LAB DATA: CT head without contrast showed no evidence of acute intracranial abnormality. Laboratory values: WBCs 8.1, hemoglobin of 14, hematocrit of 43, platelets of 162. BUN/creatinine ratio of 10. Alkaline phosphatase is slightly elevated at 106. LDL of 123. ASSESSMENT AND RECOMMENDATIONS: Ms. Alpa Hart is a 44-year-old female with history of anxiety, depression, posttraumatic stress disorder, who presented to the ER after her low back gave out and she developed limited movements of the right leg due to low back pain and a transient episode of a headache associated with left arm numbness. On neurological examination, the patient's NIH stroke scale was 0. She has no focal neurological deficits. She has tenderness to the paraspinal muscles in the lumbar spine on the right. She has limited mobility of the right leg specifically poor flexion of the right leg due to provoked low back pain. She has intact sensation. She has no bowel or bladder symptoms. Overall, I do not suspect the patient had a transient ischemic attack or stroke. She does not have any risk factors for either conditions. I suspect the left-sided numbness that she described was related to her migraine headache, mostly a complex migraine. The symptoms have resolved. If we calculate her ABCD2 score if we suspect she had a transient ischemic attack, it would be 0. Therefore, I do not suspect this is a transient ischemic attack either. Please treat her low back pain with Toradol as this has helped in the past. I do not recommend any further neurological recommendation unless the patient develops any new symptoms, recurrent symptoms , or focal neurological deficits such as focal objective weakness or paresthesias. I advised the patient to come back to the ED if she develops any of these symptoms or worsening of her headache. I encouraged her to take magnesium supplementation, 400 mg of magnesium oxide on a daily basis to minimize or reduce the frequency of her headaches. The patient verbalized understanding. The patient would like to go home and not be further hospitalized once her pain is under control. I discussed this with Dr. Jiménez who agreed with the plan. [id number]/[facility] #: [id number] [facility]
[2019-10-09 18:24] VITALS: BP 107/90
== END 2019-10-09 18:24 | disposition home or self-care (01) ==
LOC: ED 15:09
DX: M54.5 Low back pain (principal); R20.2 Paresthesia of skin; F41.9 Anxiety disorder, unspecified; F43.10 Post-traumatic stress disorder, unspecified; F31.9 Bipolar disorder, unspecified; M79.7 Fibromyalgia; J44.9 Chronic obstructive pulmonary disease, unspecified; E78.00 Pure hypercholesterolemia, unspecified; K21.9 Gastro-esophageal reflux disease without esophagitis; F17.210 Nicotine dependence, cigarettes, uncomplicated; Z79.899 Other long term (current) drug therapy; Z88.1 Allergy status to other antibiotic agents; Z88.8 Allergy status to other drugs, medicaments and biological substances
CPT/HCPCS: 36415; 70450; 71045; 72110; 80053; 80061; 82607; 83605; 84443; 84484; 85025; 85610; 85730; 93005; 96361; 96374; 96375; 99284; J1885; J2360

== ENCOUNTER 2020-02-11 20:43 | Inpatient (IN) ==
[2020-02-11 21:38] LABS: Urine Appearance Clear; Urine Bilirubin Negative (Negative); Urine Blood Negative (Negative); Urine Color Straw; Urine Glucose Negative (Negative); Urine Ketones Negative (Negative); Urine Nitrite Negative (Negative); Urine Protein Negative (Negative); Urine Specific Gravity 1.003 (1.010-1.030); Urine Urobilinogen Negative (Negative)
[2020-02-11 21:53] LABS: Urine Benzodiazepine Screen None Detected (None Detect); Urine Cannabinoids Screen None Detected (None Detect); Urine Opiates Screen None Detected (None Detect)
[2020-02-11 21:57] LABS: ABS Basophils 0.1 10^3/ul (0-0.2); ABS Eosinophils 0.1 10^3/ul (0-0.6); ABS Lymphocytes 2.4 10^3/ul (1.0-4.8); ABS Monocytes 0.8 10^3/ul (0-0.8); ABS Neutrophils 8.7 10^3/ul (1.5-7.7); Eosinophil % 0.8 %; Hematocrit 44 % (35-47); Hemoglobin 15.4 g/dL (12.0-16.0); Lymphocyte % 19.8 %; Mean Corpuscular HGB Conc 35 g/dL (31-36); Mean Corpuscular Hemoglobin 30 pg (27-31); Mean Corpuscular Volume 87 fL (80-97); Mean Platelet Volume 9.4 fL (7.4-10.4); Nucleated Red Blood Cells % 0.1; Platelet Count 183 10^3/uL (150-450); Red Blood Count 5.11 10^6 /uL (3.70-4.87); Red Cell Distribution Width 14 % (10-15); White Blood Count 12.2 10^3/uL (3.5-10.8)
[2020-02-11 22:20] LABS: ALT 13 U/L (7-52); Albumin/Globulin Ratio 1.7 (1-3); Alkaline Phosphatase 110 U/L (34-104); BUN/Creatinine Ratio 13.8 (8-20); Blood Urea Nitrogen 15 mg/dL (6-24); CO2 Carbon Dioxide 25 mmol/L (22-32); Calcium 8.6 mg/dL (8.6-10.3); Chloride 104 mmol/L (101-111); EGFR African American 66.3 (>60); EGFR Non-African American 54.8 (>60); Globulin 2.4 g/dL (2-4); Glucose 103 mg/dL (70-100); Sodium 139 mmol/L (135-145); Total Protein 6.4 g/dL (6.4-8.9)
[2020-02-11 22:27] LABS: HCG Pregnancy 0.72 mIU/mL
[2020-02-11 22:33] LABS: Anion Gap 10 mmol/L (2-11)
[2020-02-11 22:37] LABS: Acetaminophen < 15 mcg/mL; Alcohol, S 23 mg/dL (<10); Salicylate < 2.50 mg/dL (<30)
[2020-02-11 22:53] LABS: TSH Ultra Thyroid Stim Horm 2.54 mcIU/mL (0.34-5.60)
[2020-02-11] MEDS ORDERED: Omeprazole 20 mg CAP (NF) PO ONE (23:17)
[2020-02-12] MEDS ORDERED: Al Hydrox/Mg Hydrox/Simet LIQ 30 ML UDC PO PRN (04:18)
[2020-02-12] MEDS ORDERED: Nicotine GUM 2MG FRUIT FLAVOR PO PRN (05:00)
[2020-02-12] MEDS: Nicotine PATCH 21 MG/24 HR PATCH TRANSDERM SCH (10:38)
[2020-02-12] MEDS: Vitamin THERAPEUTIC TAB PO SCH (10:40)
[2020-02-12] MEDS ORDERED: CMCS:Meloxicam 7.5 mg TAB (NF) PO PRN (12:37)
[2020-02-12] MEDS: SPIRIVA Respimat (tiotropium) 2.5 mcg/inh Inhaler INH SCH (12:50)
[2020-02-12] MEDS: Albuterol HFA INHALER 8 gm MDI INH PRN (17:42)
[2020-02-12] MEDS ORDERED: BREXPIPRAZOLE 3 MG PO SCH (18:00)
[2020-02-12] MEDS ORDERED: Albuterol/Ipratropium NEB.SOL (2.5/0.5 MG) 3 ML NEB.SOLN INH PRN (22:10)
[2020-02-13 08:45] LABS: HDL Cholesterol 42.5 mg/dL
[2020-02-13] MEDS: SPIRIVA Respimat (tiotropium) 2.5 mcg/inh Inhaler INH SCH (08:47)
[2020-02-13] MEDS: Vitamin THERAPEUTIC TAB PO SCH (08:48)
[2020-02-13] MEDS: Nicotine PATCH 21 MG/24 HR PATCH TRANSDERM SCH (08:49)
[2020-02-13 10:10] VITALS: BP 118/67
[2020-02-13] MEDS: Albuterol HFA INHALER 8 gm MDI INH PRN (14:01)
== END 2020-02-13 16:15 | disposition home or self-care (01) | DRG 753 ==
LOC: ED 20:43 → BSU 02-12 02:29
PROVIDERS: ADMIT Psychiatry & Neurology Psychiatry; ATTEND Psychiatry & Neurology Psychiatry

== ENCOUNTER 2020-02-25 21:18 | Inpatient (IN) ==
[2020-02-25 22:46] LABS: Urine Appearance Clear; Urine Bilirubin Negative (Negative); Urine Blood Negative (Negative); Urine Color Yellow; Urine Glucose Negative (Negative); Urine Ketones Negative (Negative); Urine Nitrite Negative (Negative); Urine Protein Negative (Negative); Urine Specific Gravity 1.006 (1.010-1.030); Urine Urobilinogen Negative (Negative)
[2020-02-25 23:04] LABS: ABS Basophils 0.1 10^3/ul (0-0.2); ABS Lymphocytes 2.1 10^3/ul (1.0-4.8); ABS Monocytes 0.5 10^3/ul (0-0.8); ABS Neutrophils 6.9 10^3/ul (1.5-7.7); Eosinophil % 0.4 %; Hematocrit 44 % (35-47); Hemoglobin 15.1 g/dL (12.0-16.0); Lymphocyte % 22.1 %; Mean Corpuscular HGB Conc 34 g/dL (31-36); Mean Corpuscular Hemoglobin 29 pg (27-31); Mean Corpuscular Volume 86 fL (80-97); Mean Platelet Volume 9.6 fL (7.4-10.4); Nucleated Red Blood Cells % 0.1; Platelet Count 172 10^3/uL (150-450); Red Blood Count 5.14 10^6 /uL (3.70-4.87); Red Cell Distribution Width 14 % (10-15); White Blood Count 9.7 10^3/uL (3.5-10.8)
[2020-02-25 23:08] LABS: Urine Benzodiazepine Screen None Detected (None Detect); Urine Cannabinoids Screen None Detected (None Detect); Urine Opiates Screen None Detected (None Detect)
[2020-02-25 23:24] LABS: ALT 21 U/L (7-52); AST 16 U/L (13-39); Albumin 4.1 g/dL (3.2-5.2); Albumin/Globulin Ratio 1.6 (1-3); Alkaline Phosphatase 102 U/L (34-104); Anion Gap 6 mmol/L (2-11); BUN/Creatinine Ratio 11.7 (8-20); Blood Urea Nitrogen 13 mg/dL (6-24); CO2 Carbon Dioxide 28 mmol/L (22-32); Calcium 9.2 mg/dL (8.6-10.3); Chloride 106 mmol/L (101-111); EGFR African American 64.9 (>60); EGFR Non-African American 53.6 (>60); Globulin 2.6 g/dL (2-4); Glucose 99 mg/dL (70-100); Potassium 3.7 mmol/L (3.5-5.0); Sodium 140 mmol/L (135-145); Total Protein 6.7 g/dL (6.4-8.9)
[2020-02-25 23:30] LABS: HCG Pregnancy 2.12 mIU/mL
[2020-02-25 23:40] LABS: Acetaminophen < 15 mcg/mL; Alcohol, S < 10 mg/dL (<10); Salicylate < 2.50 mg/dL (<30)
[2020-02-25 23:55] LABS: TSH (Thyroid Stimulating Horm) 3.88 mcIU/mL (0.34-5.60)
[2020-02-26] MEDS ORDERED: Al Hydrox/Mg Hydrox/Simet LIQ 30 ML UDC PO PRN (06:13)
[2020-02-26] MEDS ORDERED: Nicotine GUM 2MG FRUIT FLAVOR PO PRN (07:00)
[2020-02-26] MEDS: Vitamin THERAPEUTIC TAB PO SCH (08:39)
[2020-02-26] MEDS: Nicotine PATCH 21 MG/24 HR PATCH TRANSDERM SCH (08:39)
[2020-02-26] MEDS ORDERED: Albuterol HFA INHALER 8 gm MDI INH PRN (14:59)
[2020-02-26] MEDS ORDERED: BREXPIPRAZOLE 3 MG PO SCH (18:00)
[2020-02-26] MEDS: CMCS: Meloxicam 7.5 mg TAB (NF) PO SCH (20:45)
[2020-02-26] MEDS: [UNRECOGNIZED DRUG - OTHER] PO SCH (21:31)
[2020-02-27] MEDS: Nicotine PATCH 21 MG/24 HR PATCH TRANSDERM SCH (08:41)
[2020-02-27] MEDS: CMCS: Meloxicam 7.5 mg TAB (NF) PO SCH ×2 (08:41→20:47)
[2020-02-27] MEDS: Vitamin THERAPEUTIC TAB PO SCH (08:41)
[2020-02-27] MEDS: SPIRIVA Respimat (tiotropium) 2.5 mcg/inh Inhaler INH SCH (08:42)
[2020-02-27] MEDS: Nicotine Lozenge mini 4 MG LOZNG.MINI MT PRN (08:43)
[2020-02-27] MEDS: [UNRECOGNIZED DRUG - OTHER] PO SCH (20:48)
[2020-02-28] MEDS: CMCS: Meloxicam 7.5 mg TAB (NF) PO SCH ×2 (08:29→21:06)
[2020-02-28] MEDS: Vitamin THERAPEUTIC TAB PO SCH (08:30)
[2020-02-28] MEDS: Nicotine Lozenge mini 4 MG LOZNG.MINI MT PRN (08:34)
[2020-02-28] MEDS: SPIRIVA Respimat (tiotropium) 2.5 mcg/inh Inhaler INH SCH (08:42)
[2020-02-28] MEDS: Nicotine PATCH 21 MG/24 HR PATCH TRANSDERM SCH (08:43)
[2020-02-28] MEDS: [UNRECOGNIZED DRUG - OTHER] PO SCH (21:05)
[2020-02-29] MEDS: CMCS: Meloxicam 7.5 mg TAB (NF) PO SCH ×2 (10:16→21:24)
[2020-02-29] MEDS: Vitamin THERAPEUTIC TAB PO SCH (10:16)
[2020-02-29] MEDS: Nicotine PATCH 21 MG/24 HR PATCH TRANSDERM SCH (10:16)
[2020-02-29] MEDS: SPIRIVA Respimat (tiotropium) 2.5 mcg/inh Inhaler INH SCH (10:26)
[2020-02-29] MEDS: [UNRECOGNIZED DRUG - OTHER] PO SCH (21:25)
[2020-03-01] MEDS: Vitamin THERAPEUTIC TAB PO SCH (08:27)
[2020-03-01] MEDS: CMCS: Meloxicam 7.5 mg TAB (NF) PO SCH ×2 (08:27→20:21)
[2020-03-01] MEDS: SPIRIVA Respimat (tiotropium) 2.5 mcg/inh Inhaler INH SCH (08:28)
[2020-03-01] MEDS: Nicotine PATCH 21 MG/24 HR PATCH TRANSDERM SCH (08:28)
[2020-03-01] MEDS: [UNRECOGNIZED DRUG - OTHER] PO SCH (20:20)
[2020-03-02] MEDS: Nicotine PATCH 21 MG/24 HR PATCH TRANSDERM SCH (07:48)
[2020-03-02] MEDS: CMCS: Meloxicam 7.5 mg TAB (NF) PO SCH (07:48)
[2020-03-02] MEDS: Vitamin THERAPEUTIC TAB PO SCH (07:49)
[2020-03-02] MEDS: SPIRIVA Respimat (tiotropium) 2.5 mcg/inh Inhaler INH SCH (07:50)
[2020-03-02 08:45] VITALS: BP 112/58
== END 2020-03-02 12:15 | disposition home or self-care (01) | DRG 753 ==
LOC: ED 21:18 → BSU 02-26 03:53
PROVIDERS: ADMIT Psychiatry & Neurology Psychiatry; ATTEND Psychiatry & Neurology Psychiatry

== ENCOUNTER 2020-08-03 19:14 | Inpatient (IN) ==
[2020-08-03 20:24] LABS: ABS Basophils 0.1 10^3/ul (0-0.2); ABS Eosinophils 0.1 10^3/ul (0-0.6); ABS Monocytes 0.6 10^3/ul (0-0.8); ABS Neutrophils 5.4 10^3/ul (1.5-7.7); Eosinophil % 1.2 %; Hematocrit 47 % (35-47); Hemoglobin 15.9 g/dL (12.0-16.0); Lymphocyte % 24.4 %; Mean Corpuscular HGB Conc 34 g/dL (31-36); Mean Corpuscular Hemoglobin 29 pg (27-31); Mean Corpuscular Volume 87 fL (80-97); Mean Platelet Volume 9.6 fL (7.4-10.4); Platelet Count 153 10^3/uL (150-450); Red Blood Count 5.44 10^6 /uL (3.70-4.87); Red Cell Distribution Width 15 % (10-15); White Blood Count 8.1 10^3/uL (3.5-10.8)
[2020-08-03 20:41] LABS: ALT 17 U/L (7-52); AST 16 U/L (13-39); Acetaminophen < 15 mcg/mL; Albumin 4.1 g/dL (3.2-5.2); Albumin/Globulin Ratio 1.5 (1-3); Alcohol, S < 10 mg/dL (<10); Alkaline Phosphatase 117 U/L (34-104); Anion Gap 7 mmol/L (2-11); BUN/Creatinine Ratio 9.6 (8-20); Blood Urea Nitrogen 13 mg/dL (6-24); CO2 Carbon Dioxide 26 mmol/L (22-32); Calcium 9.1 mg/dL (8.6-10.3); Chloride 105 mmol/L (101-111); EGFR African American 51.8 (>60); EGFR Non-African American 42.8 (>60); Globulin 2.8 g/dL (2-4); Glucose 110 mg/dL (70-100); Potassium 4.1 mmol/L (3.5-5.0); Salicylate < 2.50 mg/dL (<30); Sodium 138 mmol/L (135-145); Total Protein 6.9 g/dL (6.4-8.9)
[2020-08-03 20:57] LABS: TSH Ultra Thyroid Stim Horm 4.35 mcIU/mL (0.34-5.60)
[2020-08-03 22:17] LABS: Urine Appearance Cloudy; Urine Bilirubin 1+ (Negative); Urine Blood Negative (Negative); Urine Color Amber; Urine Glucose Negative (Negative); Urine Ketones Negative (Negative); Urine Nitrite Negative (Negative); Urine Protein 1+(30 mg/dL) (Negative); Urine Specific Gravity 1.026 (1.010-1.030); Urine Urobilinogen Negative (Negative)
[2020-08-03 22:30] LABS: Urine Bacteria Absent (Absent); Urine Red Blood Cell Absent (Absent); Urine Squamous Epithelial Cell Present (Absent); Urine White Blood Cell 1+(6-10/hpf) (Absent)
[2020-08-03 22:33] LABS: Urine Benzodiazepine Screen Presumptive Positive (None Detect); Urine Cannabinoids Screen None Detected (None Detect); Urine Opiates Screen None Detected (None Detect)
[2020-08-04] MEDS ORDERED: Al Hydrox/Mg Hydrox/Simet LIQ 30 ML UDC PO PRN (03:34)
[2020-08-04] MEDS ORDERED: Nicotine GUM 2MG FRUIT FLAVOR PO PRN (04:00)
[2020-08-04] MEDS: Vitamin THERAPEUTIC TAB PO SCH (09:11)
[2020-08-04] MEDS: Nicotine PATCH 14 MG/24 HR PATCH TRANSDERM SCH (09:11)
[2020-08-05 07:19] LABS: HDL Cholesterol 34.6 mg/dL
[2020-08-05] MEDS: Vitamin THERAPEUTIC TAB PO SCH (08:49)
[2020-08-05] MEDS: Nicotine PATCH 14 MG/24 HR PATCH TRANSDERM SCH (08:50)
[2020-08-05] MEDS: Ketorolac 10 mg TAB (NF) PO PRN (15:32)
[2020-08-06] MEDS: Vitamin THERAPEUTIC TAB PO SCH (08:58)
[2020-08-06] MEDS: Nicotine PATCH 14 MG/24 HR PATCH TRANSDERM SCH (08:58)
[2020-08-06] MEDS ORDERED: Albuterol HFA INHALER 8 gm MDI INH PRN (11:50)
[2020-08-06] MEDS: Ketorolac 10 mg TAB (NF) PO PRN (20:01)
[2020-08-06 20:24] VITALS: BP 116/71
[2020-08-07] MEDS: Vitamin THERAPEUTIC TAB PO SCH (08:20)
[2020-08-07] MEDS: Nicotine PATCH 14 MG/24 HR PATCH TRANSDERM SCH (08:54)
== END 2020-08-07 11:09 | disposition home or self-care (01) | DRG 755 ==
LOC: ED 19:14 → BSU 08-04 01:33
PROVIDERS: ADMIT Psychiatry & Neurology Psychiatry; ATTEND Psychiatry & Neurology Psychiatry